=== PATIENT | female | born 1945 | race Caucasian/White ===

== ENCOUNTER → 2017-12-09 11:49 | Outpatient (CLI) | payer MEDICARE, OTHER, SELFPAY ==
[2017-12-09 15:50] LABS: Absolute Lymphocyte Count 0.29 X10^3/ul (0.83-4.51); Basophil# 0.02 X10^3/uL; Basophil% 0.5 % (0-1); Eosinophil# 0.07 X10^3/uL; Eosinophils% 1.9 % (0-5); Hemoglobin 9.7 g/dl (12.0-15.0); Lymphocyte # 0.29 X10^3/ul (4.0); Lymphocyte % 7.9 % (19-41); Mean Corp Hgb Conc 32.3 g/gl (32-36); Mean Corpuscular Hgb 31.8 pg (27.0-32.0); Mean Corpuscular Volume 98.4 fL (81-99); Mean Platelet Vol. 10.2 fl (6.2-12.0); Monocyte# 0.29 X10^3/uL; Monocyte% 7.9 % (0-10); Neutrophil % 81.5 % (47-70); Platelet Count 166 K/mm3 (150-450); RBC Distribution Width CV 15.9 % (11.6-14.6); RBC Distribution Width SD 55.4 fl (35.1-43.9); Red Blood Count 3.05 M/mm3 (4.2-5.4); White Blood Count 3.7 K/mm3 (4.4-11.0)
[2017-12-09 15:54] LABS: ALB/GLOB Ratio 0.8 RATIO (0.9-2.4); AST(SGOT) 39 U/L (15-37); Alanine Aminotransfer ALT/SGPT 30 U/L (13-56); Albumin, Serum 2.5 g/dL (3.2-5.0); Alkaline Phosphatase 126 U/L (45-117); Anion Gap 10 (5-15); BUN 29 mg/dL (7-18); BUN/Creat Ratio 33.8 RATIO (10-20); Calcium,Total 8.2 mg/dL (8.5-10.1); Chloride 103 mmol/L (98-107); Creatinine, Serum 0.86 mg/dL (0.55-1.02); EST Glomerular Filtration Rate 69 mL/min (>60); Est Glom Filt Rate - Afr Amer 84 mL/min (>60); Glucose 74 mg/dL (74-106); Lipase 408 U/L (73-393); Potassium 4.2 mmol/L (3.5-5.1); Protein, Total 5.5 g/dL (6.4-8.2); Sodium Level 137 mmol/L (136-145)
[2017-12-09 16:36] LABS: Differential Indicated SCAN CRITERIA MET; POSITIVE COUNT NO; POSITIVE DIFFERENTIAL YES; POSITIVE MORPHOLOGY NO
[2017-12-09 17:35] LABS: Platelet Estimate ADEQUATE (ADEQ)
[2017-12-09 17:36] LABS: Acanthocytes RARE; Anisocytosis RARE; Macrocytosis RARE
[2017-12-09 17:38] LABS: Erythrocyte Sedimentation Rate 7 mm/hr (0-30)
== END ==
PROVIDERS: Family Provider Family Medicine; PCP Family Medicine; Visit Provider Family Medicine
DX: K85.90 Acute pancreatitis without necrosis or infection, unspecified (principal)
CPT/HCPCS: 36415; 80053; 83690; 85025; 85652

== ENCOUNTER → 2018-01-09 11:49 | Outpatient (CLI) | payer MEDICARE, OTHER, SELFPAY ==
[2018-01-09 16:13] LABS: ALB/GLOB Ratio 0.7 RATIO (0.9-2.4); AST(SGOT) 35 U/L (15-37); Alanine Aminotransfer ALT/SGPT 32 U/L (13-56); Albumin, Serum 2.4 g/dL (3.2-5.0); Alkaline Phosphatase 125 U/L (45-117); Anion Gap 10 (5-15); BUN 26 mg/dL (7-18); BUN/Creat Ratio 27.4 RATIO (10-20); Calcium,Total 8.3 mg/dL (8.5-10.1); Chloride 102 mmol/L (98-107); Creatinine, Serum 0.95 mg/dL (0.55-1.02); EST Glomerular Filtration Rate 62 mL/min (>60); Est Glom Filt Rate - Afr Amer 75 mL/min (>60); Globulin 3.3 g/dL (2.2-4.2); Glucose 101 mg/dL (74-106); Potassium 3.7 mmol/L (3.5-5.1); Protein, Total 5.7 g/dL (6.4-8.2); Sodium Level 135 mmol/L (136-145)
== END ==
PROVIDERS: Family Provider Family Medicine; PCP Family Medicine; Visit Provider Family Medicine
DX: E03.9 Hypothyroidism, unspecified (principal); M79.89 Other specified soft tissue disorders
CPT/HCPCS: 36415; 80053; 84443

== ENCOUNTER → 2018-04-16 12:22 | Outpatient (CLI) | payer MEDICARE, OTHER, SELFPAY ==
[2018-04-16 14:41] LABS: Absolute Lymphocyte Count 0.33 X10^3/ul (0.83-4.51); Absolute Neutrophil Count 3.6 X10^3/uL (2.0-7.7); Basophil# 0.01 X10^3/uL; Basophil% 0.2 % (0-1); Eosinophil# 0.06 X10^3/uL; Eosinophils% 1.4 % (0-5); Hemoglobin 9.9 g/dl (12.0-15.0); Lymphocyte # 0.33 X10^3/ul (4.0); Lymphocyte % 7.7 % (19-41); Mean Corpuscular Hgb 31.5 pg (27.0-32.0); Mean Corpuscular Volume 95.5 fL (81-99); Mean Platelet Vol. 8.9 fl (6.2-12.0); Monocyte# 0.28 X10^3/uL; Monocyte% 6.6 % (0-10); Neutrophil # 3.59 X10^3/uL (2.7-7.7); Neutrophil % 84.1 % (47-70); Platelet Count 221 K/mm3 (150-450); RBC Distribution Width CV 13.1 % (11.6-14.6); RBC Distribution Width SD 43.9 fl (35.1-43.9); Red Blood Count 3.14 M/mm3 (4.2-5.4); White Blood Count 4.3 K/mm3 (4.4-11.0)
[2018-04-16 14:42] LABS: Differential Indicated SCAN CRITERIA MET; POSITIVE COUNT NO; POSITIVE DIFFERENTIAL YES; POSITIVE MORPHOLOGY NO
[2018-04-16 14:59] LABS: ALB/GLOB Ratio 0.8 RATIO (0.9-2.4); AST(SGOT) 36 U/L (15-37); Alanine Aminotransfer ALT/SGPT 26 U/L (13-56); Albumin, Serum 2.3 g/dL (3.2-5.0); Alkaline Phosphatase 84 U/L (45-117); Anion Gap 11 (5-15); BUN 40 mg/dL (7-18); BUN/Creat Ratio 46.4 RATIO (10-20); Chloride 100 mmol/L (98-107); Creatinine, Serum 0.86 mg/dL (0.55-1.02); EST Glomerular Filtration Rate 69 mL/min (>60); Est Glom Filt Rate - Afr Amer 83 mL/min (>60); Globulin 2.9 g/dL (2.2-4.2); Glucose 93 mg/dL (74-106); Lipase 411 U/L (73-393); Potassium 4.5 mmol/L (3.5-5.1); Protein, Total 5.2 g/dL (6.4-8.2); Sodium Level 135 mmol/L (136-145); Thyroid Stim Hormone (TSH) 4.43 uIU/mL (0.358-3.74)
== END ==
PROVIDERS: Family Provider Family Medicine; PCP Family Medicine; Visit Provider Family Medicine
DX: M79.89 Other specified soft tissue disorders (principal); K85.90 Acute pancreatitis without necrosis or infection, unspecified
CPT/HCPCS: 36415; 80053; 83690; 84443; 85025

== ENCOUNTER → 2018-04-24 12:21 | Outpatient (CLI) | payer MEDICARE, OTHER, SELFPAY ==
[2018-04-24 14:19] LABS: Albumin, Serum 2.2 g/dL (3.2-5.0); BUN 41 mg/dL (7-18); BUN/Creat Ratio 50.5 RATIO (10-20); Calcium,Total 8.1 mg/dL (8.5-10.1); Chloride 103 mmol/L (98-107); Creatinine, Serum 0.81 mg/dL (0.55-1.02); EST Glomerular Filtration Rate 74 mL/min (>60); Est Glom Filt Rate - Afr Amer 89 mL/min (>60); Ferritin 910 ng/mL (8-252); Glucose 100 mg/dL (74-106); Iron 42 ug/dL (50-170); Phosphorus 3.5 mg/dL (2.5-4.9); Potassium 4.6 mmol/L (3.5-5.1); Sodium Level 135 mmol/L (136-145)
== END ==
PROVIDERS: Family Provider Family Medicine; PCP Family Medicine; Visit Provider Family Medicine
DX: D64.9 Anemia, unspecified (principal); M79.89 Other specified soft tissue disorders
CPT/HCPCS: 36415; 80069; 82728; 83540

== ENCOUNTER → 2018-05-04 13:37 | Outpatient (CLI) | payer MEDICARE, OTHER, SELFPAY ==
--- NOTE | 2018-05-04 13:38 | ECHOD_ITS ---
Reason For Study: CHF Procedure This was a 2D Doppler, Color Flow transthoracic echocardiogram. The exam was of adequate technical quality. Exam performed in department. Left Ventricle Normal LV size. Segmental dysfunction with preserved ejection fraction (see wall motion). The estimated ejection fraction is 55 %. Normal diastology for age. Infero-Basal: Hypokinetic. Mid- Posterior: Hypokinetic. Mid-Inferior: Hypokinetic. Mid-inferoseptal : Hypokinetic. Right Ventricle Normal RV size. Normal systolic function. Atria Normal left atrium. Normal right atrium. No doppler evidence for ASD. Mitral Valve There is no mitral annular calcification. Normal mitral valve. Mild (1+) mitral valve insufficiency. Tricuspid Valve Normal tricuspid valve. Mild (1+) eccentric tricuspid valve insufficiency. Right ventricular systolic pressure estimated to be 32 mmHg. Aortic Valve Trisinus/trileaflet aortic valve. Normal aortic valve. Trivial aortic valve insufficiency. Pulmonic Valve The pulmonic valve is not well visualized. Trivial pulmonic valve insufficiency. Great Vessels Normal sized aortic root. Pericardium/Pleural Trivial pericardial effusion. There are no echocardiographic indications of cardiac tamponade. MMode/2D Measurements & Calculations LVIDd: 4.3 cm IVSd: 0.97 cm Ao root diam: 3.5 cm LVIDs: 3.2 cm LVPWd: 1.0 cm LA dimension: 3.5 cm RVDd: 2.7 cm FS: 25.6 % LAV(MOD-bp): 33.6 ml LA A4 area: 11.6 cm2 RA A4 area: 11.1 cm2 LAV(MOD-bp) Indexed: 20.8 ml/m2 LAV(MOD-sp2): 41.9 ml LAV(MOD-sp4): 25.6 ml Doppler Measurements & Calculations MV E max luis: 46.2 cm/sec Lat Peak E' Luis: 3.6 cm/sec Med Peak E' Luis: 4.3 cm/sec MV A max luis: 85.1 cm/sec E/E' lat: 12.8 E/E' med: 10.9 MV E/A: 0.54 Ao V2 max: 119.6 cm/sec LV V1 max: 71.8 cm/sec PA V2 max: 83.7 cm/sec Ao max P.7 mmHg LV V1 max P.1 mmHg TR max luis: 267.5 cm/sec TR max P.9 mmHg Interpretation Summary Segmental dysfunction with preserved ejection fraction (see wall motion). The estimated ejection fraction is 55 %. Mild (1+) mitral valve insufficiency. Mild (1+) eccentric tricuspid valve insufficiency. Trivial aortic valve insufficiency. Trivial pulmonic valve insufficiency. Trivial pericardial effusion. There are no echocardiographic indications of cardiac tamponade. Right ventricular systolic pressure estimated to be 32 mmHg. Normal diastology for age. Ordering Physician: Suhas Ferrell Referring Physician: Leighton Sun Performed By: Jaja Rendon, ALYSSA, RVT
== END ==
PROVIDERS: Family Provider Family Medicine; PCP Family Medicine; Visit Provider Internal Medicine Cardiovascular Disease
DX: I25.5 Ischemic cardiomyopathy (principal); I50.9 Heart failure, unspecified; D64.9 Anemia, unspecified
CPT/HCPCS: 36415; 80053; 82728; 83540; 83550; 85025; 93306

== ENCOUNTER → 2018-05-18 12:05 | Outpatient (CLI) | payer MEDICARE, OTHER, SELFPAY ==
[2018-05-18 12:53] LABS: Absolute Lymphocyte Count 0.56 X10^3/ul (0.83-4.51); Absolute Neutrophil Count 4.8 X10^3/uL (2.0-7.7); Basophil# 0.03 X10^3/uL; Basophil% 0.5 % (0-1); Eosinophil# 0.29 X10^3/uL; Eosinophils% 4.6 % (0-5); Hematocrit 32.3 % (37-47); Hemoglobin 10.5 g/dl (12.0-15.0); Lymphocyte # 0.56 X10^3/ul (4.0); Lymphocyte % 8.9 % (19-41); Mean Corp Hgb Conc 32.5 g/gl (32-36); Mean Corpuscular Hgb 31.7 pg (27.0-32.0); Mean Corpuscular Volume 97.6 fL (81-99); Mean Platelet Vol. 9.2 fl (6.2-12.0); Monocyte# 0.66 X10^3/uL; Monocyte% 10.4 % (0-10); Neutrophil # 4.76 X10^3/uL (2.7-7.7); Neutrophil % 75.3 % (47-70); Platelet Count 247 K/mm3 (150-450); RBC Distribution Width CV 13.5 % (11.6-14.6); RBC Distribution Width SD 45.9 fl (35.1-43.9); Red Blood Count 3.31 M/mm3 (4.2-5.4); White Blood Count 6.3 K/mm3 (4.4-11.0)
[2018-05-18 12:54] LABS: Differential Indicated SCAN CRITERIA MET; POSITIVE COUNT NO; POSITIVE DIFFERENTIAL YES; POSITIVE MORPHOLOGY NO
[2018-05-18 13:13] LABS: Differential Comment SCANNED
[2018-05-18 13:27] LABS: ALB/GLOB Ratio 0.7 RATIO (0.9-2.4); AST(SGOT) 28 U/L (15-37); Alanine Aminotransfer ALT/SGPT 30 U/L (13-56); Albumin, Serum 2.9 g/dL (3.2-5.0); Alkaline Phosphatase 96 U/L (45-117); Anion Gap 14 (5-15); BUN 35 mg/dL (7-18); BUN/Creat Ratio 39.5 RATIO (10-20); Calcium,Total 8.9 mg/dL (8.5-10.1); Chloride 99 mmol/L (98-107); Creatinine, Serum 0.89 mg/dL (0.55-1.02); EST Glomerular Filtration Rate 67 mL/min (>60); Est Glom Filt Rate - Afr Amer 81 mL/min (>60); Globulin 3.9 g/dL (2.2-4.2); Glucose 83 mg/dL (74-106); Lipase 687 U/L (73-393); Magnesium 2.2 mg/dL (1.6-2.6); Potassium 4.3 mmol/L (3.5-5.1); Protein, Total 6.8 g/dL (6.4-8.2); Sodium Level 136 mmol/L (136-145); Thyroid Stim Hormone (TSH) 3.65 uIU/mL (0.358-3.74)
[2018-05-18 13:56] LABS: Creatinine, Urine (random) < 13.00 mg/dL (NO RANGE EST.)
== END ==
PROVIDERS: Family Provider Family Medicine; PCP Family Medicine; Visit Provider Family Medicine
DX: K85.90 Acute pancreatitis without necrosis or infection, unspecified (principal); M79.89 Other specified soft tissue disorders
CPT/HCPCS: 36415; 80053; 82043; 82570; 83690; 83735; 84443; 85025

== ENCOUNTER → 2018-07-24 11:27 | Outpatient (CLI) | payer MEDICARE, OTHER, SELFPAY ==
[2018-07-24 18:11] LABS: Absolute Lymphocyte Count 0.51 X10^3/ul (0.83-4.51); Absolute Neutrophil Count 4.2 X10^3/uL (2.0-7.7); Basophil# 0.02 X10^3/uL; Basophil% 0.4 % (0-1); Eosinophil# 0.11 X10^3/uL; Hematocrit 39.3 % (37-47); Hemoglobin 12.7 g/dl (12.0-15.0); Lymphocyte # 0.51 X10^3/ul (4.0); Lymphocyte % 9.4 % (19-41); Mean Corp Hgb Conc 32.3 g/gl (32-36); Mean Corpuscular Hgb 31.7 pg (27.0-32.0); Mean Platelet Vol. 9.5 fl (6.2-12.0); Monocyte# 0.58 X10^3/uL; Monocyte% 10.7 % (0-10); Neutrophil % 77.3 % (47-70); Platelet Count 186 K/mm3 (150-450); RBC Distribution Width CV 13.4 % (11.6-14.6); RBC Distribution Width SD 48.2 fl (35.1-43.9); Red Blood Count 4.01 M/mm3 (4.2-5.4); White Blood Count 5.4 K/mm3 (4.4-11.0)
[2018-07-24 18:53] LABS: Differential Indicated SCAN CRITERIA MET; POSITIVE COUNT NO; POSITIVE DIFFERENTIAL YES; POSITIVE MORPHOLOGY NO
[2018-07-24 18:55] LABS: Anisocytosis RARE; Macrocytosis RARE; Platelet Estimate ADEQUATE (ADEQ)
[2018-07-24 19:05] LABS: ALB/GLOB Ratio 0.9 RATIO (0.9-2.4); AST(SGOT) 43 U/L (15-37); Alanine Aminotransfer ALT/SGPT 44 U/L (13-56); Albumin, Serum 3.5 g/dL (3.2-5.0); Alkaline Phosphatase 90 U/L (45-117); Anion Gap 8 (5-15); BUN 42 mg/dL (7-18); BUN/Creat Ratio 28.4 RATIO (10-20); Calcium,Total 9.3 mg/dL (8.5-10.1); Chloride 96 mmol/L (98-107); Cholesterol 130 mg/dL (200); Creatinine, Serum 1.48 mg/dL (0.55-1.02); EST Glomerular Filtration Rate 37 mL/min (>60); Est Glom Filt Rate - Afr Amer 45 mL/min (>60); Globulin 3.7 g/dL (2.2-4.2); Glucose 83 mg/dL (74-106); High Density Lipoprotein 43 mg/dL; Lipase 552 U/L (73-393); Potassium 4.4 mmol/L (3.5-5.1); Protein, Total 7.2 g/dL (6.4-8.2); Sodium Level 135 mmol/L (136-145); Thyroid Stim Hormone (TSH) 3.32 uIU/mL (0.358-3.74)
== END ==
PROVIDERS: Family Provider Family Medicine; PCP Family Medicine; Visit Provider Family Medicine
DX: K85.90 Acute pancreatitis without necrosis or infection, unspecified (principal); E03.9 Hypothyroidism, unspecified; I25.10 Atherosclerotic heart disease of native coronary artery without angina pectoris
CPT/HCPCS: 36415; 80053; 82465; 83690; 83718; 84443; 85025

== ENCOUNTER → 2018-10-21 15:42 | Outpatient (CLI) | payer MEDICARE, OTHER, SELFPAY ==
[2018-10-21 17:50] LABS: Absolute Lymphocyte Count 0.34 X10^3/ul (0.83-4.51); Absolute Neutrophil Count 3.4 X10^3/uL (2.0-7.7); Basophil# 0.02 X10^3/uL; Basophil% 0.4 % (0-1); Eosinophil# 0.06 X10^3/uL; Eosinophils% 1.3 % (0-5); Hematocrit 37.8 % (37-47); Hemoglobin 12.2 g/dl (12.0-15.0); Lymphocyte # 0.34 X10^3/ul (4.0); Lymphocyte % 7.6 % (19-41); Mean Corp Hgb Conc 32.3 g/gl (32-36); Mean Corpuscular Hgb 30.7 pg (27.0-32.0); Mean Corpuscular Volume 95.2 fL (81-99); Mean Platelet Vol. 9.7 fl (6.2-12.0); Monocyte# 0.62 X10^3/uL; Monocyte% 13.9 % (0-10); Neutrophil % 76.6 % (47-70); Platelet Count 180 K/mm3 (150-450); RBC Distribution Width CV 13.3 % (11.6-14.6); RBC Distribution Width SD 44.6 fl (35.1-43.9); Red Blood Count 3.97 M/mm3 (4.2-5.4); White Blood Count 4.5 K/mm3 (4.4-11.0)
[2018-10-21 17:51] LABS: Differential Indicated SCAN CRITERIA MET; POSITIVE COUNT NO; POSITIVE DIFFERENTIAL YES; POSITIVE MORPHOLOGY NO
[2018-10-21 17:52] LABS: ALB/GLOB Ratio 1.1 RATIO (0.9-2.4); AST(SGOT) 30 U/L (15-37); Alanine Aminotransfer ALT/SGPT 26 U/L (13-56); Albumin, Serum 3.2 g/dL (3.2-5.0); Alkaline Phosphatase 94 U/L (45-117); Anion Gap 5 (5-15); BUN 19 mg/dL (7-18); BUN/Creat Ratio 19.6 RATIO (10-20); Chloride 102 mmol/L (98-107); Creatinine, Serum 0.97 mg/dL (0.55-1.02); EST Glomerular Filtration Rate 60 mL/min (>60); Est Glom Filt Rate - Afr Amer 73 mL/min (>60); Globulin 2.9 g/dL (2.2-4.2); Glucose 110 mg/dL (74-106); Lipase 324 U/L (73-393); Potassium 4.4 mmol/L (3.5-5.1); Protein, Total 6.1 g/dL (6.4-8.2); Sodium Level 136 mmol/L (136-145)
[2018-10-21 18:05] LABS: Differential Comment SCANNED
[2018-10-21 19:09] LABS: Microalbumin:Creatinine Ratio 226.8 mg/g CRE (<30 mg/g CRE)
--- OUTSIDE RECORDS SUMMARY | 2018-12-26 15:17 | XMS RPT_ITS ---
:1945 Author Organization OHIP Support Name Relationship Address Phone R Unavailable Unavailable Unavailable SCHNIPKE, PIERRE Unavailable [address] + [place] [address] R Unavailable Unavailable Unavailable SCHNIPKE, PIERRE [facility] [address] + [place] [address] R Unavailable Unavailable Unavailable SCHNIPKE, PIERRE [facility] [address] + [place] [address] R Unavailable Unavailable Unavailable SCHNIPKE, PIERRE [facility] [address] + [place] [address] R Unavailable Unavailable Unavailable SCHNIPKE, PIERRE [facility] [address] + [place] [address] R Unavailable Unavailable Unavailable SCHNIPKE, PIERRE [facility] + [place] [address] R Unavailable Unavailable Unavailable SCHNIPKE, PIERRE [facility] [address] + [place] [address] R Unavailable Unavailable Unavailable SCHNIPKE, PIERRE [facility] + [place] [address] R Unavailable Unavailable Unavailable SCHNIPKE, PIERRE [facility] + [place] [address] R Unavailable Unavailable Unavailable SCHNIPKE, PIERRE [facility] + [place] [address] R Unavailable Unavailable Unavailable SCHNIPKE, PIERRE [facility] [address] + [place] [address] R Unavailable Unavailable Unavailable SCHNIPKE, PIERRE [facility] [address] + [place] [address] R Unavailable Unavailable Unavailable SCHNIPKE, PIERRE [facility] [address] + [place] [address] R Unavailable Unavailable Unavailable SCHNIPKE, PIERRE Unavailable [address] + [place] [address] R Unavailable Unavailable Unavailable SCHNIPKE, PIERRE Unavailable [address] + [place] [address] R Unavailable Unavailable Unavailable SCHNIPKE, PIERRE Unavailable [address] + [place] [address] R Unavailable Unavailable Unavailable SCHNIPKE, PIERRE Unavailable [address] + [place] [address] R Unavailable Unavailable Unavailable SCHNIPKE, PIERRE Unavailable [address] + [place] [address] R Unavailable Unavailable Unavailable SCHNIPKE, PIERRE Unavailable [address] + [place] [address] Care Team Providers Name Role Phone Allen Grigsby D.O. Attending Unavailable Sun, Leighton Referring Unavailable Sun, Leighton Attending Unavailable Sun, Leighton Primary Care Unavailable Suhas Ferrell Attending Unavailable Suhas Ferrell Referring Unavailable Sun, Leighton Primary Care Unavailable Sun, Leighton Attending Unavailable Sun, Leighton Primary Care Unavailable Jabour, Vincent Consulting Unavailable Sebastián Suh Attending Unavailable Jabour, Vincent Referring Unavailable Sun, Leighton Primary Care Unavailable Sebastián Suh Attending Unavailable Jabour, Vincent Referring Unavailable Sun, Leighton Primary Care Unavailable Sebastián Suh Consulting Unavailable Sun, Leighton Attending Unavailable Sun, Leighton Primary Care Unavailable Sebastián Suh Attending Unavailable Jabour, Vincent Referring Unavailable Sun, Leighton Primary Care Unavailable Sebastián Suh Consulting Unavailable Sebastián Suh Attending Unavailable Jabour, Vincent Referring Unavailable Sun, Leighton Primary Care Unavailable PraSebastián wong Consulting Unavailable Sun, Leighton Attending Unavailable Sun, Leighton Referring Unavailable Sun, Leighton Primary Care Unavailable Sun, Leighton Attending Unavailable Sun, Leighton Primary Care Unavailable Suhas Ferrell Attending Unavailable Sun, Leighton Referring Unavailable Sun, Leighton Primary Care Unavailable Suhas Ferrell Attending Unavailable Mariaelena Suhas Referring Unavailable Sun, Leighton Primary Care Unavailable Sebastián Suh Attending Unavailable Jabour, Vincent Referring Unavailable Sun, Leighton Primary Care Unavailable Sebastián Suh Consulting Unavailable Sun, Leighton Attending Unavailable Sun, Leighton Primary Care Unavailable Suhas Ferrell Attending Unavailable Yessirojelio, Suhas Referring Unavailable Moodispakendra, Suhas Attending Unavailable Sun, Leighton Referring Unavailable Sun, Leighton Attending Unavailable Sun, Leighton Primary Care Unavailable RachelHarish Attending Unavailable Sun, Leighton Referring Unavailable Sun, Leighton Primary Care Unavailable PROBLEMS PROBLEMS DATE TYPE CONDITION / CODE ATTENDING STATUS SOURCE 10/21/2018 Unknown R59.0 - Localized Leighton Sun [facility] enlarged lymph nodes Community / R59.0(ICD-10) Hospital Repository 10/21/2018 Unknown R62.7 - Adult failure Leighton Sun Active [facility] to thrive / Community R62.7(ICD-10) Hospital Repository 10/21/2018 Unknown K85.90 - Acute Leighton Sun [facility] pancreatitis without Community necrosis or Hospital infection, Repository unspecified / K85.90(ICD-10) 07/15/2018 Unknown I25.5 - Ischemic MoodisSuhas moser Active [facility] cardiomyopathy / Community I25.5(ICD-10) Hospital Repository 07/15/2018 Unknown I25.10 - MoodispaSuhas gardner Active [place] Atherosclerotic heart Community disease of [facility] coronary artery Repository without angina pectoris / I25.10(ICD-10) 07/15/2018 Unknown Z98.61 - Coronary MoodispaSuhas gardner Active [facility] angioplasty status / Community Z98.61(ICD-10) Hospital Repository 07/15/2018 Unknown I34.0 - Nonrheumatic MoodisSuhas moser Active [place] mitral (valve) Community insufficiency / Hospital I34.0(ICD-10) Repository 07/15/2018 Unknown R00.1 - Bradycardia, YessiisSuhas moser Active [facility] unspecified / Community R00.1(ICD-10) Hospital Repository 07/15/2018 Unknown R55 - Syncope and Yessiisehsan, Suhas Active [facility] collapse / Community R55(ICD-10) Hospital Repository 05/11/2018 Unknown D64.9 - Anemia, PrajudithSebastián Active [facility] unspecified / Community D64.9(ICD-10) Hospital Repository 04/16/2018 Unknown M79.89 - Other Leighton Sun Active [place] specified soft tissue Community disorders / Hospital M79.89(ICD-10) Repository 01/09/2018 Unknown E03.9 - Leighton Sun Active [facility] Hypothyroidism, Community unspecified / Hospital E03.9(ICD-10) Repository 12/22/2017 Unknown D50.9 - Iron PrahSebastián Active [facility] deficiency anemia, Community unspecified / Hospital D50.9(ICD-10) Repository 12/01/2017 Unknown Z95.5 - Presence of Suhas Ferrell Active [facility] coronary angioplasty Community implant and graft / Hospital Z95.5(ICD-10) Repository PROCEDURES PROCEDURES No Procedure Records FoundRESULTS RESULTS CBC W/DIFF, AUTOMATED Collected: 10/21/2018 Status: F Source: [place] [facility] TYPE CODE TESTS RESULT OUT OF RANGE REFERENCE UNITS LAB L100.1000 4.4-11.0 K/mm3 Normal WBC 4.5 LAB L100.1200 4.2-5.4 M/mm3 Low RBC 3.97 LAB L100.1300 12.0-15.0 g/dl Normal HGB 12.2 LAB L100.1400 37-47 % Normal HCT 37.8 LAB L100.1500 81-99 fL Normal MCV 95.2 LAB L100.1600 27.0-32.0 pg Normal MCH 30.7 LAB L100.1700 32-36 g/gl Normal MCHC 32.3 LAB L100.1810 11.6-14.6 % Normal RDW CV 13.3 LAB L100.1820 35.1-43.9 fl High RDW SD 44.6 LAB L100.1900 150-450 K/mm3 Normal PLT 180 LAB L100.2000 6.2-12.0 fl Normal MPV 9.7 LAB L100.2100 47-70 % High NEUT% 76.6 LAB L100.2200 19-41 % Low LY% 7.6 LAB L100.2300 0-10 % High MONO% 13.9 LAB L100.2400 0-5 % Normal EO% 1.3 LAB L100.2500 0-1 % Normal BASO% 0.4 LAB L100.2550 0.0-0.9 % Normal IM GRAN % 0.200 Result Comment: IG% - Immature Granulocytes (promyelocytes, myelocytes and metamyelocytes) > 1% indicates that a LEFT SHIFT is Present. LAB L100.2620 2.0-7.7 X10 3/uL Normal Absolute Neut 3.4 LAB L100.2720 0.83-4.51 X10 3/ul Low Absolute Lymph 0.34 LAB L100.4500 Normal SMEAR COMMENT SCANNED Result Comment: LYMPHOPENIA NOTED Performed By: #### L100.0100 #### [facility] [address] [place], [address] COMPREHENSIVE METABOLIC Collected: 10/21/2018 Status: F Source: [place] 3:44 PM [facility] TYPE CODE TESTS RESULT OUT OF RANGE REFERENCE UNITS LAB L501.0100 74-106 mg/dL High GLU 110 Result Comment: Fasting Glucose result from 100 to 125 mg/dL suggests IMPAIRED HOMEOSTASIS per A.D.A. criteria. Please note revised GLUCOSE reference range effective 2017. LAB L501.1000 7-18 mg/dL High BUN 19 LAB L501.1100 0.55-1.02 mg/dL Normal CREAT,SERUM 0.97 Result Comment: The validity of the calculated GFR AND GFRAA in patients over 70 years has not been determined. Clinical correlation is essential. LAB L501.1110 >60 mL/min Normal EST GFR 60 Result Comment: Non- GFR Calc LAB L501.1115 >60 mL/min Normal EST GFR - AA 73 Result Comment: GFR Calc LAB L501.1300 10-20 RATIO Normal BUN/CRE 19.6 LAB L501.1500 6.4-8.2 g/dL Low T PROT 6.1 LAB L501.1800 3.2-5.0 g/dL Normal ALB 3.2 LAB L501.1950 2.2-4.2 g/dL Normal GLOB 2.9 LAB L501.2000 0.9-2.4 RATIO Normal A/G 1.1 LAB L501.2200 8.5-10.1 mg/dL CA Normal 9.0 LAB L501.4100 15-37 U/L Normal AST 30 LAB L501.4305 45-117 U/L Normal ALK P 94 LAB L501.4405 13-56 U/L Normal ALT 26 LAB L501.4600 0.20-1.00 mg/dL T Normal BILI 0.80 LAB L501.5300 136-145 mmol/L NA Normal 136 LAB L501.5600 3.5-5.1 mmol/L K Normal 4.4 LAB L501.5900 98-107 mmol/L CL Normal 102 LAB L501.6100 21.0-32.0 mmol/L Normal CO2 29.0 LAB L501.6200 5-15 Normal GAP 5 Performed By: #### L500.4050, L501.2450 #### [facility] [address] [place], [address] LIPASE Collected: 10/21/2018 Status: F Source: [place] 3:44 PM [facility] TYPE CODE TESTS RESULT OUT OF RANGE REFERENCE UNITS LAB L501.2450 73-393 U/L Normal LIPASE 324 Performed By: #### L500.4050, L501.2450 #### [facility] [address] [place], [address] MICROALB:CREAT Collected: 10/21/2018 Status: F Source: [place] RATIO,RANDOM UR 3:44 PM [facility] TYPE CODE TESTS RESULT OUT OF RANGE REFERENCE UNITS LAB L501.1200 NO RANGE EST. mg/dL Normal UR CREAT 82.90 LAB L502.0500 NO RANGE EST. mg/L Normal 188.0 MICROALBUMIN ,UR LAB L502.0600 <30 mg/g CRE mg/g CRE High 226.8 MALB:CREAT Performed By: #### L502.0250 #### [facility] [address] [facility] [address] [place], [address] PULMONARY VISIT REPORT Observed: 09/17/2018 Status: F Source: [place] 9:55 AM [facility] of [address] [place] [address] OFFICE VISIT Date of Service: 09/17/18 MR#: [id number] Acct: [id number] Name: SANANEELIMAABEL TINEO Marcio Rep #: [id number] : 1945 Provider: Allen Grigsby D.O. Age/Sex: 72/F Location[place] [facility] [place] Status: Signed Assessment AND Plan 1. Sjogren's syndrome, with unspecified organ involvement M35.00 Plan The patient has Sjogren's syndromes without known lung involvement. She was previously referred for evaluation of recurrent pleural effusions, which were transudative in nature and related to her underlying cardiomyopathy. Given that the patient is without any respiratory limitations or complaints, she has been advised that she can follow-up on an as-needed basis at this time. 2. Dysphagia, unspecified type R13.10 Plan The patient has known dysphasia due to her underlying Sjogren's syndrome and does have a PEG tube in place. Despite recommendations to the contrary, the patient does take in all of her nutrition by mouth. She is at high risk for potential aspiration event in the future. 3. CAD (coronary artery disease) I25.10 Plan Continue current medical management and follow-up with cardiology as scheduled. Plan Detail Follow Up PRN HPI HPI Comments Details: The patient is a 72-year-old female who presents to the clinic today for a routine scheduled follow-up office visit. Her is present at today's office visit as well. If you recall, the patient was initially referred to me in May 2017 for evaluation of recurrent pleural effusions. The patient does have a history of Sjogren's syndrome, coronary artery disease heart failure. The patient underwent cardiac catheterization in March 2017 which revealed normal LVEDP and right heart pressures. There was evidence of segmental LV dysfunction with an ejection fraction of 20% along with stebbins multivessel coronary artery disease for which medical therapy and staged percutaneous intervention was undertaken. The patient's pleural effusions were always transudative in nature and felt to be the consequence of her heart failure. She is now on a stable cardiac medication regimen including diuretics. With the patient's history of Sjogren's syndrome, she had a PEG tube placed previously. However, she continues to take in nutrition by mouth and does report recurrent dysphagia symptoms. At the current time, she reports she takes and medications via her PEG tube takes in all of her nutrition by mouth. She denies the presence of shortness of breath, chest tightness or wheezing. Her weight has remained stable. She continues to routinely follow-up with cardiology. She denies fevers, chills or night sweats. She has not experienced any overt aspiration events recently. 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 Accompanied by: Is patient in pain?: No Allergies povidone-iodine [From Betadine] Adverse Reaction (Mild, Verified 09/17/18 09:11) Rash soap [From Betadine] Adverse Reaction (Mild, Verified 09/17/18 09:11) Rash Medications Atorvastatin Calcium 80 mg GT QHS 06/26/17 [History Confirmed 09/17/18] Carvedilol [Coreg] 3.125 mg GT BID 06/26/17 [History Confirmed 09/17/18] Levothyroxine [Synthroid] 12.5 mcg GT DAILY 06/26/17 [History Confirmed 09/17/18] ferrous sulfate 220 mg (44 mg iron)/5 mL oral elixir See Rx Instructions PO BID ml 10/22/17 [History Confirmed 09/17/18] Omeprazole [Prilosec] 40 mg GT BID #120 cap 10/23/17 [Rx Confirmed 09/17/18] torsemide 20 mg tablet 20 mg PO QDAY #30 tab 04/29/18 [Rx Confirmed 09/17/18] spironolactone 50 mg tablet 25 mg PO QDAY tab 07/15/18 [History Confirmed 09/17/18] [facility] Medical History Anemia (Chronic) 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) Body mass index (BMI) of 23.0-23.9 in adult (Chronic) Cardiomyopathy (Chronic) Chronic pancreatitis (Chronic) Chronic systolic congestive heart failure (Chronic) Difficulty swallowing (Chronic) Mitral regurgitation and mitral stenosis (Chronic) Primary Sjogren's syndrome (Chronic) Pulmonary hypertension (Chronic) Acute ddc-FF-jlxmojmjn myocardial infarction (Resolved) History of hysterectomy (Resolved) Pleural effusion (Resolved) Right upper quadrant pain (Resolved) Thrush (Resolved) Surgical History H/O heart artery stent (Chronic) History of left heart catheterization (LHC) (Chronic) H/O bilateral breast reduction surgery (Resolved) H/O bladder repair surgery (Resolved) History of tonsillectomy (Resolved) S/P percutaneous endoscopic gastrostomy (PEG) tube placement (Resolved) S/P rotator cuff repair (Resolved) S/P thoracentesis (Resolved) Family History Mother Cancer Lung cancer Father Heart disease Cancer of kidney Brother Cancer Esophageal Cancer Social History Smoking Status: Never smoker second hand exposure: No alcohol intake: never caffeine: No what type of physical activity do you participate in: other details: Therapy frequency: 3-4 times per week duration: 15-30 minutes/day seatbelt use: always do you feel safe at home: Yes Review of Systems Const CONSTITUTIONAL: Positive fatigue; negative anorexia, body ache, chills, daytime sleepiness, fever(s), night sweats, oral thrush, stops breathing during sleep, weight loss, sleeping in chair, weight loss, weight gain, frequent colds, seasonal allergies, other, headache(s) or orthopnea EETM Ear Nose Throat Mouth: Positive hearing normal and hoarseness; negative hard of hearing, dry mouth in morning, change in vision, itchy eyes, eye pain, swallowing Difficulty, ear pain, nose bleed, headache(s), mouth pain, nasal congestion, nasal discharge, post nasal drip, sinus pain, sinus pressure, sore throat or other Cardio Cardiovascular: Negative chest pain, chest pain at rest, chest pain with activity, irregular heart rhythm, edema, shortness of breath when lying down, palpitations, murmur or other Resp Respiratory: Positive as per HPI and cough cough: Positive non-productive; negative shortness of breath, pain with cough, wheezing, chest congestion, chest tightness, pain on inspiration, inhalers, increase use of rescue inhalers, snoring, apnea or other Gastro Gastrointestional: Negative bloody stools, change in appetite, difficulty swallowing, reflux, hematemesis, melena stool, loose stool, constipation or other Genitourinary: Negative blood in urine, nocturia, pain with urination or other Musc Musculoskeletal: Negative body pain, back pain, neck pain or other Skin/Breast Skin/Breast: Negative dry skin, itching, rash, unusual bruising, breast lump or other Neuro Neurological: Positive weakness; negative restless legs, confusion or other Psych Psychocological: Negative abnormal sleep pattern, anxiety, thoughts of hurting self/others, hopelessness or other Lymph Lymphatic: Negative easy bleeding, easy bruising, swollen lymph nodes or other Exam Const Constitutional: Positive conversant, cooperative, in no acute respiratory distress, well developed, well nourished, good hygiene and thin Head Head: Positive normocephalic and atraumatic; negative cyanosis of lips/distal nose Parotid gland enlargement bilaterally. Eyes Eye: Positive clear conjunctiva; negative nystagmus or scleral abnormality Ears Ear: Positive hearing normal and external ears normal; negative hard of hearing Nose Nose: Positive external nose normal; negative epistaxis Mouth Mouth: Positive oral mucosae normal and posterior oropharynx is adequate; negative no lesions or post nasal drip Mallampati Score: II: Mallampati Score Neck Neck: Positive normal visual inspection and trachea midline; negative lymphadenopathy Chest Wall Chest: Positive symmetric chest movement Normal AP diameter. Resp lung sounds: Positive clear to auscultation and good air exchange; negative wheezes, rhonchi or rales Cardio Cardiac: Positive regular rate, regular rhythm, S1 normal and S2 normal; negative rub, gallop or murmur GI GI: Positive normal bowel sounds Soft without distention. PEG tube remains in place. Genitourinary: Positive deferred Musc Musculoskeletal: Positive steady gait Skin Pulmonary Skin Exam: Positive intact; negative lesion, ulcers, dermal atrophy or rash Pulses Pulse: Yes Pedal pulses present: Extremities Extremities: No clubbing, No cyanosis, No edema Neuro Neurologic: Yes conversant, Yes no focal neuro deficits, Yes cooperative Lymph Lymphatic: No lymphadenopathy Psych Appearance: Positive grossly normal Mental Status: Positive mental status grossly normal Mood: Positive congruent mood Affect: Positive normal affect Coding Level of Care Code Off vis,est,level 3 Diagnoses Sjogren's syndrome, with unspecified organ involvement M35.00 Sjogren's organ involvement: unspecified organ involvement Dysphagia, unspecified type R13.10 CAD (coronary artery disease) I25.10 09/17/18 0955 <Electronically signed by Allen Grigsby DO> Date Allen Grigsby DO Cosigner Signature: Date (if applicable) CC: Leighton Sun MD CBC W/DIFF, AUTOMATED Collected: 07/24/2018 Status: F Source: [place] 11:28 AM [facility] TYPE CODE TESTS RESULT OUT OF RANGE REFERENCE UNITS LAB L100.1000 4.4-11.0 K/mm3 Normal WBC 5.4 LAB L100.1200 4.2-5.4 M/mm3 Low RBC 4.01 LAB L100.1300 12.0-15.0 g/dl Normal HGB 12.7 LAB L100.1400 37-47 % Normal HCT 39.3 LAB L100.1500 81-99 fL Normal MCV 98.0 LAB L100.1600 27.0-32.0 pg Normal MCH 31.7 LAB L100.1700 32-36 g/gl Normal MCHC 32.3 LAB L100.1810 11.6-14.6 % Normal RDW CV 13.4 LAB L100.1820 35.1-43.9 fl High RDW SD 48.2 LAB L100.1900 150-450 K/mm3 Normal PLT 186 LAB L100.2000 6.2-12.0 fl Normal MPV 9.5 LAB L100.2100 47-70 % High NEUT% 77.3 LAB L100.2200 19-41 % Low LY% 9.4 LAB L100.2300 0-10 % High MONO% 10.7 LAB L100.2400 0-5 % Normal EO% 2.0 LAB L100.2500 0-1 % Normal BASO% 0.4 LAB L100.2550 0.0-0.9 % Normal IM GRAN % 0.200 Result Comment: IG% - Immature Granulocytes (promyelocytes, myelocytes and metamyelocytes) > 1% indicates that a LEFT SHIFT is Present. LAB L100.2620 2.0-7.7 X10 3/uL Normal Absolute Neut 4.2 LAB L100.2720 0.83-4.51 X10 3/ul Low Absolute Lymph 0.51 LAB L100.4500 Normal SMEAR COMMENT SEE COMMENT Result Comment: LYMPHOPENIA NOTED LAB L100.5500 ADEQ PLT EST Normal ADEQUATE LAB L100.7300 ANISO RARE Normal LAB L100.7800 RARE Normal MACROCYTE Performed By: #### L100.0100 #### [place] [address] [place], [address] COMPREHENSIVE METABOLIC Collected: 07/24/2018 Status: F Source: [place] 11:28 AM [facility] TYPE CODE TESTS RESULT OUT OF RANGE REFERENCE UNITS LAB L501.0100 74-106 mg/dL Normal GLU 83 Result Comment: Please note revised GLUCOSE reference range effective 2017. LAB L501.1000 7-18 mg/dL High BUN 42 LAB L501.1100 0.55-1.02 mg/dL High CREAT,SERUM 1.48 Result Comment: The validity of the calculated GFR AND GFRAA in patients over 70 years has not been determined. Clinical correlation is essential. LAB L501.1110 >60 mL/min Low EST GFR 37 Result Comment: Non- GFR Calc LAB L501.1115 >60 mL/min Low EST GFR - AA 45 Result Comment: GFR Calc LAB L501.1300 10-20 RATIO High BUN/CRE 28.4 LAB L501.1500 6.4-8.2 g/dL T Normal PROT 7.2 LAB L501.1800 3.2-5.0 g/dL Normal ALB 3.5 LAB L501.1950 2.2-4.2 g/dL Normal GLOB 3.7 LAB L501.2000 0.9-2.4 RATIO Normal A/G 0.9 LAB L501.2200 8.5-10.1 mg/dL CA Normal 9.3 LAB L501.4100 15-37 U/L High AST 43 LAB L501.4305 45-117 U/L Normal ALK P 90 LAB L501.4405 13-56 U/L Normal ALT 44 LAB L501.4600 0.20-1.00 mg/dL T Normal BILI 0.70 LAB L501.5300 136-145 mmol/L Low NA 135 LAB L501.5600 3.5-5.1 mmol/L K Normal 4.4 LAB L501.5900 98-107 mmol/L Low CL 96 LAB L501.6100 21.0-32.0 mmol/L Normal CO2 31.0 LAB L501.6200 5-15 Normal GAP 8 Performed By: #### L500.4050, L501.2450, L501.4900, L501.6400, L501.9520 #### [facility] [address] [place], [address] LIPASE Collected: 07/24/2018 Status: F Source: [place] 11:28 AM [facility] TYPE CODE TESTS RESULT OUT OF REFERENCE UNITS RANGE LAB L501.2450 73-393 U/L High LIPASE 552 Performed By: #### L500.4050, L501.2450, L501.4900, L501.6400, L501.9520 #### [facility] [address] [place], [address] CHOLESTEROL Collected: 07/24/2018 Status: F Source: [place] 11:28 AM [facility] TYPE CODE TESTS RESULT OUT OF RANGE REFERENCE UNITS LAB L501.4900 200 mg/dL Normal CHOL 130 Result Comment: <200 mg/dL Desirable 200-240 mg/dL Borderline >240 mg/dL High Risk Performed By: #### L500.4050, L501.2450, L501.4900, L501.6400, L501.9520 #### [facility] [address] [place], [address] HIGH DENSITY Collected: 07/24/2018 Status: F Source: [place] LIPOPROTEIN 11:28 AM [facility] TYPE CODE TESTS RESULT OUT OF RANGE REFERENCE UNITS LAB L501.6400 mg/dL Normal HDL 43 Result Comment: The drugs N-Acetylcysteine and Metamizole may falsely depress this assay. Reference Range HDL <40 mg/dL Low HDL Cholesterol HDL >or= 60 mg/dL High HDL Cholesterol Performed By: #### L500.4050, L501.2450, L501.4900, L501.6400, L501.9520 #### [facility] [address] [place], [address] THYROID STIM HORMONE Collected: 07/24/2018 Status: F Source: [place] (TSH) 11:28 AM [facility] TYPE CODE TESTS RESULT OUT OF RANGE REFERENCE UNITS LAB L501.9520 0.358-3.74 uIU/mL Normal TSH 3.32 Performed By: #### L500.4050, L501.2450, L501.4900, L501.6400, L501.9520 #### [facility] [address] [place], [address] CARDIOLOGY VISIT Observed: 07/15/2018 Status: F Source: [facility] REPORT 12:16 PM [facility] [address] [place] [address] OFFICE VISIT Date of Service: 07/15/18 MR#: [id number] Acct: [id number] Name: ABEL NICHOLE Rep #: [id number] : 1945 Provider: Suhas Ferrell MD Age/Sex: 72/F Location: [facility] [place] Status: Signed HPI HPI Chief Complaint: Follow up for management of anemia. Details: ABEL NICHOLE, is a 72 F who presents to the office today for outpatient cardiovascular follow-up. Overall from a cardiac standpoint she appears to be doing well. She states that after adjustment of her diuretics she did lose several pounds of fluid weight. She has felt better. She has not noted any obvious ongoing episodes of overt orthopnea or PND or recurrent peripheral pitting edema. There has been no concerning chest discomfort, palpitations, near-syncope or syncope. She is wearing support stockings. Intake Vital Signs07/15/18 Height 5 ft 4 in 07/15/18 Weight: 111 lb 07/15/18 Body Mass Index (BMI) 19.0 07/15/18 Blood Pressure 98/62 Intake Visit Reasons: 3 m fu Allergies povidone-iodine [From Betadine] Adverse Reaction (Mild, Verified 04/29/18 11:45) Rash soap [From Betadine] Adverse Reaction (Mild, Verified 04/29/18 11:45) Rash Medications Atorvastatin Calcium 80 mg GT QHS 06/26/17 [History Confirmed 07/15/18] Carvedilol [Coreg] 3.125 mg GT BID 06/26/17 [History Confirmed 07/15/18] Levothyroxine [Synthroid] 12.5 mcg GT DAILY 06/26/17 [History Confirmed 07/15/18] Acetaminophen [Pain Relief] 500 mg GT Q6H PRN PRN 07/16/17 [History Confirmed 07/15/18] Cholecalciferol (VIT D3) 5,000 iu PO DAILY 10/20/17 [History Confirmed 07/15/18] ferrous sulfate 220 mg (44 mg iron)/5 mL oral elixir See Rx Instructions PO BID ml 10/22/17 [History Confirmed 07/15/18] Omeprazole [Prilosec] 40 mg GT BID #120 cap 10/23/17 [Rx Confirmed 07/15/18] torsemide 20 mg tablet 20 mg PO QDAY #30 tab 04/29/18 [Rx Confirmed 07/15/18] spironolactone 50 mg tablet 25 mg PO QDAY tab 07/15/18 [History Confirmed 07/15/18] PFSH Medical History Anemia (Chronic) 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) Body mass index (BMI) of 23.0-23.9 in adult (Chronic) Cardiomyopathy (Chronic) Chronic pancreatitis (Chronic) Chronic systolic congestive heart failure (Chronic) Difficulty swallowing (Chronic) Mitral regurgitation and mitral stenosis (Chronic) Primary Sjogren's syndrome (Chronic) Pulmonary hypertension (Chronic) Acute kro-IU-uxkizurxi myocardial infarction (Resolved) History of hysterectomy (Resolved) Pleural effusion (Resolved) Right upper quadrant pain (Resolved) Thrush (Resolved) Surgical History H/O heart artery stent (Chronic) History of left heart catheterization (LHC) (Chronic) H/O bilateral breast reduction surgery (Resolved) H/O bladder repair surgery (Resolved) History of tonsillectomy (Resolved) S/P percutaneous endoscopic gastrostomy (PEG) tube placement (Resolved) S/P rotator cuff repair (Resolved) S/P thoracentesis (Resolved) Family History Mother Cancer Lung cancer Father Heart disease Cancer of kidney Brother Cancer Esophageal Cancer Social History Smoking Status: Never smoker second hand exposure: No alcohol intake: never caffeine: No what type of physical activity do you participate in: other details: Therapy frequency: 3-4 times per week duration: 15-30 minutes/day seatbelt use: always do you feel safe at home: Yes ROS Const Const: Negative for fatigue, weakness, weight gain, weight loss, frequent falls or excessive sweating Eyes Eyes: Negative for change in vision, blurry vision or transient loss of vision ENT ENT: Positive for balance problems (ambulates with a wheeled walker); negative for dizziness Cardio Chest Pain: No Palpitations: No Edema: None Muscle aches with walking: None Resp Respiratory: Positive for Cough (occasional productive cough); negative for SOB with activity or SOB at rest GI GI: Negative vomiting or vomiting blood/hematemesis : Negative for hematuria Musc Musc: Positive for balance problems (ambulates with a wheeled walker); negative for muscle aches/ myalgia, muscle weakness or joint pain Skin Skin: Negative non-healing lesions or rash Neuro Neuro: Negative for weakness, blurry vision, dizziness, lightheadedness, frequent falls or orthostatic symptoms Maxi Hematologic/Lymphatic: Negative for easy bleeding Endo Endo: Negative for fatigue or excessive sweating Psych Psych: Negative for anxiety or depression Allergy Allergy/Immunology: Negative for hives, Negative for rash Cardiology Exam Const Appearance: cooperative, comfortable, no acute distress, well developed and well groomed Nutritional Appearance: thin Orientation: alert, awake and oriented x3 Head Head: normal to inspection, normocephalic and atraumatic Ears: hearing grossly normal bilaterally Nose: external nose normal Face and Sinus: face symmetric Mouth: oral mucosae normal Teeth and gingiva: fair dentition Eyes Eyelids: eyelids normal Conjunctivae: conjunctivae normal Pupils: PERRL EOM: EOM intact bilaterally Neck Neck: normal visual inspection and full ROM Carotids: normal carotid upstroke Chest Chest inspection: normal inspection of the chest and symmetric chest movement Auscultation: Bilateral: Clear to Auscultation Cardio Palpation: normal PMI Rate: regular rate Rhythm: regular rhythm Heart sounds: S1 normal and S2 normal GI GI: normal to inspection, bowel sounds present and soft Neuro General: alert, awake, oriented x3 and moves all extremities Skin Skin: no rashes or lesions noted Extremities Pulses: Normal: Right Radial Pulse, Left Radial Pulse Lower Extremity Edema: None: Bilateral (wearing support stockings) Psych Psychological: normal affect Supplemental Info Echocardiogram: 05/04/2018 Interpretation Summary Segmental dysfunction with preserved ejection fraction (see wall motion). The estimated ejection fraction is 55 %. Mild (1+) mitral valve insufficiency. Mild (1+) eccentric tricuspid valve insufficiency. Trivial aortic valve insufficiency. Trivial pulmonic valve insufficiency. Trivial pericardial effusion. There are no echocardiographic indications of cardiac tamponade. Right ventricular systolic pressure estimated to be 32 mmHg. Normal diastology for age. Stress test: 07/24/2017 Procedure: The patient underwent pharmacologic (Regadenoson) evaluation with a peak heart rate of 92 bpm (61% predicted maximal heart rate) with a peak blood pressure 132/80 mmHg. The baseline ECG demonstrated normal sinus rhythm. The peak pharmacologic ECG demonstrated no obvious ECG changes. There were no cardiac dysrhythmias pretest, during pharmacologic infusion, or recovery. There was no report of chest discomfort during pharmacologic infusion or recovery. The examination was discontinued secondary to completion of protocol. Impression: 1. Pharmacologic (Regadenoson) UA son 2. Peak pharmacologic ECG with no obvious ECG changes 3. Nuclear images pending Myocardial perfusion imaging study: Technique: The patient was injected with 11.5 mCi of technetium 90 9M Cardiolite and subsequently rest SPECT Cardiolite nuclear imaging was obtained in the horizontal long, vertical long, and short axis views. The patient underwent pharmacologic (Regadenoson) evaluation with a peak heart rate of 92 bpm (61% predicted maximal heart rate) with a peak blood pressure 132/80 mmHg and the patient was injected with 32.6 mCi of technetium 99m Cardiolite and subsequently stress SPECT Cardiolite nuclear imaging was obtained in the horizontal long, vertical long, and short axis views. A gated Cardiolite study at peak stress was obtained. Interpretation: Rest and stress SPECT Cardiolite nuclear imaging status post realignment, normalization, and attenuation correction demonstrates the appearance of a small area of subtle diminished tracer uptake near the apical segments without significant change between rest and stress. There is end systolic thickening and brightening. The gated Cardiolite study demonstrates myocardial thickening and inward wall motion. The reported LVEF is 62%. Impression: 1. Rest and stress SPECT Cardiolite nuclear imaging demonstrate myocardial perfusion changes appearing compatible with physiologic apical thinning with no myocardial perfusion changes consider diagnostic for associated stress-induced myocardial ischemia or previous myocardial injury/infarction. 2. The gated Cardiolite study reports an LVEF of 62%. Cardiac cath: 04/01/2017 DOMINANCE: Right Dominant LEFT HEART ASSESSMENT Left Ventricular Ejection Fraction: by LV Gram 20 % Anterior Hypokinesis. Apical Hypokinesis. Inferior Basal Akinesis. Inferior Mid Akinesis Depressed Left Ventricular systolic function Normal Left Ventricular End Diastolic Pressure LVEDP: 5 mmHg RIGHT HEART ASSESSMENT Thermal CC: 3.19 Thermal Cl: 1.99 Yuki CO: 5.1 Yuki Cl: 3.19 PW: 5/3 1 PA: 30/14 20 RV: 22/-4 1 RA: 1/0 0 PVR: 476 Aortic Valve Mean Gradient: 0 Mitral Valve Area: 2.30 Mitral Valve index: 1.44 Mitral Valve Mean Gradient: 11.6 Right Heart pressures - normal (pre angiographic dye load) Intracardiac shunting: None LEFT MAIN: Mild luminal irregularities LEFT ANTERIOR DESCENDING ARTERY: PROX LAD: Diffuse: Eccentric: 25-50 % Stenosis MID LAD: S/P: Eccentric: 25 % Stenosis CIRCUMFLEX ARTERY: PROX CIRC: Mild luminal irregularities MID CIRC: Diffuse: Eccentric: 25 % Stenosis OM 1: Ostial - 85 % Stenosis OM 2: Proximal - 95-99 % Stenosis RIGHT CORONARY ARTERY: Mild luminal irregularities MID RCA: Diffuse: Eccentric: 25 % Stenosis, Eccentric: 50 % Stenosis VALVE FINDINGS: Normal Aortic Valve function Mitral Melissa Insufficiency - Grade 1 AORTIC ROOT: Angiographically normal Cardiac PCI: 07/17/2017 Successful PTCA/SILVIA of the proximal left posterolateral branch of LOX, utilizing a 2.25 x 12 Promus Synergy; 85%-->.0%, no dissection. Successful PTCA/SILVIA of the of the ostial OM#1 with primary stenting utilizing a 3.5 x 8 Promus Synergy, post dilated with a 4.0 x 8 NC Balloon; 75%-->0%, no dissection or encroachment on main AV LOX with passage of deflated balloon across ostium of OM#1. Successful PTCA/SILVIA of the proximal LAD after FFR<0.80, utilizing primary stenting with a 3.0 x 24 Promus Synergy at 14 elaine; 75%-->0%, no dissection. Assessment AND Plan 1. Atherosclerosis of stebbins coronary artery of stebbins heart without angina pectoris I25.10 PTCA/SILVIA to LCx, OM #1, and LAD in July 2017; Plan At the present time she appears to be doing well with no obvious ongoing symptoms or adverse events. She was asked to continue risk factor modification medical management as best as tolerated. With respect to her history of CAD and PCI she is now, within 2 days, approaching her anniversary of event of her PCI. She would like to discontinue her antiplatelet therapy with respect to her clopidogrel/Plavix. Her states she has enough supply until approximately September 09 of this year. Status post review of her case she was told that, as she will be greater than 1 year from her PCI, without other obvious concerns, she can discontinue her antiplatelet therapy once she has completed her current supply. She will need to monitor for any concerns. Orders Orders: 2. S/P PTCA (percutaneous transluminal coronary angioplasty) Z98.61 Plan Again she will soon be 1 year from her PCI. She will proceed with medication adjustment as noted above. Orders Orders: 3. Ischemic cardiomyopathy I25.5 Plan She does not appear to have any symptoms of acute CHF or pulmonary edema at this time. She appears to be improved with adjustment of her diuretics. There is concern as to avoid over diuresis and potentially dehydration. At the moment she will continue diuretics. She will be asked to decrease her Spironolactone/Aldactone to 25 mg a day. She will have a follow-up BMP to monitor her potassium function and her renal function. She will also follow for any obvious reaccumulation of fluid. Orders Orders: 4. Nonrheumatic mitral valve insufficiency I34.0 Plan She does have a history of MR. She appears without significant change based on history and examination. She will continue to be followed. Orders Orders: 5. Bradycardia R00.1 Plan Her heart rate appears stable today. She appears to be in a regular rhythm. She will continue her medical management and follow-up. Orders Orders: 6. Syncope and collapse R55 Plan She has had no obvious evidence of near syncope or syncope. Thus she will continue her medication with adjustment as described above. She will monitor for any concerns. Orders Orders: Plan Detail Other Medications Changed: Discontinued: clopidogrel VIA GT Discontinued Reason: O75 mg PO DAILY 90 tabs 3RF blood thinner rder Changed Additional Comments She will be scheduled for future outpatient cardiovascular follow-up. She will notify the office of any concerns in the interim. Thank you for allowing me to participate in the care of your patient. Please don't hesitate to call if any issues arise. This note was generated using a voice recognition system and there may be incorrect words, spelling or punctuation that were not noted when reviewing the office note prior to saving. Follow Up 6 Months (PFM) Coding Level of Care Code Off vis,est,level 4 Diagnoses Atherosclerosis of stebbins coronary artery of stebbins heart without angina pectoris I25.10 S/P PTCA (percutaneous transluminal coronary angioplasty) Z98.61 Ischemic cardiomyopathy I25.5 Cardiomyopathy type: ischemic Nonrheumatic mitral valve insufficiency I34.0 Bradycardia R00.1 Syncope and collapse R55 Coding Level of Care Code Off vis,est,level 4 Diagnoses Atherosclerosis of stebbins coronary artery of stebbins heart without angina pectoris I25.10 S/P PTCA (percutaneous transluminal coronary angioplasty) Z98.61 Ischemic cardiomyopathy I25.5 Cardiomyopathy type: ischemic Nonrheumatic mitral valve insufficiency I34.0 Bradycardia R00.1 Syncope and collapse R55 07/15/18 1216 <Electronically signed by Suhas Ferrell MD> Date Suhas Ferrell MD Cosigner Signature: Date (if applicable) CC: Leighton Sun MD CBC W/DIFF, AUTOMATED Collected: 05/18/2018 Status: F Source: [facility] 12:07 PM [facility] Order Comment: Order Date: 05/18/18 Order Info: 0184-1 - CBCD TYPE CODE TESTS RESULT OUT OF RANGE REFERENCE UNITS LAB L100.1000 4.4-11.0 K/mm3 Normal WBC 6.3 LAB L100.1200 4.2-5.4 M/mm3 Low RBC 3.31 LAB L100.1300 12.0-15.0 g/dl Low HGB 10.5 LAB L100.1400 37-47 % Low HCT 32.3 LAB L100.1500 81-99 fL Normal MCV 97.6 LAB L100.1600 27.0-32.0 pg Normal MCH 31.7 LAB L100.1700 32-36 g/gl Normal MCHC 32.5 LAB L100.1810 11.6-14.6 % Normal RDW CV 13.5 LAB L100.1820 35.1-43.9 fl High RDW SD 45.9 LAB L100.1900 150-450 K/mm3 Normal PLT 247 LAB L100.2000 6.2-12.0 fl Normal MPV 9.2 LAB L100.2100 47-70 % High NEUT% 75.3 LAB L100.2200 19-41 % Low LY% 8.9 LAB L100.2300 0-10 % High MONO% 10.4 LAB L100.2400 0-5 % Normal EO% 4.6 LAB L100.2500 0-1 % Normal BASO% 0.5 LAB L100.2550 0.0-0.9 % Normal IM GRAN % 0.300 Result Comment: IG% - Immature Granulocytes (promyelocytes, myelocytes and metamyelocytes) > 1% indicates that a LEFT SHIFT is Present. LAB L100.2620 2.0-7.7 X10 3/uL Normal Absolute Neut 4.8 LAB L100.2720 0.83-4.51 X10 3/ul Low Absolute Lymph 0.56 LAB L100.4500 Normal SMEAR COMMENT SCANNED Result Comment: RARE BANDS SEEN Performed By: #### L100.0100, L500.4050, L501.2450, L501.9520, L502.0250 #### [facility] [address] [place], [address] COMPREHENSIVE METABOLIC Collected: 05/18/2018 Status: F Source: [facility] 12:07 PM [facility] Order Comment: Order Date: 05/18/18 Order Info: 0786-1 - CMP Order Info: 3040-3 - LIPASE Order Info: [id number] - MG Order Info: 3016-3 - TSH TYPE CODE TESTS RESULT OUT OF RANGE REFERENCE UNITS LAB L501.0100 74-106 mg/dL Normal GLU 83 Result Comment: Please note revised GLUCOSE reference range effective 2017. LAB L501.1000 7-18 mg/dL High BUN 35 LAB L501.1100 0.55-1.02 mg/dL Normal CREAT,SERUM 0.89 Result Comment: The validity of the calculated GFR AND GFRAA in patients over 70 years has not been determined. Clinical correlation is essential. LAB L501.1110 >60 mL/min Normal EST GFR 67 Result Comment: Non- GFR Calc LAB L501.1115 >60 mL/min Normal EST GFR - AA 81 Result Comment: GFR Calc LAB L501.1300 10-20 RATIO High BUN/CRE 39.5 LAB L501.1500 6.4-8.2 g/dL T Normal PROT 6.8 LAB L501.1800 3.2-5.0 g/dL Low ALB 2.9 LAB L501.1950 2.2-4.2 g/dL Normal GLOB 3.9 LAB L501.2000 0.9-2.4 RATIO Low A/G 0.7 LAB L501.2200 8.5-10.1 mg/dL CA Normal 8.9 LAB L501.4100 15-37 U/L Normal AST 28 LAB L501.4305 45-117 U/L Normal ALK P 96 LAB L501.4405 13-56 U/L Normal ALT 30 LAB L501.4600 0.20-1.00 mg/dL T Normal BILI 0.50 LAB L501.5300 136-145 mmol/L NA Normal 136 LAB L501.5600 3.5-5.1 mmol/L K Normal 4.3 LAB L501.5900 98-107 mmol/L CL Normal 99 LAB L501.6100 21.0-32.0 mmol/L Normal CO2 23.0 LAB L501.6200 5-15 Normal GAP 14 Performed By: #### L100.0100, L500.4050, L501.2450, L501.9520, L502.0250 #### [facility] [address] [place], [address] LIPASE Collected: 05/18/2018 Status: F Source: [place] 12:07 PM [facility] Order Comment: Order Date: 05/18/18 Order Info: 0786-1 - CMP Order Info: 3040-3 - LIPASE Order Info: [id number] - MG Order Info: 3016-3 - TSH TYPE CODE TESTS RESULT OUT OF REFERENCE UNITS RANGE LAB L501.2450 73-393 U/L High LIPASE 687 Performed By: #### L100.0100, L500.4050, L501.2450, L501.9520, L502.0250 #### [facility] [address] [place], [address] THYROID STIM HORMONE Collected: 05/18/2018 Status: F Source: [place] (TSH) 12:07 PM [facility] Order Comment: Order Date: 05/18/18 Order Info: 0786-1 - CMP Order Info: 3040-3 - LIPASE Order Info: [id number] - MG Order Info: 3016-3 - TSH TYPE CODE TESTS RESULT OUT OF RANGE REFERENCE UNITS LAB L501.9520 0.358-3.74 uIU/mL Normal TSH 3.65 Performed By: #### L100.0100, L500.4050, L501.2450, L501.9520, L502.0250 #### [facility] [address] [place], [address] MICROALB:CREAT Collected: 05/18/2018 Status: F Source: [place] RATIO,RANDOM UR 12:07 [facility] Order Comment: Order Date: 05/18/18 Order Info: 0779-1 - MIACRE TYPE CODE TESTS RESULT OUT OF RANGE REFERENCE UNITS LAB L501.1200 NO RANGE EST. mg/dL < Normal UR 13.00 CREAT LAB L502.0500 NO RANGE EST. mg/L 412.0 Normal MICROALBUMI N,UR LAB L502.0600 <30 mg/g CRE mg/g CRE Test Normal not performed MALB:CREAT Performed By: #### L100.0100, L500.4050, L501.2450, L501.9520, L502.0250 #### [facility] [address] [place], [place], [address] MAGNESIUM Collected: 05/18/2018 Status: F Source: [place] 12:07 PM [facility] Order Comment: Order Date: 05/18/18 Order Info: 0786-1 - CMP Order Info: 3040-3 - LIPASE Order Info: [id number] - MG Order Info: 3016-3 - TSH TYPE CODE TESTS RESULT OUT OF RANGE REFERENCE UNITS LAB L501.5200 1.6-2.6 mg/dL Normal MG 2.2 Performed By: #### L501.5200 #### [facility] [address] [place], [address] ONCOLOGY VISIT REPORT Observed: 05/11/2018 Status: F Source: [place] 5:35 PM [facility] [address] [place] [address] OFFICE VISIT Date of Service: 05/11/18 1729 MR#: [id number] Acct: [id number] Name: ABEL NICHOLE Rep #: [id number] : 1945 From: Sebastián Suh MD Age/Sex: 72/F Location: OMD Status: Signed Subjective - Date of Service Date of Service:: 05/11/18 - Chief Complaint Follow up for management of anemia. - History of Present Illness 72y.o.woman which Sjogren's disease, dysphagia status post PEG placement presented with peptic ulcer disease in October 2017 with bleeding. She received blood transfusions and placed on iron via PEG. She was seen in follow-up by Dr. Villarreal and still found to be anemic, HGB was 9.7 on 12/09/2017 so she was referred for iron replacement, received Venofer IV x 5, anemia improved. Comes in for follow up. She uses PEG tube on and off, tries to eat by mouth but most of her food don't go down well. She feels weak in the legs, using a walker to ambulate. - Past Medical/Social History Past Medical History Past Medical History: Anemia Social History Smoking Status Never smoker Review of Systems Constitutional:: Reports: Fatigue. Denies: Fever, Sweats Cardiovascular:: Denies: Chest pain, Palpitations, Dyspnea on exertion, Orthopnea, PND, Shortness of breath Respiratory: Denies: Cough, Hemoptysis, Shortness of Breath, Wheezing Gastrointestinal:: Reports: Dysphagia Genitourinary: Denies: Dysuria, Hematuria, 15, Flank pain Skin: Denies: Rash, Skin Changes, Wounds Neurological:: Denies: Headache, Dizziness, Visual changes, Tinnitus, Hearing loss Vital Signs Height 5 ft 4 in Weight: 52.163 kg Weight in Pounds 115.0 lbs Pulse Ox 98 - Physical Exam General: Alert, Oriented x3, No apparent distress Laboratory Data: Laboratory Tests WBC 5.6 RBC 3.33 L Hgb 10.4 L Hct 31.3 L Plt Count 251 Iron 93 TIBC 215 L Iron Saturation 43.3 Ferritin 1078 H Assessment and Plan Anemia-stable. Iron level is normal, and HGB has increased to 10. Malnutrition-Protein. Sjogren's syndrome with dysphagia and PEG tube. Plan is to continue Iron supplements via PEG with orange juice. Increase protein intake by using protein supplements. RTC 6 months with CBC/CMP/IRON PROFILE. Primary Care Provider: Leighton Sun Referring Provider: Redd Villarreal - Problem List (1) Protein malnutrition Status: Chronic (2) Anemia Status: Chronic Qualifiers: Anemia type: unspecified type Qualified Code(s): D64.9 - Anemia, unspecified (3) Dysphagia Status: Chronic Qualifiers: Code Visit Office Visits / Consults: [id number] OV L3 Est 05/11/18 0215 <Electronically signed by Sebastián Suh MD> Date Sebastián Suh MD Cosigner Signature: Date (if applicable) CC: ECHOCARDIOGRAM COMPLETE Observed: 05/04/2018 Status: F Source: [place] 5:34 PM [facility] [address] [place] [address] Echo Complete 05/04/18 1340 MR#: [id number] Acct: [id number] Name: ABEL NICHOLE Rep #: [id number] : 1945 72 From: Suhas Ferrell MD Attending Dr: Suhas Ferrell MD Status: REG CLI Ordering Dr: Suhas Ferrell MD Date: 05/04/18 Location: [facility] Sex: F C Admitted: Reason For Study: CHF Procedure This was a 2D Doppler, Color Flow transthoracic echocardiogram. The exam was of adequate technical quality. Exam performed in department. Left Ventricle Normal LV size. Segmental dysfunction with preserved ejection fraction (see wall motion). The estimated ejection fraction is 55 %. Normal diastology for age. Infero-Basal: Hypokinetic. Mid- Posterior: Hypokinetic. Mid-Inferior: Hypokinetic. Mid-inferoseptal : Hypokinetic. Right Ventricle Normal RV size. Normal systolic function. Atria Normal left atrium. Normal right atrium. No doppler evidence for ASD. Mitral Valve There is no mitral annular calcification. Normal mitral valve. Mild (1+) mitral valve insufficiency. Tricuspid Valve Normal tricuspid valve. Mild (1+) eccentric tricuspid valve insufficiency. Right ventricular systolic pressure estimated to be 32 mmHg. Aortic Valve Trisinus/trileaflet aortic valve. Normal aortic valve. Trivial aortic valve insufficiency. Pulmonic Valve The pulmonic valve is not well visualized. Trivial pulmonic valve insufficiency. Great Vessels Normal sized aortic root. Pericardium/Pleural Trivial pericardial effusion. There are no echocardiographic indications of cardiac tamponade. MMode/2D Measurements AND Calculations LVIDd: 4.3 cm IVSd: 0.97 cm Ao root diam: 3.5 cm LVIDs: 3.2 cm LVPWd: 1.0 cm LA dimension: 3.5 cm RVDd: 2.7 cm FS: 25.6 % LAV(MOD-bp): 33.6 ml LA A4 area: 11.6 cm2 RA A4 area: 11.1 cm2 LAV(MOD-bp) Indexed: 20.8 ml/m2 LAV(MOD-sp2): 41.9 ml LAV(MOD-sp4): 25.6 ml Doppler Measurements AND Calculations MV E max luis: 46.2 cm/sec Lat Peak E' Ulis: 3.6 cm/sec Med Peak E' Luis: 4.3 cm/sec MV A max luis: 85.1 cm/sec E/E' lat: 12.8 E/E' med: 10.9 MV E/A: 0.54 Ao V2 max: 119.6 cm/sec LV V1 max: 71.8 cm/sec PA V2 max: 83.7 cm/sec Ao max P.7 mmHg LV V1 max P.1 mmHg TR max luis: 267.5 cm/sec TR max P.9 mmHg Interpretation Summary Segmental dysfunction with preserved ejection fraction (see wall motion). The estimated ejection fraction is 55 %. Mild (1+) mitral valve insufficiency. Mild (1+) eccentric tricuspid valve insufficiency. Trivial aortic valve insufficiency. Trivial pulmonic valve insufficiency. Trivial pericardial effusion. There are no echocardiographic indications of cardiac tamponade. Right ventricular systolic pressure estimated to be 32 mmHg. Normal diastology for age. Ordering Physician: Suhas Ferrell Referring Physician: Leighton Sun Performed By: Jaja Rendon RDCS, RVT 05/04/18 1734 Date Suhas Ferrell MD CC: Leighton Sun MD; Suhas Ferrell MD Date Dictated: 05/04/18 1340 Date Transcribed: 05/04/18 1734 Dietary Services Director: Signed CBC W/DIFF, AUTOMATED Collected: 05/04/2018 Status: F Source: [place] 2:51 PM [facility] TYPE CODE TESTS RESULT OUT OF RANGE REFERENCE UNITS LAB L100.1000 4.4-11.0 K/mm3 Normal WBC 5.6 LAB L100.1200 4.2-5.4 M/mm3 Low RBC 3.33 LAB L100.1300 12.0-15.0 g/dl Low HGB 10.4 LAB L100.1400 37-47 % Low HCT 31.3 LAB L100.1500 81-99 fL Normal MCV 94.0 LAB L100.1600 27.0-32.0 pg Normal MCH 31.2 LAB L100.1700 32-36 g/gl Normal MCHC 33.2 LAB L100.1810 11.6-14.6 % Normal RDW CV 13.5 LAB L100.1820 35.1-43.9 fl High RDW SD 46.1 LAB L100.1900 150-450 K/mm3 Normal PLT 251 LAB L100.2000 6.2-12.0 fl Normal MPV 8.6 LAB L100.2100 47-70 % High NEUT% 81.3 LAB L100.2200 19-41 % Low LY% 9.4 LAB L100.2300 0-10 % Normal MONO% 6.9 LAB L100.2400 0-5 % Normal EO% 2.0 LAB L100.2500 0-1 % Normal BASO% 0.2 LAB L100.2550 0.0-0.9 % Normal IM GRAN % 0.200 Result Comment: IG% - Immature Granulocytes (promyelocytes, myelocytes and metamyelocytes) > 1% indicates that a LEFT SHIFT is Present. LAB L100.2620 2.0-7.7 X10 3/uL Absolute Normal Neut 4.6 LAB L100.2720 0.83-4.51 X10 3/ul Low Absolute Lymph 0.53 LAB L100.5500 ADEQ PLT EST Normal ADEQUATE LAB L100.8400 Normal SCHISTOCYTES RARE Performed By: #### L100.0100 #### [facility] [address] [place], [place], [address] COMPREHENSIVE METABOLIC Collected: 05/04/2018 Status: F Source: [place] 2:50 PM [facility] Order Comment: Reason for Laboratory Test . TYPE CODE TESTS RESULT OUT OF RANGE REFERENCE UNITS LAB L501.0100 74-106 mg/dL Normal GLU 93 Result Comment: Please note revised GLUCOSE reference range effective 2017. LAB L501.1000 7-18 mg/dL High BUN 33 LAB L501.1100 0.55-1.02 mg/dL Normal CREAT,SERUM 0.92 Result Comment: The validity of the calculated GFR AND GFRAA in patients over 70 years has not been determined. Clinical correlation is essential. LAB L501.1110 >60 mL/min Normal EST GFR 64 Result Comment: Non- GFR Calc LAB L501.1115 >60 mL/min Normal EST GFR - AA 77 Result Comment: GFR Calc LAB L501.1255 ml/min Normal Estimated CRCL 48.43 LAB L501.1300 10-20 RATIO High BUN/CRE 35.8 LAB L501.1500 6.4-8. g/dL Low 2 T PROT 5.7 LAB L501.1800 3.2-5. g/dL Low 0 ALB 2.6 LAB L501.1950 2.2-4. g/dL Normal 2 GLOB 3.1 LAB L501.2000 0.9-2. RATIO Low 4 A/G 0.8 LAB L501.2200 8.5-10 mg/dL Low .1 CA 8.4 LAB L501.4100 15-37 U/L Normal AST 32 LAB L501.4305 45-117 U/L Normal ALK P 117 LAB L501.4405 13-56 U/L Normal ALT 32 LAB L501.4600 0.20-1 mg/dL Normal .00 T BILI 0.40 LAB L501.5300 136-14 mmol/L Normal 5 NA 139 LAB L501.5600 3.5-5. mmol/L Normal 1 K 4.0 LAB L501.5900 98-107 mmol/L Normal CL 103 LAB L501.6100 21.0-3 mmol/L Normal 2.0 CO2 27.0 LAB L501.6200 5-15 Normal GAP 9 Performed By: #### L500.4050, L503.6030, L503.6550 #### [facility] [address] [place], [address] IRON+IRON BINDING Collected: 05/04/2018 Status: F Source: [place] CAPACITY 2:50 PM [facility] Order Comment: Reason for Laboratory Test . TYPE CODE TESTS RESULT OUT OF RANGE REFERENCE UNITS LAB L503.6075 250-450 ug/dL Low TIBC 215 LAB L503.6150 50-170 ug/dL IRON Normal 93 LAB L503.6250 15.0-55.0 % IRON Normal SATURATION 43.3 Performed By: #### L500.4050, L503.6030, L503.6550 #### [facility] [address] [place], [address] FERRITIN Collected: 05/04/2018 Status: F Source: [place] 2:50 PM [facility] Order Comment: Reason for Laboratory Test . TYPE CODE TESTS RESULT OUT OF REFERENCE UNITS RANGE LAB L503.6550 8-252 ng/mL High FERRITIN 1078 Performed By: #### L500.4050, L503.6030, L503.6550 #### [facility] [address] [place], [address] CARDIOLOGY VISIT Observed: 04/29/2018 Status: F Source: [place] REPORT 2:52 PM [facility] [address] [place] [address] OFFICE VISIT Date of Service: 04/29/18 MR#: [id number] Acct: [id number] Name: ABEL NICHOLE Rep #: [id number] : 1945 Provider: Suhas Ferrell MD Age/Sex: 72/F Location: [facility] [place] Status: Signed HPI HPI Details: ABEL NICHOLE, is a 72 F who presents to the office today for outpatient follow up of her complex cardiovascular disease process. Her main concern is progressive lower extremity edema. This is despite recent adjustment by her PCP with respect to diuretic therapy. She denies chest discomfort or progressive shortness of breath. She denies orthopnea or PND. There has been no near syncope / syncope. 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 Is patient in pain?: No Allergies povidone-iodine [From Betadine] Adverse Reaction (Mild, Verified 04/29/18 11:45) Rash soap [From Betadine] Adverse Reaction (Mild, Verified 04/29/18 11:45) Rash Medications Atorvastatin Calcium 80 mg GT QHS 06/26/17 [History Confirmed 04/29/18] Carvedilol [Coreg] 3.125 mg GT BID 06/26/17 [History Confirmed 04/29/18] Levothyroxine [Synthroid] 12.5 mcg GT DAILY 06/26/17 [History Confirmed 04/29/18] Acetaminophen [Pain Relief] 500 mg GT Q6H PRN PRN 07/16/17 [History Confirmed 04/29/18] Clopidogrel Bisulfate [Plavix] 75 mg GT DAILY 07/16/17 [History Confirmed 04/29/18] Cholecalciferol (VIT D3) 5,000 iu PO DAILY 10/20/17 [History Confirmed 04/29/18] ferrous sulfate 220 mg (44 mg iron)/5 mL oral elixir See Label Instructions PO BID ml 10/22/17 [History Confirmed 04/29/18] Omeprazole [Prilosec] 40 mg GT BID #120 cap 10/23/17 [Rx Confirmed 04/29/18] spironolactone 50 mg tablet 50 mg PO QDAY 04/29/18 [History Confirmed 04/29/18] torsemide 20 mg tablet 20 mg PO QDAY #30 tab 04/29/18 [Rx Confirmed 04/29/18] Ejection fraction %: 60 to 64 PFSH Medical History Anemia (Chronic) 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) Body mass index (BMI) of 23.0-23.9 in adult (Chronic) Cardiomyopathy (Chronic) Chronic pancreatitis (Chronic) Chronic systolic congestive heart failure (Chronic) Difficulty swallowing (Chronic) Mitral regurgitation and mitral stenosis (Chronic) Primary Sjogren's syndrome (Chronic) Pulmonary hypertension (Chronic) Acute dao-OX-vckbxxccn myocardial infarction (Resolved) Pleural effusion (Resolved) Right upper quadrant pain (Resolved) Thrush (Resolved) Surgical History H/O heart artery stent (Chronic) History of left heart catheterization (LHC) (Chronic) H/O bilateral breast reduction surgery (Resolved) H/O bladder repair surgery (Resolved) History of hysterectomy (Resolved) History of tonsillectomy (Resolved) S/P percutaneous endoscopic gastrostomy (PEG) tube placement (Resolved) S/P rotator cuff repair (Resolved) S/P thoracentesis (Resolved) Family History Mother Cancer Lung cancer Father Heart disease Cancer of kidney Brother Cancer Esophageal Cancer Social History Smoking Status: Never smoker second hand exposure: No alcohol intake: never caffeine: No what type of physical activity do you participate in: other details: Therapy frequency: 3-4 times per week duration: 15-30 minutes/day seatbelt use: always do you feel safe at home: Yes ROS Const Const: Positive for weakness; negative for fatigue, night sweats, excessive sweating, frequent falls, headache(s) or daytime sleepiness Eyes Eyes: Negative for loss of peripheral vision, transient loss of vision, blind spots, double vision or blurry vision ENT ENT: Positive for balance problems (uses a walker); negative for headache(s), dizziness, Nosebleed/epistaxis, tongue swelling or lip swelling Cardio Chest Pain: No Palpitations: No Edema: Bilateral Muscle aches with walking: None Resp Respiratory: Positive for SOB with activity; negative for SOB at rest, SOB orthopnea\SOB lying down, Cough or paroxysmal nocturnal dyspnea GI GI: Negative nausea, vomiting, heartburn, black,tarry stools or bright, red blood in stools : Negative for hematuria Musc Musc: Positive for balance problems (uses a walker); negative for muscle aches/ myalgia, muscle weakness or joint pain Skin Skin: Negative non-healing lesions, unusual bruising or rash Neuro Neuro: Positive for weakness; negative for frequent falls, headache(s), double vision, dizziness, lightheadedness, orthostatic symptoms, blurry vision or lack of coordination Maxi Hematologic/Lymphatic: Negative for easy bruising or easy bleeding Endo Endo: Negative for fatigue, excessive sweating, cold intolerance, heat intolerance, increased thirst/drinking or hair loss Psych Psych: Negative for anxiety or depression Allergy Allergy/Immunology: Negative for throat swelling, Negative for tongue swelling, Negative for hives, Negative for rash, Negative for lip swelling Cardiology Exam Const Appearance: cooperative, comfortable, no acute distress, well developed and well groomed Nutritional Appearance: average body habitus Orientation: alert, awake and oriented x3 Head Head: normal to inspection, normocephalic and atraumatic Ears: hearing grossly normal bilaterally Nose: external nose normal Face and Sinus: face symmetric Mouth: oral mucosae normal Teeth and gingiva: fair dentition Eyes Eyelids: eyelids normal Conjunctivae: conjunctivae normal Pupils: PERRL EOM: EOM intact bilaterally Neck Neck: normal visual inspection and full ROM Carotids: normal carotid upstroke Chest Chest inspection: normal inspection of the chest and symmetric chest movement Auscultation: Bilateral: Clear to Auscultation Cardio Palpation: normal PMI Rate: regular rate Rhythm: regular rhythm Heart sounds: S1 normal and S2 normal GI GI: normal to inspection, bowel sounds present and soft Neuro General: alert, awake, oriented x3 and moves all extremities Skin Skin: no rashes or lesions noted Extremities Pulses: Normal: Right Radial Pulse, Left Radial Pulse Lower Extremity Edema: +2: Bilateral Psych Psychological: normal affect Assessment AND Plan 1. Atherosclerosis of stebbins coronary artery of stebbins heart without angina pectoris I25.10 PTCA/SILVIA to LCx, OM #1, and LAD in July 2017; Plan She has no new acute complaints with respect to her CAD history. She will need to continue risk factor evaluation / care. 2. S/P PTCA (percutaneous transluminal coronary angioplasty) Z98.61 Plan She has a history of PCI. Again, she has no new acute complaints with respect to her CAD process. She will continue medical therapy and follow up. 3. Ischemic cardiomyopathy I25.5 Plan She has a history of an underlying cardiomyopathy which appeared to improve s/p PCI. At the present time there is concern that, based upon her progressive lower extremity edema, her LV systolic function may have changed - decreased. Thus, her LV systolic function will be reassessed with an echo/doppler study. In ther interim, she will continue medical therapy with adjustment as needed. Orders Orders: 4. CHF (congestive heart failure) I50.9 Plan At the present time she will undergo evaluation as noted above. Her medications will be altered. She will place her furosemide on HOLD. She will start torsemide therapy at 20 mg / day. Hopefully this will be better absorbed and she will have an increase in her diuresis and a decrease in her edema. 5. Pulmonary HTN I27.20 Plan She does have a history of elevated right sided pressures. This will be reevaluated with the echo/doppler study. This may assist with diagnosis and therapy. 6. Edema, unspecified type R60.9 Plan Again, she has progressive lower extremity edema. She will will proceed with evaluation and medical management as noted above. Plan Detail Other Medications New: Discontinued: Additional Comments Thank you for allowing me to participate in the care of your patient. Please don't hesitate to call if any issues arise. This note was generated using a voice recognition system and there may be incorrect words, spelling or punctuation that were not noted when reviewing the office note prior to saving. Follow Up 3 Months (PFM) Coding Level of Care Code Off vis,est,level 4 Diagnoses Atherosclerosis of stebbins coronary artery of stebbins heart without angina pectoris I25.10 S/P PTCA (percutaneous transluminal coronary angioplasty) Z98.61 Ischemic cardiomyopathy I25.5 Cardiomyopathy type: ischemic CHF (congestive heart failure) I50.9 Pulmonary HTN I27.20 Edema, unspecified type R60.9 Edema type: unspecified Coding Level of Care Code Off vis,est,level 4 Diagnoses Atherosclerosis of stebbins coronary artery of stebbins heart without angina pectoris I25.10 S/P PTCA (percutaneous transluminal coronary angioplasty) Z98.61 Ischemic cardiomyopathy I25.5 Cardiomyopathy type: ischemic CHF (congestive heart failure) I50.9 Pulmonary HTN I27.20 Edema, unspecified type R60.9 Edema type: unspecified 04/29/18 1452 <Electronically signed by Suhas Ferrell MD> Date Suhas Ferrell MD Cosigner Signature: Date (if applicable) CC: Leighton Sun MD RENAL PROFILE Collected: 04/24/2018 Status: F Source: [place] 12:22 PM [facility] [place] TYPE CODE TESTS RESULT OUT OF RANGE REFERENCE UNITS LAB L501.0100 74-106 mg/dL Normal GLU 100 Result Comment: Fasting Glucose result from 100 to 125 mg/dL suggests IMPAIRED HOMEOSTASIS per A.D.A. criteria. Please note revised GLUCOSE reference range effective 2017. LAB L501.1000 7-18 mg/dL High BUN 41 LAB L501.1100 0.55-1.02 mg/dL Normal CREAT,SERUM 0.81 Result Comment: The validity of the calculated GFR AND GFRAA in patients over 70 years has not been determined. Clinical correlation is essential. LAB L501.1110 >60 mL/min Normal EST GFR 74 Result Comment: Non- GFR Calc LAB L501.1115 >60 mL/min Normal EST GFR - AA 89 Result Comment: GFR Calc LAB L501.1300 10-20 RATIO High BUN/CRE 50.5 LAB L501.1800 3.2-5.0 g/dL Low ALB 2.2 LAB L501.2200 8.5-10.1 mg/dL Low CA 8.1 LAB L501.2300 2.5-4.9 mg/dL Normal PHOS 3.5 LAB L501.5300 136-145 mmol/L Low NA 135 LAB L501.5600 3.5-5.1 mmol/L K Normal 4.6 LAB L501.5900 98-107 mmol/L CL Normal 103 LAB L501.6100 21.0-32.0 mmol/L Normal CO2 23.0 Performed By: #### L500.3600, L503.6150, L503.6550 #### [facility] [address] [place], [address] IRON Collected: 04/24/2018 Status: F Source: [place] 12:22 PM [facility] TYPE CODE TESTS RESULT OUT OF RANGE REFERENCE UNITS LAB L503.6150 50-170 ug/dL Low IRON 42 Performed By: #### L500.3600, L503.6150, L503.6550 #### [facility] [address] [place], [address] FERRITIN Collected: 04/24/2018 Status: F Source: [place] 12:22 PM [facility] TYPE CODE TESTS RESULT OUT OF REFERENCE UNITS RANGE LAB L503.6550 8-252 ng/mL High FERRITIN 910 Performed By: #### L500.3600, L503.6150, L503.6550 #### [facility] [address] [place], [address] CBC W/DIFF, AUTOMATED Collected: 04/16/2018 Status: F Source: [place] 12:41 PM [facility] Order Comment: Order Date: 04/16/18 Order Info: 0184-1 - CBCD TYPE CODE TESTS RESULT OUT OF RANGE REFERENCE UNITS LAB L100.1000 4.4-11.0 K/mm3 Low WBC 4.3 LAB L100.1200 4.2-5.4 M/mm3 Low RBC 3.14 LAB L100.1300 12.0-15.0 g/dl Low HGB 9.9 LAB L100.1400 37-47 % Low HCT 30.0 LAB L100.1500 81-99 fL Normal MCV 95.5 LAB L100.1600 27.0-32.0 pg Normal MCH 31.5 LAB L100.1700 32-36 g/gl Normal MCHC 33.0 LAB L100.1810 11.6-14.6 % Normal RDW CV 13.1 LAB L100.1820 35.1-43.9 fl Normal RDW SD 43.9 LAB L100.1900 150-450 K/mm3 Normal PLT 221 LAB L100.2000 6.2-12.0 fl Normal MPV 8.9 LAB L100.2100 47-70 % High NEUT% 84.1 LAB L100.2200 19-41 % Low LY% 7.7 LAB L100.2300 0-10 % Normal MONO% 6.6 LAB L100.2400 0-5 % Normal EO% 1.4 LAB L100.2500 0-1 % Normal BASO% 0.2 LAB L100.2550 0.0-0.9 % Normal IM GRAN % 0.000 Result Comment: IG% - Immature Granulocytes (promyelocytes, myelocytes and metamyelocytes) > 1% indicates that a LEFT SHIFT is Present. LAB L100.2620 2.0-7.7 X10 3/uL Normal Absolute Neut 3.6 LAB L100.2720 0.83-4.51 X10 3/ul Low Absolute Lymph 0.33 Performed By: #### L100.0100, L500.4050, L501.2450, L501.9520 #### [facility] [address] [place], [address] COMPREHENSIVE METABOLIC Collected: 04/16/2018 Status: F [facility] Order Comment: Order Date: 04/16/18 Order Info: [id number] - CMP Order Info: 3040-3 - LIPASE Order Info: 3016-3 - TSH TYPE CODE TESTS RESULT OUT OF RANGE REFERENCE UNITS LAB L501.0100 74-106 mg/dL Normal GLU 93 Result Comment: Please note revised GLUCOSE reference range effective 2017. LAB L501.1000 7-18 mg/dL High BUN 40 LAB L501.1100 0.55-1.02 mg/dL Normal CREAT,SERUM 0.86 Result Comment: The validity of the calculated GFR AND GFRAA in patients over 70 years has not been determined. Clinical correlation is essential. LAB L501.1110 >60 mL/min Normal EST GFR 69 Result Comment: Non- GFR Calc LAB L501.1115 >60 mL/min Normal EST GFR - AA 83 Result Comment: GFR Calc LAB L501.1300 10-20 RATIO High BUN/CRE 46.4 LAB L501.1500 6.4-8.2 g/dL Low T PROT 5.2 LAB L501.1800 3.2-5.0 g/dL Low ALB 2.3 LAB L501.1950 2.2-4.2 g/dL Normal GLOB 2.9 LAB L501.2000 0.9-2.4 RATIO Low A/G 0.8 LAB L501.2200 8.5-10.1 mg/dL Low CA 8.0 LAB L501.4100 15-37 U/L Normal AST 36 LAB L501.4305 45-117 U/L Normal ALK P 84 LAB L501.4405 13-56 U/L Normal ALT 26 LAB L501.4600 0.20-1.00 mg/dL T Normal BILI 0.40 LAB L501.5300 136-145 mmol/L Low NA 135 LAB L501.5600 3.5-5.1 mmol/L K Normal 4.5 LAB L501.5900 98-107 mmol/L CL Normal 100 LAB L501.6100 21.0-32.0 mmol/L Normal CO2 24.0 LAB L501.6200 5-15 Normal GAP 11 Performed By: #### L100.0100, L500.4050, L501.2450, L501.9520 #### [facility] [address] [place], [place], [address] LIPASE Collected: 04/16/2018 Status: F Source: [place] 12:41 PM [facility] Order Comment: Order Date: 04/16/18 Order Info: 0786-1 - CMP Order Info: 3040-3 - LIPASE Order Info: 3016-3 - TSH TYPE CODE TESTS RESULT OUT OF REFERENCE UNITS RANGE LAB L501.2450 73-393 U/L High LIPASE 411 Performed By: #### L100.0100, L500.4050, L501.2450, L501.9520 #### [facility] [address] [place], [place], [address] THYROID STIM HORMONE Collected: 04/16/2018 Status: F Source: [place] ([facility]) 12:41 PM [facility] Order Comment: Order Date: 04/16/18 Order Info: [id number] - CMP Order Info: 3040-3 - LIPASE Order Info: 3016-3 - TSH TYPE CODE TESTS RESULT OUT OF RANGE REFERENCE UNITS LAB L501.9520 0.358-3.74 uIU/mL High TSH 4.43 Performed By: #### L100.0100, L500.4050, L501.2450, L501.9520 #### [facility] [address] [place], [address] ONCOLOGY VISIT REPORT Observed: 02/10/2018 Status: F Source: [place] 3:32 PM [facility] [address] [place] [address] OFFICE VISIT Date of Service: 02/09/18 1205 MR#: [id number] Acct: [id number] Name: ABEL NICHOLE Rep #: [id number] : 1945 From: Sebastián Suh MD Age/Sex: 72/F Location: OMD Status: Signed Subjective - Date of Service Date of Service:: 02/09/18 - Chief Complaint Follow up for management of anemia. - History of Present Illness 72y.o.woman which Sjogren's disease, dysphagia status post PEG placement presented with peptic ulcer disease in October 2017 with bleeding. She received blood transfusions and placed on iron via PEG. She was seen in follow-up by Dr. Villarreal and still found to be anemic, HGB was 9.7 on 12/09/2017 so she was referred for iron replacement, received Venofer IV x 5 and comes for follow up. She uses PEG tube on and off, tries to eat by mouth but most of her food don't go down well. She feels weak in the legs, using a walker to ambulate. - Past Medical/Social History Past Medical History Past Medical History: Anemia Social History Smoking Status Never smoker Review of Systems Constitutional:: Reports: Fatigue - has improved.. Denies: Fever, Sweats Cardiovascular:: Denies: Chest pain, Palpitations, Dyspnea on exertion, Orthopnea, PND, Shortness of breath Respiratory: Denies: Cough, Hemoptysis, Shortness of Breath, Wheezing Gastrointestinal:: Reports: - - using PEG for feeding Genitourinary: Denies: Dysuria, Hematuria, 15, Flank pain Musculoskeletal:: Reports: - - Using walker to ambulate. Vital Signs Height 5 ft 4 in Weight: 56.155 kg Weight in Pounds 123.8 lbs Pulse Ox 98 - Physical Exam General: Alert, Oriented x3, No apparent distress, - - Using walker to ambulate. Laboratory Data: 02/02/2018 WBC is 3.7, hemoglobin 10.7, platelets 174. Iron is 59, TIBC 227, ferritin 1164. Assessment and Plan Anemia due to GI bleed-Peptic ulcer disease. S/P Iron infusion. Iron level is normal, and HGB has increased to 10.7. Malnutrition-Protein. Sjogren's syndrome with dysphagia and PEG tube. Plan is to continue Iron supplements via PEG with orange juice. Increase protein intake by using protein supplements. RTC 6 months with CBC/CMP/IRON PROFILE. Medications: Prescriptions This Visit Medication Instructions Recorded Chlorthalidone 12.5 mg PO UD PRN 12/22/17 Primary Care Provider: Leighton Sun Referring Provider: Redd Villarreal - Problem List (1) Protein malnutrition Status: Chronic (2) Anemia Status: Chronic Qualifiers: Anemia type: unspecified type Qualified Code(s): D64.9 - Anemia, unspecified (3) Dysphagia Status: Chronic Qualifiers: Code Visit Office Visits / Consults: [id number] OV L3 Est 02/10/18 1532 <Electronically signed by Sebastián Suh MD> Date Sebastián Suh MD Cosigner Signature: Date (if applicable) CC: ONCOLOGY VISIT REPORT Observed: 02/02/2018 Status: F Source: [place] 1:12 PM [facility] [address] [place] [address]. [place] [address] OFFICE VISIT Date of Service: 02/02/18 1206 MR#: [id number] Acct: [id number] Name: MORRISNOMANABEL Marcio Rep #: [id number] : 1945 From: Sebastián Suh MD Age/Sex: 72/F Location: ONC Status: Signed Subjective - Date of Service Date of Service:: 02/02/18 - Chief Complaint Follow up for management of anemia. - History of Present Illness 72y.o.woman which Sjogren's disease, dysphagia status post PEG placement presented with peptic ulcer disease in October 2017 with bleeding. She received blood transfusions and placed on iron via PEG. She was seen in follow-up by Dr. Villarreal and still found to be anemic, HGB was 9.7 on 12/09/2017 so she was referred for iron replacement, received Venofer IV x 5 and comes for follow up. She uses PEG tube on and off, tries to eat by mouth but most of her food don't go down well. She feels weak in the legs, using a walker to ambulate. - Past Medical/Social History Past Medical History Past Medical History: Anemia Social History Smoking Status Never smoker Review of Systems Constitutional:: Denies: Fever, Sweats, Weight loss, Appetite change, Chills Cardiovascular:: Denies: Chest pain, Palpitations, Dyspnea on exertion, Orthopnea, PND, Shortness of breath Respiratory: Denies: Cough, Hemoptysis, Shortness of Breath, Wheezing Gastrointestinal:: Denies: Abdominal pain, Nausea, Vomiting, Diarrhea, Constipation, Hematochezia Genitourinary: Denies: Dysuria, Hematuria, 15, Flank pain Musculoskeletal:: Denies: Back pain, Myalgia, Arthralgia Vital Signs Height 5 ft 4 in Weight: 53.932 kg Weight in Pounds 118.9 lbs Pulse Ox 17 - Physical Exam General: Alert, Oriented x3, No apparent distress, - - Using walker. Laboratory Data: Laboratory Tests WBC 3.4 L (4.4-11.0) K/mm3 RBC 3.44 L (4.2-5.4) M/mm3 Hgb 10.7 L (12.0-15.0) g/dl Assessment and Plan Anemia due to GI bleed-Peptic ulcer disease. S/P Iron infusion. Malnutrition-Protein. Sjogren's syndrome with dysphagia and PEG tube. Discussed management of acute blood loss, because of her Sjogren's disease cannot depend on Ferritin to determine iron reserves. Suggested Iron infusion to replenish iron stores because on her GI problems, Pt agreed. Plan is to check Iron profile. Increase protein intake by using protein supplements. RTC 1 week. Medications: Prescriptions This Visit Medication Instructions Recorded Chlorthalidone 12.5 mg PO UD PRN 12/22/17 Primary Care Provider: Leighton Sun Referring Provider: Redd Villarreal - Problem List (1) Protein malnutrition Status: Chronic (2) Anemia Status: Chronic Qualifiers: Anemia type: unspecified type Qualified Code(s): D64.9 - Anemia, unspecified (3) Dysphagia Status: Chronic Qualifiers: Code Visit Office Visits / Consults: 05702 OV L3 Est 02/02/18 1312 <Electronically signed by Sebastián Suh MD> Date Sebastián Suh MD Cosigner Signature: Date (if applicable) CC: IRON BINDING Collected: 02/02/2018 Status: F Source: [facility],[place] 10:57 AM [facility] Order Comment: Reason for Laboratory Test . TYPE CODE TESTS RESULT OUT OF RANGE REFERENCE UNITS LAB L503.6075 250-450 ug/dL Low TIBC 227 Performed By: #### L503.6075, L503.6150, L503.6550, L506.0250 #### [facility] [address] [place], [place], [address] IRON Collected: 02/02/2018 Status: F Source: [place] 10:57 AM [facility] Order Comment: Reason for Laboratory Test . TYPE CODE TESTS RESULT OUT OF RANGE REFERENCE UNITS LAB L503.6150 50-170 ug/dL Normal IRON 59 Performed By: #### L503.6075, L503.6150, L503.6550, L506.0250 #### [facility] [address] [place], [address] FERRITIN Collected: 02/02/2018 Status: F Source: [place] 10:57 AM [facility] Order Comment: Reason for Laboratory Test . TYPE CODE TESTS RESULT OUT OF REFERENCE UNITS RANGE LAB L503.6550 8-252 ng/mL High FERRITIN 1164 Performed By: #### L503.6075, L503.6150, L503.6550, L506.0250 #### [facility] [address] [place], [address] FOLATES, (FOLIC ACID) Collected: 02/02/2018 Status: F Source: [place] 10:57 AM [facility] Order Comment: Reason for Laboratory Test . Is Patient Taking Vitamins or Folic Acid Supplements? N TYPE CODE TESTS RESULT OUT OF RANGE REFERENCE UNITS LAB L506.0250 3.1-55.4 ng/mL Normal FOLATES 15.70 Result Comment: Slight Hemolysis, Result may be falsely increased. Performed By: #### L503.6075, L503.6150, L503.6550, L506.0250 #### [facility] [address] [place], [place], [address] VITAMIN B12 Collected: 02/02/2018 Status: F Source: [place] 10:57 AM [facility] Order Comment: Reason for Laboratory Test . TYPE CODE TESTS RESULT OUT OF REFERENCE UNITS RANGE LAB L503.0105 211-911 pg/mL High Vitamin B12 1466 Performed By: #### L503.0105 #### [facility] [address] [place], [address] CBC W/DIFF, AUTOMATED Collected: 02/02/2018 Status: F Source: [place] 10:45 AM [facility] Order Comment: Reason for Laboratory Test . TYPE CODE TESTS RESULT OUT OF RANGE REFERENCE UNITS LAB L100.1000 4.4-11.0 K/mm3 Low WBC 3.4 LAB L100.1200 4.2-5.4 M/mm3 Low RBC 3.44 LAB L100.1300 12.0-15.0 g/dl Low HGB 10.7 LAB L100.1400 37-47 % Low HCT 31.7 LAB L100.1500 81-99 fL Normal MCV 92.2 LAB L100.1600 27.0-32.0 pg Normal MCH 31.1 LAB L100.1700 32-36 g/gl Normal MCHC 33.8 LAB L100.1810 11.6-14.6 % Normal RDW CV 13.9 LAB L100.1820 35.1-43.9 fl High RDW SD 46.5 LAB L100.1900 150-450 K/mm3 Normal PLT 174 LAB L100.2000 6.2-12.0 fl Normal MPV 9.0 LAB L100.2100 47-70 % High NEUT% 86.1 LAB L100.2200 19-41 % Low LY% 6.2 LAB L100.2300 0-10 % Normal MONO% 5.9 LAB L100.2400 0-5 % Normal EO% 1.2 LAB L100.2500 0-1 % Normal BASO% 0.3 LAB L100.2550 0.0-0.9 % Normal IM GRAN % 0.300 Result Comment: IG% - Immature Granulocytes (promyelocytes, myelocytes and metamyelocytes) > 1% indicates that a LEFT SHIFT is Present. LAB L100.2620 2.0-7.7 X10 3/uL Normal Absolute Neut 2.9 LAB L100.2720 0.83-4.51 X10 3/ul Low Absolute Lymph 0.21 LAB L100.4500 Normal SMEAR COMMENT COMMENT Result Comment: SLIDE SCANNED - LYMPHOPENIA. Performed By: #### L100.0100 #### [facility] [address] [place], [address] COMPREHENSIVE METABOLIC Collected: 02/02/2018 Status: F Source: [facility] 10:45 AM [facility] Order Comment: Reason for Laboratory Test . TYPE CODE TESTS RESULT OUT OF RANGE REFERENCE UNITS LAB L501.0100 74-106 mg/dL Normal GLU 87 Result Comment: Please note revised GLUCOSE reference range effective 2017. LAB L501.1000 7-18 mg/dL High BUN 26 LAB L501.1100 0.55-1.02 mg/dL Normal CREAT,SERUM 0.90 Result Comment: The validity of the calculated GFR AND GFRAA in patients over 70 years has not been determined. Clinical correlation is essential. LAB L501.1110 >60 mL/min Normal EST GFR 65 Result Comment: Non- GFR Calc LAB L501.1115 >60 mL/min Normal EST GFR - AA 79 Result Comment: GFR Calc LAB L501.1255 ml/min Normal Estimated CRCL 48.81 LAB L501.1300 10-20 RATIO High BUN/CRE 28.8 LAB L501.1500 6.4-8. g/dL Low 2 T PROT 5.7 LAB L501.1800 3.2-5. g/dL Low 0 ALB 2.6 LAB L501.1950 2.2-4. g/dL Normal 2 GLOB 3.1 LAB L501.2000 0.9-2. RATIO Low 4 A/G 0.8 LAB L501.2200 8.5-10 mg/dL Normal .1 CA 8.7 LAB L501.4100 15-37 U/L High AST 40 Result Comment: Slight Hemolysis, Result may be falsely increased. LAB L501.4305 45-117 U/L Normal ALK P 117 LAB L501.4405 13-56 U/L Normal ALT 28 LAB L501.4600 0.20-1.00 mg/dL Normal T BILI 0.60 LAB L501.5300 136-145 mmol/L Low NA 135 LAB L501.5600 3.5-5.1 mmol/L Normal K 3.7 Result Comment: Slight Hemolysis, Result may be falsely increased. LAB L501.5900 98-107 mmol/L Normal CL 104 LAB L501.6100 21.0-32.0 mmol/L Normal CO2 25.0 LAB L501.6200 5-15 Normal 6 GAP Performed By: #### L500.4050 #### [facility] [address] [place], [address] COMPREHENSIVE METABOLIC Collected: 01/09/2018 Status: F Source: [facility] 11:51 AM [facility] TYPE CODE TESTS RESULT OUT OF RANGE REFERENCE UNITS LAB L501.0100 74-106 mg/dL Normal GLU 101 Result Comment: Fasting Glucose result from 100 to 125 mg/dL suggests IMPAIRED HOMEOSTASIS per A.D.A. criteria. Please note revised GLUCOSE reference range effective 2017. LAB L501.1000 7-18 mg/dL High BUN 26 LAB L501.1100 0.55-1.02 mg/dL Normal CREAT,SERUM 0.95 Result Comment: The validity of the calculated GFR AND GFRAA in patients over 70 years has not been determined. Clinical correlation is essential. LAB L501.1110 >60 mL/min Normal EST GFR 62 Result Comment: Non- GFR Calc LAB L501.1115 >60 mL/min Normal EST GFR - AA 75 Result Comment: GFR Calc LAB L501.1300 10-20 RATIO High BUN/CRE 27.4 LAB L501.1500 6.4-8.2 g/dL Low T PROT 5.7 LAB L501.1800 3.2-5.0 g/dL Low ALB 2.4 LAB L501.1950 2.2-4.2 g/dL Normal GLOB 3.3 LAB L501.2000 0.9-2.4 RATIO Low A/G 0.7 LAB L501.2200 8.5-10.1 mg/dL Low CA 8.3 LAB L501.4100 15-37 U/L Normal AST 35 LAB L501.4305 45-117 U/L High ALK P 125 LAB L501.4405 13-56 U/L Normal ALT 32 Result Comment: Please note revised ALT reference range effective 2017. LAB L501.4600 0.20-1.00 mg/dL Normal T BILI 0.50 LAB L501.5300 136-145 mmol/L Low NA 135 LAB L501.5600 3.5-5.1 mmol/L Normal K 3.7 LAB L501.5900 98-107 mmol/L Normal CL 102 LAB L501.6100 21.0-32.0 mmol/L Normal CO2 23.0 LAB L501.6200 5-15 Normal GAP 10 Performed By: #### L500.4050, L501.9520 #### [facility] [address] [place], [place], [address] THYROID STIM HORMONE Collected: 01/09/2018 Status: F Source: [facility] ([facility]) 11:51 AM [facility] TYPE CODE TESTS RESULT OUT OF RANGE REFERENCE UNITS LAB L501.9520 0.358-3.74 uIU/mL Normal TSH 2.40 Performed By: #### L500.4050, L501.9520 #### [facility] [address] [place], [address] ONCOLOGY CONSULTATION Observed: 12/22/2017 Status: F Source: [place] 3:36 PM [facility] [place] [address] Oncology Consultation Date of Service: 12/22/17 1036 MR#: [id number] Acct: [id number] Name: ABEL NICHOLE Rep #: [id number] : 1945 From: Sebastián Suh MD Age/Sex: 72/F Location: ONC Status: Signed Consult Referring Physician: Dr. Sesar Villarreal Consult Results: Anemia due to GI Bleed. Subjective Date of Service:: 12/22/17 Chief Complaint: Referred for management of anemia. History of Present Illness: 72y.o.woman which Sjogren's disease, dysphagia status post PEG placement presented with peptic ulcer disease in October 2017 with bleeding. She received blood transfusions and placed on iron via PEG. She was seen in follow-up by Dr. Villarreal and still found to be anemic, HGB was 9.7 on 12/09/2017 so she was referred for iron replacement. She uses PEG tube on and off, tries to eat by mouth but most of her food don't go down well. She feels weak in the legs, using a walker to ambulate. 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) Body mass index (BMI) of 23.0-23.9 in adult (Chronic) Cardiomyopathy (Chronic) Chronic pancreatitis (Chronic) Chronic systolic congestive heart failure (Chronic) Difficulty swallowing (Chronic) Mitral regurgitation and mitral stenosis (Chronic) Primary Sjogren's syndrome (Chronic) Pulmonary hypertension (Chronic) Acute yto-JK-fphawpquo myocardial infarction (Resolved) Pleural effusion (Resolved) Right upper quadrant pain (Resolved) Thrush (Resolved) Past Surgical History (Last Updated 10/30/17 @ 11:20 by Caro Zuleta) H/O heart artery stent (Chronic) History of left heart catheterization (LHC) (Chronic) H/O bilateral breast reduction surgery (Resolved) H/O bladder repair surgery (Resolved) History of hysterectomy (Resolved) History of tonsillectomy (Resolved) S/P percutaneous endoscopic gastrostomy (PEG) tube placement (Resolved) S/P rotator cuff repair (Resolved) S/P thoracentesis (Resolved) Family History (Last Reviewed 10/30/17 @ 11:17 by Caro Zuleta) Mother Cancer Father Heart disease Brother Cancer Allergies/Adverse Reactions: Allergy/AdvReac Type Severity Reaction Status Date / Time Home Medications Medication Instructions Recorded Atorvastatin Calcium 80 mg GT QHS 06/26/17 Carvedilol [Coreg] 3.125 mg GT BID 06/26/17 Levothyroxine [Synthroid] 12.5 mcg GT DAILY 06/26/17 Review of Systems Constitutional:: Reports: Weakness, Fatigue. Denies: Fever, Sweats Cardiovascular:: Denies: Chest pain, Palpitations, Dyspnea on exertion, Orthopnea, PND, Shortness of breath Respiratory: Denies: Cough, Hemoptysis, Shortness of Breath, Wheezing Gastrointestinal:: Reports: Dysphagia. Denies: Odynophagia Genitourinary: Denies: Dysuria, Hematuria, 15, Flank pain Musculoskeletal:: Denies: Back pain, Myalgia, Arthralgia Skin: Denies: Rash, Skin Changes, Wounds Neurological:: Denies: Headache, Dizziness, Visual changes, Tinnitus, Hearing loss Psychiatric: Denies: Anxiety, Depression, Homicidal Ideations, Suicidal Ideations Vital Signs Height 5 ft 4 in Weight: 55.792 kg Weight in Pounds 123.0 lbs - Physical Exam General: Alert, Oriented x3, No apparent distress, - - Looks pain HEENT: Atraumatic, PERRLA, EOMI, Normocephalic Oropharynx:: Dry mucosa Neck:: Supple, Trachea midline. Negative for: JVD, bilateral Cardiac:: Regular rate, Regular rhythm, Normal S1, Normal S2. Negative for: Murmur Lungs: Clear to auscultation, Excusion symmetrical. Negative for: Rhonchi, Wheezes Abdomen:: Bowel sounds x 4, Soft, Non-tender, Non-distended, - - + PEG Tube. Negative for: Hepatosplenomegaly Neurological: Neuro grossly intact, Unsteady Gait - walking with Walker Skin:: Negative for: Lesions, Rash, Petechiae, Ecchymosis Psychiatric:: Appropriate affect, Euthymic Lymphatics:: Negative for: Cervical lymphadenopathy, Supraclavicular lymphadenopathy, Axillary lymphadenopathy Assessment and Plan Anemia due to GI bleed-Peptic ulcer disease. Malnutrition-Protein. Sjogren's syndrome with dysphagia and PEG tube. Discussed management of acute blood loss, because of her Sjogren's disease cannot depend on Ferritin to determine iron reserves. Suggested Iron infusion to replenish iron stores because on her GI problems, Pt agreed. Plan is to do Venofer 200mg IV daily x 5. Increase protein intake by using protein supplements. RTC 6 weeks with cbc, cmp, iron studies. Medications: Prescriptions This Visit Medication Instructions Recorded Chlorthalidone 12.5 mg 12/22/17 Primary Care Provider: Leighton Sun Referring Provider: Redd Villarreal - Problem List (1) Protein malnutrition Status: Chronic (2) Anemia Status: Chronic Qualifiers: Anemia type: unspecified type Qualified Code(s): D64.9 - Anemia, unspecified (3) Dysphagia Status: Chronic Qualifiers: Code Visit Office Visits / Consults: 28102 OP Consult L3 12/22/17 2106 <Electronically signed by Sebastián Suh MD> Date Sebastián Suh MD Cosigner Signature: Date (if applicable) CC: Leighton Sun MD; Redd Villarreal CBC W/DIFF, AUTOMATED Collected: 12/22/2017 Status: F Source: [place] 2:11 PM [facility] Order Comment: Reason for Laboratory Test . TYPE CODE TESTS RESULT OUT OF RANGE REFERENCE UNITS LAB L100.1000 4.4-11.0 K/mm3 Normal WBC 5.7 LAB L100.1200 4.2-5.4 M/mm3 Low RBC 3.31 LAB L100.1300 12.0-15.0 g/dl Low HGB 10.4 LAB L100.1400 37-47 % Low HCT 31.2 LAB L100.1500 81-99 fL Normal MCV 94.3 LAB L100.1600 27.0-32.0 pg Normal MCH 31.4 LAB L100.1700 32-36 g/gl Normal MCHC 33.3 LAB L100.1810 11.6-14.6 % Normal RDW CV 14.3 LAB L100.1820 35.1-43.9 fl High RDW SD 47.6 LAB L100.1900 150-450 K/mm3 Normal PLT 187 LAB L100.2000 6.2-12.0 fl Normal MPV 9.2 LAB L100.2100 47-70 % High NEUT% 86.9 LAB L100.2200 19-41 % Low LY% 5.8 LAB L100.2300 0-10 % Normal MONO% 6.0 LAB L100.2400 0-5 % Normal EO% 0.9 LAB L100.2500 0-1 % Normal BASO% 0.2 LAB L100.2550 0.0-0.9 % Normal IM GRAN % 0.200 Result Comment: IG% - Immature Granulocytes (promyelocytes, myelocytes and metamyelocytes) > 1% indicates that a LEFT SHIFT is Present. LAB L100.2620 2.0-7.7 X10 3/uL Absolute Neut Normal 5.0 LAB L100.2720 0.83-4.51 X10 3/ul Low Absolute Lymph 0.33 LAB L100.7600 HYPOCHROMASIA Normal 1+ LAB L100.8000 ACANTHOCYTE Normal 1+ Performed By: #### L100.0100, L503.6550 #### [facility] [address] [place], [place], [id number] FERRITIN Collected: 12/22/2017 Status: F Source: [place] 2:11 PM [facility] Order Comment: Reason for Laboratory Test 0 TYPE CODE TESTS RESULT OUT OF REFERENCE UNITS RANGE LAB L503.6550 8-252 ng/mL High FERRITIN 675 Performed By: #### L100.0100, L503.6550 #### [facility] [address] [place], [place], [id number] IRON BINDING Collected: 12/22/2017 Status: F Source: [place] CAPACITY,TOTAL 2:11 PM [facility] Order Comment: Reason for Laboratory Test . TYPE CODE TESTS RESULT OUT OF RANGE REFERENCE UNITS LAB L503.6075 250-450 ug/dL Low TIBC 215 Performed By: #### L503.6075, L503.6150 #### [facility] [address] [place], [address] IRON Collected: 12/22/2017 Status: F Source: [place] 2:11 PM [facility] Order Comment: Reason for Laboratory Test . TYPE CODE TESTS RESULT OUT OF RANGE REFERENCE UNITS LAB L503.6150 50-170 ug/dL Low IRON 33 Performed By: #### L503.6075, L503.6150 #### [facility] [address] [place], [address] COMPREHENSIVE METABOLIC Collected: 12/09/2017 Status: F Source: [facility] PROFIL 11:52 AM [facility] TYPE CODE TESTS RESULT OUT OF RANGE REFERENCE UNITS LAB L501.0100 74-106 mg/dL Normal GLU 74 Result Comment: Please note revised GLUCOSE reference range effective 2017. LAB L501.1000 7-18 mg/dL High BUN 29 LAB L501.1100 0.55-1.02 mg/dL Normal CREAT,SERUM 0.86 Result Comment: The validity of the calculated GFR AND GFRAA in patients over 70 years has not been determined. Clinical correlation is essential. LAB L501.1110 >60 mL/min Normal EST GFR 69 Result Comment: Non- GFR Calc LAB L501.1115 >60 mL/min Normal EST GFR - AA 84 Result Comment: GFR Calc LAB L501.1300 10-20 RATIO High BUN/CRE 33.8 LAB L501.1500 6.4-8.2 g/dL Low T PROT 5.5 LAB L501.1800 3.2-5.0 g/dL Low ALB 2.5 LAB L501.1950 2.2-4.2 g/dL Normal GLOB 3.0 LAB L501.2000 0.9-2.4 RATIO Low A/G 0.8 LAB L501.2200 8.5-10.1 mg/dL Low CA 8.2 LAB L501.4100 15-37 U/L High AST 39 LAB L501.4305 45-117 U/L High ALK P 126 LAB L501.4405 13-56 U/L Normal ALT 30 Result Comment: Please note revised ALT reference range effective 2017. LAB L501.4600 0.20-1.00 mg/dL Normal T BILI 0.60 LAB L501.5300 136-145 mmol/L Normal NA 137 LAB L501.5600 3.5-5.1 mmol/L Normal K 4.2 LAB L501.5900 98-107 mmol/L Normal CL 103 LAB L501.6100 21.0-32.0 mmol/L Normal CO2 24.0 LAB L501.6200 5-15 Normal GAP 10 Performed By: #### L500.4050, L501.2450 #### [facility] [address] [place], [address] LIPASE Collected: 12/09/2017 Status: F Source: [place] 11:52 AM [facility] TYPE CODE TESTS RESULT OUT OF REFERENCE UNITS RANGE LAB L501.2450 73-393 U/L High LIPASE 408 Performed By: #### L500.4050, L501.2450 #### [facility] [address] [place], [address] CBC W/DIFF, AUTOMATED Collected: 12/09/2017 Status: F Source: [place] 11:52 [facility] REPOS[facility] TYPE CODE TESTS RESULT OUT OF RANGE REFERENCE UNITS LAB L100.1000 4.4-11.0 K/mm3 Low WBC 3.7 LAB L100.1200 4.2-5.4 M/mm3 Low RBC 3.05 LAB L100.1300 12.0-15.0 g/dl Low HGB 9.7 LAB L100.1400 37-47 % Low HCT 30.0 LAB L100.1500 81-99 fL Normal MCV 98.4 LAB L100.1600 27.0-32.0 pg Normal MCH 31.8 LAB L100.1700 32-36 g/gl Normal MCHC 32.3 LAB L100.1810 11.6-14.6 % High RDW CV 15.9 LAB L100.1820 35.1-43.9 fl High RDW SD 55.4 LAB L100.1900 150-450 K/mm3 Normal PLT 166 LAB L100.2000 6.2-12.0 fl Normal MPV 10.2 LAB L100.2100 47-70 % High NEUT% 81.5 LAB L100.2200 19-41 % Low LY% 7.9 LAB L100.2300 0-10 % Normal MONO% 7.9 LAB L100.2400 0-5 % Normal EO% 1.9 LAB L100.2500 0-1 % Normal BASO% 0.5 LAB L100.2550 0.0-0.9 % Normal IM GRAN % 0.300 Result Comment: IG% - Immature Granulocytes (promyelocytes, myelocytes and metamyelocytes) > 1% indicates that a LEFT SHIFT is Present. LAB L100.2620 2.0-7.7 X10 3/uL Normal Absolute Neut 3.0 LAB L100.2720 0.83-4.51 X10 3/ul Low Absolute Lymph 0.29 LAB L100.4500 Normal SMEAR COMMENT SEE COMMENT Result Comment: LYMPHOPENIA NOTED LAB L100.5500 ADEQ PLT EST Normal ADEQUATE LAB L100.7300 ANISO Normal RARE LAB L100.7800 MACROCYTE Normal RARE LAB L100.8000 ACANTHOCYTE Normal RARE Performed By: #### L100.0100, L101.9900 #### [facility] [address] [place], [address] ERYTHROCYTE SED RATE Collected: 12/09/2017 Status: F Source: [place] 11:52 AM [facility] TYPE CODE TESTS RESULT OUT OF RANGE REFERENCE UNITS LAB L102.0000 0-30 mm/hr Normal SED RATE 7 Performed By: #### L100.0100, L101.9900 #### [facility] [address] [place], [address] CARDIOLOGY VISIT Observed: 11/20/2017 Status: F Source: [place] REPORT 10:59 AM [facility] 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 Accompanied by: Is patient in pain?: No Allergies povidone-iodine [From Betadine] Allergy (Verified 10/30/17 11:16) Unknown soap [From Betadine] Allergy (Verified 10/30/17 11:16) Unknown Medications Atorvastatin Calcium 80 mg GT QHS 06/26/17 [History Confirmed 10/22/17] Carvedilol [Coreg] 3.125 mg GT BID 06/26/17 [History Confirmed 10/22/17] Levothyroxine [Synthroid] 12.5 mcg GT DAILY 06/26/17 [History Confirmed 10/22/17] Acetaminophen [Pain Relief] 500 mg GT Q6H PRN PRN 07/16/17 [History Confirmed 10/22/17] Clopidogrel Bisulfate [Plavix] 75 mg GT DAILY 07/16/17 [History Confirmed 10/22/17] Lactose-Reduced Food/Fiber [Jevity 1.5 Nirmal Liquid] 15 ml GT UD 07/16/17 [History Confirmed 10/20/17] Cholecalciferol (VIT D3) 5,000 iu PO DAILY 10/20/17 [History Confirmed 10/20/17] ferrous sulfate 220 mg (44 mg iron)/5 mL oral elixir See Label Instructions PO BID ml 10/22/17 [History Confirmed 10/22/17] furosemide 40 mg tablet 40 mg PO .COMPLEX 10/22/17 [History Confirmed 10/22/17] lactose-reduced food with fiber 0.06 gram-1.5 kcal/mL oral liquid 1.5 ea PO DIRECTED PRN ml 10/22/17 [History Confirmed 10/22/17] lisinopril 2.5 mg tablet 2.5 mg PO QDAY 10/22/17 [History Confirmed 10/22/17] Omeprazole [Prilosec] 40 mg GT BID #120 cap 10/23/17 [Rx] Ejection fraction %: 20 to 24 PFSH Medical History Anemia (Chronic) 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) Body mass index (BMI) of 23.0-23.9 in adult (Chronic) Cardiomyopathy (Chronic) Chronic pancreatitis (Chronic) Chronic systolic congestive heart failure (Chronic) Difficulty swallowing (Chronic) Mitral regurgitation and mitral stenosis (Chronic) Primary Sjogren's syndrome (Chronic) Pulmonary hypertension (Chronic) Acute ggx-NT-xjyvsxwtt myocardial infarction (Resolved) Pleural effusion (Resolved) Right upper quadrant pain (Resolved) Thrush (Resolved) Surgical History H/O heart artery stent (Chronic) History of left heart catheterization (LHC) (Chronic) H/O bilateral breast reduction surgery (Resolved) H/O bladder repair surgery (Resolved) History of hysterectomy (Resolved) History of tonsillectomy (Resolved) S/P percutaneous endoscopic gastrostomy (PEG) tube placement (Resolved) S/P rotator cuff repair (Resolved) S/P thoracentesis (Resolved) Family History Mother Cancer Lung cancer Father Heart disease Brother Cancer Esophageal Cancer Social History Smoking Status: Never smoker second hand exposure: No alcohol intake: never caffeine: No what type of physical activity do you participate in: other details: Therapy frequency: 3-4 times per week duration: 15-30 minutes/day seatbelt use: always do you feel safe at home: Yes 11/20/17 1059 <Electronically signed by Harish RODRIGUEZ> Date Harish RODRIGUEZ Cosigner Signature: Date (if applicable) CC: ALLERGIES ALLERGIES DATE TYPE / CODE NAME / CODE REACTION SEVERITY SOURCE 09/17/2018 Drug soap/[id number] Rash [facility] Allergy/4160 Formerly named [facility](RXNORM) [facility] [address]155(SNOMED Repository CT) 09/17/2018 Drug povidone-iod Rash [facility] Allergy/4160 ine/[id number] [facility] [address](SNOMED 53(RXNORM) Repository CT) ENCOUNTERS ENCOUNTERS ADMIT/DISCHARGE ACCOUNT ADMITTING ENCOUNTER LOCATION SOURCE NUMBER CLASS 10/21/2018 [id number] Ambulatory [place] 4 [facility] ing:MFPLAB Repository 09/17/2018/ [id number] Ambulatory BMSBuilding:B [place] 8 3 [place].[facility] Repository 07/24/2018 [id number] Ambulatory [place] 7 [facility] ing:MFPLAB Repository 07/15/2018/ [id number] Ambulatory BMSBuilding:B [place] 8 6 MS.[facility] Repository 05/18/2018 [id number] [place] ing:MFPLAB Repository 05/11/2018 [id number] Ambulatory [address] ing:OMD Repository 05/11/2018 [id number] Ambulatory BMSBuilding:B [place] 1 MS.CF.[facility] Repository 05/04/2018 [id number] Ambulatory [place] 7 [facility] ing:CVS Repository 05/04/2018 [id number] Ambulatory BMSBuilding:W [place] 2 [facility] Repository 04/29/2018/ [id number] Ambulatory BMSBuilding:B [place] 8 5 MS.[facility] Repository 04/24/2018 [id number] Ambulatory [place] 2 [facility] Hospital ing:MFPLAB Repository 04/16/2018 [id number] Ambulatory [place] 6 [facility] Hospital ing:MTLAB Repository 02/09/2018 [id number] Ambulatory BMSBuilding:B [place] 0 MS.CF.[facility] Repository 02/02/2018 [id number] Ambulatory BMSBuilding:B [place] 0 [place].CF.[facility] Repository 01/09/2018 [id number] Ambulatory [place] 9 [facility] ing:MFPLAB Repository 12/22/2017 [id number] Ambulatory BMSBuilding:B [place] 2 [facility] Repository 12/09/2017 [id number] [place] 8 [facility] ing:MFPLAB Repository 12/03/2017 [id number] Ambulatory [place] 9 [facility] ing:CR Repository 10/30/2017/ [id number] Ambulatory BMSBuilding:B [place] 8 [facility] PAYERS PAYERS ENCOUNTER GUARANTOR PAYER SUBSCRIBER SOURCE 10/21/2018 PIERRE Alvarenga Primary ABEL L [place] [id number] Insurance:MEDICARE SCHNIPKEDOB: [facility] [id number] Number[place] Repository 29454Zhk: 330 [id number] [phone] () Date:2018-10-21 10/21/2018 Secondary ABEL L [place] Insurance:GPM LIFE SCHNIPKEDOB: Community INSURANCE [id number] Hospital COMPANYPolicy Number: Repository [id number] Date:5047-28-12FB [address] [address]JS: 10/21/2018 Tertiary NOT GIVENUNK [place] Insurance:SELF PAY [facility] Number: Effective Repository Date:2018-10-21 09/17/2018 PIERRE Alvarenga Primary ABEL L [place] [id number] Insurance:MEDICARE SCHNIPKEDOB: [facility] [id number] Number: Repository [address]Oih: 330 [id number] [phone] () Date:2017-09-17 09/17/2018 Secondary ABEL L [place] Insurance:GPM LIFE SCHNIPKEDOB: Community INSURANCE [id number] Hospital COMPANYPolicy Number: Repository [id number] Date:5438-72-48IW [address] [address]VZ: 09/17/2018 Tertiary NOT GIVENUNK [place] Insurance:SELF PAY [facility] Number: Effective Repository Date:2018-09-09 07/24/2018 PIERRE Alvarenga Primary ABEL L [place] [id number] Insurance:MEDICARE SCHNIPKEDOB: Community [facility] [id number] Number: Repository [address]Agd: 330 [id number] [phone] () Date:2018-07-24 07/24/2018 Secondary ABEL L [place] Insurance:GPM LIFE SCHNIPKEDOB: Community INSURANCE [id number] Hospital COMPANYPolicy Number: Repository [id number] Date:7526-47-37LX [address] [place] [address] 91174OZ: 07/24/2018 Tertiary NOT GIVENUNK [place] Insurance:SELF PAY [facility] Effective Repository Date:2018-07-24 07/15/2018 PIERRE Alvarenga Primary ABEL L [place] [id number] Insurance:MEDICARE SCHNIPKEDOB: [facility] [id number] Number: Repository [address]Mwc: 330 [id number] [phone] () Date:2018-04-29 07/15/2018 Secondary ABEL L [place] Insurance:GPM LIFE SCHNIPKEDOB: Community INSURANCE [id number] Hospital COMPANYPolicy Number: Repository [id number] Date:3606-30-32QJ [address] [place] [address]UN: 07/15/2018 Tertiary NOT GIV[place]UNK [place] Insurance:SELF PAY [facility] Number: Effective Repository Date:2018-07-15 05/18/2018 PIERRE Alvarenga Primary ABEL L [place] [id number] Insurance:MEDICARE SCHNIPKEDOB: Community [facility] [id number] Number: Repository 625[address]Nqn: 330 [id number] [phone] () Date:2018-05-18 05/18/2018 Secondary ABEL L [place] Insurance:GPM LIFE SCHNIPKEDOB: Community INSURANCE [id number] Hospital COMPANYPolicy Number: Repository [id number] Date:5404-97-39PD [address], [place] [address]TK: 05/18/2018 Tertiary NOT GIVENUNK [place] Insurance:SELF PAY [facility] Number: Effective Repository Date:2018-05-18 05/11/2018 PIERRE Alvarenga Primary ABEL L [place] [id number] Insurance:MEDICARE SCHNIPKEDOB: Community [facility] [id number] [place] Number: Repository [address]Mbf: 330 [id number] [phone] () Date:2017-12-16 05/11/2018 Secondary ABEL L [place] Insurance:GPM LIFE SCHNIPKEDOB: Community INSURANCE [id number] [facility] HospitalPolicy Number: Repository [id number] Date:9027-38-79KP [address], [place] [address]KV: 05/11/2018 Tertiary NOT GIVENUNK [place] Insurance:SELF PAY [facility] Number: Effective Repository Date:2017-12-16 05/11/2018 PIERRE E Primary ABEL L [place] [id number] Insurance:MEDICARE SCHNIPKEDOB: Community [facility] [id number] Number: Repository [address]Arr: 330 [id number] [phone] () Date:2017-12-16 05/11/2018 Secondary ABEL L [place] Insurance:GPM LIFE SCHNIPKEDOB: Community INSURANCE [id number] Hospital COMPANYPolicy Number: Repository [id number] Date:5902-63-21FI [address], [place] [address]AX: 05/11/2018 Tertiary NOT GIVENUNK [place] Insurance:SELF PAY [facility] Number: Effective Repository Date:2018-05-11 05/04/2018 PIERRE Alvarenga Primary ABEL L [place] [id number] Insurance:MEDICARE SCHNIPKEDOB: Community [facility] [id number] Hospital[place] Number: Repository [address]Nxj: 330 [id number] [phone] () Date:2018-04-29 05/04/2018 Secondary ABEL L [place] Insurance:GPM LIFE SCHNIPKEDOB: Community INSURANCE [id number] Hospital COMPANYPolicy Number: Repository [id number] Date:4617-43-69YE [address] [place] [address]WC: 05/04/2018 Tertiary NOT GIVENUNK [place] Insurance:SELF PAY [facility] Number: Effective Repository Date:2018-04-29 05/04/2018 PIERRE E Primary ABEL [place] [id number] Insurance:MEDICARE SCHNIPKEDOB: Community [facility] [id number] Number: Repository [address]Vfb: 330 [id number] [phone] () Date:2018-04-29 05/04/2018 Secondary ABEL L [place] Insurance:GPM LIFE SCHNIPKEDOB: Community INSURANCE [id number] Hospital COMPANYPolicy Number: Repository [id number] Date:2051-02-68ZH [address] [place] [address] 139[address]KC: 05/04/2018 Tertiary NOT GIVENUNK [place] Insurance:SELF PAY [facility] Number: Effective Repository Date:2018-05-04 04/29/2018 PIERRE E Primary ABEL L [place] [id number] Insurance:MEDICARE SCHNIPKEDOB: [facility] [id number]. [facility] [place] Number: Repository [address]Lbt: 330 [id number] [phone] () Date:2017-09-24 04/29/2018 Secondary ABEL L [place] Insurance:GPM LIFE SCHNIPKEDOB: Community INSURANCE [id number] Hospital COMPANYPolicy Number: Repository [id number] Date:0934-00-82YY [address], [place] [address]BT: 04/29/2018 Tertiary NOT GIVENUNK [place] Insurance:SELF PAY [facility] Number: Effective Repository Date:2018-04-29 04/24/2018 PIERRE Alvarenga Primary ABEL L [place] [id number] Insurance:MEDICARE SCHNIPKEDOB: Community [facility] [place]lic [id number] Number: Repository [address]Bhm: 330 [id number] [phone] () Date:2018-04-24 04/24/2018 Secondary ABEL L [place] Insurance:GPM LIFE SCHNIPKEDOB: Community INSURANCE [id number] Hospital COMPANYPolicy Number: Repository [id number] Date:5180-81-82FT [address], [place] [address]MH: 04/24/2018 Tertiary NOT GIVENUNK [place] Insurance:SELF PAY [facility] Number: Effective Repository Date:2018-04-24 04/16/2018 PIERRE Alvarenga Primary ABEL L [place] [id number] Insurance:MEDICARE SCHNIPKEDOB: Community [facility] [id number]. Anthony [facility] Health [facility] [place] Number: Repository [address]Pkt: 330 [id number] [phone] () Date:2018-04-16 04/16/2018 Secondary ABEL L [place] Insurance:GPM LIFE SCHNIPKEDOB: Community INSURANCE [id number] Hospital COMPANYPolicy Number: Repository [id number] Date:4910-84-29GI [address], [place] [address]KG: 04/16/2018 Tertiary NOT GIVENUNK [place] Insurance:SELF PAY [facility] Number: Effective Repository Date:2018-04-16 02/09/2018 PIERRE Alvarenga Primary ABEL L [place] [id number] Insurance:MEDICARE SCHNIPKEDOB: Community [facility] [id number] [place] Number: Repository [address]Tdy: 330 [id number] [phone] () Date:2017-12-16 02/09/2018 Secondary ABEL L [place] Insurance:GPM LIFE SCHNIPKEDOB: Community INSURANCE [id number] Hospital COMPANYPolicy Number: Repository [id number] Date:2030-48-78IY [address], [place] [address]KK: 02/09/2018 Tertiary NOT GIVENUNK [place] Insurance:SELF PAY [facility] Number: Effective Repository Date:2018-02-09 02/02/2018 PIERRE E Primary ABEL L [place] [id number] Insurance:MEDICARE SCHNIPKEDOB: Community [facility] [id number] [place] Number: Repository [address]Wzu: 330 [id number] [phone] () Date:2017-12-16 02/02/2018 Secondary ABEL L [place] Insurance:GPM LIFE SCHNIPKEDOB: Community INSURANCE [id number] Hospital COMPANYPolicy Number: Repository [id number] Date:0953-44-82AE [address], [place] [address]ZS: 02/02/2018 Tertiary NOT GIVENUNK [place] Insurance:SELF PAY [facility] Number: Effective Repository Date:2018-02-02 01/09/2018 PIERRE E Primary ABEL L [place] [id number] Insurance:MEDICARE SCHNIPKEDOB: [facility] [id number] [place] Number: Repository [address]Agh: 330 [id number] [phone] () Date:2018-01-09 01/09/2018 Secondary ABEL L [place] Insurance:GPM LIFE SCHNIPKEDOB: Community INSURANCE [id number] Hospital COMPANYPolicy Number: Repository [id number] Date:2658-65-20DB [address], [place] [address]DQ: 01/09/2018 Tertiary NOT GIVENUNK [place] Insurance:SELF PAY [facility] Number: Effective Repository Date:2018-01-09 12/22/2017 PIERRE Alvarenga Primary ABEL L [place] [id number] Insurance:MEDICARE SCHNIPKEDOB: Community [facility] [id number] Number: Repository [address]Dvq: 330 [id number] [phone] () Date:2017-12-16 12/22/2017 Secondary ABEL L [place] Insurance:GPM LIFE SCHNIPKEDOB: Community INSURANCE [id number] Hospital COMPANYPolicy Number: Repository [id number] Date:7356-99-76NX [address], [place] [address]MC: 12/22/2017 Tertiary NOT GIVENUNK [place] Insurance:SELF PAY [facility] Number: Effective Repository Date:2017-12-22 12/09/2017 PIERRE Alvarenga Primary ABEL [place] [id number] Insurance:MEDICARE SCHNIPKEDOB: Community [facility] [id number] Number: Repository [address]Sub: 330 [id number] [phone] () Date:2017-12-09 12/09/2017 Secondary ABEL [place] Insurance:GPM LIFE SCHNIPKEDOB: Community INSURANCE [id number] Hospital COMPANYPolicy Number: Repository [id number] Date:0350-39-06PU [address], [place] [address]IU: 12/09/2017 Tertiary NOT GIVENUNK [place] Insurance:SELF PAY [facility] Number: Effective Repository Date:2017-12-09 12/03/2017 PIERRE Alvarenga Primary ABEL [place] [id number] Insurance:MEDICARE SCHNIPKEDOB: Community [facility] [id number] Number: Repository [address]Jpu: 330 [id number] [phone] () Date:2011-09-05 12/03/2017 Secondary ABEL [place] Insurance:GPM LIFE SCHNIPKEDOB: Community INSURANCE [id number] Hospital COMPANYPolicy Number: Repository [id number] Date:5964-28-29ZT [address] [address]RK: 12/03/2017 Tertiary NOT GIVENUNK [place] Insurance:SELF PAY [facility] Number: Effective Repository Date:2017-11-06 10/30/2017 PIERRE Alvarenga Primary ABEL [place] [id number] Insurance:MEDICARE [facility]: Community [facility] BPolicy [id number] City, [place] Number: Repository [address]Upa: [phone] [id number] [phone] () Date:2017-09-13 10/30/2017 Secondary ABEL [place] [facility]: Community INSURANCE [id number] Health System Galion HospitalPolicy Number: Repository [id number] Date:6834-38-67GA [address] [address]YN: 10/30/2017 Tertiary NOT GIVENUNK [place] Insurance:SELF PAY [facility] Number: Effective Repository Date:2017-09-13
== END ==
PROVIDERS: Family Provider Family Medicine; PCP Family Medicine; Visit Provider Family Medicine
DX: R59.0 Localized enlarged lymph nodes (principal); R62.7 Adult failure to thrive; K85.90 Acute pancreatitis without necrosis or infection, unspecified
CPT/HCPCS: 36415; 80053; 82043; 82570; 83690; 85025

== ENCOUNTER 2018-12-27 15:40 | Inpatient (IN) | payer MEDICARE, OTHER, SELFPAY ==
[2018-11-09 11:08] VITALS: BMI 20.2
--- NOTE | 2018-12-27 15:55 | NURSING ---
[facility] [place] [facility]
[2018-12-27 16:14] VITALS: BP 130/81; PULSE 65; RESP 16; TEMP 36.8; O2SAT 100
--- NOTE | 2018-12-27 16:50 | PCM.HP.STD ---
Problem List (1) Closed right hip fracture Status: Acute (2) GERD (gastroesophageal reflux disease) Status: Chronic (3) Tinea corporis Status: Chronic (4) Hypothyroidism Status: Chronic (5) Hyperlipidemia Status: Chronic (6) Iron deficiency anemia Status: Chronic (7) Chronic diastolic heart failure Status: Chronic (8) Hypertension Status: Chronic (9) Lung nodule Status: Chronic (10) Cervical lymphadenopathy Status: Acute (11) Hypercalcemia Status: Acute (12) Normal pressure hydrocephalus Status: Acute (13) Dysphagia Status: Chronic Qualifiers: (14) CAD (coronary artery disease) Status: Acute (15) Sjogrens syndrome Status: Chronic Qualifiers: Sjogren's organ involvement: unspecified organ involvement Qualified Code(s): M35.00 - Sicca syndrome, unspecified; M35.00 - Sicca syndrome, unspecified; M35.00 - Sicca syndrome, unspecified; M35.00 - Sicca syndrome, unspecified History of Present Illness Date of Admission: 12/27/18 Chief Complaint: Here for rehabilitation, strengthening, prior to discharge home. The patient is a 73 year old Female with below past medical history with following. 12/01/2018 Right hip pain, possible syncope. Suffered right hip fracture. Underwent right hip hemiarthroplasty at [facility] in [place], [place]. CT cervical spine showed cervical adenopathy concerning for lymphoma. CT head suspicious for normal pressure hydrocephalus. Hypercalcemia concerning for malignancy. Ceftriaxone IV for urinary tract infection. 12/27/2018 Flew home from [place] for admission to TCU with debility, here for rehabilitation, strengthening, prior to discharge home with spouse. Past Medical History Past Medical History (Chronic Problems): Chronic Problems (Last Reviewed 11/09/18 @ 11:08 by Shalini Villeda) GERD (gastroesophageal reflux disease) (Chronic) Tinea corporis (Chronic) Hypothyroidism (Chronic) Hyperlipidemia (Chronic) Iron deficiency anemia (Chronic) Chronic diastolic heart failure (Chronic) Hypertension (Chronic) Lung nodule (Chronic) Nonrheumatic mitral valve insufficiency (Chronic) Pulmonary hypertension (Chronic) Cardiomyopathy (Chronic) Atherosclerosis of kashia coronary artery of kashia heart without angina pectoris (Chronic) PTCA/SILVIA to LCx, OM #1, and LAD in July 2017; Syncope and collapse (Chronic) S/P PTCA (percutaneous transluminal coronary angioplasty) (Chronic) Percutaneous transluminal coronary angioplasty (PTCA) within last 14 to 24 months (Chronic) Dysphagia (Chronic) Sjogrens syndrome (Chronic) Raynaud disease (Chronic) Medical History: Medical History (Last Reviewed 11/09/18 @ 11:08 by Shalini Villeda) Anemia D64.9 Asteatosis cutis L85.3 Atherosclerotic heart disease of kashia coronary artery without angina pectoris I25.10 PTCA/SILVIA of the prox Lt posterolateral branch of LCX, PTCA/SILVIA of the ostial OM1, PTCA/SILVIA of the prox LAD 07/17/2017. LHC: 04/01/2017 Body mass index (BMI) of 23.0-23.9 in adult Z68.23 Cardiomyopathy I42.9 Chronic pancreatitis K86.1 Chronic systolic congestive heart failure I50.22 Difficulty swallowing R13.10 Mitral regurgitation and mitral stenosis I05.2 Primary Sjogren's syndrome M35.00 Pulmonary hypertension I27.20 Acute veq-VE-naqyewedx myocardial infarction I21.4 History of hysterectomy Z90.710 Pleural effusion J90 Right upper quadrant pain R10.11 Thrush B37.0 Allergies povidone-iodine [From Betadine] Adverse Reaction (Mild, Verified 11/09/18 11:08) Rash soap [From Betadine] Adverse Reaction (Mild, Verified 11/09/18 11:08) Rash Home Medications: Ambulatory Orders Medication Instructions Recorded Atorvastatin Calcium 80 mg GT QHS 06/26/17 Carvedilol [Coreg] 3.125 mg GT BID 06/26/17 Levothyroxine [Synthroid] 12.5 mcg GT DAILY 06/26/17 spironolactone 50 mg tablet 25 mg GT QDAY tab 07/15/18 Lansoprazole 30 mg GT DAILY 12/27/18 Torsemide 20 mg GT DAILY PRN 12/27/18 traMADol [Ultram (G)] 50 mg PO Q8H PRN PRN 12/27/18 Surgical History: Surgical History (Last Reviewed 11/09/18 @ 11:08 by Shalini Villeda) H/O heart artery stent Z95.5 PTCA/SILVIA of the prox Lt posterolateral branch of LCX, PTCA/SILVIA of the ostial OM1, PTCA/SILVIA of the prox LAD 07/17/2017. History of left heart catheterization (LHC) Z98.890 [facility]: 04/01/2017 H/O bilateral breast reduction surgery Z98.890 H/O bladder repair surgery Z98.890 History of tonsillectomy Z90.89 S/P percutaneous endoscopic gastrostomy (PEG) tube placement Z93.1 S/P rotator cuff repair Z98.890 S/P thoracentesis Z98.890 Surgical History: angioplasty - Stents x 3., rotator cuff repair, total hip arthroplasty - Right hemiarthroplasty., tonsillectomy, - - cataracts,hysterectomy, vein surgery on the back of her leg, breast reduction, Gastrostomy tube. 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 Lives: [facility] Smoking Status: Never smoker Tobacco Use: Non-smoker Alcohol: None Drugs: None - *Family History Maternal Family History: Family History (Last Reviewed 11/09/18 @ 11:08 by Shalini Villeda) Mother Cancer Father Heart disease Cancer of kidney Brother Cancer History Items: Cancer Paternal Family History: Family History (Last Reviewed 11/09/18 @ 11:08 by Shalini Villeda) Mother Cancer Father Heart disease Cancer of kidney Brother Cancer History Items: Heart Disease Review of Systems Constitutional: Denies: Chills, Fever, Weight Change HEENT: Denies: Head Aches, Sinus Congestion, Sinus Drainage Cardiovascular: Denies: Chest Pain, Palpitations Respiratory: Denies: Cough, Shortness of breath at rest, Sputum production Gastrointestinal: Denies: Abdominal Pain, Nausea, Vomiting Genitourinary: Denies: Dysuria Musculoskeletal: Denies: Joint Pain, Joint Tenderness Skin: Denies: Rash, Wounds Neurological: Denies: Numbness, Tingling, Focal weakness Psychiatric: Denies: Anxiety, Depression, Homicidal Ideations, Suicidal Ideations Hematologic/ Lymphatic: Denies: Easy Bruising, Easy Bleeding VTE Information - Inpt Only VTE Present on Admission: No VTE Mechan Device Prophylaxis: Knee High ZHOU Hose VTE Pharm Prophylaxis ordered?: No Patient Problems: Active and Suspected Problems (Last Reviewed 11/09/18 @ 11:08 by Shalini Villeda) Closed right hip fracture (Acute) Cervical lymphadenopathy (Acute) Hypercalcemia (Acute) Normal pressure hydrocephalus (Acute) - Physical Exam General: Alert, Oriented x3, Cooperative HEENT: Atraumatic, PERRLA, EOMI, Normocephalic Neck: Supple, No JVD, Negative Carotid Bruits Lungs: Clear to auscultation, Normal air movement Cardiovascular: Regular rate, No murmurs Abdomen: Bowel Sounds Present, Soft, Non Tender, - - PEG tube. Extremities: No edema, Capillary Refill Less than 3 Seconds Skin: No rashes, No breakdown Musculoskeletal: No Tenderness to Palpation of Joints or Extremities Neurological: Cranial nerves II-XII grossly intact Psych/Mental Status: Normal Affect, Appropriate Vital Signs Temp Pulse Resp BP Pulse Ox 98.2 F 65 16 130/81 H 100 12/27/18 16:14 12/27/18 16:14 12/27/18 16:14 12/27/18 16:14 12/27/18 16:14 Oxygen Delivery Method Nasal Cannula Weight: 51.256 kg Body Mass Index (BMI) 20.2 Finger Stick Blood Glucose 154 Assessment/Plan All Active Problems (Last Reviewed 11/09/18 @ 11:08 by Shalini Villeda) Protein malnutrition (Resolved) Closed right hip fracture (Acute) Cervical lymphadenopathy (Acute) Hypercalcemia (Acute) Normal pressure hydrocephalus (Acute) Bradycardia (Acute) Anemia (Resolved) CAD (coronary artery disease) (Acute) Weakness (Acute) Poor fluid intake (Acute) Hypoxia (Acute) Flash pulmonary edema (Acute) Abnormal cardiac enzyme level (Acute) NSTEMI (non-ST elevated myocardial infarction) (Acute) 73 year old female with below past medical history hospitalized for right hip fracture, underwent right hip hemiarthroplasty, complicated by cervical adenopathy concerning for lymphoma, CT head concerning for normal pressure hydrocephalus, admitted to TCU with debility, here for rehabilitation, strengthening, prior to discharge home with spouse. Debility - PT/OT. Pain - Tylenol 1000MG Q6H PRN mild pain, Tramadol 50MG Q8H PRN moderate pain. Bowel - Miralax 17GM daily, Senna/colace 1 tablet BID, Dulcolax 10MG [place] daily PRN. Pneumonia vaccination - Administer Prevnar 13 and/or Pneumovax 23 as necessary. DVT prophylaxis - Hold due to recent GI bleed. Hyperlipidemia - Atorvastatin 80MG QHS. Chronic diastolic heart failure - Coreg 3.125MG BID, Aldactone 25MG daily, Torsemide 20MG daily PRN swelling. GERD - Lansoprazole 30MG daily. Hypothyroidism - Levothyroxine 12.5MG daily. Cervical lymphadenopathy - Will review records, resident already sees Dr. Suh for anemia, consider appointment with Dr. Suh to evaluate for lymphoma, PCP aware per resident, resident spouse. NPH? - Seen on CT head [facility] at [facility], and in [place], consider Neurosurgery referral, NPH may have contributed to her fall which caused right hip fracture, PCP aware per resident, resident spouse. Dysphagia secondary to Sjogren's Syndrome - resident at risk for aspiration, has G tube, but eats oral diet against medical recommendations.
--- NOTE | 2018-12-27 16:54 | HP.PCM_ITS ---
Problem List (1) Closed right hip fracture Status: Acute (2) GERD (gastroesophageal reflux disease) Status: Chronic (3) Tinea corporis Status: Chronic (4) Hypothyroidism Status: Chronic (5) Hyperlipidemia Status: Chronic (6) Iron deficiency anemia Status: Chronic (7) Chronic diastolic heart failure Status: Chronic (8) Hypertension Status: Chronic (9) Lung nodule Status: Chronic (10) Cervical lymphadenopathy Status: Acute (11) Hypercalcemia Status: Acute (12) Normal pressure hydrocephalus Status: Acute (13) Dysphagia Status: Chronic Qualifiers: (14) CAD (coronary artery disease) Status: Acute (15) Sjogrens syndrome Status: Chronic Qualifiers: Sjogren's organ involvement: unspecified organ involvement Qualified Code(s): M35.00 - Sicca syndrome, unspecified; M35.00 - Sicca syndrome, unspecified; M35.00 - Sicca syndrome, unspecified; M35.00 - Sicca syndrome, unsp ecified History of Present Illness Date of Admission: 12/27/18 Chief Complaint: Here for rehabilitation, strengthening, prior to discharge home. The patient is a 73 year old Female with below past medical history with following. 12/01/2018 Right hip pain, possible syncope. Suffered right hip fracture. Underwent right hip hemiarthroplasty at [facility] in [place], [place]. CT cervical spine showed cervical adenopathy concerning for lymphoma. CT head suspicious for normal pressure hydrocephalus. Hypercalcemia concerning for malignancy. Ceftriaxone IV for urinary tract infection. 12/27/2018 Flew home from [place] for admission to TCU with debility, here for rehabilitation, strengthening, prior to discharge home with spouse. Past Medical History Past Medical History (Chronic Problems): Chronic Problems (Last Reviewed 11/09/18 @ 11:08 by Shalini Villeda) GERD (gastroesophageal reflux disease) (Chronic) Tinea corporis (Chronic) Hypothyroidism (Chronic) Hyperlipidemia (Chronic) Iron deficiency anemia (Chronic) Chronic diastolic heart failure (Chronic) Hypertension (Chronic) Lung nodule (Chronic) Nonrheumatic mitral valve insufficiency (Chronic) Pulmonary hypertension (Chronic) Cardiomyopathy (Chronic) Atherosclerosis of [place] coronary artery of [place] heart without angina pectoris (Chronic) PTCA/SILVIA to LCx, OM #1, and LAD in July 2017; Syncope and collapse (Chronic) S/P PTCA (percutaneous transluminal coronary angioplasty) (Chronic) Percutaneous transluminal coronary angioplasty (PTCA) within last 14 to 24 months (Chronic) Dysphagia (Chronic) Sjogrens syndrome (Chronic) Raynaud disease (Chronic) Medical History: Medical History (Last Reviewed 11/09/18 @ 11:08 by Shalini Villeda) Anemia D64.9 Asteatosis cutis L85.3 Atherosclerotic heart disease of [place] coronary artery without angina pectoris I25.10 PTCA/SILVIA of the prox Lt posterolateral branch of LCX, PTCA/SILVIA of the ostial OM1, PTCA/SILVIA of the prox LAD 07/17/2017. LHC: 04/01/2017 Body mass index (BMI) of 23.0-23.9 in adult Z68.23 Cardiomyopathy I42.9 Chronic pancreatitis K86.1 Chronic systolic congestive heart failure I50.22 Difficulty swallowing R13.10 Mitral regurgitation and mitral stenosis I05.2 Primary Sjogren's syndrome M35.00 Pulmonary hypertension I27.20 Acute [id number] myocardial infarction I21.4 History of hysterectomy Z90.710 Pleural effusion J90 Right upper quadrant pain R10.11 Thrush B37.0 Allergies povidone-iodine [From Betadine] Adverse Reaction (Mild, Verified 11/09/18 11:08) Rash soap [From Betadine] Adverse Reaction (Mild, Verified 11/09/18 11:08) Rash Home Medications: Ambulatory Orders Medication Instructions Recorded Atorvastatin Calcium 80 mg GT QHS 06/26/17 Carvedilol [Coreg] 3.125 mg GT BID 06/26/17 Levothyroxine [Synthroid] 12.5 mcg GT DAILY 06/26/17 spironolactone 50 mg tablet 25 mg GT QDAY tab 07/15/18 Lansoprazole 30 mg GT DAILY 12/27/18 Torsemide 20 mg GT DAILY PRN 12/27/18 traMADol [Ultram (G)] 50 mg PO Q8H PRN PRN 12/27/18 Surgical History: Surgical History (Last Reviewed 11/09/18 @ 11:08 by Shalini Villeda) H/O heart artery stent Z95.5 PTCA/SILVIA of the prox Lt posterolateral branch of LCX, PTCA/SILVIA of the ostial OM1, PTCA/SILVIA of the prox LAD 07/17/2017. History of left heart catheterization (LHC) Z98.890 [facility]: 04/01/2017 H/O bilateral breast reduction surgery Z98.890 H/O bladder repair surgery Z98.890 History of tonsillectomy Z90.89 S/P percutaneous endoscopic gastrostomy (PEG) tube placement Z93.1 S/P rotator cuff repair Z98.890 S/P thoracentesis Z98.890 Surgical History: angioplasty - Stents x 3., rotator cuff repair, total hip arthroplasty - Right hemiarthroplasty., tonsillectomy, - - catarac ts,hysterectomy, vein surgery on the back of her leg, breast reduction, Gastrostomy tube. 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 Lives: [facility] Smoking Status: Never smoker Tobacco Use: Non-smoker Alcohol: None Drugs: None - *Family History Maternal Family History: Family History (Last Reviewed 11/09/18 @ 11:08 by Shalini Villeda) Mother Cancer Father Heart disease Cancer of kidney Brother Cancer History Items: Cancer Paternal Family History: Family History (Last Reviewed 11/09/18 @ 11:08 by Shalini Villeda) Mother Cancer Father Heart disease Cancer of kidney Brother Cancer History Items: Heart Disease Review of Systems Constitutional: Denies: Chills, Fever, Weight Change HEENT: Denies: Head Aches, Sinus Congestion, Sinus Drainage Cardiovascular: Denies: Chest Pain, Palpitations Respiratory: Denies: Cough, Shortness of breath at rest, Sputum production Gastrointestinal: Denies: Abdominal Pain, Nausea, Vomiting Genitourinary: Denies: Dysuria Musculoskeletal: Denies: Joint Pain, Joint Tenderness Skin: Denies: Rash, Wounds Neurological: Denies: Numbness, Tingling, Focal weakness Psychiatric: Denies: Anxiety, Depression, Homicidal Ideations, Suicidal Ideations Hematologic/ Lymphatic: Denies: Easy Bruising, Easy Bleeding VTE Information - Inpt Only VTE Present on Admission: No VTE Mechan Device Prophylaxis: Knee High ZHOU Hose VTE Pharm Prophylaxis ordered?: No Patient Problems: Active and Suspected Problems (Last Reviewed 11/09/18 @ 11:08 by Shalini Villeda) Closed right hip fracture (Acute) Cervical lymphadenopathy (Acute) Hypercalcemia (Acute) Normal pressure hydrocephalus (Acute) - Physical Exam General: Alert, Oriented x3, Cooperative HEENT: Atraumatic, PERRLA, EOMI, Normocephalic Neck: Supple, No JVD, Negative Carotid Bruits Lungs: Clear to auscultation, Normal air movement Cardiovascular: Regular rate, No murmurs Abdomen: Bowel Sounds Present, Soft, Non Tender, - - PEG tube. Extremities: No edema, Capillary Refill Less than 3 Seconds Skin: No rashes, No breakdown Musculoskeletal: No Tenderness to Palpation of Joints or Extremities Neurological: Cranial nerves II-XII grossly intact Psych/Mental Status: Normal Affect, Appropriate Vital Signs Temp Pulse Resp BP Pulse Ox 98.2 F 65 16 130/81 H 100 12/27/18 16:14 12/27/18 16:14 12/27/18 16:14 12/27/18 16:14 12/27/18 16:14 Oxygen Delivery Method Nasal Cannula Weight: 51.256 kg Body Mass Index (BMI) 20.2 Finger Stick Blood Glucose 154 Assessment/Plan All Active Problems (Last Reviewed 11/09/18 @ 11:08 by Shalini Villeda) Protein malnutrition (Resolved) Closed right hip fracture (Acute) Cervical lymphadenopathy (Acute) Hypercalcemia (Acute) Normal pressure hydrocephalus (Acute) Bradycardia (Acute) Anemia (Resolved) CAD (coronary artery disease) (Acute) Weakness (Acute) Poor fluid intake (Acute) Hypoxia (Acute) Flash pulmonary edema (Acute) Abnormal cardiac enzyme level (Acute) NSTEMI (non-ST elevated myocardial infarction) (Acute) 73 year old female with below past medical history hospitalized for right hip fracture, underwent right hip hemiarthroplasty, complicated by cervical adenopathy concerning for lymphoma, CT head concerning for normal pressure hydrocephalus, admitted to TCU with debility, here for rehabilitation, strengthening, prior to discharge home with spouse. * Debility - PT/OT. * Pain - Tylenol 1000MG Q6H PRN mild pain, Tramadol 50MG Q8H PRN moderate pain. * Bowel - Miralax 17GM daily, Senna/colace 1 tablet BID, Dulcolax 10MG [place] daily PRN. * Pneumonia vaccination - Administer Prevnar 13 and/or Pneumovax 23 as necessary. * DVT prophylaxis - Hold due to recent GI bleed. * Hyperlipidemia - Atorvastatin 80MG QHS. * Chronic diastolic heart failure - Coreg 3.125MG BID, Aldactone 25MG daily, Torsemide 20MG daily PRN swelling. * GERD - Lansoprazole 30MG daily. * Hypothyroidism - Levothyroxine 12.5MG daily. * Cervical lymphadenopathy - Will review records, resident already sees Dr. Suh for anemia, consider appointment with Dr. Suh to evaluate for lymphoma, PCP aware per resident, resident spouse. * NPH? - Seen on CT head both at [facility], and in [place], consider Neurosurgery referral, NPH may have contributed to her fall which caused right hip fracture, PCP aware per resident, resident spouse. * Dysphagia secondary to Sjogren's Syndrome - resident at risk for aspiration, has G tube, but eats oral diet against medical recommendations.
[2018-12-27 17:00] VITALS: BMI 20.6
[2018-12-27 17:03] VITALS: BMI 20.7
--- NOTE | 2018-12-27 18:53 | NURSING ---
This nurse made aware PT has some redness to PEG site. Pt came from an outside facility today and her peg dressing wasn't changed for days prior to her arrival here. Peg site is very red and sore. Site cleaned and a new dry dresssing applied. Cecy GOOD aware
[2018-12-27] MEDS: Carvedilol 3.125 MG TABLET GT (19:48)
[2018-12-27] MEDS: Atorvastatin Calcium 80 MG Tablet GT (19:49)
[2018-12-27] MEDS: Senna/Docusate Sodium 1 Tablet GT (19:49)
[2018-12-27 19:54] VITALS: PULSE 71; O2SAT 95
[2018-12-27] MEDS: Acetaminophen 650 MG/20 ML UDC GT (21:36)
--- NOTE | 2018-12-27 23:38 | NURSING ---
During assessment pt's peg tube noted to be black in discoloration near insertion site extending outward. Scattered material noted to be in lining of tubing throughout. Per spouse, tube place was March [address] [place] [address] Ledezma. Pt's spouse informed this nurse he noticed a discoloration approx 4-[address] Gr aware. N.O. consult General surg tonight. Dr Roldan notified N.O. to obtain a liquid culture from peg tube. Will continue to monitor and asses.
[2018-12-28 06:01] LABS: Absolute Lymphocyte Count 0.81 X10^3/ul (0.83-4.51); Absolute Neutrophil Count 3.7 X10^3/uL (2.0-7.7); Basophil# 0.03 X10^3/uL; Basophil% 0.5 % (0-1); Eosinophil# 0.25 X10^3/uL; Eosinophils% 4.6 % (0-5); Hematocrit 32.9 % (37-47); Lymphocyte # 0.81 X10^3/ul (4.0); Lymphocyte % 14.8 % (19-41); Mean Corp Hgb Conc 33.4 g/gl (32-36); Mean Corpuscular Hgb 30.6 pg (27.0-32.0); Mean Corpuscular Volume 91.4 fL (81-99); Mean Platelet Vol. 9.4 fl (6.2-12.0); Monocyte# 0.66 X10^3/uL; Monocyte% 12.1 % (0-10); Neutrophil # 3.71 X10^3/uL (2.7-7.7); Neutrophil % 67.8 % (47-70); Platelet Count 188 K/mm3 (150-450); RBC Distribution Width CV 16.3 % (11.6-14.6); RBC Distribution Width SD 53.1 fl (35.1-43.9); White Blood Count 5.5 K/mm3 (4.4-11.0)
[2018-12-28 06:20] LABS: POSITIVE COUNT NO; POSITIVE DIFFERENTIAL NO; POSITIVE MORPHOLOGY NO
[2018-12-28 06:24] LABS: Anion Gap 7 (5-15); BUN 18 mg/dL (7-18); BUN/Creat Ratio 28.9 RATIO (10-20); Calcium,Total 8.3 mg/dL (8.5-10.1); Chloride 96 mmol/L (98-107); Creatinine, Serum 0.62 mg/dL (0.55-1.02); EST Glomerular Filtration Rate 100 mL/min (>60); Est Glom Filt Rate - Afr Amer 121 mL/min (>60); Estimated Creatinine Clearance 40.22 ml/min; Glucose 95 mg/dL (74-106); Potassium 2.8 mmol/L (3.5-5.1); Sodium Level 129 mmol/L (136-145)
[2018-12-28] MEDS: Levothyroxine 25 MCG TABLET 12.5 MCG GT (06:50)
[2018-12-28] MEDS: Nystatin Powder 15gm Bottle 1 APPLIC TOPICAL ×2 (06:50→21:12)
[2018-12-28] MEDS: Lansoprazole 15 MG Capsule.DR 30 MG GT (06:50)
[2018-12-28] MEDS: Menthol/Lanolin/Calamine/Znox 113 GM Tube 1 APPLIC TOPICAL ×2 (06:50→21:11)
[2018-12-28] MEDS: Carvedilol 3.125 MG TABLET GT ×2 (06:50→18:03)
[2018-12-28] MEDS: Polyethylene Glycol 3350 17 GM PACKET GT (06:50)
[2018-12-28] MEDS: Spironolactone 25 MG Tablet GT (06:50)
[2018-12-28] MEDS: Senna/Docusate Sodium 1 Tablet GT ×2 (06:50→18:03)
--- NOTE | 2018-12-28 07:45 | NURSING ---
Foul odor noted from peg site. Drsg removed, moderate amt of purulent drainage noted. Site italia. Site cleansed with NS DSD applied. Dayshift aware and request to update Dr Gr.
[2018-12-28] MEDS: Tuberculin,Purif.prot.deriv. 50 TU/ML Vial 5 ML ID (08:43)
--- NOTE | 2018-12-28 10:25 | PCM.PN.RX ---
<Rashard Villarreal D - Last Filed: 12/28/18 10:25> Progress Note - Pharmacy Subjective: TCU Admission Objective: Allergies povidone-iodine [From Betadine] Adverse Reaction (Mild, Verified 11/09/18 11:08) Rash soap [From Betadine] Adverse Reaction (Mild, Verified 11/09/18 11:08) Rash Current Medications Generic Name Dose Route Start Last Admin Trade Name Freq PRN Reason Stop Dose Admin Acetaminophen 650 mg 12/27/18 17:17 12/27/18 21:36 Tylenol Liquid GT 650 mg Q4H PRN PRN Administration MILD PAIN (-12/13) Atorvastatin Calcium 80 mg 12/27/18 22:00 12/27/18 19:49 Lipitor GT 80 mg QHS SANA Administration Bisacodyl 10 mg 12/27/18 17:17 Dulcolax RECTAL DAILY PRN Constipation Calamine/Phenol 1 applic 12/28/18 06:00 12/28/18 06:50 Calmoseptine Ointment TOPICAL 1 applicatio 599,2199 [facility] Administration Protocol Carvedilol 3.125 mg 12/27/18 18:00 12/28/18 06:50 Coreg GT 3.125 mg BID SANA Administration Furosemide 40 mg 12/28/18 06:00 Lasix GT DAILY PRN SWELLING Lansoprazole 30 mg 12/28/18 06:00 12/28/18 06:50 Lansoprazole GT 30 mg DAILY SANA Administration Levothyroxine Sodium 12.5 mcg 12/28/18 06:00 12/28/18 06:50 Synthroid GT 12.5 mcg DAILY SANA Administration Multi-Ingredient Cream 1 applic 12/28/18 22:00 Eucerin TOPICAL 2199 SANA Protocol Nystatin 1 applic 12/28/18 06:00 12/28/18 06:50 Mycostatin Powder TOPICAL 1 applicatio 599,2199 [facility] Administration Protocol Polyethylene Glycol 17 gm 12/28/18 06:00 12/28/18 06:50 Miralax GT 17 gm DAILY SANA Administration Potassium Bicarb/Potassium Chloride 25 meq 12/29/18 08:00 Potassium Chl 25 Meq Eff (For Liquid) GT DAILYCM SANA Senna/Docusate Sodium 1 tablet 12/27/18 18:00 12/28/18 06:50 Senokot-S, Jessica-Colace GT 1 tablet BID SANA Administration Spironolactone 25 mg 12/28/18 06:00 12/28/18 06:50 Aldactone GT 25 mg DAILY SANA Administration Tramadol HCl 50 mg 12/27/18 17:18 Ultram GT Q8H PRN PRN MODERATE PAIN (4-5/10) Tuberculin PPD 5 tu 01/04/19 10:00 Tubersol, Aplisol, Ppd ID 01/04/19 10:01 X1 ONE Problem List (Last Reviewed 11/09/18 @ 11:08 by Shalini Villeda) Closed right hip fracture (Acute) GERD (gastroesophageal reflux disease) (Chronic) Tinea corporis (Chronic) Hypothyroidism (Chronic) Hyperlipidemia (Chronic) Iron deficiency anemia (Chronic) Chronic diastolic heart failure (Chronic) Hypertension (Chronic) Lung nodule (Chronic) Cervical lymphadenopathy (Acute) Hypercalcemia (Acute) Normal pressure hydrocephalus (Acute) Vital Signs Temp Pulse Resp BP Pulse Ox 98.2 F 71 16 130/81 H 95 12/27/18 16:14 12/27/18 19:54 12/27/18 16:14 12/27/18 16:14 12/27/18 19:54 Oxygen Delivery Method Room Air Weight: 51.256 kg Body Mass Index (BMI) 20.6 Finger Stick Blood Glucose 154 Sodium 129 mmol/L (136-145) L 12/28/18 05:10 Potassium 2.8 mmol/L (3.5-5.1) L 12/28/18 05:10 Chloride 96 mmol/L (98-107) L 12/28/18 05:10 Carbon Dioxide 26.0 mmol/L (21.0-32.0) 12/28/18 05:10 Anion Gap 7 (5-15) 12/28/18 05:10 BUN 18 mg/dL (7-18) 12/28/18 05:10 Creatinine 0.62 mg/dL (0.55-1.02) 12/28/18 05:10 Est GFR (MDRD) Af Amer 121 mL/min (>60) 12/28/18 05:10 Est GFR (MDRD) Non-Af 100 mL/min (>60) 12/28/18 05:10 BUN/Creatinine Ratio 28.9 RATIO (10-20) H 12/28/18 05:10 Glucose 95 mg/dL (74-106) 12/28/18 05:10 Assessment/Plan: 1) Pain APAP for mild pain, tramadol for moderate pain. Continue to monitor prn medication use, daily pain scores. 2) Heart Failure/HLD Carvedilol, furosemide/KCL, atorvastatin, spironolactone. Continue to monitor BP/HR, renal function, electrolytes, lipids. 3) Hypothyroidism Levothyroxine daily. Continue to monitor for s/s hyper/hypothyroidism. 4) GI Lansoprazole daily. Continue to monitor s/s GI distress. Psychotropic Medications: None Unnecessary Medications: None Bowel Regimen: 5) Senna/s, PEG, prn bisacodyl. Continue to monitor prn medication use, for constipation/diarrhea. Date of Note:: 12/28/18 - Provider Comments Provider responsibility: Provider responsible to enter orders to implement recommendations <[place] Gr Chi - Last Filed: 12/28/18 12:55> Progress Note - Pharmacy Subjective: [] Objective: Allergies povidone-iodine [From Betadine] Adverse Reaction (Mild, Verified 11/09/18 11:08) Rash soap [From Betadine] Adverse Reaction (Mild, Verified 11/09/18 11:08) Rash Current Medications Generic Name Dose Route Start Last Admin Trade Name Freq PRN Reason Stop Dose Admin Acetaminophen 650 mg 12/27/18 17:17 12/27/18 21:36 Tylenol Liquid GT 650 mg Q4H PRN PRN Administration MILD PAIN (1-3/10) Atorvastatin Calcium 80 mg 12/27/18 22:00 12/27/18 19:49 Lipitor GT 80 mg QHS SANA Administration Bisacodyl 10 mg 12/27/18 17:17 Dulcolax RECTAL DAILY PRN Constipation Calamine/Phenol 1 applic 12/28/18 06:00 12/28/18 06:50 Calmoseptine Ointment TOPICAL 1 applicatio 0600,2200 SANA Administration Protocol Carvedilol 3.125 mg 12/27/18 18:00 12/28/18 06:50 Coreg GT 3.125 mg BID SANA Administration Furosemide 40 mg 12/28/18 06:00 Lasix GT DAILY PRN SWELLING Lansoprazole 30 mg 12/28/18 06:00 12/28/18 06:50 Lansoprazole GT 30 mg DAILY SANA Administration Levothyroxine Sodium 12.5 mcg 12/28/18 06:00 12/28/18 06:50 Synthroid GT 12.5 mcg DAILY SANA Administration Multi-Ingredient Cream 1 applic 12/28/18 22:00 Eucerin TOPICAL 2199 SANA Protocol Nystatin 1 applic 12/28/18 06:00 12/28/18 06:50 Mycostatin Powder TOPICAL 1 applicatio 0600,2200 SANA Administration Protocol Polyethylene Glycol 17 gm 12/28/18 06:00 12/28/18 06:50 Miralax GT 17 gm DAILY SANA Administration Potassium Bicarb/Potassium Chloride 25 meq 12/29/18 08:00 Potassium Chl 25 Meq Eff (For Liquid) GT DAILYCM SANA Senna/Docusate Sodium 1 tablet 12/27/18 18:00 12/28/18 06:50 Senokot-S, Jessica-Colace GT 1 tablet BID SANA Administration Spironolactone 25 mg 12/28/18 06:00 12/28/18 06:50 Aldactone GT 25 mg DAILY SANA Administration Tramadol HCl 50 mg 12/27/18 17:18 Ultram GT Q8H PRN PRN MODERATE PAIN (4-5/10) Tuberculin PPD 5 tu 01/04/19 10:00 Tubersol, Aplisol, Ppd ID 01/04/19 10:01 X1 ONE Problem List (Last Reviewed 11/09/18 @ 11:08 by Shalini Villeda) Closed right hip fracture (Acute) GERD (gastroesophageal reflux disease) (Chronic) Tinea corporis (Chronic) Hypothyroidism (Chronic) Hyperlipidemia (Chronic) Iron deficiency anemia (Chronic) Chronic diastolic heart failure (Chronic) Hypertension (Chronic) Lung nodule (Chronic) Cervical lymphadenopathy (Acute) Hypercalcemia (Acute) Normal pressure hydrocephalus (Acute) Vital Signs Temp Pulse Resp BP Pulse Ox 98.2 F 71 16 130/81 H 95 12/27/18 16:14 12/27/18 19:54 12/27/18 16:14 12/27/18 16:14 12/27/18 19:54 Oxygen Delivery Method Room Air Weight: 51.256 kg Body Mass Index (BMI) 20.6 Finger Stick Blood Glucose 154 Sodium 129 mmol/L (136-145) L 12/28/18 05:10 Potassium 2.8 mmol/L (3.5-5.1) L 12/28/18 05:10 Chloride 96 mmol/L (98-107) L 12/28/18 05:10 Carbon Dioxide 26.0 mmol/L (21.0-32.0) 12/28/18 05:10 Anion Gap 7 (5-15) 12/28/18 05:10 BUN 18 mg/dL (7-18) 12/28/18 05:10 Creatinine 0.62 mg/dL (0.55-1.02) 12/28/18 05:10 Est GFR (MDRD) Af Amer 121 mL/min (>60) 12/28/18 05:10 Est GFR (MDRD) Non-Af 100 mL/min (>60) 12/28/18 05:10 BUN/Creatinine Ratio 28.9 RATIO (10-20) H 12/28/18 05:10 Glucose 95 mg/dL (74-106) 12/28/18 05:10 Assessment/Plan: Psychotropic Medications: Unnecessary Medications: Bowel Regimen: - Provider Comments Provider responsibility: Provider responsible to enter orders to implement recommendations Provider Comments to Recommendations by Pharmacy: Agree
--- NOTE | 2018-12-28 14:57 | NURSING ---
Talked with Kyra from Dr. Roldan's office, okay to continue to use PEG as long as it is functioning proper. They will assess it and probably change it eventually this admission
--- NOTE | 2018-12-28 15:19 | CHAPLAIN ---
Type of Pastoral Visit _x__ Initial Visit ___ Follow-up Visit ___ On-call Visit ___ General Patient Visit ___ Spiritual Assessment ___ Family Conference ___ Bereavement ___ Rapid Response ___ Code Blue ___ Other (describe below) Pastoral Care Referral From _x__ Patient ___ Family ___ Nurse ___ Physician ___ Olive Grower ___ Rehabilitation Therapist ___ Other (describe below) Sacrament/Intervention _x__ Active listening ___ Anointing ___ Hoahaoism ___ Bereavement ___ Communion _x__ Vonnie exploration ___ ___ Life review _x__ Prayer ___ Reconciliation ___ Sacrament of Sick _x__ Supportive presence ___ Wedding ___ Other (describe below) Pastoral Comments patient and spouse are together in the room; recount of fall and the frustration of being away from home during hospital and NF stays; spouse speaks repeatedly of the financial costs; pt does have some family support and a good worship connection; pt welcomes prayer and future visits for spiritual care; pt goal is to get home soon
[2018-12-28 15:29] VITALS: BP 108/73; PULSE 68; RESP 18; TEMP 35.9; O2SAT 93
--- NOTE | 2018-12-28 17:03 | CASEMGMT ---
Social Work TCU Reviewed and approve [employer] student Marty Moreno documentation: TCU Social work admission assessment completed on 12.28.2018 at 1303. -CARMEL Blanchard, REPRODUCTIVE SURGEON
[2018-12-28] MEDS: Atorvastatin Calcium 80 MG Tablet GT (21:11)
[2018-12-28] MEDS: Acetaminophen 650 MG/20 ML UDC GT (21:13)
[2018-12-29] MEDS: Carvedilol 3.125 MG TABLET GT ×2 (05:04→17:21)
[2018-12-29] MEDS: Lansoprazole 15 MG Capsule.DR 30 MG GT (05:04)
[2018-12-29] MEDS: Levothyroxine 25 MCG TABLET 12.5 MCG GT (05:05)
[2018-12-29] MEDS: Senna/Docusate Sodium 1 Tablet GT ×2 (05:05→17:21)
[2018-12-29] MEDS: Spironolactone 25 MG Tablet GT (05:05)
[2018-12-29] MEDS: Polyethylene Glycol 3350 17 GM PACKET GT (05:05)
[2018-12-29] MEDS: Nystatin Powder 15gm Bottle 1 APPLIC TOPICAL ×2 (05:18→22:09)
[2018-12-29] MEDS: Menthol/Lanolin/Calamine/Znox 113 GM Tube 1 APPLIC TOPICAL ×2 (05:18→22:09)
[2018-12-29 06:09] LABS: Anion Gap 7 (5-15); BUN 16 mg/dL (7-18); Calcium,Total 8.4 mg/dL (8.5-10.1); Chloride 99 mmol/L (98-107); Creatinine, Serum 0.67 mg/dL (0.55-1.02); EST Glomerular Filtration Rate 92 mL/min (>60); Est Glom Filt Rate - Afr Amer 112 mL/min (>60); Estimated Creatinine Clearance 40.22 ml/min; Glucose 91 mg/dL (74-106); Potassium 3.2 mmol/L (3.5-5.1); Sodium Level 134 mmol/L (136-145)
--- NOTE | 2018-12-29 08:16 | NURSING ---
BOTTLING EQUIPMENT SALES REPRESENTATIVE IN TO SEE PT THIS MORNING. REPORTED TO LATISHA LEONARDO
--- NOTE | 2018-12-29 08:54 | NURSING ---
Dr. Gr reviewed labs, order to increase potassium to 25mEq BID.
--- NOTE | 2018-12-29 09:59 | PCM.PN.SRG ---
Patient Problems: Active and Suspected Problems (Last Reviewed 11/09/18 @ 11:08 by Shalini Villeda) Closed right hip fracture (Acute) Cervical lymphadenopathy (Acute) Hypercalcemia (Acute) Normal pressure hydrocephalus (Acute) Subjective: Patient was evaluated resting comfortably in bed. She denies pain. She notes the black pigment and odor has been there for approximately 5-6 months. She notes the PEG tube was placed in 2016. She notes the PEG tube was placed for nutrition purposes at that time. Patient notes she has kept the PEG tub e because she is unable to swallow pills. Patient denies tube feeds. She eats orally by mouth. Culture was obtained on 12/27 which is demonstrating C Albicans. - Physical Exam General: Alert, Oriented x3, Cooperative Abdomen: Bowel Sounds Present, - - PEG tube with minimal amount of irritation surrounding the PEG tube. There is black pigment consistent with moldy substance. There is a moldy odor. Vital Signs Temp Pulse Resp BP Pulse Ox 96.7 F L 68 18 108/73 93 12/28/18 15:29 12/28/18 15:29 12/28/18 15:29 12/28/18 15:29 12/28/18 15:29 Oxygen Delivery Method Room Air Weight: 113 lb Body Mass Index (BMI) 20.6 Finger Stick Blood Glucose 154 Intake and Output for Last 24 Hours 12/27/18 12/28/18 12/29/18 23:59 23:59 23:59 Intake Total 240 / 240 720 / 720 240 / 240 Balance 240 / 240 720 / 720 240 / 240 Microbiology Past 72 Hours 12/27/18 23:20 Miscellaneous Culture - Preliminary Other - Liquid Gram negative gladys Presumptive C albicans Gram Stain - Final Laboratory Tests Past 24 Hrs 12/29/18 05:10 Sodium 134 L Potassium 3.2 L Chloride 99 Carbon Dioxide 28.0 Anion Gap 7 BUN 16 Creatinine 0.67 Estim Creat Clear Calc 40.22 Est GFR (MDRD) Af Amer 112 Est GFR (MDRD) Non-Af 92 BUN/Creatinine Ratio 24.0 H Glucose 91 Calcium 8.4 L Medical Necessity - Tobacco Use Smoking Status: Never smoker Tobacco Use: Non-smoker Assessment/Plan All Active Problems (Last Reviewed 11/09/18 @ 11:08 by Shalini Villeda) Protein malnutrition (Resolved) Closed right hip fracture (Acute) Cervical lymphadenopathy (Acute) Hypercalcemia (Acute) Normal pressure hydrocephalus (Acute) Bradycardia (Acute) Anemia (Resolved) CAD (coronary artery disease) (Acute) Weakness (Acute) Poor fluid intake (Acute) Hypoxia (Acute) Flash pulmonary edema (Acute) Abnormal cardiac enzyme level (Acute) NSTEMI (non-ST elevated myocardial infarction) (Acute) I am following this patient with Dr. Roldan Await culture results Will plan to exchange the PEG tube tomorrow NPO 4 hours prior to PEG tube exchange Code Visit Inpatient E&M: 89244 Subs Hosp L1
--- NOTE | 2018-12-29 11:57 | NURSING ---
Dr. Roldan to come and change PEG tube tomorrow at 0930, patient to be NPO after 11pm tonight.
--- NOTE | 2018-12-29 14:33 | NURSING ---
wound photo: left buttock
--- NOTE | 2018-12-29 14:34 | NURSING ---
wound photo: left heel
--- NOTE | 2018-12-29 14:35 | NURSING ---
VIDARN/WOUND NURSE INTO SEE PT. SEE NEW ORDER FOR MEPILEX TO BOTTOM AND LEFT HEEL.
[2018-12-29 15:48] VITALS: BP 118/74; PULSE 60; RESP 18; TEMP 36.9; O2SAT 100
[2018-12-29] MEDS: Atorvastatin Calcium 80 MG Tablet GT (22:09)
[2018-12-29] MEDS: Acetaminophen 650 MG/20 ML UDC GT (22:11)
--- NOTE | 2018-12-30 08:00 | PN.SURG_ITS ---
Patient Problems: Active and Suspected Problems (Last Reviewed 11/09/18 @ 11:08 by Shalini Villeda) Closed right hip fracture (Acute) Cervical lymphadenopathy (Acute) Hypercalcemia (Acute) Normal pressure hydrocephalus (Acute) Subjective: Patient is evaluated resting comfortably in bed. Patient has been having no difficulties with her PEG tube. She has noted discoloration of the tubing for 5- 6 months. She denies pain at the PEG tube site. She only uses the PEG tube for medication. Procedure note Procedure: Removal of old PEG tube and replacement with new PEG tube Permit: Procedure, benefits, risks (include those of bleeding, infection, injury, anesthesia, and allergic reaction), and alternatives explained to the patient who voiced understanding of the information. Their questions were sought and answered. Patient agreed to proceed with the PEG tube exchange. Indication: Moldy PEG tube Physician: Kyra Timmons PA-C and Dr. Sadi Roldan Description: Patient has been NPO since midnight last night. Sterile gloves were used. Old PEG tube was removed with minimal amount of blood noted. New PEG tube was placed without any issues. Dressing was applied. The phalange was placed at 4 cm. Proud flesh was noted. No irritation or erythema was noted. Complications: None - Physical Exam General: Alert, Oriented x3, Cooperative Vital Signs Temp Pulse Resp BP Pulse Ox 98.5 F 60 18 118/74 100 12/29/18 15:48 12/29/18 15:48 12/29/18 15:48 12/29/18 15:48 12/29/18 15:48 Oxygen Delivery Method Room Air Weight: 112 lb 5 oz Body Mass Index (BMI) 20.6 Finger Stick Blood Glucose 154 Intake and Output for Last 24 Hours 12/28/18 12/29/18 12/30/18 23:59 23:59 23:59 Intake Total 720 / 720 690 / 690 Balance 720 / 720 690 / 690 Microbiology Past 72 Hours 12/27/18 23:20 Miscellaneous Culture - Final Other - Liquid Klebsiella pneumoniae sp pneum Presumptive C albicans Gram Stain - Final Medical Necessity - Tobacco Use Smoking Status: Never smoker Tobacco Use: Non-smoker Assessment/Plan All Active Problems (Last Reviewed 11/09/18 @ 11:08 by Shalini Villeda) Protein malnutrition (Resolved) Closed right hip fracture (Acute) Cervical lymphadenopathy (Acute) Hypercalcemia (Acute) Normal pressure hydrocephalus (Acute) Bradycardia (Acute) Anemia (Resolved) CAD (coronary artery disease) (Acute) Weakness (Acute) Poor fluid intake (Acute) Hypoxia (Acute) Flash pulmonary edema (Acute) Abnormal cardiac enzyme level (Acute) NSTEMI (non-ST elevated myocardial infarction) (Acute) I am seeing this patient in conjunction with Dr. Roldan. Microbiology has returned as C Albicans and Klebsiella pneumoniae Will place patient on Bactrim for 7 days PEG tube ready for use Patient to follow-up with our office 1 week after discharge from the TCU for treatment of proud flesh Code Visit Inpatient E&M: 92816 Subs Hosp L2 - PEG tube exchange
--- NOTE | 2018-12-30 10:00 | NURSING ---
Dr Roldan and KUN Rae here and inserted 20 FR replacement PEG tube. ok to use. ok to do therapy.
--- NOTE | 2018-12-30 11:05 | CASEMGMT ---
Social Work Plan of care meeting held with pt and in attendance. Pt is receiving PT/OT/ST and progressing. No d/c date set at this time. Pt is planning on returning home with her spouse at time of d/c. Pt spouse is attentive and able to provide support at time of d/c. Care plan to continue at this time. SW will continue to follow for support and d/c planning. PARIS Cooper
[2018-12-30] MEDS: Spironolactone 25 MG Tablet GT (12:19)
[2018-12-30] MEDS: Carvedilol 3.125 MG TABLET GT ×2 (12:19→18:18)
[2018-12-30] MEDS: Lansoprazole 15 MG Capsule.DR 30 MG GT (12:19)
[2018-12-30] MEDS: Levothyroxine 25 MCG TABLET 12.5 MCG GT (13:38)
--- NOTE | 2018-12-30 13:46 | NURSING ---
pt meds all caught up after having PEG tube replaced this AM. Drsg changed to site, scant amt of red drng. pt doing will. HOB elevated. call light in reach.
[2018-12-30 14:04] VITALS: PULSE 60; RESP 18; O2SAT 99
[2018-12-30 15:36] VITALS: BP 106/72; PULSE 69; RESP 18; TEMP 36; O2SAT 98
[2018-12-30] MEDS: SMZ/TPM Suspension 10 ML GT (18:17)
[2018-12-30] MEDS: Atorvastatin Calcium 80 MG Tablet GT (20:22)
[2018-12-30] MEDS: Acetaminophen 650 MG/20 ML UDC GT (20:22)
[2018-12-30] MEDS: Menthol/Lanolin/Calamine/Znox 113 GM Tube 1 APPLIC TOPICAL (20:23)
[2018-12-30] MEDS: Nystatin Powder 15gm Bottle 1 APPLIC TOPICAL (20:23)
--- NOTE | 2018-12-30 20:27 | NURSING ---
2004 STRUCTURAL LAYOUT WORKER reported pt's PEG tube falling out RN immediately into asses with additional RN. Pt in bathroom holding PEG tub in left hand. Pt reports peg tube just fell out. Pt assisted to bed, pervious insertion site visible. Site cleansed. Wetzel catheter 16 FR placed into abd. Balloon filled with 10cc NS. Placement assessed via aspiration and auscultation. Tube secured with stat lock. Dr Gr notified. N.O. notify Dr Roldan in AM. Will continue to monitor and asses.
[2018-12-31] MEDS: Carvedilol 3.125 MG TABLET GT ×2 (04:21→18:35)
[2018-12-31] MEDS: SMZ/TPM Suspension 10 ML GT ×2 (04:22→18:35)
[2018-12-31] MEDS: Spironolactone 25 MG Tablet GT (04:22)
[2018-12-31] MEDS: Lansoprazole 15 MG Capsule.DR 30 MG GT (04:22)
[2018-12-31] MEDS: Levothyroxine 25 MCG TABLET 12.5 MCG GT (04:22)
[2018-12-31] MEDS: Nystatin Powder 15gm Bottle 1 APPLIC TOPICAL ×2 (04:23→21:23)
[2018-12-31] MEDS: Menthol/Lanolin/Calamine/Znox 113 GM Tube 1 APPLIC TOPICAL ×2 (04:23→21:23)
[2018-12-31] MEDS: Senna/Docusate Sodium 1 Tablet GT (04:23)
[2018-12-31 06:30] LABS: Anion Gap 9 (5-15); BUN 12 mg/dL (7-18); BUN/Creat Ratio 15.4 RATIO (10-20); Calcium,Total 8.1 mg/dL (8.5-10.1); Chloride 102 mmol/L (98-107); Creatinine, Serum 0.78 mg/dL (0.55-1.02); EST Glomerular Filtration Rate 77 mL/min (>60); Est Glom Filt Rate - Afr Amer 94 mL/min (>60); Estimated Creatinine Clearance 40.22 ml/min; Glucose 134 mg/dL (74-106); Potassium 4.3 mmol/L (3.5-5.1); Sodium Level 132 mmol/L (136-145)
--- NOTE | 2018-12-31 07:40 | NURSING ---
KUN Deluna. notified her of pt PEG falling out last night. Holding pt brkfst this AM. Pt updated. Will be up to insert new one.
--- NOTE | 2018-12-31 08:40 | PCM.PN.SRG ---
Patient Problems: Active and Suspected Problems (Last Reviewed 11/09/18 @ 11:08 by Shalini Villeda) Closed right hip fracture (Acute) Cervical lymphadenopathy (Acute) Hypercalcemia (Acute) Normal pressure hydrocephalus (Acute) Subjective: Patient evaluated resting comfortably in bed. She noted yesterday she had some blood and pulled her shirt up and noted the PEG tube had fallen out. A richards was placed. We were contacted. Procedure note Procedure: Replacement PEG tube Permit: Procedure, benefits, risks (include those of bleeding, infection, injury, anesthesia, and allergic reaction), and alternatives explained to the patient who voiced understanding of the information. Their questions were sought and answered. Patient agreed to proceed with the PEG tube exchange. Indication: Moldy PEG tube Physician: Kyra Timmons PA-C Description: Patient has been NPO since midnight last night. Richards catheter balloon was deflated and removed without difficulty or bleeding. New PEG tube was placed without any issues. Balloon was inflated with 6 cc of tap water. Surrounding area was cleansed with saline. Dressing was applied. The phalange was placed at 4.5 cm. Proud flesh was noted. No irritation or erythema was noted. Complications: None - Physical Exam General: Alert, Oriented x3, Cooperative Vital Signs Temp Pulse Resp BP Pulse Ox 96.8 F L 69 18 106/72 98 12/30/18 15:36 12/30/18 15:36 12/30/18 15:36 12/30/18 15:36 12/30/18 15:36 Oxygen Delivery Method Room Air Weight: 112 lb 5 oz Body Mass Index (BMI) 20.6 Finger Stick Blood Glucose 154 Intake and Output for Last 24 Hours 12/29/18 12/30/18 12/31/18 23:59 23:59 23:59 Intake Total 690 / 690 420 / 420 Balance 690 / 690 420 / 420 Microbiology Past 72 Hours 12/27/18 23:20 Miscellaneous Culture - Final Other - Liquid Klebsiella pneumoniae sp pneum Presumptive C albicans Gram Stain - Final Laboratory Tests Past 24 Hrs 12/31/18 05:05 Sodium 132 L Potassium 4.3 Chloride 102 Carbon Dioxide 21.0 Anion Gap 9 BUN 12 Creatinine 0.78 Estim Creat Clear Calc 40.22 Est GFR (MDRD) Af Amer 94 Est GFR (MDRD) Non-Af 77 BUN/Creatinine Ratio 15.4 Glucose 134 H Calcium 8.1 L Medical Necessity - Tobacco Use Smoking Status: Never smoker Tobacco Use: Non-smoker Assessment/Plan All Active Problems (Last Reviewed 11/09/18 @ 11:08 by Shalini Villeda) Protein malnutrition (Resolved) Closed right hip fracture (Acute) Cervical lymphadenopathy (Acute) Hypercalcemia (Acute) Normal pressure hydrocephalus (Acute) Bradycardia (Acute) Anemia (Resolved) CAD (coronary artery disease) (Acute) Weakness (Acute) Poor fluid intake (Acute) Hypoxia (Acute) Flash pulmonary edema (Acute) Abnormal cardiac enzyme level (Acute) NSTEMI (non-ST elevated myocardial infarction) (Acute) I am seeing this patient in conjunction with Dr. Roldan. Microbiology has returned as C Albicans and Klebsiella pneumoniae Will place patient on Bactrim for 7 days PEG tube ready for use Patient to follow-up with our office 1 week after discharge from the TCU for treatment of proud flesh Code Visit Inpatient E&M: 16518 Subs Hosp L1
--- NOTE | 2018-12-31 10:31 | NURSING ---
Flushed new PEG tube that was inserted by KUN Rae and Dr Gale this AM. PEG site looks good, less reddened per pt. Pt sitting in recliner chair, denies needs. call light in reach.
[2018-12-31 15:42] VITALS: BP 101/57; PULSE 59; RESP 16; TEMP 36.6; O2SAT 100
[2018-12-31] MEDS: Atorvastatin Calcium 80 MG Tablet GT (21:23)
[2019-01-01] MEDS: Lansoprazole 15 MG Capsule.DR 30 MG GT (06:19)
[2019-01-01] MEDS: Menthol/Lanolin/Calamine/Znox 113 GM Tube 1 APPLIC TOPICAL ×2 (06:27→20:35)
[2019-01-01] MEDS: Nystatin Powder 15gm Bottle 1 APPLIC TOPICAL ×2 (06:28→20:36)
[2019-01-01] MEDS: Carvedilol 3.125 MG TABLET GT ×2 (06:34→18:45)
[2019-01-01] MEDS: Spironolactone 25 MG Tablet GT (06:34)
[2019-01-01] MEDS: SMZ/TPM Suspension 10 ML GT ×2 (06:34→18:45)
[2019-01-01] MEDS: Levothyroxine 25 MCG TABLET 12.5 MCG GT (06:34)
--- NOTE | 2019-01-01 13:32 | CASEMGMT ---
BIMS and PHQ9 interviews completed on this date for MDS assessment. PHQ9 score 01/30. BIMS score PARIS Cooper
--- NOTE | 2019-01-01 13:45 | MDS.RN ---
Pain interview for nicolasa 01/02/19 completed.
--- NOTE | 2019-01-01 14:01 | CASEMGMT ---
Addendum entered by Evelyne Modi 01/01/19 14:09: Referral made to Fatmata at [facility] for PT/OT/RN/MASTER BLACK BELT PARIS Cooper Original Note: Social Work Met with pt spouse who is reporting pt is requesting to return home tomorrow. Pt will be available to assist with personal care and transportation as needed. SW spoke with care team and they are agreeable to d/c and recommend home health PT/OT/SN/MASTER BLACK BELT. Pt and spouse agreeeable to this and would like to use [facility]. Pt has needed DME. Pt spouse will transport home. Plan: Home with spouse on 01/02/19. Home Health PT/OT/SN/MASTER BLACK BELT PARIS Cooper
--- NOTE | 2019-01-01 14:53 | DCINST_ITS ---
- Discharge Diagnoses Current Active Problems: Current Active and Chronic Problems (Last Reviewed 11/09/18 @ 11:08 by Shalini Villeda) Closed right hip fracture (Acute) GERD (gastroesophageal reflux disease) (Chronic) Tinea corporis (Chronic) Hypothyroidism (Chronic) Hyperlipidemia (Chronic) Iron deficiency anemia (Chronic) Chronic diastolic heart failure (Chronic) Hypertension (Chronic) Lung nodule (Chronic) Cervical lymphadenopathy (Acute) Hypercalcemia (Acute) Normal pressure hydrocephalus (Acute) You will use the following diet at home:: No restrictions, Regular Your food should be the consistency of: Regular Your liquids should be the consistency of: Regular/Thin Discharge Activity: Return to Normal Activity, May Shower, Use Walker Weight Bearing Status: Weight bearing as tolerated Call your doctor if you observe: Fever of 101 or Higher, Inability to urinate, Inability to have a bowel movement, Chest pain, Uncontrolled pain Allergies/Adverse Reactions: Allergies povidone-iodine [From Betadine] Adverse Reaction (Mild, Verified 11/09/18 11:08) Rash soap [From Betadine] Adverse Reaction (Mild, Verified 11/09/18 11:08) Rash Medications to take at Discharge Atorvastatin Calcium 80 mg GT QHS 06/26/17 Carvedilol [Coreg] 3.125 mg GT BID 06/26/17 Levothyroxine [Synthroid] 12.5 mcg GT DAILY 06/26/17 Acetaminophen Liquid [Tylenol Liquid] 650 mg GT Q4H PRN PRN #500 ml 01/01/19 Lansoprazole 30 mg GT DAILY #30 tab. 01/01/19 Menthol/Lanolin/Calamine/Znox [Calmoseptine Ointment] 1 applic TOPICAL 0600,2200 tube 01/01/19 Mineral Oil/Petrolatum,White [Eucerin] 1 applic TOPICAL 2200 jar 01/01/19 Nutritional Supplement [Robert - ORANGE FLAVOR] 1 packet GT BIDCM #60 packet 01/01/19 Nystatin Powder [Mycostatin Powder] 1 applic TOPICAL 0600,2200 bottle 01/01/19 Potassium Chloride [K-Dur] 20 meq PO BIDCM #60 tablet 01/01/19 Smz/Tpm Suspension [Bactrim Suspension] 10 ml GT BID #80 ml 01/01/19 Spironolactone [Aldactone] 25 mg GT QDAY #30 tab 01/01/19 Torsemide 20 mg GT DAILY PRN #30 tablet 01/01/19 traMADol [Ultram] 50 mg PO Q8H PRN PRN #30 tab 01/01/19 The following prescriptions were given: Acetaminophen Liquid [Tylenol Liquid] 650 mg GT Q4H PRN PRN #500 ml PRN Reason: Mild Pain (1-12/13) traMADol [Ultram] 50 mg PO Q8H PRN PRN #30 tab PRN Reason: Mod-Severe Pain (-07/15) Lansoprazole 30 mg GT DAILY #30 tab.rap Spironolactone [Aldactone] 25 mg GT QDAY #30 tab Torsemide 20 mg GT DAILY PRN #30 tablet PRN Reason: Swelling Nutritional Supplement [Robert - ORANGE FLAVOR] 1 packet GT BIDCM #60 packet Potassium Chloride [K-Dur] 20 meq PO BIDCM #60 tablet Smz/Tpm Suspension [Bactrim Suspension] 10 ml GT BID #80 ml Primary Care Physician: Leighton Sun MD [Primary Care Provider] - Please follow up with your Primary Care Physician in: 1 week. Test Results: Test results from this visit will be discussed in further detail at your follow- up appointment, if applicable. Please Follow Up With: Sadi Roldan MD When: 2 weeks. Proposed Discharge Date: 01/02/19
--- NOTE | 2019-01-01 14:53 | PCM.DC.SUM ---
Discharge Date and Diagnosis - Problem List Patient Problems: Active and Suspected Problems (Last Reviewed 11/09/18 @ 11:08 by Shalini Villeda) Closed right hip fracture (Acute) Cervical lymphadenopathy (Acute) Hypercalcemia (Acute) Normal pressure hydrocephalus (Acute) Date of Admission: 12/27/18 Date of Discharge: 01/02/19 - Primary Discharge Diagnosis Active and Suspected Problems (Last Reviewed 11/09/18 @ 11:08 by Shalini Villeda) Closed right hip fracture (Acute) Cervical lymphadenopathy (Acute) Hypercalcemia (Acute) Normal pressure hydrocephalus (Acute) - Secondary Discharge Diagnosis Chronic Problems (Last Reviewed 11/09/18 @ 11:08 by Shalini Villeda) GERD (gastroesophageal reflux disease) (Chronic) Tinea corporis (Chronic) Hypothyroidism (Chronic) Hyperlipidemia (Chronic) Iron deficiency anemia (Chronic) Chronic diastolic heart failure (Chronic) Hypertension (Chronic) Lung nodule (Chronic) Nonrheumatic mitral valve insufficiency (Chronic) Pulmonary hypertension (Chronic) Cardiomyopathy (Chronic) Atherosclerosis of [place] coronary artery of [place] heart without angina pectoris (Chronic) PTCA/SILVIA to LCx, OM #1, and LAD in July 2017; Syncope and collapse (Chronic) S/P PTCA (percutaneous transluminal coronary angioplasty) (Chronic) Percutaneous transluminal coronary angioplasty (PTCA) within last 14 to 24 months (Chronic) Dysphagia (Chronic) Sjogrens syndrome (Chronic) Raynaud disease (Chronic) Hospital Course and Treatment Imaging Results: 12/30/18 10:00 Diet: Regular Diet Is pt able to select menu?: Yes Labs (Last 48 Hours) 12/31/18 05:05 Sodium 132 L Potassium 4.3 Chloride 102 Carbon Dioxide 21.0 Anion Gap 9 BUN 12 Creatinine 0.78 Estim Creat Clear Calc 40.22 Est GFR (MDRD) Af Amer 94 Est GFR (MDRD) Non-Af 77 BUN/Creatinine Ratio 15.4 Glucose 134 H Calcium 8.1 L Consultations 12/27/18 21:59 Consult: Onc/Wound/switchboard inspector Routine Comment: Pressure injury left buttock Operations: None Procedures: None Summary of Care Provided: The patient is a 73 year old Female with below past medical history hospitalized for right hip fracture, underwent right hip hemiarthroplasty, complicated by cervical adenopathy concerning for lymphoma, CT head concerning for normal pressure hydrocephalus, admitted to TCU with debility, here for rehabilitation, strengthening, prior to discharge home with spouse. On TCU, PEG tube was replaced by Dr. Roldan. Consider further evaluation for normal pressure hydrocephalus, and cervical lymphadenopathy concerning for lymphoma. Discharge home with spouse, Home Health Services for PT/OT/SN/WASTE DISPOSAL LEAKAGE TESTER. Patient Problems: Active and Suspected Problems (Last Reviewed 11/09/18 @ 11:08 by Shalini Villeda) Closed right hip fracture (Acute) Cervical lymphadenopathy (Acute) Hypercalcemia (Acute) Normal pressure hydrocephalus (Acute) - Physical Exam Vital Signs Temp Pulse Resp BP Pulse Ox 97.8 F 59 L 16 101/57 L 100 12/31/18 15:42 12/31/18 15:42 12/31/18 15:42 12/31/18 15:42 12/31/18 15:42 Oxygen Delivery Method Room Air Weight: 50.944 kg Body Mass Index (BMI) 20.6 Finger Stick Blood Glucose 154 Intake and Output for Last 24 Hours 12/30/18 12/31/18 01/01/19 23:59 23:59 23:59 Intake Total 420 / 420 520 / 520 600 / 600 Balance 420 / 420 520 / 520 600 / 600 Microbiology Past 72 Hours 12/27/18 23:20 Miscellaneous Culture - Final Other - Liquid Klebsiella pneumoniae sp pneum Presumptive C albicans Gram Stain - Final Discharge Diet: No Restrictions Discharge Activity: Return to Normal Activity, May Shower, Use Walker Weight Bearing Status: Weight bearing as tolerated Call your doctor if you observe: Fever of 101 or Higher, Inability to urinate, Inability to have a bowel movement, Chest pain, Uncontrolled pain Home Medications: Medications to take at Discharge Atorvastatin Calcium 80 mg GT QHS 06/26/17 Carvedilol [Coreg] 3.125 mg GT BID 06/26/17 Levothyroxine [Synthroid] 12.5 mcg GT DAILY 06/26/17 Acetaminophen Liquid [Tylenol Liquid] 650 mg GT Q4H PRN PRN #500 ml 01/01/19 Lansoprazole 30 mg GT DAILY #30 tab.rap. 01/01/19 Menthol/Lanolin/Calamine/Znox [Calmoseptine Ointment] 1 applic TOPICAL 0600,2200 tube 01/01/19 Mineral Oil/Petrolatum,White [Eucerin] 1 applic TOPICAL 2200 jar 03/29/19 Nutritional Supplement [Robert - ORANGE FLAVOR] 1 packet GT BIDCM #60 packet 01/01/19 Nystatin Powder [Mycostatin Powder] 1 applic TOPICAL 0600,2200 bottle 01/01/19 Potassium Chloride [K-Dur] 20 meq PO BIDCM #60 tablet 01/01/19 Smz/Tpm Suspension [Bactrim Suspension] 10 ml GT BID #80 ml 01/01/19 Spironolactone [Aldactone] 25 mg GT QDAY #30 tab 01/01/19 Torsemide 20 mg GT DAILY PRN #30 tablet 01/01/19 traMADol [Ultram] 50 mg PO Q8H PRN PRN #30 tab 01/01/19 Following Prescrptions Were Given to Patient: Acetaminophen Liquid [Tylenol Liquid] 650 mg GT Q4H PRN PRN #500 ml PRN Reason: Mild Pain (1-12/13) traMADol [Ultram] 50 mg PO Q8H PRN PRN #30 tab PRN Reason: Mod-Severe Pain (-07/15) Lansoprazole 30 mg GT DAILY #30 tab.rap. Spironolactone [Aldactone] 25 mg GT QDAY #30 tab Torsemide 20 mg GT DAILY PRN #30 tablet PRN Reason: Swelling Nutritional Supplement [Robert - ORANGE FLAVOR] 1 packet GT BIDCM #60 packet Potassium Chloride [K-Dur] 20 meq PO BIDCM #60 tablet Smz/Tpm Suspension [Bactrim Suspension] 10 ml GT BID #80 ml Primary Care Physician: Leighton Sun MD [Primary Care Provider] - Please follow up with your Primary Care Physician in: 1 week. Please Follow Up With: Sadi Roldan MD When: 2 weeks. Disposition: Home with Home Health Minutes spent on discharge:: 35 Patient Condition:: Stable Medical Necessity - Tobacco Use Smoking Status: Never smoker Tobacco Use: Non-smoker Meaningful Use Info Meaningful Use Diagnoses (Choose all that apply): None applicable
--- NOTE | 2019-01-01 14:56 | DS.PCM_ITS ---
Discharge Date and Diagnosis - Problem List Patient Problems: Active and Suspected Problems (Last Reviewed 11/09/18 @ 11:08 by Shalini Villeda) Closed right hip fracture (Acute) Cervical lymphadenopathy (Acute) Hypercalcemia (Acute) Normal pressure hydrocephalus (Acute) Date of Admission: 12/27/18 Date of Discharge: 01/02/19 - Primary Discharge Diagnosis Active and Suspected Problems (Last Reviewed 11/09/18 @ 11:08 by Shalini Villeda) Closed right hip fracture (Acute) Cervical lymphadenopathy (Acute) Hypercalcemia (Acute) Normal pressure hydrocephalus (Acute) - Secondary Discharge Diagnosis Chronic Problems (Last Reviewed 11/09/18 @ 11:08 by Shalini Villeda) GERD (gastroesophageal reflux disease) (Chronic) Tinea corporis (Chronic) Hypothyroidism (Chronic) Hyperlipidemia (Chronic) Iron deficiency anemia (Chronic) Chronic diastolic heart failure (Chronic) Hypertension (Chronic) Lung nodule (Chronic) Nonrheumatic mitral valve insufficiency (Chronic) Pulmonary hypertension (Chronic) Cardiomyopathy (Chronic) Atherosclerosis of [place] coronary artery of [place] heart without angina pectoris (Chronic) PTCA/SILVIA to LCx, OM #1, and LAD in July 2017; Syncope and collapse (Chronic) S/P PTCA (percutaneous transluminal coronary angioplasty) (Chronic) Percutaneous transluminal coronary angioplasty (PTCA) within last 14 to 24 months (Chronic) Dysphagia (Chronic) Sjogrens syndrome (Chronic) Raynaud disease (Chronic) Hospital Course and Treatment Imaging Results: 12/30/18 10:00 Diet: Regular Diet Is pt able to select menu?: Yes Labs (Last 48 Hours) 12/31/18 05:05 Sodium 132 L Potassium 4.3 Chloride 102 Carbon Dioxide 21.0 Anion Gap 9 BUN 12 Creatinine 0.78 Estim Creat Clear Calc 40.22 Est GFR (MDRD) Af Amer 94 Est GFR (MDRD) Non-Af 77 BUN/Creatinine Ratio 15.4 Glucose 134 H Calcium 8.1 L Consultations 12/27/18 21:59 Consult: Onc/Wound/milled rice broker Routine Comment: Pressure injury left buttock Operations: None Procedures: None Summary of Care Provided: The patient is a 73 year old Female with below past medical history hospitalized for right hip fracture, underwent right hip hemiarthroplasty, complicated by cervical adenopathy concerning for lymphoma, CT head concerning for normal pressure hydrocephalus, admitted to TCU with debility, here for rehabilitation, strengthening, prior to discharge home with spouse. On TCU, PEG tube was replaced by Dr. Roldan. Consider further evaluation for normal pressure hydrocephalus, and cervical lymphadenopathy concerning for lymphoma. Discharge home with spouse, Home Health Services for PT/OT/SN/AUTO PARTS CLERK. Patient Problems: Active and Suspected Problems (Last Reviewed 11/09/18 @ 11:08 by Shalini Villeda) Closed right hip fracture (Acute) Cervical lymphadenopathy (Acute) Hypercalcemia (Acute) Normal pressure hydrocephalus (Acute) - Physical Exam Vital Signs Temp Pulse Resp BP Pulse Ox 97.8 F 59 L 16 101/57 L 100 12/31/18 15:42 12/31/18 15:42 12/31/18 15:42 12/31/18 15:42 12/31/18 15:42 Oxygen Delivery Method Room Air Weight: 50.944 kg Body Mass Index (BMI) 20.6 Finger Stick Blood Glucose 154 Intake and Output for Last 24 Hours 12/30/18 12/31/18 01/01/19 23:59 23:59 23:59 Intake Total 420 / 420 520 / 520 600 / 600 Balance 420 / 420 520 / 520 600 / 600 Microbiology Past 72 Hours 12/27/18 23:20 Miscellaneous Culture - Final Other - Liquid Klebsiella pneumoniae sp pneum Presumptive C albicans Gram Stain - Final Discharge Diet: No Restrictions Discharge Activity: Return to Normal Activity, May Shower, Use Walker Weight Bearing Status: Weight bearing as tolerated Call your doctor if you observe: Fever of 101 or Higher, Inability to urinate, Inability to have a bowel movement, Chest pain, Uncontrolled pain Home Medications: Medications to take at Discharge Atorvastatin Calcium 80 mg GT QHS 06/26/17 Carvedilol [Coreg] 3.125 mg GT BID 06/26/17 Levothyroxine [Synthroid] 12.5 mcg GT DAILY 06/26/17 Acetaminophen Liquid [Tylenol Liquid] 650 mg GT Q4H PRN PRN #500 ml 01/01/19 Lansoprazole 30 mg GT DAILY #30 tab.rap. 01/01/19 Menthol/Lanolin/Calamine/Znox [Calmoseptine Ointment] 1 applic TOPICAL 0600,2200 tube 01/01/19 Mineral Oil/Petrolatum,White [Eucerin] 1 applic TOPICAL 2200 jar 03/29/19 Nutritional Supplement [Robert - ORANGE FLAVOR] 1 packet GT BIDCM #60 packet 01/01/19 Nystatin Powder [Mycostatin Powder] 1 applic TOPICAL 0600,2200 bottle 01/01/19 Potassium Chloride [K-Dur] 20 meq PO BIDCM #60 tablet 01/01/19 Smz/Tpm Suspension [Bactrim Suspension] 10 ml GT BID #80 ml 01/01/19 Spironolactone [Aldactone] 25 mg GT QDAY #30 tab 01/01/19 Torsemide 20 mg GT DAILY PRN #30 tablet 01/01/19 traMADol [Ultram] 50 mg PO Q8H PRN PRN #30 tab 01/01/19 Following Prescrptions Were Given to Patient: Acetaminophen Liquid [Tylenol Liquid] 650 mg GT Q4H PRN PRN #500 ml PRN Reason: Mild Pain (1-12/13) traMADol [Ultram] 50 mg PO Q8H PRN PRN #30 tab PRN Reason: Mod-Severe Pain (-07/15) Lansoprazole 30 mg GT DAILY #30 tab.rap. Spironolactone [Aldactone] 25 mg GT QDAY #30 tab Torsemide 20 mg GT DAILY PRN #30 tablet PRN Reason: Swelling Nutritional Supplement [Robert - ORANGE FLAVOR] 1 packet GT BIDCM #60 packet Potassium Chloride [K-Dur] 20 meq PO BIDCM #60 tablet Smz/Tpm Suspension [Bactrim Suspension] 10 ml GT BID #80 ml Primary Care Physician: Leighton Sun MD [Primary Care Provider] - Please follow up with your Primary Care Physician in: 1 week. Please Follow Up With: Sadi Roldan MD When: 2 weeks. Disposition: Home with Home Health Minutes spent on discharge:: 35 Patient Condition:: Stable Medical Necessity - Tobacco Use Smoking Status: Never smoker Tobacco Use: Non-smoker Meaningful Use Info Meaningful Use Diagnoses (Choose all that apply): None applicable
--- NOTE | 2019-01-01 14:57 | HHNOTE_ITS ---
Home Health Note - Plan Overview of reason of hospitalization: The patient is a 73 year old Female with below past medical history hospitalized for right hip fracture, underwent right hip hemiarthroplasty, complicated by cervical adenopathy concerning for lymphoma, CT head concerning for normal pressure hydrocephalus, admitted to TCU with debility, here for rehabilitation, strengthening, prior to discharge home with spouse. On TCU, PEG tube was replaced by Dr. Roldan. Consider further evaluation for normal pressure hydrocephalus, and cervical lymphadenopathy concerning for lymphoma. Discharge home with spouse, Home Health Services for PT/OT/SN/[facility] [employer] [facility]. Problems: Patient was seen for (Last Reviewed 11/09/18 @ 11:08 by Shalini Villeda) Closed right hip fracture (Acute) GERD (gastroesophageal reflux disease) (Chronic) Tinea corporis (Chronic) Hypothyroidism (Chronic) Hyperlipidemia (Chronic) Iron deficiency anemia (Chronic) Chronic diastolic heart failure (Chronic) Hypertension (Chronic) Lung nodule (Chronic) Cervical lymphadenopathy (Acute) Hypercalcemia (Acute) Normal pressure hydrocephalus (Acute) Complete List of Medical Problems (Last Reviewed 11/09/18 @ 11:08 by Shalini Villeda) Closed right hip fracture (Acute) GERD (gastroesophageal reflux disease) (Chronic) Tinea corporis (Chronic) Hypothyroidism (Chronic) Hyperlipidemia (Chronic) Iron deficiency anemia (Chronic) Chronic diastolic heart failure (Chronic) Hypertension (Chronic) Lung nodule (Chronic) Cervical lymphadenopathy (Acute) Hypercalcemia (Acute) Normal pressure hydrocephalus (Acute) Nonrheumatic mitral valve insufficiency (Chronic) Pulmonary hypertension (Chronic) Cardiomyopathy (Chronic) Atherosclerosis of [place] coronary artery of [place] heart without angina pectoris (Chronic) Syncope and collapse (Chronic) Bradycardia (Acute) S/P PTCA (percutaneous transluminal coronary angioplasty) (Chronic) Percutaneous transluminal coronary angioplasty (PTCA) within last 14 to 24 months (Chronic) Dysphagia (Chronic) CAD (coronary artery disease) (Acute) Weakness (Acute) Poor fluid intake (Acute) Hypoxia (Acute) Sjogrens syndrome (Chronic) Raynaud disease (Chronic) Flash pulmonary edema (Acute) Abnormal cardiac enzyme level (Acute) NSTEMI (non-ST elevated myocardial infarction) (Acute) - Requirements and Reasons Disciplines Needed/Ordered: Intermediate, Physical Therapy Reason for Disciplines: Disease Specific Monitoring/education, Medication Management/Knowledge Deficit, Drainage Devices/Tube Care, Gait Training, Stair Training, Fall Prevention, Home Safety/Equipment Instruction, Balance and/or Posture Training, Transfer Training Related To: Change in Medical Treatment Plan, Limited/Poor Endurance, Physical Impairments, Unsteady Gait/Balance, Fall Risk Patient is unable to leave the home: Without Aid of Supportive Devices (crutches, cane, wheelchair, walker), Without the assistance of another person - Additional Disciplines Additional Disciplines Needed/Ordered: Occupational Therapy, Home Health Aide
[2019-01-01 15:51] VITALS: BP 92/50; PULSE 60; RESP 18; TEMP 36.6; O2SAT 99
[2019-01-01] MEDS: Atorvastatin Calcium 80 MG Tablet GT (20:36)
[2019-01-01 20:47] VITALS: PULSE 62; O2SAT 99
[2019-01-02] MEDS: Acetaminophen 650 MG/20 ML UDC GT (00:05)
[2019-01-02] MEDS: Menthol/Lanolin/Calamine/Znox 113 GM Tube 1 APPLIC TOPICAL (06:19)
[2019-01-02] MEDS: Carvedilol 3.125 MG TABLET GT (06:20)
[2019-01-02] MEDS: Lansoprazole 15 MG Capsule.DR 30 MG GT (06:20)
[2019-01-02] MEDS: Spironolactone 25 MG Tablet GT (06:20)
[2019-01-02] MEDS: Nystatin Powder 15gm Bottle 1 APPLIC TOPICAL (06:20)
[2019-01-02] MEDS: SMZ/TPM Suspension 10 ML GT (06:20)
[2019-01-02] MEDS: Levothyroxine 25 MCG TABLET 12.5 MCG GT (06:21)
[2019-01-02 10:19] VITALS: PULSE 61; RESP 18; O2SAT 100
[2019-01-02 11:11] VITALS: BP 99/59; PULSE 61; RESP 18; TEMP 36.7; O2SAT 100
--- NOTE | 2019-01-07 14:24 | MDS.RN ---
Information for the mds was obtained from review of the clinical record, interview of resident, staff ,and direct observation of resident's care.
== END 2019-01-02 10:10 | disposition home health service (06) | DRG 560 ==
PROVIDERS: Admitting Provider Family Medicine Geriatric Medicine; Family Provider Family Medicine; PCP Family Medicine; Referring Provider Family Medicine Geriatric Medicine; Visit Provider Family Medicine Geriatric Medicine
DX: S72.001D Fracture of unspecified part of neck of right femur, subsequent encounter for closed fracture with routine healing (principal); I50.32 Chronic diastolic (congestive) heart failure; G91.2 (Idiopathic) normal pressure hydrocephalus; Z43.1 Encounter for attention to gastrostomy; X58.XXXD Exposure to other specified factors, subsequent encounter; K21.9 Gastro-esophageal reflux disease without esophagitis; E03.9 Hypothyroidism, unspecified; E78.5 Hyperlipidemia, unspecified; D50.9 Iron deficiency anemia, unspecified; I11.0 Hypertensive heart disease with heart failure; R91.1 Solitary pulmonary nodule; I27.20 Pulmonary hypertension, unspecified; I73.00 Raynaud's syndrome without gangrene; I25.10 Atherosclerotic heart disease of native coronary artery without angina pectoris; M35.00 Sjogren syndrome, unspecified; I25.2 Old myocardial infarction; R59.1 Generalized enlarged lymph nodes; Z96.641 Presence of right artificial hip joint; Z95.5 Presence of coronary angioplasty implant and graft; E83.52 Hypercalcemia
CPT/HCPCS: 36415; 80048; 85025; 87070; 87077; 87186; 87205; 92526; 97110; 97116; 97162; 97166; 97530; 97535; 97802

== ENCOUNTER → 2019-01-06 15:45 | Outpatient (CLI) | payer MEDICARE, OTHER, SELFPAY ==
[2018-12-27 17:00] VITALS: BMI 20.6
[2019-01-06 17:44] LABS: Anion Gap 9 (5-15); BUN 19 mg/dL (7-18); BUN/Creat Ratio 19.7 RATIO (10-20); Calcium,Total 8.7 mg/dL (8.5-10.1); Chloride 103 mmol/L (98-107); Creatinine, Serum 0.96 mg/dL (0.55-1.02); EST Glomerular Filtration Rate 61 mL/min (>60); Est Glom Filt Rate - Afr Amer 73 mL/min (>60); Glucose 98 mg/dL (74-106); Magnesium 1.7 mg/dL (1.6-2.6); Potassium 4.5 mmol/L (3.5-5.1); Sodium Level 132 mmol/L (136-145)
== END ==
PROVIDERS: Family Provider Family Medicine; PCP Family Medicine; Referring Provider Family Medicine; Visit Provider Family Medicine
DX: E87.8 Other disorders of electrolyte and fluid balance, not elsewhere classified (principal)
CPT/HCPCS: 36415; 80048; 83735

== ENCOUNTER → 2019-07-09 11:24 | Outpatient (CLI) | payer MEDICARE, OTHER, SELFPAY ==
[2019-05-04 08:17] VITALS: BMI 19.3
[2019-07-09 12:43] LABS: Absolute Lymphocyte Count 0.35 X10^3/uL (0.83-4.51); Basophil# 0.04 X10^3/uL; Eosinophil# 0.21 X10^3/uL; Eosinophils% 5.3 % (0-5); Hematocrit 38.3 % (37-47); Hemoglobin 12.1 g/dL (12.0-15.0); Lymphocyte # 0.35 X10^3/ul (4.0); Lymphocyte % 8.8 % (19-41); Mean Corp Hgb Conc 31.6 g/dL (32-36); Mean Corpuscular Hgb 27.8 pg (27.0-32.0); Mean Platelet Vol. 9.2 fl (6.2-12.0); Monocyte# 0.35 X10^3/uL; Monocyte% 8.8 % (0-10); NRBC Flagged by Analyzer 0 % (0-5); Neutrophil # 3.03 X10^3/uL (2.7-7.7); Neutrophil % 75.8 % (47-70); POSITIVE DIFFERENTIAL YES; Platelet Count 167 K/mm3 (150-450); RBC Distribution Width CV 14.4 % (11.6-14.6); RBC Distribution Width SD 46.5 fl (35.1-43.9); Red Blood Count 4.35 M/mm3 (4.2-5.4)
[2019-07-09 12:54] LABS: Differential Indicated SCAN CRITERIA MET
[2019-07-09 13:11] LABS: Vitamin D,25 Hydroxy 36.3 ng/mL (29.95-100.01)
[2019-07-09 13:12] LABS: ALB/GLOB Ratio 1.2 RATIO (0.9-2.4); AST(SGOT) 35 U/L (15-37); Alanine Aminotransfer ALT/SGPT 24 U/L (13-56); Albumin, Serum 3.7 g/dL (3.2-5.0); Alkaline Phosphatase 87 U/L (45-117); Anion Gap 5 (5-15); BUN 20 mg/dL (7-18); BUN/Creat Ratio 15.5 RATIO (10-20); Calcium,Total 9.2 mg/dL (8.5-10.1); Chloride 104 mmol/L (98-107); Creatinine, Serum 1.29 mg/dL (0.55-1.02); EST Glomerular Filtration Rate 43 mL/min (>60); Est Glom Filt Rate - Afr Amer 52 mL/min (>60); Globulin 3.2 g/dL (2.2-4.2); Glucose 80 mg/dL (74-106); Lipase 384 U/L (73-393); Potassium 4.5 mmol/L (3.5-5.1); Protein, Total 6.9 g/dL (6.4-8.2); Sodium Level 136 mmol/L (136-145); Thyroid Stim Hormone (TSH) 3.11 uIU/mL (0.358-3.74)
[2019-07-12 12:07] LABS: Pathologist Review Reviewed
== END ==
PROVIDERS: Family Provider Family Medicine; PCP Family Medicine; Referring Provider Family Medicine; Visit Provider Family Medicine
DX: K85.90 Acute pancreatitis without necrosis or infection, unspecified (principal); K22.8 Other specified diseases of esophagus
CPT/HCPCS: 36415; 80053; 82306; 83690; 84443; 85025

== ENCOUNTER → 2019-07-15 07:13 | Outpatient (CLI) | payer MEDICARE, OTHER, SELFPAY ==
[2019-05-04 08:17] VITALS: BMI 19.3
--- NOTE | 2019-07-15 07:18 | CT_ITS ---
STUDY: CT BRAIN WITHOUT CONTRAST REASON FOR EXAM: Female, 73 years old. Dizziness with known normal pressure hydrocephalus. RADIATION DOSAGE (If Supplied By Facility): CTDIvol = ( 44.99 ) mGy, DLP = ( 779.24 ) mGycm TECHNIQUE: Transaxial CT imaging of the brain was performed without administration of intravenous contrast material. Multiplanar reformations are submitted for interpretation. Individualized dose optimization techniques were used for this CT. COMPARISON: CT of the head dated October 19, 2017. FINDINGS: Normal soft tissue structures. Normal calvarium. There is mild cerebral atrophy with widening of the extra-axial spaces and moderate ventricular dilatation. Normal white matter tracts of the cerebral hemispheres. Normal basal ganglia and thalami. Normal brainstem. Normal cerebellum. There is no intracranial hemorrhage. There is mild atherosclerotic calcification of the intracranial arteries. Normal visualized paranasal sinuses. CT/Brain/Head without Contrast IMPRESSION: 1. Unchanged appearance to moderate ventriculomegaly apparently related to known normal pressure hydrocephalus. 2. No CT evidence of acute intracranial hemorrhage. Electronically Signed: Jennifer Boykin MD at 11:16 EDT , Service support ,
== END ==
PROVIDERS: Family Provider Family Medicine; PCP Family Medicine; Referring Provider Family Medicine; Visit Provider Family Medicine
DX: G91.2 (Idiopathic) normal pressure hydrocephalus (principal)
CPT/HCPCS: 70450

== ENCOUNTER → 2019-09-27 13:17 | Outpatient (CLI) | payer MEDICARE, OTHER, SELFPAY ==
[2019-07-30 14:48] VITALS: BMI 21.2
[2019-09-20 16:01] LABS: BUN 18 mg/dL (7-18); Creatinine, Serum 1.15 mg/dL (0.55-1.02); EST Glomerular Filtration Rate 49 mL/min (>60); Est Glom Filt Rate - Afr Amer 60 mL/min (>60)
--- NOTE | 2019-09-27 13:23 | MRI_ITS ---
STUDY: MRI BRAIN WITH AND WITHOUT CONTRAST REASON FOR EXAM: Female, 74 years old. communicating hydrocephalus -- off balance, dizziness TECHNIQUE: Standardized multiplanar fat and water weighted pulse sequences were obtained. dotarem 10ml iv was administered for the contrast portion of the examination. COMPARISON: CT of the brain July 15, 2019 FINDINGS: Moderate atrophy and periventricular white matter ischemic changes without mass effect or restricted diffusion.. There is disproportionate dilatation of the ventricles with respect to cortical sulci and communicating hydrocephalus cannot be excluded. Normal bilateral basal ganglia. Normal thalami. There is no extra-axial fluid accumulation. Normal flow voids within the major intracranial circulation suggesting patency by spin echo criteria. Normal venous enhancement. There is no enhancing intra-axial or extra-axial abnormality. Normal sella turcica, pituitary gland, infundibular stalk, optic chiasm and hypothalamus. Normal tectal plate and pineal gland. Normal midbrain, dasha and medulla. Normal cerebellum. Normal basal cisterns. Normal bilateral temporal bones. Normal bilateral internal auditory canals. Postsurgical changes of the orbits.. Minor mucosal thickening of the right ethmoid air cells and left frontal sinus Normal calvarium and skull base. There is a small nodule in the left parotid gland possibly a cyst however dedicated CT of the neck with contrast would be helpful for further assessment. Normal visualized upper cervical spine. MRI/Brain W/WO Contrast IMPRESSION: Moderate atrophy and periventricular white matter ischemic changes. Findings which may be consistent with normal pressure hydrocephalus. No evidence for acute infarct. Incidental finding of left parotid nodule which may be further assessed with contrast-enhanced CT Electronically Signed: Roe Sy MD at 19:48 EST , Service support ,
== END ==
PROVIDERS: Family Provider Family Medicine; PCP Family Medicine; Referring Provider Psychiatry & Neurology Neurology; Visit Provider Psychiatry & Neurology Neurology
DX: G91.0 Communicating hydrocephalus (principal); M54.16 Radiculopathy, lumbar region; R53.1 Weakness
CPT/HCPCS: 36415; 70553; 82565; 84520; A9575

== ENCOUNTER → 2019-10-29 13:50 | Outpatient (CLI) | payer MEDICARE, OTHER, SELFPAY ==
[2019-07-30 14:48] VITALS: BMI 21.2
--- NOTE | 2019-10-29 13:55 | RAD_ITS ---
STUDY: X-RAY - LUMBOSACRAL SPINE REASON FOR EXAM: Female, 74 years old. RADICULOPATHY, WEAKNESS TECHNIQUE: 7 view(s) of the lumbosacral spine were obtained. COMPARISON: None FINDINGS: Normal lumbar lordosis. There is a levoscoliosis of the lumbar spine. There is normal alignment of the vertebrae. No subluxation on the flexion or extension views to suggest instability. Normal vertebral bodies and endplates. Focal disc space narrowing and osteophyte formation at L2/L3 consistent with degenerative disc disease. Normal bilateral sacral ala, sacroiliac joints, and visualized sacrum. Normal visualized soft tissue structures. RAD/L/S Spine Comp/w Bending Views IMPRESSION: Moderate levoscoliosis with focal degenerative disc disease at L2/L3. No instability. Electronically Signed: Kumar Ventura MD at 15:19 EST Tel , Service support ,
== END ==
PROVIDERS: PCP Family Medicine; Referring Provider Psychiatry & Neurology Neurology; Visit Provider Psychiatry & Neurology Neurology
DX: M54.16 Radiculopathy, lumbar region (principal)
CPT/HCPCS: 72114

== ENCOUNTER 2019-11-18 11:30 | Outpatient (RCR) | payer MEDICARE, OTHER, SELFPAY ==
[2019-07-30 14:48] VITALS: BMI 21.2
--- NOTE | 2019-10-11 17:45 | HP.PTEVAL_ITS ---
Patient's Visit Information ABEL NICHOLE is a 74 year old F referred to Physical Therapy by Cornelio Lynne MD with a diagnosis of Balance issue due to lumbar spine disease, possibly neuropathy. Date of Evaluation: 10/11/19 Physical Therapist: CORWIN Perez - Visit Plan Frequency: 2x /Week Duration: 2 Months Plan: 2X/ week for 8 weeks ( at the 4 week oren NeurCOM test), for LE strengthening, gait training, static and dynamic balance on and off compliant surfaces, functional activities with HEP - Subjective Findings: Pt went to a new Dr and he wants to figure out why she is so weak. Last year about this time she broke her R hip and did not get fully back and even before that she would lose her balance and some dizziness. 2 years ago she had a OR and that really wiped her out. They did an MRI of her head but have not heard her results and at then end of the month they are doing a bending x- ray cause they think it might be related to her spine. She reports that she is stronger at times and sometimes it feels like she is dragging her L leg. As the evening progresses she gets worse and always hold onto something SHe always uses the walker or a cane or her . She goes around the house without her walker. She has some numness in one spot on her R leg. She gets a little bit of pain at times on the R hip but nothing on the L. She has fallen and why she broke her R hip last year. She has not fallen since she broke her hip. She has been on the walker for 2 years and 3 stents in her heart. No stairs at home other than a couple steps into the house with 1 railing and goes up 2 feet to a stair. She can not get up out of a chair without using her arms. Pt wants to get to walking with a cane. Pt reports that she has water on the brain but has had that for 10 years. Nerve conduction test: had some bad spots on the R and ok on the L. She does a few chair exercises at home in the mornings. SHe is doing LAQ, HS curls with orange band, ball squeeze and orange hip abduction. Dizziness: if she is lying down and sit up she can get a whoosh feeling.... Sit to stand she felt more unsteadiness. No room spinning dizziness.... - Objective Gait: walks with toes in with a front wheeled walker with flexed trunk and good stride length with slower erica. LE MMT: B hip flex 3+/5, B knee flex 4/5, B knee ext 3+/5, R hip abd 3-/4 and L 3+/5, able to 3/4 normal ROM bridge. Tinetti: 14. Sit to stand: uses UE and does not weight shift FW. Pt struggles with rolling to side and supine to sit without grab bar. CATSIB 85/120 - Balance Scores CATSIB Score (Max score 120 seconds): 85 Tinetti Balance Score: 6 Tinetti Gait Score: 8 Tinetti Balance & Gait Score: 14 - Goals Goal 1:: SHort term goal: I HEP Goal Time Frame: 2-4 Weeks Goal 2:: Short term goal: Be able to stand unsupported on foam with head turns without LOB or reaching to hold onto an external support Goal Time Frame: 2-4 Weeks Goal 3:: skilled nursing goal: complete NeurCOM test Goal Time Frame: 4-6 Weeks Goal 4:: Long tern GOAl: Increase LE strength to be able to get out of a chair with 1 arm support and increase weight shift fw. Goal Time Frame: 6-8 Weeks Goal 5:: rat exterminator goal: increase Tinetti by 5 points to decrease fall risk ( score of 14 at time of eval). Goal Time Frame: 6-8 Weeks Goal 6:: Be able to walk with a straight cane with SBA 150 feet without veering Goal Time Frame: 6-8 Weeks - Rehabilitation Potential Rehabilitation Potential: Good - Anticipated Interventions Patient/Client Instruction: Educate patient on: Plan of Care For the Purpose of:: To improve muscle performance and motor function, To improve ability to perform ADL's, To increase tolerance to activity/condition/position, To improve performance and independence with ADL's, To decrease level of supervision to perform tasks, To improve ability of phys ical actions for home/community/work/leisure, To improve gait and locomotor functions, To improve balance, To improve safety with gait Therapeutic Exercise to Include: Strength training, Endurance training, Balance training, Body mechanics, Postural training, Gait and locomotor training, Active ROM For the Purpose of:: To improve muscle performance and motor function, To increase tolerance to activity/condition/position, To improve performance and independence with ADL's, To decrease level of supervision to perform tasks, To improve gait and locomotor functions, To improve balance, To improve safety with gait, To improve safety Functional Training to Include: Gait training For the Purpose of:: To improve gait and locomotor functions, To improve safety with gait Thank you for the opportunity to evaluate your patient. For Medicare and Medicare HMO plans, please review the plan of care and approve it. It will need to be FAXED BACK to us at [phone] for Medicare purposes. For Medicare only, by signing this I certify the plan of care. Please let me know if there are questions or concerns regarding this plan of care. Physician Signature: Date:
--- NOTE | 2019-11-10 12:55 | HP.PTCOM_ITS ---
PT Communication Note 11/10/[address] Cornelio Lynne MD , Thank you for the referral of Regina Epps to our clinic. She was tested on our NeuroCom System today and enclosed are the test results. On the Sensory Organization Test (SOT) her overall score was 35. Anything below a score of 38 we recommend the patient use an AD. She is still currently using her rolling walker. She had trouble with the use of her vestibular system to help her maintain her balance. Her strategy analysis is more ankle dominant which is higher level and her [place] alignment is within normal limits. On the Motor Control Test (MCT) the patients overall reaction time is with in normal limits. On the Limits of Stability Test (LOS) she has trouble with weight shifting in all planes (right, left, and forward/backward). At this point in time we will continue to see the patient for vestibular inputs, weight shifting, progressing of gait, strength, balance with HEP Sincerely, Emmie Douglass, [facility] Contact Information
--- NOTE | 2020-01-19 11:55 | HP.PT.NRP ---
ABEL NICHOLE was seen in my office for initial evaluation on 10/11/19. The following Plan of Care was established for this patient: Initial Frequency: 2x /Week Initial Duration: 2 Months Patient/Client Instruction: Educate patient on: Plan of Care For the Purpose of:: To improve muscle performance and motor function, To improve ability to perform ADL's, To increase tolerance to activity/condition/position, To improve performance and independence with ADL's, To decrease level of supervision to perform tasks, To improve ability of physical actions for home/community/work/leisure, To improve gait and locomotor functions, To improve balance, To improve safety with gait Therapeutic Exercise to Include: Strength training, Endurance training, Balance training, Body mechanics, Postural training, Gait and locomotor training, Active ROM For the Purpose of:: To improve muscle performance and motor function, To increase tolerance to activity/condition/position, To improve performance and independence with ADL's, To decrease level of supervision to perform tasks, To improve gait and locomotor functions, To improve balance, To improve safety with gait, To improve safety Functional Training to Include: Gait training For the Purpose of:: To improve gait and locomotor functions, To improve safety with gait This patient was last seen in our office 11/18/19. Pertinent comments regarding their Physical therapy will appear below: JAMARI PT At this point I will be discontinuing this patient from physical therapy. I would be happy to see this patient again in the future if found appropriate by the physician. Thank you! Emmie Douglass, MPT
== END 2019-11-18 19:00 | disposition home or self-care (01) ==
LOC: PT 11:30
PROVIDERS: Family Provider Family Medicine; PCP Family Medicine; Referring Provider Psychiatry & Neurology Neurology; Visit Provider Psychiatry & Neurology Neurology
DX: R26.89 Other abnormalities of gait and mobility (principal)
CPT/HCPCS: 97110; 97162; 97530; 97750

== ENCOUNTER 2019-11-21 22:55 | Emergency (ER) | payer MEDICARE, OTHER, SELFPAY ==
[2019-07-30 14:48] VITALS: BMI 21.2
[2019-11-21 22:55] VITALS: BP 124/92; PULSE 96; RESP 18; O2SAT 94
[2019-11-21 22:56] VITALS: BP 124/92; PULSE 96; RESP 16; TEMP 36.9; O2SAT 94; BMI 24.7
--- NOTE | 2019-11-21 23:23 | CT_ITS ---
HISTORY: DIZZINESS, FELL OFF COUCH TODAY, LEANING TOWARD THE LEFT NOW, HX IA, STENTS, HTN EXAMINATION: CT Head or Brain W/O Contrast Injection TECHNIQUE: Multiple axial images were obtained of the brain without intravenous contrast. A radiation dose optimization technique was used for this scan. IV Contrast dosage and agent: None. COMPARISON: MR brain 09/27/[address] brain 07/15/2019 FINDINGS: No significant change. Dilatation of the lateral and third ventricles which appears disproportionate to the degree of sulcal atrophy in keeping with NPH. The pattern appears stable. No intracranial mass, midline shift, or significant mass-effect. Posterior fossa structures are on remarkable. No suspicious extra-axial fluid collection. As visualized, mastoids are clear. The left mastoid air cells are better developed than the right. CT/Brain/Head without Contrast IMPRESSION: 1. Stable findings. No intracranial hemorrhage or acute intracranial disease identified. 2. Stable ventriculomegaly in keeping with NPH. Individualized dose optimization techniques were used for this CT. at 0051 Reported and signed by: Chris Caban MD Electronically Signed: Chris Caban, at 0:49 EST Tel , Service support ,
--- NOTE | 2019-11-21 23:24 | EKG12_ITS ---
Test Reason : BACK Blood Pressure : / mmHG Vent. Rate : 076 BPM Atrial Rate : 076 BPM P-R Int : 164 ms QRS Dur : 130 ms QT Int : 402 ms P-R-T Axes : 034 -72 062 degrees QTc Int : 452 ms Normal sinus rhythm Left axis deviation Non-specific intra-ventricular conduction block Cannot rule out Septal infarct , age undetermined Possible Lateral infarct , age undetermined Abnormal ECG Confirmed by XOCHITL SOMMER, REZA ([id number]), medical editor LEIGHA RODRIGUEZ ([id number]) on 11/24/2019 8:59:52 AM Referred By: VINICIO Confirmed By:REZA LEUNG MD
--- NOTE | 2019-11-21 23:26 | ED.DCSUM_ITS ---
- ER Visit Summary Date of Service: 11/21/19 Chief Complaint: Fall and back pain History of Present Illness: The patient is a 74 F who presents with back pain that began after a fall today. Patient states she fell trying to get up from the couch. Patient states she has a history of dizziness and is undergoing balance therapy for her dizziness. Patient states the pain was sharp. Patient states she took a Tylenol with codeine at home and her pain is now resolved. Patient states she did develop a rash after taking this. Patient states her pain feels worse with any movement and improves with rest. Patient denies any radiation of the pain. Patient denies any bowel or bladder changes. Patient denies any saddle anesthesia. Physical Examination: Vital signs are stable. Patient is afebrile. Patient is in no acute distress. Oral mucosa is pink and somewhat dry. Neck is supple. Trachea is midline. There is no JVD. Heart was regular rate and rhythm. Lungs are clear and equal bilaterally. Abdomen is soft. Bowel sounds are normal. There is no tenderness. Musculoskeletal exam reveals mild tenderness over the lumbar spine. There is no bony crepitance or step-off. There is no edema or ecchymosis. Range of motion was limited in all motions of the lumbar spine secondary to pain. Strength is 5/5 bilateral knee upper and lower extremities. There are no sensory deficits. Test Results: EKG shows a normal sinus rhythm with a rate of 76. There are no acute ST or T wave changes. There is a left anterior fascicular block. This was unchanged compared to previous EKG dated 10/19/2017. CBC showed a white blood cell count of 2.8 and a platelet count of 109. Comprehensive metabolic profile was essentially within normal limits. Urinalysis showed leukocyte esterase of 500 with positive nitrite. There are 25-50 white blood cells and 3+ bacteria. X-rays of the lumbar spine. There is a compression fracture of T12 and some degenerative changes at L2-L3. CT scan of the brain was obtained and does not show any acute intracranial abnormality. These were interpreted by the radiologist and myself. Emergency Department Course and Treatment: Patient was given a dose of morphine here. Patient was feeling better on reevaluation. Patient was given a dose of Bactrim here. Patient was given a prescription for Bactrim. Patient was able to ambulate here in the emergency department. Patient was instructed to follow- up with her primary care physician in 5 to 7 days. Patient and family understood and were agreeable with the plan. All questions were answered. Disposition: Discharge home Impression: 1. Urinary tract infection 2. Compression fracture T12 This note was generated with [employer]onge[employer] dictation software. It may contain incorrect words, spelling, and punctuation that were not noted in review of the chart prior to signing ED Disposition - Plan for ED Patient: Disposition: Home or Assisted Living Diagnosis: Urinary tract infection, Compression fracture of T12 vertebra Instructions: Bladder Infection, Female (Adult), Back Fracture (Compression Fracture) Prescriptions: Smz/Tmp Ds [Bactrim Ds] 1 tab PO BID #6 tab Prescription Printed Referrals: Leighton Sun MD [Primary Care Provider] - 3-5 Days
[2019-11-21] MEDS: DiphenhydrAMINE 50 MG/ML Syringe 25 MG IV (23:35)
[2019-11-21 23:42] LABS: Absolute Lymphocyte Count 0.21 X10^3/uL (0.83-4.51); Absolute Neutrophil Count 2.2 X10^3/uL (2.0-7.7); Basophil# 0.01 X10^3/uL; Basophil% 0.4 % (0-1); Eosinophil# 0.06 X10^3/uL; Eosinophils% 2.2 % (0-5); Hematocrit 39.6 % (37-47); Lymphocyte # 0.21 X10^3/ul (4.0); Lymphocyte % 7.6 % (19-41); Mean Corp Hgb Conc 32.8 g/dL (32-36); Mean Corpuscular Volume 82.2 fL (81-99); Mean Platelet Vol. 9.8 fl (6.2-12.0); Monocyte# 0.29 X10^3/uL; Monocyte% 10.5 % (0-10); NRBC Flagged by Analyzer 0 % (0-5); Neutrophil # 2.16 X10^3/uL (2.7-7.7); Neutrophil % 78.6 % (47-70); POSITIVE DIFFERENTIAL YES; POSITIVE MORPHOLOGY YES; Platelet Count 109 K/mm3 (150-450); RBC Distribution Width CV 14.4 % (11.6-14.6); RBC Distribution Width SD 42.8 fl (35.1-43.9); Red Blood Count 4.82 M/mm3 (4.2-5.4); White Blood Count 2.8 K/mm3 (4.4-11.0)
--- NOTE | 2019-11-21 23:50 | RAD_ITS ---
HISTORY: LOWER BACK PAIN STARTED 3 DAYS AGO, PAIN TRAVELS DOWN RT LEG EXAMINATION/TECHNIQUE: XR Spine Lumbar 3 Views: COMPARISON: 10/29/2019 FINDINGS: Mild compression fracture of the T12 superior endplate, new compared to previous. No bony retropulsion. Lumbar vertebra are normal in height. Mild lumbar levoscoliosis, unchanged. L2-3 disc space narrowing accompanied by anterolateral endplate spurring. L3-4 minor anterior endplate spurring. The posterior elements appear intact. No spondylolisthesis. SI joints are preserved. Atherosclerotic abdominal aorta. RAD/Lumbar Spine 2 or 3 Views IMPRESSION: 1. T12 superior endplate compression fracture, new compared to prior. No bony retropulsion. 2. Otherwise stable exam. 3. L2-3 degenerative disc disease and spondylosis. Mild scoliosis. at 0035 Reported and signed by: Chris Caban MD Electronically Signed: Chris Caban, at 0:34 EST Tel , Service support ,
[2019-11-21 23:57] LABS: AST(SGOT) 62 U/L (15-37); Alanine Aminotransfer ALT/SGPT 20 U/L (13-56); Albumin, Serum 3.3 g/dL (3.2-5.0); Alkaline Phosphatase 93 U/L (45-117); Anion Gap 8 (5-15); BUN 23 mg/dL (7-18); BUN/Creat Ratio 21.7 RATIO (10-20); Calcium,Total 9.8 mg/dL (8.5-10.1); Chloride 102 mmol/L (98-107); Creatinine, Serum 1.06 mg/dL (0.55-1.02); EST Glomerular Filtration Rate 54 mL/min (>60); Est Glom Filt Rate - Afr Amer 65 mL/min (>60); Globulin 3.4 g/dL (2.2-4.2); Glucose 122 mg/dL (74-106); Potassium 3.9 mmol/L (3.5-5.1); Protein, Total 6.7 g/dL (6.4-8.2); Sodium Level 133 mmol/L (136-145)
[2019-11-21 23:59] LABS: Differential Comment SCANNED; Differential Indicated SCAN CRITERIA MET
[2019-11-22 00:55] LABS: Mucous, Urine 0 SEEN /hpf (<or=2+); Red Blood Cells-Urine 0 SEEN /hpf (0-5); Squamous Epithelial Cells - UA 0 SEEN /hpf (5-10)
[2019-11-22 00:58] LABS: Color, Urine Yellow (Yellow); Glucose, Dipstick Normal (Normal); Ketone-Dipstick 5 mg/dl (Negative); Leukocyte Esterase-Dipstick 500 /ul (Negative); Nitrite-Dipstick Positive (Negative); Occult Blood-Urine 25 /ul (Negative); Protein-Dipstick 100 mg/dl (Negative); Urine Bilirubin Dipstick Negative (Negative); Urine Clarity Cloudy (Clear); Urine Urobilinogen Normal (Normal)
[2019-11-22 01:02] VITALS: BP 127/74; PULSE 70; RESP 26; O2SAT 95
[2019-11-22 01:06] LABS: Bacteria 3+ /hpf (None Seen); White Blood Cells 25-50 SEEN /hpf (0-5)
[2019-11-22] MEDS: Smz/Tmp Ds Tablet 1 TABLET PO (01:44)
[2019-11-22 02:14] VITALS: BP 134/78; PULSE 80; RESP 18; O2SAT 96
[2019-11-22 14:37] LABS: Pathologist Review Reviewed
== END 2019-11-22 02:33 | disposition home or self-care (01) ==
PROVIDERS: Emergency Provider Emergency Medicine; PCP Family Medicine
DX: S22.089A Unspecified fracture of T11-T12 vertebra, initial encounter for closed fracture (principal); W08.XXXA Fall from other furniture, initial encounter; Y93.9 Activity, unspecified; Y92.9 Unspecified place or not applicable; Y99.9 Unspecified external cause status; N39.0 Urinary tract infection, site not specified; R11.2 Nausea with vomiting, unspecified; I44.4 Left anterior fascicular block; I25.10 Atherosclerotic heart disease of native coronary artery without angina pectoris; E03.9 Hypothyroidism, unspecified; R21 Rash and other nonspecific skin eruption; K21.9 Gastro-esophageal reflux disease without esophagitis; Z79.899 Other long term (current) drug therapy; Z95.5 Presence of coronary angioplasty implant and graft
CPT/HCPCS: 70450; 72100; 80053; 81001; 84484; 85025; 93005; A4216

== ENCOUNTER 2019-11-22 12:37 | Inpatient (IN) | payer MEDICARE, OTHER, SELFPAY ==
[2019-11-21 22:56] VITALS: BMI 24.7
[2019-11-22] VITALS (11 sets, daily range): BP systolic 87–108; BP diastolic 47–76; PULSE 94–111; RESP 16–20; TEMP 36.4–37.8; O2SAT 93–99; BMI 24.5; BMI 24.0
--- NOTE | 2019-11-22 12:47 | EKG12_ITS ---
Test Reason : DYSRHYTHMIA Blood Pressure : / mmHG Vent. Rate : 105 BPM Atrial Rate : 105 BPM P-R Int : 176 ms QRS Dur : 124 ms QT Int : 368 ms P-R-T Axes : 045 -73 075 degrees QTc Int : 486 ms Sinus tachycardia with Premature atrial complexes Left anterior fascicular block Possible Anterior-Lateral infarct, age undetermined Abnormal ECG Confirmed by XOCHITL SOMMER, REZA ([id number]), associate editor LEIGHA RODRIGUEZ ([id number]) on 11/24/2019 9:04:18 AM Referred By: Confirmed By:REZA LEUNG MD
--- NOTE | 2019-11-22 13:03 | ED.VIS.GEN ---
History of Present Illness Chief Complaint: Weakness Detail of Chief Complaint: No improvement since last evening Informant: Patient Onset: Yesterday Context: Sudden Onset Timing: Continuous Quality: Weakness, malaise, fever, poor p.o. intake Location: Generalized Current Severity: Moderate Maximum Severity: Moderate Worsened by: Suspect urinary tract infection Relieved by: Nothing Associated Symptoms: Fever and weakness Narrative: Patient is an elderly woman who was seen yesterday for back pain. She was diagnosed urinary tract infection. Chart was reviewed. Patient was neutropenic. She does have evidence of urinary tract infection. She appears ill. She is pale. She is somnolent. She has difficulty speaking because her mouth is dry. She states she is not any better. She is aware that she was told she had a urinary tract infection. She still complains of low back pain. She denies headache, photophobia, neck pain or neck stiffness. She denies URI symptoms. She does report nausea. She denies diarrhea. He is limited because of patient's somnolence. Prior similar symptoms: Yes Recent Illness/Hospitalization: Yes - Past Medical History (1) Compression fracture of T12 vertebra Status: Acute (2) Hypercalcemia Status: Acute (3) NSTEMI (non-ST elevated myocardial infarction) Status: Acute (4) Normal pressure hydrocephalus Status: Acute (5) Urinary tract infection Status: Acute (6) Chronic diastolic heart failure Status: Chronic (7) Dysphagia Status: Chronic (8) Essential hypertension Status: Chronic (9) Hyperlipidemia Status: Chronic (10) Hypothyroidism Status: Chronic (11) Iron deficiency anemia Status: Chronic (12) Ischemic cardiomyopathy Status: Chronic (13) Lung nodule Status: Chronic (14) Presence of stent in coronary artery Status: Chronic Comment: PTCA/SILVIA of the prox posterolateral branch of LCX, PTCA/SILVIA of the ostial OM1, and PTCA/SILVIA of the prox LAD 07/17/17 (15) Pulmonary hypertension Status: Chronic (16) Raynaud disease Status: Chronic (17) Sjogrens syndrome Status: Chronic Past Medical History - Allergies and Home Meds Allergies/Adverse Reactions: Allergies codeine [From Tylenol-Codeine] Allergy (Verified 11/21/19 23:06) Rash povidone-iodine [From Betadine] Adverse Reaction (Mild, Verified 07/30/19 14:48) Rash soap [From Betadine] Adverse Reaction (Mild, Verified 07/30/19 14:48) Rash Primary Care Physician: Leighton Sun MD [Primary Care Provider] - Prior records reviewed: Yes Surgical History: angioplasty - Stents x 3., rotator cuff repair, total hip arthroplasty - Right hemiarthroplasty., tonsillectomy, - - cataracts,hysterectomy, vein surgery on the back of her leg, breast reduction, Gastrostomy tube. Lives: Alone Smoking Status: Never smoker Alcohol: None Drugs: None - Family History Maternal Family History: Family History (Last Reviewed 07/30/19 @ 15:12 by KUN Gallardo) Mother Cancer Father Heart disease Cancer of kidney Brother Cancer Family History: Reports: Cancer Paternal Family History: Family History (Last Reviewed 07/30/19 @ 15:12 by KUN Gallardo) Mother Cancer Father Heart disease Cancer of kidney Brother Cancer Family History: Reports: Heart Disease Review of Systems General: Reports: Chills, Fever, Malaise Eyes: Denies: Visual changes - bilaterally, Blurred Vision - bilaterally ENT: Reports: - - By mouth. Denies: Rhinorrhea, Sore throat Cardiovascular: Reports: Chest pain, Palpitations Respiratory: Reports: Dyspnea, Cough, Dyspnea on exertion Gastrointestinal: Reports: Nausea. Denies: Abdominal pain, Vomiting, Diarrhea Genitourinary: Denies: Dysuria, Hematuria, Frequency Musculoskeletal: Denies: Myalgias, Arthralgias, Neck pain, Back pain Skin: Denies: Rash Neurological: Reports: Weakness. Denies: Headache, Parasthesia Hematologic: Denies: Easy bruising, Easy bleeding Physical Exam Vital Signs/Narrative: Vital Signs Temp Pulse Resp BP Pulse Ox 11/22/19 12:57 99.6 F H 105 H 20 H 103/76 96 11/22/19 12:39 100.0 F H 111 H 18 103/70 93 Inital Vital Signs reviewed: Yes General: Well nourished, Well developed, Acute Distress Head: Normocephalic, Atraumatic Eyes: Perrl, EOMI. Negative for: Pale conjunctiva ENT: No rhinorrhea, TM's clear, Dry mucous membranes Neck: Supple, Nontender, No lymphadenopathy Cardiovascular: Regular rhythm, No murmurs, Normal S1, Normal S2, Tachycardia Respiratory: No distress, CTA bilaterally, Chest nontender Abdomen: Soft, Nontender, Nondistended, Normal bowel sounds Rectal: Deferred Back: Normal Inspection. Negative for: Nontender, CVA tenderness Extremities: Nontender Skin: No rash, No Trauma, Pallor. Negative for: Cyanosis, Diaphoresis, Jaundice Neurological: Cranial nerves II-XII grossly intact, Normal Strength, Normal Sensation. Negative for: Alert, Oriented x3 Psychological: Normal affect Diagnostic/Tx/Re-eval Laboratory Results 11/22/19 11/22/19 11/22/19 12:30 12:30 12:30 WBC 7.1 RBC 5.16 Hgb 14.0 Hct 42.3 MCV 82.0 MCH 27.1 MCHC 33.1 RDW Std Deviation 43.6 RDW Coeff of Mcaiel 14.6 Plt Count 115 L MPV 10.1 Immature Gran % (Auto) 1.000 H Neut % (Auto) 89.6 H Lymph % (Auto) 3.8 L [place] % (Auto) 4.5 Eos % (Auto) 0.8 Baso % (Auto) 0.3 Absolute Neuts (auto) 6.4 Absolute Lymphs (auto) 0.27 L Nucleated RBC % 0 Differential Comment SCANNED PT 16.1 H INR 1.3 APTT 33.7 Sodium 135 L Potassium 4.0 Chloride 103 Carbon Dioxide 18.0 L Anion Gap 14 BUN 36 H Creatinine 1.77 H Estim Creat Clear Calc 23.42 Est GFR (MDRD) Af Amer 36 L Est GFR (MDRD) Non-Af 30 L BUN/Creatinine Ratio 20.3 H Glucose 127 H Lactic Acid Calcium 10.4 H Total Bilirubin 1.10 H AST 74 H ALT 22 Alkaline Phosphatase 92 Total Protein 6.9 Albumin 3.5 Globulin 3.4 Albumin/Globulin Ratio 1.0 Urine Color Urine Clarity Urine pH Ur Specific [place] Urine Protein Urine Glucose (UA) Urine Ketones Urine Occult Blood Urine Nitrite Urine Bilirubin Urine Urobilinogen Ur Leukocyte Esterase Urine RBC Urine WBC Ur Squamous Epith Cells Urine Bacteria Urine Mucus 11/22/19 11/22/19 12:30 13:38 WBC RBC Hgb Hct MCV MCH MCHC RDW Std Deviation RDW Coeff of Maciel Plt Count MPV Immature Gran % (Auto) Neut % (Auto) Lymph % (Auto) [place] % (Auto) Eos % (Auto) Baso % (Auto) Absolute Neuts (auto) Absolute Lymphs (auto) Nucleated RBC % Differential Comment PT INR APTT Sodium Potassium Chloride Carbon Dioxide Anion Gap BUN Creatinine Estim Creat Clear Calc Est GFR (MDRD) Af Amer Est GFR (MDRD) Non-Af BUN/Creatinine Ratio Glucose Lactic Acid 2.4 H* Calcium Total Bilirubin AST ALT Alkaline Phosphatase Total Protein Albumin Globulin Albumin/Globulin Ratio Urine Color Yellow Urine Clarity Cloudy Urine pH 6.0 Ur Specific [place] 1.010 Urine Protein 100 H Urine Glucose (UA) Normal Urine Ketones 5 H Urine Occult Blood 50 H Urine Nitrite Negative Urine Bilirubin Negative Urine Urobilinogen Normal Ur Leukocyte Esterase 500 H Urine RBC 0 SEEN Urine WBC 50-100 SEEN Ur Squamous Epith Cells 0-5 SEEN Urine Bacteria 3+ Urine Mucus 0 SEEN Count is higher today. Urine is the source. Lactate is elevated 2.4. The hospitalist has been paged for admission for severe sepsis. Creatinine has increased from 1.06-1.77 in less than 12 hours. - EKG Initial EKG Interpretation: Sinus Tachycardia - Anus tachycardia with a ventricular rate of 105. There are premature atrial complexes noted. MN interval is 176 ms. QRS duration is prolonged at 124 ms. QT duration is 368 ms. There is evidence of a left anterior fascicular block. [place] to left. - Medical Decision Making Patient presents because of no improvement. Records from yesterday indicate patient has urinary tract infection. Since she is tachycardic, febrile and has source will treat for sepsis. She received a gram of Rocephin. Clinically she appears dehydrated and received a liter of normal saline. Since she is somnolent suspect she will require admission to the hospital. ED Disposition - Plan for ED Patient: Disposition: Home or Assisted Living Diagnosis: Severe sepsis, Lactic acidosis, Urinary tract infection, Acute renal insufficiency, Moderate dehydration, Infectious encephalopathy Referrals: Leighton Sun MD [Primary Care Provider] -
[2019-11-22 13:04] LABS: Absolute Lymphocyte Count 0.27 X10^3/uL (0.83-4.51); Absolute Neutrophil Count 6.4 X10^3/uL (2.0-7.7); Basophil# 0.02 X10^3/uL; Basophil% 0.3 % (0-1); Eosinophil# 0.06 X10^3/uL; Eosinophils% 0.8 % (0-5); Hematocrit 42.3 % (37-47); Lymphocyte # 0.27 X10^3/ul (4.0); Lymphocyte % 3.8 % (19-41); Mean Corp Hgb Conc 33.1 g/dL (32-36); Mean Corpuscular Hgb 27.1 pg (27.0-32.0); Mean Platelet Vol. 10.1 fl (6.2-12.0); Monocyte# 0.32 X10^3/uL; Monocyte% 4.5 % (0-10); NRBC Flagged by Analyzer 0 % (0-5); Neutrophil # 6.36 X10^3/uL (2.7-7.7); Neutrophil % 89.6 % (47-70); POSITIVE DIFFERENTIAL YES; Platelet Count 115 K/mm3 (150-450); RBC Distribution Width CV 14.6 % (11.6-14.6); RBC Distribution Width SD 43.6 fl (35.1-43.9); Red Blood Count 5.16 M/mm3 (4.2-5.4); White Blood Count 7.1 K/mm3 (4.4-11.0)
[2019-11-22] MEDS: 0.9% Normal Saline 1,000 ML 1000 ML IV ×2 (13:04→15:23)
[2019-11-22 13:15] LABS: International Normalized Ratio 1.3; Partial Thromboplast Time 33.7 Seconds (24.1-36.2); Prothrombin Time (Protime)PT. 16.1 SECONDS (11.7-14.9)
[2019-11-22 13:18] LABS: AST(SGOT) 74 U/L (15-37); Alanine Aminotransfer ALT/SGPT 22 U/L (13-56); Albumin, Serum 3.5 g/dL (3.2-5.0); Alkaline Phosphatase 92 U/L (45-117); Anion Gap 14 (5-15); BUN 36 mg/dL (7-18); BUN/Creat Ratio 20.3 RATIO (10-20); Calcium,Total 10.4 mg/dL (8.5-10.1); Chloride 103 mmol/L (98-107); Creatinine, Serum 1.77 mg/dL (0.55-1.02); EST Glomerular Filtration Rate 30 mL/min (>60); Est Glom Filt Rate - Afr Amer 36 mL/min (>60); Estimated Creatinine Clearance 23.42 ml/min; Globulin 3.4 g/dL (2.2-4.2); Glucose 127 mg/dL (74-106); Protein, Total 6.9 g/dL (6.4-8.2); Sodium Level 135 mmol/L (136-145)
[2019-11-22 13:29] LABS: Differential Indicated SCAN CRITERIA MET
[2019-11-22] MEDS: Ceftriaxone 1 GM/50 ML BAG IV (13:45)
[2019-11-22 13:57] LABS: Differential Comment SCANNED
[2019-11-22 14:01] LABS: Mucous, Urine 0 SEEN /hpf (<or=2+); Red Blood Cells-Urine 0 SEEN /hpf (0-5)
[2019-11-22 14:04] LABS: Color, Urine Yellow (Yellow); Glucose, Dipstick Normal (Normal); Ketone-Dipstick 5 mg/dl (Negative); Leukocyte Esterase-Dipstick 500 /ul (Negative); Nitrite-Dipstick Negative (Negative); Occult Blood-Urine 50 /ul (Negative); Protein-Dipstick 100 mg/dl (Negative); Urine Bilirubin Dipstick Negative (Negative); Urine Clarity Cloudy (Clear); Urine Urobilinogen Normal (Normal)
[2019-11-22 14:04] LABS: Lactic Acid 2.4 mmol/L (0.4-1.9)
[2019-11-22 14:15] LABS: White Blood Cells 50-100 SEEN /hpf (0-5)
[2019-11-22 14:16] LABS: Bacteria 3+ /hpf (None Seen); Squamous Epithelial Cells - UA 0-5 SEEN /hpf (5-10)
--- NOTE | 2019-11-22 14:49 | NURSING ---
PCU SEVERE SEPSIS, UTI, INFECTIOUS ENCEPHALOPATHY MARISSA
--- NOTE | 2019-11-22 14:53 | PCM.HP.STD ---
History of Present Illness Date of Admission: 11/22/19 Chief Complaint: UTI The patient is a 74 year old F with a PMH as below presented to the ER last night with back pain and was found to have a UTI. She was discharged on Bactrim and states that she took her medications as prescribed however presented back to the ER today because she was not feeling well and was unable to hold anything, food or liquids down. Initially her back pain started with a fall yesterday when she was trying to get up from the couch. Initially it was thought that her back pain was secondary just to the fall and was musculoskeletal, however there was a UTI present was started on antibiotics. Today on admission her white count is normal however initially she was tachycardic as well as tachypneic and given the source this qualifies as sepsis. She has a slight elevation in her lactic acid to 2.4. Past Medical History Past Medical History (Chronic Problems): Chronic Problems (Last Reviewed 07/30/19 @ 15:12 by KUN Gallardo) Presence of stent in coronary artery (Chronic ~07/17/17) PTCA/SILVIA of the prox posterolateral branch of LCX, PTCA/SILVIA of the ostial OM1, and PTCA/SILVIA of the prox LAD 07/17/17 Ischemic cardiomyopathy (Chronic) Essential hypertension (Chronic) GERD (gastroesophageal reflux disease) (Chronic) Tinea corporis (Chronic) Hypothyroidism (Chronic) Hyperlipidemia (Chronic) Iron deficiency anemia (Chronic) Chronic diastolic heart failure (Chronic) Lung nodule (Chronic) Nonrheumatic mitral valve insufficiency (Chronic) Pulmonary hypertension (Chronic) Atherosclerosis of [place] coronary artery of [place] heart without angina pectoris (Chronic) PTCA/SILVIA to LCx, OM #1, and LAD in July 2017; Syncope and collapse (Chronic) Dysphagia (Chronic) Sjogrens syndrome (Chronic) Raynaud disease (Chronic) Medical History: Medical History (Last Reviewed 07/30/19 @ 15:12 by KUN Gallardo) Presence of stent in coronary artery (Chronic) Onset Date: ~07/17/17 Z95.5 PTCA/SILVIA of the prox posterolateral branch of LCX, PTCA/SILVIA of the ostial OM1, and PTCA/SILVIA of the prox LAD 07/17/17 Ischemic cardiomyopathy (Chronic) I25.5 Essential hypertension (Chronic) I10 Protein malnutrition (Resolved) E46 Closed right hip fracture (Acute) S72.001A GERD (gastroesophageal reflux disease) (Chronic) K21.9 Tinea corporis (Chronic) B35.4 Hypothyroidism (Chronic) E03.9 Hyperlipidemia (Chronic) E78.5 Iron deficiency anemia (Chronic) D50.9 Chronic diastolic heart failure (Chronic) I50.32 Lung nodule (Chronic) R91.1 Cervical lymphadenopathy (Acute) R59.0 Hypercalcemia (Acute) E83.52 Normal pressure hydrocephalus (Acute) G91.2 Nonrheumatic mitral valve insufficiency (Chronic) I34.0 Pulmonary hypertension (Chronic) I27.20 Atherosclerosis of [place] coronary artery of [place] heart without angina pectoris (Chronic) I25.10 PTCA/SILVIA to LCx, OM #1, and LAD in July 2017; Syncope and collapse (Chronic) R55 Bradycardia (Acute) R00.1 Anemia (Resolved) D64.9 Dysphagia (Chronic) R13.10 Weakness (Acute) R53.1 Sjogrens syndrome (Chronic) M35.00 Raynaud disease (Chronic) I73.00 Abnormal cardiac enzyme level (Acute) R74.8 NSTEMI (non-ST elevated myocardial infarction) (Acute) I21.4 Anemia D64.9 Asteatosis cutis L85.3 Atherosclerotic heart disease of [place] coronary artery without angina pectoris I25.10 PTCA/SILVIA of the prox Lt posterolateral branch of LCX, PTCA/SILVIA of the ostial OM1, PTCA/SILVIA of the prox LAD 07/17/2017. [facility]: 04/01/2017 Body mass index (BMI) of 23.0-23.9 in adult Z68.23 Cardiomyopathy I42.9 Chronic pancreatitis K86.1 Chronic systolic congestive heart failure I50.22 Difficulty swallowing R13.10 Mitral regurgitation and mitral stenosis I05.2 Primary Sjogren's syndrome M35.00 Pulmonary hypertension I27.20 Acute dah-BM-anycexowo myocardial infarction I21.4 Flash pulmonary edema (Resolved) J81.0 Hypoxia (Resolved) R09.02 Pleural effusion J90 Poor fluid intake (Resolved) R63.8 Right upper quadrant pain R10.11 Thrush B37.0 CAD (coronary artery disease) (Inactive) I25.10 Cardiomyopathy (Inactive) I42.9 Hypertension (Inactive) I10 Percutaneous transluminal coronary angioplasty (PTCA) within last 14 to 24 months (Inactive) Z98.61 Allergies codeine [From Tylenol-Codeine] Allergy (Verified 11/21/19 23:06) Rash povidone-iodine [From Betadine] Adverse Reaction (Mild, Verified 07/30/19 14:48) Rash soap [From Betadine] Adverse Reaction (Mild, Verified 07/30/19 14:48) Rash Home Medications: Ambulatory Orders Medication Instructions Recorded Carvedilol [Coreg] 3.125 mg PO BID 06/26/17 Levothyroxine [Synthroid] 12.5 mcg PO DAILY 06/26/17 rosuvastatin 20 mg tablet 20 mg PO DAILY 07/30/19 spironolactone 25 mg tablet 12.5 mg PO DAILY tab 07/30/19 Lansoprazole 15 mg PO DAILY 11/22/19 Smz/Tmp Ds [Bactrim Ds] 1 tab PO BID #6 tab 11/22/19 Surgical History: Surgical History (Last Reviewed 07/30/19 @ 15:12 by KUN Gallardo) history of peg removal History of left heart catheterization (LHC) Z98.890 LHC: 04/01/2017 Presence of coronary angioplasty implant and graft Onset Date: ~07/17/17 Z95.5 PTCA/SILVIA of the prox posterolateral branch of LCX, PTCA/SILVIA of the ostial OM1, and PTCA/SILVIA of the prox LAD 07/17/17 H/O bilateral breast reduction surgery Z98.890 H/O bladder repair surgery Z98.890 History of hysterectomy Z90.710 History of tonsillectomy Z90.89 S/P percutaneous endoscopic gastrostomy (PEG) tube placement Z93.1 S/P rotator cuff repair Z98.890 S/P thoracentesis Z98.890 H/O heart artery stent Z95.5 PTCA/SILVIA of the prox Lt posterolateral branch of LCX, PTCA/SILVIA of the ostial OM1, PTCA/SILVIA of the prox LAD 07/17/2017. S/P PTCA (percutaneous transluminal coronary angioplasty) (Inactive) Z98.61 Surgical History: angioplasty - Stents x 3., rotator cuff repair, total hip arthroplasty - Right hemiarthroplasty., tonsillectomy, - - cataracts,hysterectomy, vein surgery on the back of her leg, breast reduction, Gastrostomy tube. Psychiatric History: No pertinent psych hx [employer] History: No pertinent [employer]OR history Lives: Alone Smoking Status: Never smoker Alcohol: None Drugs: None - *Family History Maternal Family History: Family History (Last Reviewed 07/30/19 @ 15:12 by KUN Gallardo) Mother Cancer Father Heart disease Cancer of kidney Brother Cancer History Items: Cancer Paternal Family History: Family History (Last Reviewed 07/30/19 @ 15:12 by KUN Gallardo) Mother Cancer Father Heart disease Cancer of kidney Brother Cancer History Items: Heart Disease Review of Systems Constitutional: Reports: Chills, Fever, Weakness, Fatigue HEENT: Denies: Head Aches, Sinus Congestion, Sinus Drainage Cardiovascular: Denies: Chest Pain, Palpitations Respiratory: Denies: Cough, Shortness of breath at rest, Sputum production Gastrointestinal: Denies: Abdominal Pain, Nausea, Vomiting Genitourinary: Denies: Dysuria Musculoskeletal: Denies: Back Pain, Joint Pain, Joint Tenderness Skin: Denies: Rash, Wounds Neurological: Denies: Numbness, Tingling, Focal weakness Psychiatric: Denies: Anxiety, Depression Hematologic/ Lymphatic: Denies: Easy Bruising, Easy Bleeding VTE Information - Inpt Only VTE Present on Admission: No Patient Problems: Active and Suspected Problems (Last Reviewed 07/30/19 @ 15:12 by KUN Gallardo) Urinary tract infection (Acute) Severe sepsis (Acute) Lactic acidosis (Acute) Acute renal insufficiency (Acute) Moderate dehydration (Acute) Infectious encephalopathy (Acute) - Physical Exam Vitals/I&O's: Vital Signs Temp Pulse Resp BP Pulse Ox 98.9 F 100 18 108/60 95 11/22/19 14:00 11/22/19 14:00 11/22/19 14:00 11/22/19 14:11/22/19 14:00 Oxygen Delivery Method Room Air Weight: 138 lb 10.732 oz Body Mass Index (BMI) 24.5 Finger Stick Blood Glucose 154 Intake and Output for Last 24 Hours 11/20/19 11/21/19 11/22/19 23:59 23:59 23:59 Intake Total 1050 / 1050 Balance 1050 / 1050 General: Alert, Oriented x3, Cooperative, No apparent distress, - - Mentation is slow HEENT: Atraumatic, PERRLA, EOMI, Normocephalic Oral: Dry Mucosa Neck: Supple, No JVD Lungs: Clear to auscultation, Normal air movement, No rhonchi, No wheeze, No rales Cardiovascular: Regular rate, Regular Rhythm, Normal S1, Normal S2, No murmurs Abdomen: Soft, Non Tender, Non-Distended, No Hepato-splenomegaly Extremities: No edema, Capillary Refill Less than 3 Seconds Skin: No rashes, No breakdown Neurological: Neuro grossly intact, Sensory exam intact to light touch and pain Psych/Mental Status: Normal Affect, Appropriate Laboratory Results 11/22/19 12:30: WBC 7.1, RBC 5.16, Hgb 14.0, Hct 42.3, MCV 82.0, MCH 27.1, MCHC 33.1, RDW Std Deviation 43.6, RDW Coeff of Maciel 14.6, Plt Count 115 L, MPV 10.1, Immature Gran % (Auto) 1.000 H, Neut % (Auto) 89.6 H, Lymph % (Auto) 3.8 L, [place] % (Auto) 4.5, Eos % (Auto) 0.8, Baso % (Auto) 0.3, Absolute Neuts (auto) 6.4, Absolute Lymphs (auto) 0.27 L, Nucleated RBC % 0, Differential Comment SCANNED 11/22/19 12:30: PT 16.1 H, INR 1.3, APTT 33.7 11/22/19 12:30: Sodium 135 L, Potassium 4.0, Chloride 103, Carbon Dioxide 18.0 L, Anion Gap 14, BUN 36 H, Creatinine 1.77 H, Estim Creat Clear Calc 23.42, Est GFR (MDRD) Af Amer 36 L, Est GFR (MDRD) Non-Af 30 L, BUN/Creatinine Ratio 20.3 H, Glucose 127 H, Calcium 10.4 H, Total Bilirubin 1.10 H, AST 74 H, ALT 22, Alkaline Phosphatase 92, Total Protein 6.9, Albumin 3.5, Globulin 3.4, Albumin/Globulin Ratio 1.0 11/22/19 12:30: Lactic Acid 2.4 H* 11/22/19 13:38: Urine Color Yellow, Urine Clarity Cloudy, Urine pH 6.0, Ur Specific [place] 1.010, Urine Protein 100 H, Urine Glucose (UA) Normal, Urine Ketones 5 H, Urine Occult Blood 50 H, Urine Nitrite Negative, Urine Bilirubin Negative, Urine Urobilinogen Normal, Ur Leukocyte Esterase 500 H, Urine RBC 0 SEEN, Urine WBC 50-100 SEEN, Ur Squamous Epith Cells 0-5 SEEN, Urine Bacteria 3+, Urine Mucus 0 SEEN Assessment/Plan All Active Problems (Last Reviewed 07/30/19 @ 15:12 by KUN Gallardo) Urinary tract infection (Acute) Compression fracture of T12 vertebra (Acute) Severe sepsis (Acute) Lactic acidosis (Acute) Acute renal insufficiency (Acute) Moderate dehydration (Acute) Infectious encephalopathy (Acute) Protein malnutrition (Resolved) Closed right hip fracture (Acute) Cervical lymphadenopathy (Acute) Hypercalcemia (Acute) Normal pressure hydrocephalus (Acute) Bradycardia (Acute) Anemia (Resolved) Weakness (Acute) Abnormal cardiac enzyme level (Acute) NSTEMI (non-ST elevated myocardial infarction) (Acute) Flash pulmonary edema (Resolved) Hypoxia (Resolved) Poor fluid intake (Resolved) 1. Sepsis secondary to UTI/SYLVAIN -We will start her on IV fluids as well as Ancef -We will adjust antibiotics pending culture results -Repeat lactate pending -Creatinine last night was around 1, this afternoon is 1.77, will continue to monitor 2. CAD status post stent/HTN/HLD -Given her sepsis, will hold her blood pressure medications for now -Continue with Crestor 3. Hypothyroidism -Stable -Continue with Synthroid 4. GERD -Stable -Continue with PPI DVT: Heparin Code Visit Inpatient E&M: 33804 Init Hosp L3
[2019-11-22] MEDS: 0.9% Normal Saline 1,000 ML 100 ML IV (16:35)
[2019-11-22 16:58] LABS: Reflex Lactate? Y
[2019-11-22 18:12] LABS: Lactic Acid 1.9 mmol/L (0.4-1.9)
[2019-11-22] MEDS: Cefazolin 1 GM/50 ML BAG IV (22:48)
[2019-11-22] MEDS: Heparin Injection (Vial) 5,000 UNIT/ML VIAL 5000 UNIT SC (22:51)
[2019-11-23 03:10] VITALS: BP 96/60; PULSE 97; RESP 18; TEMP 36.6; O2SAT 94
[2019-11-23] MEDS: 0.9% Normal Saline 1,000 ML 100 ML IV ×2 (03:10→13:43)
[2019-11-23] MEDS: Cefazolin 1 GM/50 ML BAG IV ×2 (05:03→13:46)
[2019-11-23 05:31] LABS: Absolute Lymphocyte Count 0.29 X10^3/uL (0.83-4.51); Absolute Neutrophil Count 4.6 X10^3/uL (2.0-7.7); Basophil# 0.01 X10^3/uL; Basophil% 0.2 % (0-1); Eosinophils% 3.7 % (0-5); Hematocrit 35.6 % (37-47); Hemoglobin 11.8 g/dL (12.0-15.0); Lymphocyte # 0.29 X10^3/ul (4.0); Lymphocyte % 5.4 % (19-41); Mean Corp Hgb Conc 33.1 g/dL (32-36); Mean Corpuscular Hgb 27.4 pg (27.0-32.0); Mean Corpuscular Volume 82.8 fL (81-99); Mean Platelet Vol. 10.3 fl (6.2-12.0); Monocyte% 3.7 % (0-10); NRBC Flagged by Analyzer 0 % (0-5); Neutrophil # 4.57 X10^3/uL (2.7-7.7); Neutrophil % 85.3 % (47-70); POSITIVE COUNT YES; POSITIVE DIFFERENTIAL YES; Platelet Count 71 K/mm3 (150-450); RBC Distribution Width CV 14.7 % (11.6-14.6); RBC Distribution Width SD 44.5 fl (35.1-43.9); White Blood Count 5.4 K/mm3 (4.4-11.0)
[2019-11-23 05:42] LABS: Differential Indicated SCAN CRITERIA MET
[2019-11-23 05:44] LABS: Anion Gap 12 (5-15); BUN 41 mg/dL (7-18); BUN/Creat Ratio 23.3 RATIO (10-20); Calcium,Total 8.6 mg/dL (8.5-10.1); Chloride 114 mmol/L (98-107); Creatinine, Serum 1.76 mg/dL (0.55-1.02); EST Glomerular Filtration Rate 30 mL/min (>60); Est Glom Filt Rate - Afr Amer 36 mL/min (>60); Estimated Creatinine Clearance 23.55 ml/min; Glucose 96 mg/dL (74-106); Potassium 3.8 mmol/L (3.5-5.1); Sodium Level 139 mmol/L (136-145)
[2019-11-23 06:17] LABS: Differential Comment SCANNED; Platelet Estimate SLT DEC (ADEQ)
[2019-11-23 09:10] VITALS: BP 107/64; PULSE 100; RESP 20; TEMP 37.7; O2SAT 98
[2019-11-23] MEDS: Pantoprazole Sodium 20 MG Tablet PO (11:47)
[2019-11-23] MEDS: Heparin Injection (Vial) 5,000 UNIT/ML VIAL 5000 UNIT SC ×2 (11:47→21:35)
--- NOTE | 2019-11-23 12:15 | PCM.PROGNOTE ---
<Belle Mccurdy - Last Filed: 11/23/19 12:26> Patient Problems: Active and Suspected Problems (Last Reviewed 07/30/19 @ 15:12 by KUN Gallardo) Urinary tract infection (Acute) Severe sepsis (Acute) Lactic acidosis (Acute) Acute renal insufficiency (Acute) Moderate dehydration (Acute) Infectious encephalopathy (Acute) Subjective: Patient seen and examined. Reports she continues to feel generally fatigued. Intermittent fever. Complains of stiff neck. - Physical Exam Vitals/I&O's: Vital Signs Temp Pulse Resp BP Pulse Ox 99.9 F H 100 20 H 107/64 98 11/23/19 09:10 11/23/19 09:10 11/23/19 09:10 11/23/19 09:10 11/23/19 09:10 Oxygen Delivery Method Room Air Weight: 135 lb 9.349 oz Body Mass Index (BMI) 24.0 Finger Stick Blood Glucose 154 Intake and Output for Last 24 Hours 11/21/19 11/22/19 11/23/19 23:59 23:59 23:59 Intake Total 2790.00 / 2790.00 548.33 / 548.33 Output Total 350 / 350 250 / 250 Balance 2440.00 / 2440.00 298.33 / 298.33 General: Alert, Oriented x3, Cooperative HEENT: Atraumatic, PERRLA, EOMI, Normocephalic Oral: Dry Mucosa Neck: Supple, No JVD, Negative Carotid Bruits Lungs: Clear to auscultation, Normal air movement Cardiovascular: Regular rate, Regular Rhythm, Normal S1, Normal S2, No murmurs Abdomen: Bowel Sounds Present, Soft, Non Tender, Non-Distended Extremities: No clubbing, No cyanosis, No edema, Capillary Refill Less than 3 Seconds Skin: No rashes, No breakdown Musculoskeletal: No Tenderness to Palpation of Joints or Extremities, - - Diffuse generalized weakness Neurological: Cranial nerves II-XII grossly intact Psych/Mental Status: Flat Affect Microbiology Past 72 Hours 11/22/19 13:38 Urine Catheter - Catheter Urine Culture - Preliminary Presumptive E. coli Laboratory Results 11/22/19 12:30: WBC 7.1, RBC 5.16, Hgb 14.0, Hct 42.3, MCV 82.0, MCH 27.1, MCHC 33.1, RDW Std Deviation 43.6, RDW Coeff of Maciel 14.6, Plt Count 115 L, MPV 10.1, Immature Gran % (Auto) 1.000 H, Neut % (Auto) 89.6 H, Lymph % (Auto) 3.[address] L, [place] % (Auto) 4.5, Eos % (Auto) 0.8, Baso % (Auto) 0.3, Absolute Neuts (auto) 6.4, Absolute Lymphs (auto) 0.27 L, Nucleated RBC % 0, Differential Comment SCANNED 11/22/19 12:30: PT 16.1 H, INR 1.3, APTT 33.7 11/22/19 12:30: Sodium 135 L, Potassium 4.0, Chloride 103, Carbon Dioxide 18.0 L, Anion Gap 14, BUN 36 H, Creatinine 1.77 H, Estim Creat Clear Calc 23.42, Est GFR (MDRD) Af Amer 36 L, Est GFR (MDRD) Non-Af 30 L, BUN/Creatinine Ratio 20.3 H, Glucose 127 H, Calcium 10.4 H, Total Bilirubin 1.10 H, AST 74 H, ALT 22, Alkaline Phosphatase 92, Total Protein 6.9, Albumin 3.5, Globulin 3.4, Albumin/Globulin Ratio 1.0 11/22/19 12:30: Lactic Acid 2.4 H* 11/22/19 13:38: Urine Color Yellow, Urine Clarity Cloudy, Urine pH 6.0, Ur Specific Grant 1.010, Urine Protein 100 H, Urine Glucose (UA) Normal, Urine Ketones 5 H, Urine Occult Blood 50 H, Urine Nitrite Negative, Urine Bilirubin Negative, Urine Urobilinogen Normal, Ur Leukocyte Esterase 500 H, Urine RBC 0 SEEN, Urine WBC 50-100 SEEN, Ur Squamous Epith Cells 0-5 SEEN, Urine Bacteria 3+, Urine Mucus 0 SEEN 11/22/19 17:34: Lactic Acid 1.9 11/23/19 05:15: WBC 5.4, RBC 4.30, Hgb 11.8 L, Hct 35.6 L, MCV 82.8, MCH 27.4, MCHC 33.1, RDW Std Deviation 44.5 H, RDW Coeff of Maciel 14.7 H, Plt Count 71 L, MPV 10.3, Immature Gran % (Auto) 1.700 H, Neut % (Auto) 85.3 H, Lymph % (Auto) 5.[address] L, [place] % (Auto) 3.7, Eos % (Auto) 3.7, Baso % (Auto) 0.2, Absolute Neuts (auto) 4.6, Absolute Lymphs (auto) 0.29 L, Nucleated RBC % 0, Differential Comment SCANNED, Platelet Estimate SLT 11/23/19 05:15: Sodium 139, Potassium 3.8, Chloride 114 H, Carbon Dioxide 13.0 L, Anion Gap 12, BUN 41 H, Creatinine 1.76 H, Estim Creat Clear Calc 23.55, Est GFR (MDRD) Af Amer 36 L, Est GFR (MDRD) Non-Af 30 L, BUN/Creatinine Ratio 23.3 H, Glucose 96, Calcium 8.6 Current Medications Acetaminophen (Tylenol) 650 mg PO Q6H PRN PRN PRN Reason: Pain Score 1-10/Temp > 100.7 F Atorvastatin Calcium (Lipitor) 40 mg PO QHS [facility] Last Admin: 11/22/19 22:35 Dose: Not Given Documented by: Heparin Sodium (Porcine) (Heparin Na) 5,000 unit SC Q12 [facility] Last Admin: 11/23/19 11:47 Dose: 5,000 unit Documented by: Sodium Chloride () 1,000 mls @ 100 mls/hr IV .Q10H [facility] Last Infusion: 11/23/19 05:33 Dose: 100 mls/hr Documented by: Cefazolin Sodium () 1 gm in 50 mls @ 100 mls/hr IV Q8 [facility] Last Infusion: 11/23/19 05:33 Dose: Infused Documented by: Levothyroxine Sodium (Synthroid) 12.5 mcg PO DAILY@0600 [facility] Last Admin: 11/23/19 05:04 Dose: Not Given Documented by: Melatonin (Melatonin) 3 mg PO QHS PRN PRN PRN Reason: INSOMNIA Ondansetron HCl (Zofran) 4 mg IV Q8H PRN PRN PRN Reason: NAUSEA/VOMITING Pantoprazole Sodium (Protonix) 20 mg PO DAILY [facility] Last Admin: 11/23/19 11:47 Dose: 20 mg Documented by: Sodium Chloride () 10 - 40 ml IV UD PRN PRN Reason: SALINE FLUSH Medical Necessity - Tobacco Use Smoking Status: Never smoker Tobacco Use: Non-smoker Assessment/Plan All Active Problems (Last Reviewed 07/30/19 @ 15:12 by KUN Gallardo) Urinary tract infection (Acute) Severe sepsis (Acute) Lactic acidosis (Acute) Acute renal insufficiency (Acute) Moderate dehydration (Acute) Infectious encephalopathy (Acute) Protein malnutrition (Resolved) Closed right hip fracture (Acute) Cervical lymphadenopathy (Acute) Hypercalcemia (Acute) Normal pressure hydrocephalus (Acute) Bradycardia (Acute) Anemia (Resolved) Weakness (Acute) Abnormal cardiac enzyme level (Acute) NSTEMI (non-ST elevated myocardial infarction) (Acute) Flash pulmonary edema (Resolved) Hypoxia (Resolved) Poor fluid intake (Resolved) 1. Sepsis secondary to acute E. coli UTI-urine culture pulmonary growing E. coli. Sensitivities pending. Continue IV cefazolin. Blood cultures pending. PT/OT. 2. Acute kidney injury-IV fluids, trend BMP. If no improvement following IV fluids, will obtain renal ultrasound/FENA. 3. NPH- patient following with Dr. Lynne, neurology. Recent MRI September 2019 completed due to loss of balance, dizziness. MRI demonstrated moderate atrophy and periventricular white matter ischemic changes, NPH, no acute infarct. Incidental left parotid nodule. Continue outpatient follow-up with neurology. 4. CAD with history of stents-on statin, beta-helen. 5. Hypertension-BP regimen on hold given hypotension. Resume when BP improves. 6. Hyperlipidemia-continue statin. 7. Hypothyroidism-continue Synthroid regimen. 8. History of upper GI bleed/GERD- continue PPI. DVT prophylaxis- heparin sc This patient was seen by MICHAEL Orellana under the supervision of Dr. Jefferson. <Leighton Jefferson - Last Filed: 11/23/19 14:22> Subjective: Complains of pain in the right portion of her neck. was concerned as of yesterday her head was slouched over and leaning towards the left. Patient generally feels weak but denies any focal weakness. - Physical Exam Vitals/I&O's: Vital Signs Temp Pulse Resp BP Pulse Ox 37.7 C H 100 20 H 107/64 98 11/23/19 09:10 11/23/19 09:10 11/23/19 09:10 11/23/19 09:10 11/23/19 09:10 Oxygen Delivery Method Room Air Weight: 61.5 kg Body Mass Index (BMI) 24.0 Finger Stick Blood Glucose 154 Intake and Output for Last 24 Hours 11/21/19 11/22/19 11/23/19 23:59 23:59 23:59 Intake Total 2790.00 / 2790.00 1480.00 / 1480.00 Output Total 350 / 350 500 / 500 Balance 2440.00 / 2440.00 980.00 / 980.00 General: Alert, Cooperative HEENT: Atraumatic, Normocephalic Oral: Dry Mucosa, - - no thrush Neck: No JVD, No Nodes Lungs: Clear to auscultation, Normal air movement, No rhonchi, No wheeze Cardiovascular: Regular rate, Regular Rhythm, Normal S1, Normal S2 Abdomen: Bowel Sounds Present, Soft, Non Tender, Non-Distended Extremities: No edema, No Calf Tenderness Skin: No rashes, No breakdown Musculoskeletal: No Tenderness to Palpation of Joints or Extremities, - - Tender palpation over the right trapezius muscle. Neurological: Cranial nerves II-XII grossly intact, Coordination normal, - - Muscle strength 5-5 in the upper extremities bilaterally and a 4-5 in the lower extremities bilaterally. Psych/Mental Status: Appropriate, Flat Affect Microbiology Past 72 Hours 11/22/19 13:38 Urine Catheter - Catheter Urine Culture - Preliminary Presumptive E. coli Laboratory Results 11/22/19 12:30: Lactic Acid 2.4 H* 11/22/19 13:38: Urine Color Yellow, Urine Clarity Cloudy, Urine pH 6.0, Ur Specific Grant 1.010, Urine Protein 100 H, Urine Glucose (UA) Normal, Urine Ketones 5 H, Urine Occult Blood 50 H, Urine Nitrite Negative, Urine Bilirubin Negative, Urine Urobilinogen Normal, Ur Leukocyte Esterase 500 H, Urine RBC 0 SEEN, Urine WBC 50-100 SEEN, Ur Squamous Epith Cells 0-5 SEEN, Urine Bacteria 3+, Urine Mucus 0 SEEN 11/22/19 17:34: Lactic Acid 1.9 11/23/19 05:15: WBC 5.4, RBC 4.30, Hgb 11.8 L, Hct 35.6 L, MCV 82.8, MCH 27.4, MCHC 33.1, RDW Std Deviation 44.5 H, RDW Coeff of Maciel 14.7 H, Plt Count 71 L, MPV 10.3, Immature Gran % (Auto) 1.700 H, Neut % (Auto) 85.3 H, Lymph % (Auto) 5.[address] L, [place] % (Auto) 3.7, Eos % (Auto) 3.7, Baso % (Auto) 0.2, Absolute Neuts (auto) 4.6, Absolute Lymphs (auto) 0.29 L, Nucleated RBC % 0, Differential Comment SCANNED, Platelet Estimate SLT 11/23/19 05:15: Sodium 139, Potassium 3.8, Chloride 114 H, Carbon Dioxide 13.0 L, Anion Gap 12, BUN 41 H, Creatinine 1.76 H, Estim Creat Clear Calc 23.55, Est GFR (MDRD) Af Amer 36 L, Est GFR (MDRD) Non-Af 30 L, BUN/Creatinine Ratio 23.3 H, Glucose 96, Calcium 8.6 Current Medications Acetaminophen (Tylenol) 650 mg PO Q6H PRN PRN PRN Reason: Pain Score 1-10/Temp > 100.7 F Atorvastatin Calcium (Lipitor) 40 mg PO QHS [facility] Last Admin: 11/22/19 22:35 Dose: Not Given Documented by: Heparin Sodium (Porcine) (Heparin Na) 5,000 unit SC Q12 [facility] Last Admin: 11/23/19 11:47 Dose: 5,000 unit Documented by: Sodium Chloride () 1,000 mls @ 100 mls/hr IV .Q10H [facility] Last Admin: 11/23/19 13:43 Dose: 100 mls/hr Documented by: Cefazolin Sodium () 1 gm in 50 mls @ 100 mls/hr IV Q8 [facility] Last Admin: 11/23/19 13:46 Dose: 100 mls/hr Documented by: Levothyroxine Sodium (Synthroid) 12.5 mcg PO DAILY@0600 [facility] Last Admin: 11/23/19 05:04 Dose: Not Given Documented by: Melatonin (Melatonin) 3 mg PO QHS PRN PRN PRN Reason: INSOMNIA Ondansetron HCl (Zofran) 4 mg IV Q8H PRN PRN PRN Reason: NAUSEA/VOMITING Pantoprazole Sodium (Protonix) 20 mg PO DAILY [facility] Last Admin: 11/23/19 11:47 Dose: 20 mg Documented by: Sodium Chloride () 10 - 40 ml IV UD PRN PRN Reason: SALINE FLUSH Assessment/Plan Patient seen and examined independently. Data reviewed. I agree with the above note by the nurse practitioner. 1. UTI on ctx follow up cultures per SIRS criteria, she only met 1/4 SIRS criteria, therefore, sepsis ruled out 2. SYLVAIN Cr went from 1.06 to 1.77 2/2 trimeth/sulfa? IVF check urine studies 3. Debility multifactorial: 2/2 UTI, SYLVAIN + underlying NPH anticipate SNF upon dc 4. dysphagia chronic modified diet. Code Visit Inpatient E&M: 21020 Subs Hosp L3
--- NOTE | 2019-11-23 12:36 | CASEMGMT ---
RN CM Assessment Introduced role of RN CM to patient and patient Arnold at bedside.? Patient is alert, oriented and able?to participate in RN CM Assessment. ?Care providers, pharmacy, and demographics verified. Presentation: To ER for back pain, Dx with UTI and DC'd on Bactrim. Return to ER for not feeling well and unable to keep food or liquids down. Admit Dx: UTI with Sepsis Re-Admit: No Barriers/Issues: None PCP: Leighton Sun Specialists: Cardio- Dr Ferrell, Neuro- Dr Lynne Preferred [facility]acy[facility] Insurance: [employer], Commercial Insur Rx Benefit:?Yes ?LNOK: Arnold Epps LW/HPOA: States has both completed. HPOA on file at [facility]- Arnold Epps Living Arrangements:?Lives with her in a H, 4 steps to enter- flat landing in between. ADL?s: Ambulates with 2ww currently, Independent with ADLs Transportation: , denies any transportation issues DME: 2ww, 4ww-does not like, 3ww, WC, Shower chair-does not use, 3 point cane HHC: None SNF: [facility]CU, [facility] Goal: Home and states that she is currently with [facility] for balance-referred by Dr Lynne, has a few more sessions left. Aware CM remains available for any emerging needs. DC PLAN: Home with resumption of Outpatient PT with [facility]. Sindi Sneed RNCM
[2019-11-23 15:10] VITALS: BP 107/63; PULSE 102; RESP 18; TEMP 37.6; O2SAT 95
[2019-11-23 16:47] LABS: Urea Nitrogen, Urine 831 mg/dL (NO RANGE EST.)
[2019-11-23 21:10] VITALS: BP 116/75; PULSE 92; RESP 18; TEMP 36.8; O2SAT 94
[2019-11-23] MEDS: Atorvastatin Calcium 40 MG Tablet PO (21:35)
[2019-11-24] MEDS: 0.9% Normal Saline 1,000 ML 100 ML IV (00:04)
[2019-11-24 03:15] VITALS: BP 108/62; PULSE 83; RESP 18; TEMP 36.4; O2SAT 94
[2019-11-24 06:21] LABS: Anion Gap 7 (5-15); BUN 41 mg/dL (7-18); BUN/Creat Ratio 29.5 RATIO (10-20); Calcium,Total 8.8 mg/dL (8.5-10.1); Chloride 118 mmol/L (98-107); Creatinine, Serum 1.39 mg/dL (0.55-1.02); EST Glomerular Filtration Rate 40 mL/min (>60); Est Glom Filt Rate - Afr Amer 48 mL/min (>60); Estimated Creatinine Clearance 29.82 ml/min; Glucose 108 mg/dL (74-106); Potassium 3.7 mmol/L (3.5-5.1); Sodium Level 143 mmol/L (136-145)
--- NOTE | 2019-11-24 06:38 | CT_ITS ---
HISTORY: FACIAL DROOP EXAMINATION: CT Head or Brain WO/W Contrast Injection TECHNIQUE: Multiple axial images were obtained of the brain with and without IV contrast. A radiation dose optimization technique was used for this scan. IV Contrast dosage and agent: 50mL [id number]-370 IV COMPARISON: MR brain 09/27/[address] brain 11/21/2019 FINDINGS: No significant change. Dilatation of the lateral ventricles and third ventricle which appears disproportionate to the degree of sulcal atrophy in keeping with NPH. No intracranial mass, hemorrhage, or acute parenchymal abnormality is identified. Vertebrobasilar atherosclerotic calcifications and otherwise negative posterior fossa. Bilateral carotid calcifications, as well. No suspicious extra-axial fluid collection. The mastoids appear stable. No acute disease identified. CT/Brain/Head W/WO Contrast IMPRESSION: 1. Stable findings. No intracranial hemorrhage or acute intracranial disease identified. 2. Stable ventriculomegaly in keeping with NPH. Individualized dose optimization techniques were used for this CT. at 0737 Reported and signed by: Chris Caban MD Electronically Signed: Chris Caban, at 7:36 EST Tel , Service support ,
[2019-11-24 06:54] LABS: Hematocrit 31.2 % (37-47); Hemoglobin 10.3 g/dL (12.0-15.0); Mean Corpuscular Hgb 26.8 pg (27.0-32.0); Mean Corpuscular Volume 81.3 fL (81-99); Mean Platelet Vol. 9.8 fl (6.2-12.0); POSITIVE COUNT YES; Platelet Count 70 K/mm3 (150-450); RBC Distribution Width CV 15.1 % (11.6-14.6); Red Blood Count 3.84 M/mm3 (4.2-5.4)
[2019-11-24 08:11] VITALS: BP 116/68; PULSE 80; RESP 20; TEMP 37.3; O2SAT 97
[2019-11-24] MEDS: 0.9% Saline Lock 10 ML Syringe IV ×2 (08:24→22:55)
--- NOTE | 2019-11-24 08:30 | NURSING ---
Belle Mccurdy aware that pt tongue is sore and slight red and rash to brooks thighs. There was no rash seen on patients abd or BUE. This nurse and Belle MENDOZA talked and we think tongue swelling is not angioedema, pt has thrush.
--- NOTE | 2019-11-24 09:23 | PCM.PROGNOTE ---
<Belle Mccurdy - Last Filed: 11/24/19 09:36> Patient Problems: Active and Suspected Problems (Last Reviewed 07/30/19 @ 15:12 by KUN Gallardo) Urinary tract infection (Acute) Severe sepsis (Acute) Lactic acidosis (Acute) Acute renal insufficiency (Acute) Moderate dehydration (Acute) Infectious encephalopathy (Acute) Subjective: Patient seen and examined. Complains of dry mouth and sore areas in mouth. Denies other complaints. Continues to have generalized weakness. - Physical Exam Vitals/I&O's: Vital Signs Temp Pulse Resp BP Pulse Ox 99.1 F 80 20 H 116/68 97 11/24/19 08:11 11/24/19 08:11 11/24/19 08:11 11/24/19 08:11 11/24/19 08:11 Oxygen Delivery Method Room Air Weight: 135 lb 9.349 oz Body Mass Index (BMI) 24.0 Finger Stick Blood Glucose 154 Intake and Output for Last 24 Hours 11/22/19 11/23/19 11/24/19 23:59 23:59 23:59 Intake Total 2790.00 / 2790.00 2770.00 / 3070.00 300 / 300 Output Total 350 / 350 900 / 1150 550 / 550 Balance 2440.00 / 2440.00 1870.00 / 1920.00 -250 / -250 General: Alert, Oriented x3, Cooperative HEENT: Atraumatic, PERRLA, EOMI, Normocephalic Oral: Dry Mucosa, - - Thrush present Neck: Supple, No JVD, Negative Carotid Bruits Lungs: Clear to auscultation, Normal air movement Cardiovascular: Regular rate, Regular Rhythm, Normal S1, Normal S2, No murmurs Abdomen: Bowel Sounds Present, Soft, Non Tender, Non-Distended Extremities: No clubbing, No cyanosis, No edema, Capillary Refill Less than 3 Seconds Skin: No rashes, No breakdown Musculoskeletal: No Tenderness to Palpation of Joints or Extremities, Cachexia, Muscle Wasting, - - Diffuse generalized weakness Neurological: Cranial nerves II-XII grossly intact, Neuro grossly intact Psych/Mental Status: Flat Affect Microbiology Past 72 Hours 11/22/19 13:38 Urine Catheter - Catheter Urine Culture - Preliminary Presumptive E. coli Laboratory Results 11/23/19 16:25: Eos Smear Total Cells Pending 11/23/19 16:25: Urine Urea Nitrogen 831 11/23/19 16:25: Urine Creatinine 83.30 11/24/19 05:35: WBC 4.0 L, RBC 3.84 L, Hgb 10.3 L, Hct 31.2 L, MCV 81.3, MCH 26.8 L, MCHC 33.0, RDW Std Deviation 45.0 H, RDW Coeff of Maciel 15.1 H, Plt Count 70 L, MPV 9.8 11/24/19 05:35: Sodium 143, Potassium 3.7, Chloride 118 H, Carbon Dioxide 18.0 L, Anion Gap 7, BUN 41 H, Creatinine 1.39 H, Estim Creat Clear Calc 29.82, Est GFR (MDRD) Af Amer 48 L, Est GFR (MDRD) Non-Af 40 L, BUN/Creatinine Ratio 29.5 H, Glucose 108 H, Calcium 8.8 Current Medications Acetaminophen (Tylenol) 650 mg PO Q6H PRN PRN PRN Reason: Pain Score 1-10/Temp > 100.7 F Atorvastatin Calcium (Lipitor) 40 mg PO QHS [facility] Last Admin: 11/23/19 21:35 Dose: 40 mg Documented by: Heparin Sodium (Porcine) (Heparin Na) 5,000 unit SC Q12 [facility] Last Admin: 11/23/19 21:35 Dose: 5,000 unit Documented by: Sodium Chloride () 1,000 mls @ 100 mls/hr IV .Q10H [facility] Last Admin: 11/24/19 00:04 Dose: 100 mls/hr Documented by: Ceftriaxone Sodium (Rocephin) 1 gm in 50 mls @ 100 mls/hr IV Q24 [facility] Levothyroxine Sodium (Synthroid) 12.5 mcg PO DAILY@0600 [facility] Last Admin: 11/24/19 09:11 Dose: Not Given Documented by: Melatonin (Melatonin) 3 mg PO QHS PRN PRN PRN Reason: INSOMNIA Nutritional Formula (Lactose Free) (Ensure Enlive) 120 ml PO 4X/DAY ON [facility] OF [facility] Nystatin (Nystatin) 500,000 unit PO 4X/DAY [facility] OF [facility] Ondansetron HCl (Zofran) 4 mg IV Q8H PRN PRN PRN Reason: NAUSEA/VOMITING Pantoprazole Sodium (Protonix) 20 mg PO DAILY [facility] Last Admin: 11/23/19 11:47 Dose: 20 mg Documented by: Sodium Chloride () 10 - 40 ml IV UD PRN PRN Reason: SALINE FLUSH Last Admin: 11/24/19 08:24 Dose: 10 ml Documented by: Medical Necessity - Tobacco Use Smoking Status: Never smoker Tobacco Use: Non-smoker Assessment/Plan All Active Problems (Last Reviewed 07/30/19 @ 15:12 by KUN Gallardo) Urinary tract infection (Acute) Severe sepsis (Acute) Lactic acidosis (Acute) Acute renal insufficiency (Acute) Moderate dehydration (Acute) Infectious encephalopathy (Acute) Protein malnutrition (Resolved) Closed right hip fracture (Acute) Cervical lymphadenopathy (Acute) Hypercalcemia (Acute) Normal pressure hydrocephalus (Acute) Bradycardia (Acute) Anemia (Resolved) Weakness (Acute) Abnormal cardiac enzyme level (Acute) NSTEMI (non-ST elevated myocardial infarction) (Acute) Flash pulmonary edema (Resolved) Hypoxia (Resolved) Poor fluid intake (Resolved) 1. Acute E. coli UTI-urine culture growing E. coli. Sensitivities pending. Continue IV Rocephin. Blood cultures pending. PT/OT. Sepsis ruled out. 2. Acute kidney injury-improving with IV fluids, trend BMP. 3. NPH- patient following with Dr. Lynne, neurology. Recent MRI September 2019 completed due to loss of balance, dizziness. MRI demonstrated moderate atrophy and periventricular white matter ischemic changes, NPH, no acute infarct. Incidental left parotid nodule. Continue outpatient follow-up with neurology. 4. CAD with history of stents-on statin, beta-helen. 5. Hypertension-BP regimen on hold given hypotension. Resume when BP improves. 6. Hyperlipidemia-continue statin. 7. Hypothyroidism-continue Synthroid regimen. 8. History of upper GI bleed/GERD- continue PPI. 9. Chronic dysphagia-continue speech therapy evaluation and dietary modifications per speech therapy recommendation. 10. Oral candidiasis-nystatin swish and swallow 4 times daily. DVT prophylaxis- heparin sc Discharge planning: Anticipate SNF/rehab per PT recommendations. This patient was seen by Belle Mccurdy NP-Pavel under the supervision of Dr. Jefferson. <Leighton Jefferson - Last Filed: 11/24/19 13:12> - Physical Exam Vitals/I&O's: Vital Signs Temp Pulse Resp BP Pulse Ox 37.3 C 80 20 H 116/68 97 11/24/19 08:11 11/24/19 08:11 11/24/19 08:11 11/24/19 08:11 11/24/19 08:11 Oxygen Delivery Method Room Air Weight: 61.5 kg Body Mass Index (BMI) 24.0 Finger Stick Blood Glucose 154 Intake and Output for Last 24 Hours 11/22/19 11/23/19 11/24/19 23:59 23:59 23:59 Intake Total 2790.00 / 2790.00 2770.00 / 3070.00 1351.67 / 1351.67 Output Total 350 / 350 900 / 1150 550 / 550 Balance 2440.00 / 2440.00 1870.00 / 1920.00 801.67 / 801.67 General: Alert, Cooperative HEENT: Atraumatic, Normocephalic Oral: Dry Mucosa, - Lungs: Clear to auscultation, Normal air movement, No rhonchi, No wheeze Cardiovascular: Regular rate, Regular Rhythm, Normal S1, Normal S2, No murmurs Abdomen: Bowel Sounds Present, Soft, Non Tender, Non-Distended Extremities: No edema, No Calf Tenderness Musculoskeletal: - Microbiology Past 72 Hours 11/22/19 13:38 Urine Catheter - Catheter Urine Culture - Final Presumptive E. coli Laboratory Results 11/23/19 16:25: Eos Smear Total Cells Pending 11/23/19 16:25: Urine Urea Nitrogen 831 11/23/19 16:25: Urine Creatinine 83.30 11/24/19 05:35: WBC 4.0 L, RBC 3.84 L, Hgb 10.3 L, Hct 31.2 L, MCV 81.3, MCH 26.8 L, MCHC 33.0, RDW Std Deviation 45.0 H, RDW Coeff of Maciel 15.1 H, Plt Count 70 L, MPV 9.8 11/24/19 05:35: Sodium 143, Potassium 3.7, Chloride 118 H, Carbon Dioxide 18.0 L, Anion Gap 7, BUN 41 H, Creatinine 1.39 H, Estim Creat Clear Calc 29.82, Est GFR (MDRD) Af Amer 48 L, Est GFR (MDRD) Non-Af 40 L, BUN/Creatinine Ratio 29.5 H, Glucose 108 H, Calcium 8.8 Current Medications Acetaminophen (Tylenol) 650 mg PO Q6H PRN PRN PRN Reason: Pain Score 1-10/Temp > 100.7 F Atorvastatin Calcium (Lipitor) 40 mg PO QHS ON [facility] Last Admin: 11/23/19 21:35 Dose: 40 mg Documented by: Heparin Sodium (Porcine) (Heparin Na) 5,000 unit SC Q12 [facility] Last Admin: 11/24/19 10:21 Dose: 5,000 unit Documented by: Ceftriaxone Sodium (Rocephin) 1 gm in 50 mls @ 100 mls/hr IV Q24 ON [facility] Last Infusion: 11/24/19 10:44 Dose: Infused Documented by: Dextrose/Sodium Chloride (Dextrose 5%/0.9% Nacl) 1,000 mls @ 100 mls/hr IV .Q10H ON [facility] Last Infusion: 11/24/19 10:26 Dose: 0 mls/hr Documented by: Levothyroxine Sodium (Synthroid) 12.5 mcg PO DAILY@0600 [facility] Last Admin: 11/24/19 09:11 Dose: Not Given Documented by: Melatonin (Melatonin) 3 mg PO QHS PRN PRN PRN Reason: INSOMNIA Nutritional Formula (Lactose Free) (Ensure Enlive) 120 ml PO 4X/DAY ON [facility] Last Admin: 11/24/19 10:25 Dose: Not Given Documented by: Nystatin (Nystatin) 500,000 unit PO 4X/DAY [facility] Last Admin: 11/24/19 10:25 Dose: 500,000 unit Documented by: Ondansetron HCl (Zofran) 4 mg IV Q8H PRN PRN PRN Reason: NAUSEA/VOMITING Pantoprazole Sodium (Protonix) 20 mg PO DAILY ON [facility] Last Admin: 11/24/19 10:21 Dose: 20 mg Documented by: Sodium Chloride () 10 - 40 ml IV UD PRN PRN Reason: SALINE FLUSH Last Admin: 11/24/19 08:24 Dose: 10 ml Documented by: Assessment/Plan Patient seen and examined independently. Data reviewed. I agree with the above note by the nurse practitioner. 1. UTI E. coli, [place] sensitive per SIRS criteria, she only met 1/4 SIRS criteria, therefore, sepsis ruled out change to nitrofurantoin. 2. SYLVAIN Cr went from 1.06 to 1.77 improving 2/2 trimeth/sulfa? [id number] 3. Debility multifactorial: 2/2 UTI, SYLVAIN + underlying NPH anticipate SNF upon dc Patient does not wish to go but reviewed the physical therapy notes the patient was a max assist with transfer. Told patient that we would certainly support her in her decision but we have to be very forthright in regards to our concerns and we feel that being at home would not be an appropriate course of action as is just her at home and they do not have the means to higher aids. I advised her to further discuss with her and let us know when she makes a final decision. 4. dysphagia chronic modified diet. Code Visit Inpatient E&M: 34081 Subs Hosp L2
[2019-11-24] MEDS: Ceftriaxone 1 GM/50 ML BAG IV (10:14)
[2019-11-24] MEDS: Pantoprazole Sodium 20 MG Tablet PO (10:21)
[2019-11-24] MEDS: Heparin Injection (Vial) 5,000 UNIT/ML VIAL 5000 UNIT SC ×2 (10:21→22:36)
[2019-11-24] MEDS: Dextrose 5%/0.9% NaCl 1,000 ML 100 ML IV ×2 (10:25→22:54)
[2019-11-24] MEDS: NYSTATIN 500,000 UNIT/5 ML UDC 500000 UNIT PO ×4 (10:25→22:37)
--- NOTE | 2019-11-24 11:34 | CASEMGMT ---
SW spoke with patient and her regarding intermediate facility at discharge. SW gave them a list and asked that they let SW know which facilities they are interested in and SW will check with facility. Patient's asked what happens if a referral is made to a halfway and then they decide to go home. SW told them they can change their mind. SW explained it is better to have things in place and not need it than the other way around. They thanked JAYJAY for the assistance. Ev CLEMENTS MSW
[2019-11-24 14:00] VITALS: BP 124/79; PULSE 90; RESP 16; TEMP 37.2; O2SAT 93
--- NOTE | 2019-11-24 14:48 | CASEMGMT ---
Patient's indicated patient would prefer to go home, but if she has to go somewhere she will go to TCU. SW checked with [facility] and TCU would have a bed for patient. JAYJAY notified patient's as patient was sleeping. Plan: [facility] TCU Ev CLEMENTS MSW
--- NOTE | 2019-11-24 15:55 | NURSING ---
This RN taking over care at this time
[2019-11-24] MEDS: Cephalexin 250 MG Capsule PO ×2 (16:06→22:36)
[2019-11-24 17:30] VITALS: BP 112/68; PULSE 70; RESP 16; TEMP 36.7; O2SAT 93
[2019-11-24] MEDS: Atorvastatin Calcium 40 MG Tablet PO (22:37)
[2019-11-24 23:21] VITALS: BP 123/73; PULSE 82; RESP 18; TEMP 36.9; O2SAT 96
[2019-11-25 05:20] VITALS: BP 128/84; PULSE 78; RESP 18; TEMP 36.8; O2SAT 98
[2019-11-25 05:42] LABS: Hematocrit 33.4 % (37-47); Hemoglobin 10.9 g/dL (12.0-15.0); Mean Corp Hgb Conc 32.6 g/dL (32-36); Mean Corpuscular Volume 82.7 fL (81-99); Mean Platelet Vol. 10.5 fl (6.2-12.0); POSITIVE COUNT YES; Platelet Count 52 K/mm3 (150-450); RBC Distribution Width CV 15.3 % (11.6-14.6); RBC Distribution Width SD 46.6 fl (35.1-43.9); Red Blood Count 4.04 M/mm3 (4.2-5.4); White Blood Count 3.2 K/mm3 (4.4-11.0)
[2019-11-25 05:47] LABS: Scan Indicated on CBC? Y/N YES- FLAGS NOTED
[2019-11-25 05:53] LABS: Anion Gap 7 (5-15); BUN 37 mg/dL (7-18); BUN/Creat Ratio 31.1 RATIO (10-20); Calcium,Total 9.6 mg/dL (8.5-10.1); Chloride 120 mmol/L (98-107); Creatinine, Serum 1.19 mg/dL (0.55-1.02); EST Glomerular Filtration Rate 47 mL/min (>60); Est Glom Filt Rate - Afr Amer 57 mL/min (>60); Estimated Creatinine Clearance 34.83 ml/min; Glucose 163 mg/dL (74-106); Potassium 3.5 mmol/L (3.5-5.1); Sodium Level 142 mmol/L (136-145)
[2019-11-25 06:35] LABS: Differential Comment SCANNED
[2019-11-25] MEDS: Dextrose 5%/0.9% NaCl 1,000 ML 100 ML IV (08:55)
--- NOTE | 2019-11-25 09:35 | PCM.TXEXTCAR ---
- Diet 11/23/19 12:43 Diet: Cardiac/Low Cholesterol Food consistency:: Mechanical Soft/Ground Liquid Consistency:: [place] Thick Diet Comments: HOB 90 for & 30-60 min after intake, sm bite/sip, straws OK & family supv - Routine Orders/Code Status Routine Lab Work: CBC - every Friday, BMP - every Friday - Therapies Weight Bearing: Full weight bearing Physical Therapy: Eval and Treat Occupational Therapy: Eval and Treat Speech Therapy: Eval and Treat - Allergies/Procedures Done in Hospital Allergies/Adverse Reactions: Allergies povidone-iodine [From Betadine] Allergy (Mild, Verified 11/22/19 16:10) Rash soap [From Betadine] Allergy (Mild, Verified 11/22/19 16:10) Rash cat dander Allergy (Verified 11/22/19 16:10) sneezing, runny nose codeine [From Tylenol-Codeine] Allergy (Verified 11/21/19 23:06) Rash dog dander Allergy (Verified 11/22/19 16:10) sneezing, runny nose Procedures: None - Type of Care/Length of Stay Estimated LOS: Convalescent Care Less Than 30 days Type of Care Needed: Skilled Rehab Potential: Fair Prognosis: Good - Additional Orders/Day of Discharge Day of Discharge: 11/25/19 - Dietary and Speech Recommendations Dietitian Recommendations/Changes: Continue Cardiac diet consistency/texture as per MONITORING COORDINATOR. Will continue ONS Ensure Enlive 120 ml 4x/day at [facility] and Ensure pudding BID w/ L&D. - Follow Up Care Primary Care Physician: Leighton Sun MD [Primary Care Provider] - Within 2 Weeks Please Follow Up With: Cornelio Lynne MD When: 6-8 weeks
--- NOTE | 2019-11-25 09:38 | DS.PCM_ITS ---
Discharge Date and Diagnosis - Problem List Patient Problems: Active and Suspected Problems (Last Reviewed 07/30/19 @ 15:12 by KUN Gallardo) Urinary tract infection (Acute) Lactic acidosis (Acute) Acute renal insufficiency (Acute) Date of Admission: 11/22/19 Date of Discharge: 11/25/19 - Primary Discharge Diagnosis Active and Suspected Problems (Last Reviewed 07/30/19 @ 15:12 by KUN Gallardo) 1. UTI * E. coli, [place] sensitive * per SIRS criteria, she only met 1/4 SIRS criteria, therefore, sepsis ruled out * change to nitrofurantoin. 2. SYLVAIN * Cr went from 1.06 to 1.77 * improving * 2/2 trimeth/sulfa? * [id number]% 3. Debility * multifactorial: 2/2 UTI, SYLVAIN + underlying NPH * anticipate SNF upon dc * Patient does not wish to go but reviewed the physical therapy notes the patient was a max assist with transfer. Told patient that we would certainly support her in her decision but we have to be very forthright in regards to our concerns and we feel that being at home would not be an appropriate course of action as is just her at home and they do not have the means to higher aids. I advised her to further discuss with her and let us know when she makes a final decision. - Secondary Discharge Diagnosis Chronic Problems (Last Reviewed 07/30/19 @ 15:12 by KUN Gallardo) Presence of stent in coronary artery (Chronic ~07/17/17) PTCA/SILVIA of the prox posterolateral branch of LCX, PTCA/SILVIA of the ostial OM1, and PTCA/SILVIA of the prox LAD 07/17/17 Ischemic cardiomyopathy (Chronic) Essential hypertension (Chronic) GERD (gastroesophageal reflux disease) (Chronic) Tinea corporis (Chronic) Hypothyroidism (Chronic) Hyperlipidemia (Chronic) Iron deficiency anemia (Chronic) Chronic diastolic heart failure (Chronic) Lung nodule (Chronic) Nonrheumatic mitral valve insufficiency (Chronic) Pulmonary hypertension (Chronic) Atherosclerosis of [place] coronary artery of [place] heart without angina pectoris (Chronic) PTCA/SILVIA to LCx, OM #1, and LAD in July 2017; Syncope and collapse (Chronic) Dysphagia (Chronic) Sjogrens syndrome (Chronic) Raynaud disease (Chronic) Hospital Course and Treatment Imaging Results: Clinical Impression(s) from Imaging Studies Brain CT 11/24/19 06:38 IMPRESSION: 1. Stable findings. No intracranial hemorrhage or acute intracranial disease identified. 2. Stable ventriculomegaly in keeping with NPH. Individualized dose optimization techniques were used for this CT. at 0737 Reported and signed by: Chris Caban MD Electronically Signed: Chris Caban, at 7:36 EST Tel , Service support , Operations: None Procedures: None Summary of Care Provided: The patient is a 74 year old F presents with back pain. Previously, patient had been treated for a UTI with trimethoprim/sulfamethoxazole. Patient was unable to eat and was vomiting. Presented to to the emergency room as she was just progressively getting weaker and the was unable to care for her. Patient was started on ceftriaxone for urinary tract infection. Patient had a lactic acid of 2.4 and had acute kidney injury, with a creatinine of 1.77. Previously, the patient's creatinine was 1.06 on the 16th the day before her admission. Patient was started on IV fluids and ceftriaxone for the urinary tract infection. Overall the patient did improve but was still very weak and required quite a bit of assistance just with transfers. Patient is culture came back with E. coli and patient was changed over to cephalexin. Patient was very weak and insisted on going home. Patient and are encouraged to discuss further. Eventually patient did agree to going to a senior living facility. Patient to go to transitional care unit today in stable condition. Patient has a diagnosis of normal pressure hydrocephalus which she sees Dr. Edwards, of neurology for. Recommend patient follow-up with him as outpatient. May also consider evaluation movement disorder specialist if there is concern for another possibility such as Parkinson's type illnesses. What overt neurologic process is going on it takes her a while to overall recover from her setbacks and has noted just a progressive decline in her strength.[] Patient Problems: Active and Suspected Problems (Last Reviewed 07/30/19 @ 15:12 by KUN Gallardo) Urinary tract infection (Acute) Lactic acidosis (Acute) Acute renal insufficiency (Acute) - Physical Exam Vitals/I&O's: Vital Signs Temp Pulse Resp BP Pulse Ox 36.8 C 78 18 128/84 H 98 11/25/19 05:20 11/25/19 05:20 11/25/19 05:20 11/25/19 05:20 11/25/19 05:20 Oxygen Delivery Method Room Air Weight: 61.5 kg Body Mass Index (BMI) 24.0 Finger Stick Blood Glucose 154 Intake and Output for Last 24 Hours 11/23/19 11/24/19 11/25/19 23:59 23:59 23:59 Intake Total 2770.00 / 3070.00 2518.33 / 2518.33 Output Total 900 / 1150 1200 / 1200 275 / 275 Balance 1870.00 / 1920.00 1318.33 / 1318.33 -275 / -275 General: Alert, No apparent distress HEENT: Atraumatic, Normocephalic, - - Impaired vertical saccades Oral: Moist Mucosa, No Gingival or Mucosal Lesions/ Ulcerations Neck: No Nodes, Trachea Midline Psych/Mental Status: Normal Affect, Appropriate Microbiology Past 72 Hours 11/22/19 13:05 Blood Culture (Wb) - Right Hand Blood Culture - Preliminary No growth in 48 hours. 11/22/19 12:30 Blood Culture (Wb) - Left Hand Blood Culture - Preliminary No growth in 48 hours. 11/22/19 13:38 Urine Catheter - Catheter Urine Culture - Final Presumptive E. coli Laboratory Results 11/25/19 04:58: WBC 3.2 L, RBC 4.04 L, Hgb 10.9 L, Hct 33.4 L, MCV 82.7, MCH 27.0, MCHC 32.6, RDW Std Deviation 46.6 H, RDW Coeff of Maciel 15.3 H, Plt Count 52 L, MPV 10.5, Differential Comment SCANNED 11/25/19 04:58: Sodium 142, Potassium 3.5, Chloride 120 H, Carbon Dioxide 15.0 L , Anion Gap 7, BUN 37 H, Creatinine 1.19 H, Estim Creat Clear Calc 34.83, Est GFR (MDRD) Af Amer 57 L, Est GFR (MDRD) Non-Af 47 L, BUN/Creatinine Ratio 31.1 H , Glucose 163 H, Calcium 9.6 Current Medications Acetaminophen (Tylenol) 650 mg PO Q6H PRN PRN PRN Reason: Pain Score 1-10/Temp > 100.7 F Atorvastatin Calcium (Lipitor) 40 mg PO QHS [facility] Last Admin: 11/24/19 22:37 Dose: 40 mg Documented by: Cephalexin (Keflex) 250 mg PO Q8 [facility] Last Admin: 11/25/19 06:25 Dose: Not Given Documented by: Heparin Sodium (Porcine) (Heparin Na) 5,000 unit SC Q12 [facility] Last Admin: 11/24/19 22:36 Dose: 5,000 unit Documented by: Dextrose/Sodium Chloride (Dextrose 5%/0.9% Nacl) 1,000 mls @ 100 mls/hr IV .Q10H [facility] Last Infusion: 11/24/19 23:59 Dose: 100 mls/hr Documented by: Levothyroxine Sodium (Synthroid) 12.5 mcg PO DAILY@0600 [facility] Last Admin: 11/25/19 06:25 Dose: Not Given Documented by: Melatonin (Melatonin) 3 mg PO QHS PRN PRN PRN Reason: INSOMNIA Nutritional Formula (Lactose Free) (Ensure Enlive) 120 ml PO 4X/DAY [facility] Last Admin: 11/24/19 22:35 Dose: Not Given Documented by: Nystatin (Nystatin) 500,000 unit PO 4X/DAY [facility] Last Admin: 11/24/19 22:37 Dose: 500,000 unit Documented by: Ondansetron HCl (Zofran) 4 mg IV Q8H PRN PRN PRN Reason: NAUSEA/VOMITING Pantoprazole Sodium (Protonix) 20 mg PO DAILY [facility] Last Admin: 11/24/19 10:21 Dose: 20 mg Documented by: Sodium Chloride () 10 - 40 ml IV UD PRN PRN Reason: SALINE FLUSH Last Admin: 11/24/19 22:55 Dose: 10 ml Documented by: Discharge Diet: No Restrictions Home Medications: Medications to take at Discharge Carvedilol [Coreg] 3.125 mg PO BID 06/26/17 Levothyroxine [Synthroid] 12.5 mcg PO DAILY 06/26/17 rosuvastatin 20 mg tablet 20 mg PO DAILY 07/30/19 Lansoprazole 15 mg PO DAILY 11/22/19 Acetaminophen [Tylenol Tablet] 650 mg PO Q6H PRN PRN tablet 11/25/19 Cephalexin [Keflex] 250 mg PO Q8 capsule 11/25/19 Ensure Enlive 120 ml PO 4X/DAY liquid 11/25/19 Nystatin 500,000 unit PO 4X/DAY [facility] 11/25/19 Primary Care Physician: Leighton Sun MD [Primary Care Provider] - Within 2 Weeks Please Follow Up With: Cornelio Lynne MD When: 6-8 weeks Disposition: [facility] facility Minutes spent on discharge:: 32 Patient Condition:: Fair Medical Necessity - Tobacco Use Smoking Status: Never smoker Tobacco Use: Non-smoker Meaningful Use Info Meaningful Use Diagnoses (Choose all that apply): None applicable Code Visit Inpatient E&M: 82572 Disch Hosp
--- NOTE | 2019-11-25 09:58 | CASEMGMT ---
JAYJAY spoke with patient's this am. He was asking about Medicare coverage for TCU and SW explained. He was asking about what happens if she does not improve or of she gets worse. JAYJAY explained that they have meetings with patient's and family's in TCU. They will discuss what they feel the next appropriate step will be whether it is Hospice or [facility]cc care at SNF or home health etc. He thanked JAYJAY for the help. JAYJAY did pass this message along to JAYJAY Mcguire. Plan: [facility] TCU under skilled level of care. Ev CLEMENTS [employer]ICAL PLANT MANAGER
--- NOTE | 2019-11-25 10:47 | PHA.DC.MR ---
Pharmacy Service has performed discharge medication reconciliation for this patient upon transfer to [facility]. The patient's discharge medication list was reviewed for discrepancies and discrepancies were resolved. Home Medications Carvedilol [Coreg] 3.125 mg PO BID 06/26/17 Levothyroxine [Synthroid] 12.5 mcg PO DAILY 06/26/17 rosuvastatin 20 mg tablet 20 mg PO DAILY 07/30/19 Lansoprazole 15 mg PO DAILY 11/22/19 Acetaminophen [Tylenol Tablet] 650 mg PO Q6H PRN PRN tab 11/25/19 Cephalexin [Keflex] 250 mg PO Q8 cap 11/25/19 Ensure Enlive 120 ml PO 4X/DAY liquid 11/25/19 Nystatin 500,000 unit PO 4X/DAY udc 11/25/19
[2019-11-25] MEDS: Heparin Injection (Vial) 5,000 UNIT/ML VIAL 5000 UNIT SC (11:10)
[2019-11-25] MEDS: NYSTATIN 500,000 UNIT/5 ML UDC 500000 UNIT PO (11:10)
[2019-11-25 11:20] VITALS: BP 118/78; PULSE 88; RESP 18; TEMP 36.6; O2SAT 98
[2019-11-26 12:02] LABS: Eosinophil Ct. Urine 5 % (.)
== END 2019-11-25 13:17 | disposition skilled nursing facility (03) | DRG 690 ==
LOC: ED 14:48 → PCU 15:01
PROVIDERS: Nurse Practitioner Family; Admitting Provider Family Medicine; Emergency Provider Emergency Medicine; PCP Family Medicine
DX: N39.0 Urinary tract infection, site not specified (principal); S22.089A Unspecified fracture of T11-T12 vertebra, initial encounter for closed fracture; N17.9 Acute kidney failure, unspecified; G91.2 (Idiopathic) normal pressure hydrocephalus; B37.0 Candidal stomatitis; I50.32 Chronic diastolic (congestive) heart failure; G93.49 Other encephalopathy; E03.9 Hypothyroidism, unspecified; I25.10 Atherosclerotic heart disease of native coronary artery without angina pectoris; Z95.5 Presence of coronary angioplasty implant and graft; E78.5 Hyperlipidemia, unspecified; B96.20 Unspecified Escherichia coli [E. coli] as the cause of diseases classified elsewhere; R13.10 Dysphagia, unspecified; R53.81 Other malaise; I11.0 Hypertensive heart disease with heart failure; I25.5 Ischemic cardiomyopathy; K21.9 Gastro-esophageal reflux disease without esophagitis; I34.0 Nonrheumatic mitral (valve) insufficiency; I27.20 Pulmonary hypertension, unspecified; W08.XXXA Fall from other furniture, initial encounter; Y93.9 Activity, unspecified; Y92.9 Unspecified place or not applicable; Y99.9 Unspecified external cause status
CPT/HCPCS: 36415; 51702; 70450; 70470; 72100; 80048; 80053; 81001; 82570; 83605; 84484; 84540; 85025; 85027; 85610; 85730; 87040; 87086; 87088; 87186; 87205; 92526; 92610; 93005; 96374; 97110; 97163; 97167; 97530; 97802; 99285; J7030; J7050; Q9967; A4216

== ENCOUNTER 2019-11-25 13:20 | Inpatient (IN) | payer MEDICARE, OTHER, SELFPAY ==
[2019-11-22 16:02] VITALS: BMI 24.0
[2019-11-25 13:44] VITALS: BP 120/74; PULSE 88; RESP 16; TEMP 36.6; O2SAT 95
[2019-11-25 14:51] VITALS: BMI 25.2
[2019-11-25 14:58] VITALS: BMI 25.2
--- NOTE | 2019-11-25 17:30 | NURSING ---
Pt refused to take medications that were crushed and in a small amount of applesauce, refused Nystatin mouth solution. Pt told her that was in the room that he would need to bring in better applesauce for her to take her medication. states that it is the same applesauce that she is used to.
--- NOTE | 2019-11-25 20:18 | HP.PCM_ITS ---
Problem List (1) Debility Status: Acute (2) Acute kidney injury Status: Acute (3) Dehydration Status: Acute (4) Toxic encephalopathy Status: Acute (5) Hypotension Status: Acute (6) Thrush Status: Acute (7) T12 compression fracture Status: Acute (8) NSTEMI (non-ST elevated myocardial infarction) Status: Chronic (9) Hypertension Status: Chronic (10) Urinary tract infection Status: Acute (11) Severe sepsis Status: Acute (12) GERD (gastroesophageal reflux disease) Status: Chronic (13) Hypothyroidism Status: Chronic (14) Hyperlipidemia Status: Chronic (15) Iron deficiency anemia Status: Chronic (16) Chronic diastolic heart failure Status: Chronic (17) Hypercalcemia Status: Chronic (18) Normal pressure hydrocephalus Status: Chronic (19) Pulmonary hypertension Status: Chronic (20) Dysphagia Status: Chronic Qualifiers: (21) Sjogrens syndrome Status: Chronic Qualifiers: (22) Raynaud disease Status: Chronic History of Present Illness Date of Admission: 11/25/19 Chief Complaint: Here for rehabilitation, strengthening, prior to discharge home with . The patient is a 74 year old Female with below past medical history presented to [facility] Emergency Department 11/22/2019 with weakness. 11/21/2019 X-ray LS spine showed new T12 compression fracture, L2-3 degenerative disc disease, spondylosis. 11/22/2019 EKG sinus tachycardia with premature atrial contractions, left anterior fascicular block, possible anterior-lateral infarct, age undetermined. Weakness x 1.5 days, malaise, fever, decreased oral intake. Known urinary tract infection on Bactrim, mouth dry 2/2 Sjogren syndrome. Rocephin 1GM IV given, Normal Saline 1 Liter IV given, still hypotensive, Normal Saline 1 Liter IV bolus repeated. 11/22/2019 Admit to Hospital. IV Fluids, IV Ancef for sepsis, urinary tract infection. Hold blood pressure medications for hypotension. 11/23/2019 Urine culture growing E. Coli, sensitivities pending. IV Cefazolin for urinary tract infection. Blood cultures pending. PT/OT. Acute kidney injury treated with IV Fluids. Normal Pressure Hydrocephalus followed by Dr. Cornelio Lynne. 11/24/2019 CT brain stable, normal pressure hydrocephalus. 11/24/2019 E. Coli urinary tract infection with IV Rocephin. Blood cultures pending. Sepsis ruled out. Dysphagia treated with Speech Therapy, modified diet. Thrush treated with Nystatin swish and swallow. Pansensitive E. Coli urinary tract infection treated with Nitrofurantoin. Acute kidney Injury improving with IV fluids. 11/25/2019 Admit to TCU with debility, here for rehabilitation, strengthening, prior to discharge home with . Past Medical History Past Medical History (Chronic Problems): Chronic Problems (Last Reviewed 07/30/19 @ 15:12 by KUN Gallardo) NSTEMI (non-ST elevated myocardial infarction) (Chronic) Hypertension (Chronic) Presence of stent in coronary artery (Chronic ~07/17/17) PTCA/SILVIA of the prox posterolateral branch of LCX, PTCA/SILVIA of the ostial OM1, and PTCA/SILVIA of the prox LAD 07/17/17 Ischemic cardiomyopathy (Chronic) Essential hypertension (Chronic) GERD (gastroesophageal reflux disease) (Chronic) Tinea corporis (Chronic) Hypothyroidism (Chronic) Hyperlipidemia (Chronic) Iron deficiency anemia (Chronic) Chronic diastolic heart failure (Chronic) Lung nodule (Chronic) Hypercalcemia (Chronic) Normal pressure hydrocephalus (Chronic) Nonrheumatic mitral valve insufficiency (Chronic) Pulmonary hypertension (Chronic) Atherosclerosis of knik coronary artery of knik heart without angina pectoris (Chronic) PTCA/SILVIA to LCx, OM #1, and LAD in July 2017; Syncope and collapse (Chronic) Dysphagia (Chronic) Sjogrens syndrome (Chronic) Raynaud disease (Chronic) Medical History: Medical History (Last Reviewed 07/30/19 @ 15:12 by KUN Gallardo) Presence of stent in coronary artery (Chronic) Onset Date: ~07/17/17 Z95.5 PTCA/SILVIA of the prox posterolateral branch of LCX, PTCA/SILVIA of the ostial OM1, and PTCA/SILVIA of the prox LAD 07/17/17 Ischemic cardiomyopathy (Chronic) I25.5 Essential hypertension (Chronic) I10 Protein malnutrition (Resolved) E46 Closed right hip fracture (Acute) S72.001A GERD (gastroesophageal reflux disease) (Chronic) K21.9 Tinea corporis (Chronic) B35.4 Hypothyroidism (Chronic) E03.9 Hyperlipidemia (Chronic) E78.5 Iron deficiency anemia (Chronic) D50.9 Chronic diastolic heart failure (Chronic) I50.32 Lung nodule (Chronic) R91.1 Cervical lymphadenopathy (Acute) R59.0 Hypercalcemia (Chronic) E83.52 Normal pressure hydrocephalus (Chronic) G91.2 Nonrheumatic mitral valve insufficiency (Chronic) I34.0 Pulmonary hypertension (Chronic) I27.20 Atherosclerosis of knik coronary artery of knik heart without angina pectoris (Chronic) I25.10 PTCA/SILVIA to LCx, OM #1, and LAD in July 2017; Syncope and collapse (Chronic) R55 Bradycardia (Acute) R00.1 Anemia (Resolved) D64.9 Dysphagia (Chronic) R13.10 Weakness (Acute) R53.1 Sjogrens syndrome (Chronic) M35.00 Raynaud disease (Chronic) I73.00 Abnormal cardiac enzyme level (Acute) R74.8 NSTEMI (non-ST elevated myocardial infarction) (Acute) I21.4 Anemia D64.9 Asteatosis cutis L85.3 Atherosclerotic heart disease of knik coronary artery without angina pectoris I25.10 PTCA/SILVIA of the prox Lt posterolateral branch of LCX, PTCA/SILVIA of the ostial OM1, PTCA/SILVIA of the prox LAD 07/17/2017. [facility]: 04/01/2017 Body mass index (BMI) of 23.0-23.9 in adult Z68.23 Cardiomyopathy I42.9 Chronic pancreatitis K86.1 Chronic systolic congestive heart failure I50.22 Difficulty swallowing R13.10 Mitral regurgitation and mitral stenosis I05.2 Primary Sjogren's syndrome M35.00 Pulmonary hypertension I27.20 Acute [id number] myocardial infarction I21.4 Flash pulmonary edema (Resolved) J81.0 Hypoxia (Resolved) R09.02 Pleural effusion J90 Poor fluid intake (Resolved) R63.8 Right upper quadrant pain R10.11 Thrush B37.0 CAD (coronary artery disease) (Inactive) I25.10 Cardiomyopathy (Inactive) I42.9 Hypertension (Inactive) I10 Percutaneous transluminal coronary angioplasty (PTCA) within last 14 to 24 months (Inactive) Z98.61 Allergies povidone-iodine [From Betadine] Allergy (Mild, Verified 11/22/19 16:10) Rash soap [From Betadine] Allergy (Mild, Verified 11/22/19 16:10) Rash cat dander Allergy (Verified 11/22/19 16:10) sneezing, runny nose codeine [From Tylenol-Codeine] Allergy (Verified 11/21/19 23:06) Rash dog dander Allergy (Verified 11/22/19 16:10) sneezing, runny nose Home Medications: Ambulatory Orders Medication Instructions Recorded Carvedilol [Coreg] 3.125 mg PO BID 06/26/17 Levothyroxine [Synthroid] 12.5 mcg PO DAILY 06/26/17 rosuvastatin 20 mg tablet 20 mg PO DAILY 07/30/19 Lansoprazole 15 mg PO DAILY 11/22/19 Acetaminophen [Tylenol Tablet] 650 mg PO Q6H PRN PRN tab 11/25/19 Cephalexin [Keflex] 250 mg PO Q8 11/25/19 Ensure Enlive 120 ml PO 4X/DAY 11/25/19 Nystatin 500,000 unit PO 4X/DAY 11/25/19 Surgical History: Surgical History (Last Reviewed 07/30/19 @ 15:12 by KUN Gallardo) history of peg removal History of left heart catheterization (LHC) Z98.890 C: 04/01/2017 Presence of coronary angioplasty implant and graft Onset Date: ~07/17/17 Z95.5 PTCA/SILVIA of the prox posterolateral branch of LCX, PTCA/SILVIA of the ostial OM1, and PTCA/SILIVA of the prox LAD 07/17/17 H/O bilateral breast reduction surgery Z98.890 H/O bladder repair surgery Z98.890 History of hysterectomy Z90.710 History of tonsillectomy Z90.89 S/P percutaneous endoscopic gastrostomy (PEG) tube placement Z93.1 S/P rotator cuff repair Z98.890 S/P thoracentesis Z98.890 H/O heart artery stent Z95.5 PTCA/SILVIA of the prox Lt posterolateral branch of LCX, PTCA/SILVIA of the ostial OM1, PTCA/SILVIA of the prox LAD 07/17/2017. S/P PTCA (percutaneous transluminal coronary angioplasty) (Inactive) Z98.61 Surgical History: angioplasty - Stents x 3., cataract, hysterectomy, rotator cuff repair, total hip arthroplasty - Right hemiarthroplasty., tonsillectomy, - - vein surgery on the back of her leg, breast reduction, Gastrostomy tube. Psychiatric History: No pertinent psych hx [employer] INTERFERENCE EXPERT History: No pertinent RADIO INTERFERENCE EXPERT history Lives: Spouse/ Significant Other Smoking Status: Never smoker Tobacco Use: Non-smoker Alcohol: None Drugs: None - *Family History Maternal Family History: Family History (Last Reviewed 07/30/19 @ 15:12 by KUN Gallardo) Mother Cancer Father Heart disease Cancer of kidney Brother Cancer History Items: Cancer Paternal Family History: Family History (Last Reviewed 07/30/19 @ 15:12 by KUN Gallardo) Mother Cancer Father Heart disease Cancer of kidney Brother Cancer History Items: Heart Disease Review of Systems Constitutional: Reports: Weakness. Denies: Chills, Fever, Weight Change HEENT: Denies: Head Aches, Sinus Congestion, Sinus Drainage Cardiovascular: Denies: Chest Pain, Palpitations Respiratory: Denies: Cough, Shortness of breath at rest, Sputum production Gastrointestinal: Denies: Abdominal Pain, Nausea, Vomiting Genitourinary: Denies: Dysuria Musculoskeletal: Denies: Joint Pain, Joint Tenderness Skin: Denies: Rash, Wounds Neurological: Denies: Numbness, Tingling, Focal weakness Psychiatric: Denies: Anxiety, Depression, Homicidal Ideations, Suicidal Ideations Hematologic/ Lymphatic: Denies: Easy Bruising, Easy Bleeding VTE Information - Inpt Only VTE Present on Admission: No VTE Mechan Device Prophylaxis: Knee High ZHOU Hose VTE Pharm Prophylaxis ordered?: Yes Patient Problems: Active and Suspected Problems (Last Reviewed 07/30/19 @ 15:12 by KUN Gallardo) Debility (Acute) Acute kidney injury (Acute) Dehydration (Acute) Toxic encephalopathy (Acute) Hypotension (Acute) Thrush (Acute) T12 compression fracture (Acute) - Physical Exam Vitals/I&O's: Vital Signs Temp Pulse Resp BP Pulse Ox 97.9 F 88 16 120/74 95 11/25/19 13:44 11/25/19 13:44 11/25/19 13:44 11/25/19 13:44 11/25/19 13:44 Oxygen Delivery Method Room Air Weight: 64.455 kg Body Mass Index (BMI) 25.2 Finger Stick Blood Glucose 154 General: Alert, Oriented x3, Cooperative HEENT: Atraumatic, PERRLA, EOMI, Normocephalic Neck: Supple, No JVD, Negative Carotid Bruits Lungs: Clear to auscultation, Normal air movement Cardiovascular: Regular rate, No murmurs Abdomen: Bowel Sounds Present, Soft, Non Tender Extremities: No edema, Capillary Refill Less than 3 Seconds Skin: No rashes, No breakdown Musculoskeletal: No Tenderness to Palpation of Joints or Extremities Neurological: Cranial nerves II-XII grossly intact Psych/Mental Status: Normal Affect, Appropriate Current Medications Acetaminophen (Tylenol) 650 mg PO Q6H PRN PRN PRN Reason: Pain Score 1-10/Temp > 100.7 F Atorvastatin Calcium (Lipitor) 40 mg PO QHS [facility] Calamine/Phenol (Calmoseptine Ointment) 1 applic TOPICAL TID [facility]; Protocol Carvedilol (Coreg) 3.125 mg PO BID [facility] Last Admin: 11/25/19 17:01 Dose: Not Given Documented by: Cephalexin (Keflex) 250 mg PO Q8 [facility] Stop: 11/29/19 22:31 Levothyroxine Sodium (Synthroid) 12.5 mcg PO DAILY [facility] Nutritional Formula (Lactose Free) (Ensure Enlive) 120 ml PO 4X/DAY [facility] Last Admin: 11/25/19 17:11 Dose: Not Given Documented by: Nystatin (Nystatin) 500,000 unit PO 4X/DAY [facility] Last Admin: 11/25/19 17:01 Dose: Not Given Documented by: Nystatin (Mycostatin Powder) 1 applic TOPICAL BID [facility]; Protocol Pantoprazole Sodium (Protonix) 20 mg PO DAILY [facility] Sodium Chloride () 10 - 40 ml IV UD PRN PRN Reason: SALINE FLUSH Tuberculin PPD (Tubersol, Aplisol, Ppd) 5 tu ID X1 ONE Stop: 11/26/19 10:01 Tuberculin PPD (Tubersol, Aplisol, Ppd) 5 tu ID X1 ONE Stop: 12/03/19 10:01 Assessment/Plan All Active Problems (Last Reviewed 07/30/19 @ 15:12 by KUN Gallardo) Debility (Acute) Acute kidney injury (Acute) Dehydration (Acute) Toxic encephalopathy (Acute) Hypotension (Acute) Thrush (Acute) T12 compression fracture (Acute) Urinary tract infection (Acute) Severe sepsis (Acute) Lactic acidosis (Acute) Acute renal insufficiency (Acute) Protein malnutrition (Resolved) Closed right hip fracture (Acute) Cervical lymphadenopathy (Acute) Bradycardia (Acute) Anemia (Resolved) Weakness (Acute) Abnormal cardiac enzyme level (Acute) NSTEMI (non-ST elevated myocardial infarction) (Acute) Flash pulmonary edema (Resolved) Hypoxia (Resolved) Poor fluid intake (Resolved) 74 year old female with below past medical history hospitalized for encephalopathy secondary to E. Coli urinary tract infection, complicated by normal pressure hydrocephalus, dysphagia, thrush, admitted to TCU with debility, here for rehabilitation, strengthening, prior to discharge home with . * Debility - PT/OT. * Dysphagia - ST. * Pain - Tylenol 1000MG Q6H PRN pain (1-10) * Bowel - Miralax 17GM daily, Senna/colace 1 tablet BID, Dulcolax 10MG daily PRN, Soap suds enema for clean out. * Adult Immunization - Administer Prevnar 13, Pneumovax 23, Fluzone as appropriate. * DVT prophylaxis - Lovenox 40MG SC daily. * Hyperlipidemia - Atorvastatin 40MG QHS. * Coronary Artery Disease - Coreg 3.125MG twice daily. * E. Coli UTI - Keflex 250MG Q8H thru 11/29/2019. * Nutrition - Ensure Enlive 120ML 4x/day. * Hypothyroidism - Levothyroxine 12.5MCG daily. * Skin irritation - Calmoseptine TID. * Thrush - Nystatin 500,000 4x/day thru 12/01/2019. * Tinea Corporis - Nystatin powder twice daily. * GERD - Pantoprazole 20MG daily. * NPH - Consider referral for SALES PLANNING ANALYST shunt as soon as resident stronger. * Acute kidney injury/dehydration - She still appears dry, run NS 75cc/hour, labs in AM.
[2019-11-25] MEDS: Cephalexin 250 MG Capsule PO (20:42)
[2019-11-25] MEDS: Menthol/Lanolin/Calamine/Znox 113 GM Tube 1 APPLIC TOPICAL (20:42)
[2019-11-25] MEDS: Atorvastatin Calcium 40 MG Tablet PO (20:43)
[2019-11-25] MEDS: Nystatin Powder 15gm Bottle 1 APPLIC TOPICAL (20:59)
[2019-11-25] MEDS: 0.9% Normal Saline 1,000 ML 75 ML IV (21:28)
[2019-11-26] MEDS: Nystatin Powder 15gm Bottle 1 APPLIC TOPICAL ×2 (04:52→14:01)
[2019-11-26] MEDS: Menthol/Lanolin/Calamine/Znox 113 GM Tube 1 APPLIC TOPICAL ×3 (04:53→23:00)
[2019-11-26] MEDS: Enoxaparin 40 MG/0.4 ML Syringe SC (04:56)
[2019-11-26 06:02] LABS: Absolute Lymphocyte Count 0.29 X10^3/uL (0.83-4.51); Basophil# 0.02 X10^3/uL; Basophil% 0.7 % (0-1); Eosinophil# 0.15 X10^3/uL; Eosinophils% 5.4 % (0-5); Hematocrit 35.6 % (37-47); Hemoglobin 11.5 g/dL (12.0-15.0); Lymphocyte # 0.29 X10^3/ul (4.0); Lymphocyte % 10.5 % (19-41); Mean Corp Hgb Conc 32.3 g/dL (32-36); Mean Corpuscular Hgb 26.3 pg (27.0-32.0); Mean Corpuscular Volume 81.5 fL (81-99); Mean Platelet Vol. 10.5 fl (6.2-12.0); Monocyte# 0.23 X10^3/uL; Monocyte% 8.3 % (0-10); NRBC Flagged by Analyzer 0 % (0-5); Neutrophil # 2.03 X10^3/uL (2.7-7.7); Neutrophil % 73.3 % (47-70); POSITIVE COUNT YES; POSITIVE DIFFERENTIAL YES; RBC Distribution Width CV 15.5 % (11.6-14.6); RBC Distribution Width SD 46.1 fl (35.1-43.9); Red Blood Count 4.37 M/mm3 (4.2-5.4); White Blood Count 2.8 K/mm3 (4.4-11.0)
[2019-11-26 06:09] LABS: Differential Indicated SCAN CRITERIA MET
[2019-11-26 06:10] LABS: Platelet Count 49 K/mm3 (150-450)
--- NOTE | 2019-11-26 06:20 | NURSING ---
Addendum entered by Deidre Peterson 11/26/19 06:33: Patient has been drowsy. Patient has refused to take all medications this shift as well as previous shift. Dr. Gr made aware of this. Original Note: Pt refused to take medications that were crushed and in a small amount of applesauce, refused nystatin swish and swallow. Pt asked for some water given nectar thicken water pt only took a sip of the water. Pt has normal saline running at 75 ml/hr.
[2019-11-26 06:30] LABS: Anion Gap 7 (5-15); BUN 41 mg/dL (7-18); Calcium,Total 11.4 mg/dL (8.5-10.1); Chloride 126 mmol/L (98-107); Creatinine, Serum 1.08 mg/dL (0.55-1.02); EST Glomerular Filtration Rate 53 mL/min (>60); Est Glom Filt Rate - Afr Amer 64 mL/min (>60); Estimated Creatinine Clearance 38.38 ml/min; Glucose 118 mg/dL (74-106); Potassium 3.6 mmol/L (3.5-5.1); Sodium Level 150 mmol/L (136-145)
[2019-11-26 06:50] LABS: Differential Comment SCANNED
[2019-11-26 06:52] LABS: Platelet Estimate MKD DEC (ADEQ)
--- NOTE | 2019-11-26 11:12 | PCM.PN.RX ---
<Izzy Bautista M - Last Filed: 11/26/19 11:12> Progress Note - Pharmacy Subjective: TCU ADMISSION Objective: Allergies povidone-iodine [From Betadine] Allergy (Mild, Verified 11/22/19 16:10) Rash soap [From Betadine] Allergy (Mild, Verified 11/22/19 16:10) Rash cat dander Allergy (Verified 11/22/19 16:10) sneezing, runny nose codeine [From Tylenol-Codeine] Allergy (Verified 11/21/19 23:06) Rash dog dander Allergy (Verified 11/22/19 16:10) sneezing, runny nose Current Medications Generic Name Dose Route Start Last Admin Trade Name Freq PRN Reason Stop Dose Admin Acetaminophen 1,000 mg 11/25/19 20:51 Tylenol PO Q6H PRN PRN Pain Score 1-10/10 Atorvastatin Calcium 40 mg 11/25/19 22:00 11/25/19 20:43 Lipitor PO 40 mg QHS SANA Administration Bisacodyl 10 mg 11/25/19 20:41 Dulcolax PO DAILY PRN Constipation Calamine/Phenol 1 applic 11/25/19 22:00 11/26/19 04:53 Calmoseptine Ointment TOPICAL 1 applicatio TID SANA Administration Protocol Carvedilol 3.125 mg 11/25/19 18:00 11/26/19 05:00 Coreg PO Not Given BID SANA Cephalexin 250 mg 11/25/19 22:00 11/26/19 04:56 Keflex PO 11/29/19 22:31 Not Given Q8 [facility] Sodium Chloride 1,000 mls @ 75 mls/hr 11/25/19 20:45 11/25/19 21:28 IV 75 mls/hr .[id number] SANA Administration Levothyroxine Sodium 12.5 mcg 11/26/19 06:00 11/26/19 04:57 Synthroid PO Not Given DAILY [facility] Nutritional Formula (Lactose Free) 120 ml 11/25/19 17:00 11/26/19 04:56 Ensure Enlive PO Not Given 4X/DAY [facility] Nystatin 500,000 unit 11/25/19 17:00 11/26/19 04:56 Nystatin PO 12/04/19 23:59 Not Given 4X/DAY SANA Nystatin 1 applic 11/25/19 22:00 11/26/19 04:52 Mycostatin Powder TOPICAL 1 applicatio BID [facility] Administration Protocol Pantoprazole Sodium 20 mg 11/26/19 06:00 11/26/19 04:57 Protonix PO Not Given DAILY [facility] Polyethylene Glycol 17 gm 11/26/19 06:00 11/26/19 04:56 Miralax PO Not Given DAILY SANA Senna/Docusate Sodium 1 tablet 11/26/19 06:00 11/26/19 04:57 Senokot-S, Jessica-Colace PO Not Given BID [facility] Sodium Chloride 10 - 40 ml 11/25/19 14:45 IV UD PRN SALINE FLUSH Tuberculin PPD 5 tu 12/03/19 10:00 Tubersol, Aplisol, Ppd ID 12/03/19 10:01 X1 ONE Problem List (Last Reviewed 07/30/19 @ 15:12 by KUN Gallardo) Debility (Acute) Acute kidney injury (Acute) Dehydration (Acute) Toxic encephalopathy (Acute) Hypotension (Acute) Thrush (Acute) T12 compression fracture (Acute) NSTEMI (non-ST elevated myocardial infarction) (Chronic) Hypertension (Chronic) Vital Signs Temp Pulse Resp BP Pulse Ox 97.9 F 88 16 120/74 95 11/25/19 13:44 11/25/19 13:44 11/25/19 13:44 11/25/19 13:44 11/25/19 13:44 Oxygen Delivery Method Room Air Weight: 64.455 kg Body Mass Index (BMI) 25.2 Finger Stick Blood Glucose 154 Sodium 150 mmol/L (136-145) H 11/26/19 05:33 Potassium 3.6 mmol/L (3.5-5.1) 11/26/19 05:33 Chloride 126 mmol/L (98-107) H 11/26/19 05:33 Carbon Dioxide 17.0 mmol/L (21.0-32.0) L 11/26/19 05:33 Anion Gap 7 (5-15) 11/26/19 05:33 BUN 41 mg/dL (7-18) H 11/26/19 05:33 Creatinine 1.08 mg/dL (0.55-1.02) H 11/26/19 05:33 Est GFR (MDRD) Af Amer 64 mL/min (>60) 11/26/19 05:33 Est GFR (MDRD) Non-Af 53 mL/min (>60) L 11/26/19 05:33 BUN/Creatinine Ratio 38.0 RATIO (10-20) H 11/26/19 05:33 Glucose 118 mg/dL (74-106) H 11/26/19 05:33 Assessment/Plan: 1. Pain: Tylenol 1,000mg PO Q6h PRN Pain 1-07/15. Please continue to monitor for increased/decreased pain symptoms. 2. UTI: Keflex 250mg PO Q8h thru 11/29/2019. Please continue to monitor for resolution of UTI symptoms. 3. Coronary Artery Disease: Coreg 3.125mg PO BID, Lipitor 40mg PO QHS. Please continue to monitor pulse, BP, and lipid panel at least annually or sooner if clinically indicated. 4. Thrush: Nystatin 500,000 unit PO 4x/day thru 12/04/2019. Please continue to monitor for resolution of symptoms, recurrence. 5. Hypothyroid: Synthroid 12.5mcg PO Daily. Please continue to monitor for S/S hyper/hypothyroid, check TSH panel annually or sooner if clinically indicated. 6. GERD: Protonix 20mg PO Daily. Please continue to monitor for resolution of GERD symptoms. Psychotropic Medications: None Unnecessary Medications: None *Bowel Regimen: Miralax 17g PO Daily, Senna/Docusate 1 tab PO BID, Bisacodyl 10mg PO daily PRN. Please continue to monitor for increased/decreased bowel movements/diarrhea. Also please continue to monitor schuled doses- the patient has refused a dose (the first dose). Should the patient continue to refuse, please consider changing to PRN status. Date of Note:: 11/26/19 - Provider Comments Provider responsibility: Provider responsible to enter orders to implement recommendations <[place] Gr Chi - Last Filed: 11/26/19 14:02> Progress Note - Pharmacy Subjective: [] Objective: Allergies povidone-iodine [From Betadine] Allergy (Mild, Verified 11/22/19 16:10) Rash soap [From Betadine] Allergy (Mild, Verified 11/22/19 16:10) Rash cat dander Allergy (Verified 11/22/19 16:10) sneezing, runny nose codeine [From Tylenol-Codeine] Allergy (Verified 11/21/19 23:06) Rash dog dander Allergy (Verified 11/22/19 16:10) sneezing, runny nose Current Medications Generic Name Dose Route Start Last Admin Trade Name Freq PRN Reason Stop Dose Admin Acetaminophen 1,000 mg 11/25/19 20:51 Tylenol PO Q6H PRN PRN Pain Score 1-10/10 Atorvastatin Calcium 40 mg 11/25/19 22:00 11/25/19 20:43 Lipitor PO 40 mg QHS SANA Administration Bisacodyl 10 mg 11/25/19 20:41 Dulcolax PO DAILY PRN Constipation Calamine/Phenol 1 applic 11/25/19 22:00 11/26/19 04:53 Calmoseptine Ointment TOPICAL 1 applicatio TID [facility] Administration Protocol Carvedilol 3.125 mg 11/25/19 18:00 11/26/19 05:00 Coreg PO Not Given BID [facility] Cephalexin 250 mg 11/25/19 22:00 11/26/19 04:56 Keflex PO 11/29/19 22:31 Not Given Q8 [facility] Sodium Chloride 1,000 mls @ 75 mls/hr 11/25/19 20:45 11/26/19 12:12 IV 75 mls/hr .[id number] SANA Administration Levothyroxine Sodium 12.5 mcg 11/26/19 06:00 11/26/19 04:57 Synthroid PO Not Given DAILY [facility] Nystatin 500,000 unit 11/25/19 17:00 11/26/19 04:56 Nystatin PO 12/04/19 23:59 Not Given 4X/DAY [facility] Nystatin 1 applic 11/25/19 22:00 11/26/19 04:52 Mycostatin Powder TOPICAL 1 applicatio BID [facility] Administration Protocol Pantoprazole Sodium 20 mg 11/26/19 06:00 11/26/19 04:57 Protonix PO Not Given DAILY [facility] Polyethylene Glycol 17 gm 11/26/19 06:00 11/26/19 04:56 Miralax PO Not Given DAILY [facility] Senna/Docusate Sodium 1 tablet 11/26/19 06:00 11/26/19 04:57 Senokot-S, Jessica-Colace PO Not Given BID [facility] Sodium Chloride 10 - 40 ml 11/25/19 14:45 IV UD PRN SALINE FLUSH Tuberculin PPD 5 tu 12/03/19 10:00 Tubersol, Aplisol, Ppd ID 12/03/19 10:01 X1 ONE Problem List (Last Reviewed 07/30/19 @ 15:12 by KUN Gallardo) Debility (Acute) Acute kidney injury (Acute) Dehydration (Acute) Toxic encephalopathy (Acute) Hypotension (Acute) Thrush (Acute) T12 compression fracture (Acute) NSTEMI (non-ST elevated myocardial infarction) (Chronic) Hypertension (Chronic) Vital Signs Temp Pulse Resp BP Pulse Ox 97.9 F 88 16 120/74 95 11/25/19 13:44 11/25/19 13:44 11/25/19 13:44 11/25/19 13:44 11/25/19 13:44 Oxygen Delivery Method Room Air Weight: 64.455 kg Body Mass Index (BMI) 25.2 Finger Stick Blood Glucose 154 Sodium 150 mmol/L (136-145) H 11/26/19 05:33 Potassium 3.6 mmol/L (3.5-5.1) 11/26/19 05:33 Chloride 126 mmol/L (98-107) H 11/26/19 05:33 Carbon Dioxide 17.0 mmol/L (21.0-32.0) L 11/26/19 05:33 Anion Gap 7 (5-15) 11/26/19 05:33 BUN 41 mg/dL (7-18) H 11/26/19 05:33 Creatinine 1.08 mg/dL (0.55-1.02) H 11/26/19 05:33 Est GFR (MDRD) Af Amer 64 mL/min (>60) 11/26/19 05:33 Est GFR (MDRD) Non-Af 53 mL/min (>60) L 11/26/19 05:33 BUN/Creatinine Ratio 38.0 RATIO (10-20) H 11/26/19 05:33 Glucose 118 mg/dL (74-106) H 11/26/19 05:33 Assessment/Plan: Psychotropic Medications: Unnecessary Medications: Bowel Regimen: - Provider Comments Provider responsibility: Provider responsible to enter orders to implement recommendations Provider Comments to Recommendations by Pharmacy: Agree
[2019-11-26] MEDS: 0.9% Normal Saline 1,000 ML 75 ML IV (12:12)
[2019-11-26] MEDS: Cephalexin 250 MG Capsule PO (14:01)
[2019-11-26] MEDS: Carvedilol 3.125 MG TABLET PO (14:04)
[2019-11-26] MEDS: Senna/Docusate Sodium 1 Tablet PO (14:04)
[2019-11-26 14:56] LABS: Pathologist Review Reviewed
[2019-11-26 16:00] VITALS: BP 94/58; PULSE 78; RESP 20; TEMP 36.9; O2SAT 97
[2019-11-26] MEDS: Tuberculin,Purif.prot.deriv. 50 TU/ML Vial 5 ML ID (17:41)
[2019-11-26 23:00] VITALS: PULSE 96; RESP 16; O2SAT 94
--- NOTE | 2019-11-26 23:05 | NURSING ---
Pt refusing to take hs medication educated on the medication she would be taking. Continue to refuse them. Rn made aware. Due to pt having a diagnose called Sjognen's syndrome pt mouth is always dry. Encourage fluids and mouth care but pt refusing this at this time also. Pt able to voice name and date of but voice is very muffled with she speaks.
[2019-11-27] MEDS: 0.9% Normal Saline 1,000 ML 75 ML IV (02:12)
[2019-11-27] MEDS: Menthol/Lanolin/Calamine/Znox 113 GM Tube 1 APPLIC TOPICAL ×3 (07:36→20:15)
[2019-11-27] MEDS: Nystatin Powder 15gm Bottle 1 APPLIC TOPICAL ×2 (07:36→18:25)
[2019-11-27 07:53] LABS: Anion Gap 7 (5-15); BUN 49 mg/dL (7-18); BUN/Creat Ratio 44.1 RATIO (10-20); Calcium,Total 11.7 mg/dL (8.5-10.1); Chloride 133 mmol/L (98-107); Creatinine, Serum 1.11 mg/dL (0.55-1.02); EST Glomerular Filtration Rate 51 mL/min (>60); Est Glom Filt Rate - Afr Amer 62 mL/min (>60); Estimated Creatinine Clearance 37.34 ml/min; Glucose 105 mg/dL (74-106); Potassium 3.9 mmol/L (3.5-5.1); Sodium Level 154 mmol/L (136-145)
[2019-11-27 10:00] VITALS: PULSE 86; RESP 16; O2SAT 96
--- NOTE | 2019-11-27 13:50 | NURSING ---
really concerned that pt not getting her meds, especially for UTI. Dr Gr updated, new order to check UA C&S.
[2019-11-27 13:53] LABS: Anion Gap 7 (5-15); BUN 47 mg/dL (7-18); BUN/Creat Ratio 39.5 RATIO (10-20); Calcium,Total 11.5 mg/dL (8.5-10.1); Chloride 127 mmol/L (98-107); Creatinine, Serum 1.19 mg/dL (0.55-1.02); EST Glomerular Filtration Rate 47 mL/min (>60); Est Glom Filt Rate - Afr Amer 57 mL/min (>60); Estimated Creatinine Clearance 34.83 ml/min; Glucose 187 mg/dL (74-106); Potassium 3.2 mmol/L (3.5-5.1); Sodium Level 149 mmol/L (136-145)
[2019-11-27 14:36] VITALS: BP 107/72; PULSE 85; RESP 20; TEMP 36.3; O2SAT 98
--- NOTE | 2019-11-27 15:29 | NURSING ---
pt refusing to take meds by mouth, dr Gr updated, new order to dc po potassium and have pharmacy add 40 meq potassium x1 to d5w bag, administer after 2nd d5w bolus is infused.
[2019-11-27 16:13] LABS: Bacteria 0 SEEN /hpf (None Seen); Mucous, Urine 0 SEEN /hpf (<or=2+); Squamous Epithelial Cells - UA 0 SEEN /hpf (5-10)
[2019-11-27 16:14] LABS: Color, Urine Yellow (Yellow); Glucose, Dipstick Normal (Normal); Ketone-Dipstick Negative (Negative); Leukocyte Esterase-Dipstick Negative /ul (Negative); Nitrite-Dipstick Negative (Negative); Occult Blood-Urine 150 /ul (Negative); Protein-Dipstick 100 mg/dl (Negative); Urine Bilirubin Dipstick Negative (Negative); Urine Clarity Clear (Clear); Urine Urobilinogen Normal (Normal)
[2019-11-27 16:35] LABS: Red Blood Cells-Urine 0-5 SEEN /hpf (0-5); White Blood Cells 0-5 SEEN /hpf (0-5)
[2019-11-27 16:37] LABS: Hyaline Cast 5-10 SEEN /lpf (0-5); Transitional Epithelial - Ur 0-5 SEEN /hpf (0-5)
[2019-11-27 16:40] LABS: Fine Granular Cast- Urine 0-5 SEEN /lpf (0-5)
[2019-11-27 17:50] LABS: Anion Gap 6 (5-15); BUN 44 mg/dL (7-18); BUN/Creat Ratio 34.6 RATIO (10-20); Calcium,Total 11.3 mg/dL (8.5-10.1); Chloride 124 mmol/L (98-107); Creatinine, Serum 1.27 mg/dL (0.55-1.02); EST Glomerular Filtration Rate 44 mL/min (>60); Est Glom Filt Rate - Afr Amer 53 mL/min (>60); Estimated Creatinine Clearance 32.64 ml/min; Glucose 226 mg/dL (74-106); Potassium 3.2 mmol/L (3.5-5.1); Sodium Level 147 mmol/L (136-145)
[2019-11-27 18:29] VITALS: BP 113/77; PULSE 87; O2SAT 94
[2019-11-27 20:13] VITALS: BP 112/77; PULSE 86; RESP 20; O2SAT 98
[2019-11-28] MEDS: Nystatin Powder 15gm Bottle 1 APPLIC TOPICAL (04:57)
[2019-11-28] MEDS: Menthol/Lanolin/Calamine/Znox 113 GM Tube 1 APPLIC TOPICAL (04:57)
[2019-11-28 06:35] LABS: Anion Gap 7 (5-15); BUN 36 mg/dL (7-18); BUN/Creat Ratio 36.8 RATIO (10-20); Calcium,Total 10.8 mg/dL (8.5-10.1); Chloride 121 mmol/L (98-107); Creatinine, Serum 0.98 mg/dL (0.55-1.02); EST Glomerular Filtration Rate 59 mL/min (>60); Est Glom Filt Rate - Afr Amer 72 mL/min (>60); Estimated Creatinine Clearance 42.29 ml/min; Glucose 135 mg/dL (74-106); Potassium 3.5 mmol/L (3.5-5.1); Sodium Level 143 mmol/L (136-145)
--- NOTE | 2019-11-28 06:57 | PCA ---
Oral care was done with a toothette on front of mouth for patient, patient was pushing hand away from mouth while staff was performing oral care
--- NOTE | 2019-11-28 07:11 | NURSING ---
Dr. Gr updated on +2 pitting edema to bilateral lower. Pt refusing to drink or have mouth swabbed. Pt vitals stable. Updated on lab results. New order to D/C fluids and send to the ER.
--- NOTE | 2019-11-28 07:25 | NURSING ---
pt remains lethargic, continues to refused meds/meals. shift superintendent noted pitting edema legs, dr rodriguez updated, new order to send pt to ER and stop IVF. notified.
[2019-11-28 07:27] VITALS: BP 121/84; PULSE 86; RESP 22; TEMP 36.4; O2SAT 96
[2019-11-28 08:16] LABS: Bedside Glucose 102 mg/dL (70-110)
--- NOTE | 2019-11-28 13:14 | DCINST_ITS ---
You will use the following diet at home:: No restrictions, Regular Your food should be the consistency of: Regular Your liquids should be the consistency of: Regular/Thin Discharge Activity: Return to Normal Activity, May Shower, Use Walker Weight Bearing Status: Weight bearing as tolerated Call your doctor if you observe: Fever of 101 or Higher, Inability to urinate, Inability to have a bowel movement, Shortness of breath, Chest pain, Uncontrolled pain Allergies/Adverse Reactions: Allergies povidone-iodine [From Betadine] Allergy (Mild, Verified 11/28/19 07:39) Rash soap [From Betadine] Allergy (Mild, Verified 11/28/19 07:39) Rash cat dander Allergy (Verified 11/28/19 07:39) sneezing, runny nose codeine [From Tylenol-Codeine] Allergy (Verified 11/28/19 07:39) Rash dog dander Allergy (Verified 11/28/19 07:39) sneezing, runny nose Medications to take at Discharge Carvedilol [Coreg] 3.125 mg PO BID 06/26/17 Levothyroxine [Synthroid] 12.5 mcg PO DAILY 06/26/17 Acetaminophen [Tylenol Tablet] 650 mg PO Q6H PRN PRN tab 11/25/19 Cephalexin [Keflex] 250 mg PO Q8 11/25/19 Nystatin 500,000 unit PO 4X/DAY 11/25/19 Atorvastatin Calcium 40 mg PO QHS 11/28/19 Bisacodyl [Dulcolax] 5 mg PO X1 PRN 11/28/19 Menthol/Lanolin/Calamine/Znox [Calmoseptine Ointment] 1 applic TOPICAL TID 11/28/19 Nystatin 1 ea MC BID 11/28/19 Pantoprazole Sodium [Protonix] 20 mg PO DAILY 11/28/19 Polyethylene Glycol 3350 [Miralax] 17 gm PO DAILY 11/28/19 Sennosides/Docusate Sodium [Senna-Docusate Sodium Tablet] 1 ea PO BID 11/28/19 Primary Care Physician: Leighton Sun MD [Primary Care Provider] - Please follow up with your Primary Care Physician in: 1 week. Test Results: Test results from this visit will be discussed in further detail at your follow- up appointment, if applicable. Proposed Discharge Date: 11/28/19
--- NOTE | 2019-11-28 13:15 | PCM.DC.SUM ---
Discharge Date and Diagnosis Date of Admission: 11/25/19 Date of Discharge: 11/28/19 - Secondary Discharge Diagnosis Chronic Problems (Last Reviewed 07/30/19 @ 15:12 by KUN Gallardo) NSTEMI (non-ST elevated myocardial infarction) (Chronic) Hypertension (Chronic) Presence of stent in coronary artery (Chronic ~07/17/17) PTCA/SILVIA of the prox posterolateral branch of LCX, PTCA/SILVIA of the ostial OM1, and PTCA/SILVIA of the prox LAD 07/17/17 Ischemic cardiomyopathy (Chronic) Essential hypertension (Chronic) GERD (gastroesophageal reflux disease) (Chronic) Tinea corporis (Chronic) Hypothyroidism (Chronic) Hyperlipidemia (Chronic) Iron deficiency anemia (Chronic) Chronic diastolic heart failure (Chronic) Lung nodule (Chronic) Hypercalcemia (Chronic) Normal pressure hydrocephalus (Chronic) Nonrheumatic mitral valve insufficiency (Chronic) Pulmonary hypertension (Chronic) Atherosclerosis of [place] coronary artery of [place] heart without angina pectoris (Chronic) PTCA/SILVIA to LCx, OM #1, and LAD in July 2017; Syncope and collapse (Chronic) Dysphagia (Chronic) Sjogrens syndrome (Chronic) Raynaud disease (Chronic) Hospital Course and Treatment Operations: None Procedures: None Summary of Care Provided: The patient is a 74 year old Female with below past medical history hospitalized for encephalopathy secondary to E. Coli urinary tract infection, complicated by normal pressure hydrocephalus, dysphagia, thrush, admitted to TCU with debility, here for rehabilitation, strengthening, prior to discharge home with . 11/26/2019 Resident stopped eating, refused medications. 11/27/2019 Labs showed dehydration, she was given 2 Liters D5W, then D5W at 125cc/hour. 11/28/2019 Labs improved, but resident continues to refuse food, medications, appeared lethargic, listless. Of note, unknown if her decade long history of normal pressure hydrocephalus is starting to show clinical effects. She refused [employer] DEVELOPMENT PROFESSION[employer] shunt in the past, but when I asked her, she was agreeable to [employer]ELOPMENT PROFESSION[employer] shunt. Discharge to [facility] Emergency Department for evaluation, admission to hospital. - Physical Exam Vitals/I&O's: Vital Signs Temp Pulse Resp BP Pulse Ox 97.6 F L 86 22 H 121/84 H 96 11/28/19 07:27 11/28/19 07:27 11/28/19 07:27 11/28/19 07:27 11/28/19 07:27 Oxygen Delivery Method Room Air Weight: 64.455 kg Body Mass Index (BMI) 25.2 Finger Stick Blood Glucose 154 Intake and Output for Last 24 Hours 11/26/19 11/27/19 11/28/19 23:59 23:59 23:59 Intake Total 1210 / 1210 3577.5 / 3577.5 1020 / 1020 Balance 1210 / 1210 3577.5 / 3577.5 1020 / 1020 Laboratory Results 11/27/19 13:15: Sodium 149 H, Potassium 3.2 L, Chloride 127 H*, Carbon Dioxide 15.0 L, Anion Gap 7, BUN 47 H, Creatinine 1.19 H, Estim Creat Clear Calc 34.83, Est GFR (MDRD) Af Amer 57 L, Est GFR (MDRD) Non-Af 47 L, BUN/Creatinine Ratio 39.5 H, Glucose 187 H, Calcium 11.5 H 11/27/19 14:00: Urine Color Yellow, Urine Clarity Clear, Urine pH 6.0, Ur Specific [place] 1.020, Urine Protein 100 H, Urine Glucose (UA) Normal, Urine Ketones Negative, Urine Occult Blood 150 H, Urine Nitrite Negative, Urine Bilirubin Negative, Urine Urobilinogen Normal, Ur Leukocyte Esterase Negative, Urine RBC 0-5 SEEN, Urine WBC 0-5 SEEN, Ur Squamous Epith Cells 0 SEEN, Ur Transition Epith Cell 0-5 SEEN, Urine Bacteria 0 SEEN, Hyaline Casts 5-10 SEEN, Fine Granular Casts 0-5 SEEN, Urine Mucus 0 SEEN 11/27/19 17:23: Sodium 147 H, Potassium 3.2 L, Chloride 124 H, Carbon Dioxide 17.0 L, Anion Gap 6, BUN 44 H, Creatinine 1.27 H, Estim Creat Clear Calc 32.64, Est GFR (MDRD) Af Amer 53 L, Est GFR (MDRD) Non-Af 44 L, BUN/Creatinine Ratio 34.6 H, Glucose 226 H, Calcium 11.3 H 11/28/19 05:08: Sodium 143, Potassium 3.5, Chloride 121 H, Carbon Dioxide 15.0 L, Anion Gap 7, BUN 36 H, Creatinine 0.98, Estim Creat Clear Calc 42.29, Est GFR (MDRD) Af Amer 72, Est GFR (MDRD) Non-Af 59 L, BUN/Creatinine Ratio 36.8 H, Glucose 135 H, Calcium 10.8 H 11/28/19 08:08: POC Glucose 102 Discharge Diet: No Restrictions Discharge Activity: Return to Normal Activity, May Shower, Use Walker Weight Bearing Status: Weight bearing as tolerated Call your doctor if you observe: Fever of 101 or Higher, Inability to urinate, Inability to have a bowel movement, Shortness of breath, Chest pain, Uncontrolled pain Home Medications: Medications to take at Discharge Carvedilol [Coreg] 3.125 mg PO BID 06/26/17 Levothyroxine [Synthroid] 12.5 mcg PO DAILY 06/26/17 Acetaminophen [Tylenol Tablet] 650 mg PO Q6H PRN PRN tab 11/25/19 Cephalexin [Keflex] 250 mg PO Q8 11/25/19 Nystatin 500,000 unit PO 4X/DAY 11/25/19 Atorvastatin Calcium 40 mg PO QHS 11/28/19 Bisacodyl [Dulcolax] 5 mg PO X1 PRN 11/28/19 Menthol/Lanolin/Calamine/Znox [Calmoseptine Ointment] 1 applic TOPICAL TID 11/28/19 Nystatin 1 ea MC BID 11/28/19 Pantoprazole Sodium [Protonix] 20 mg PO DAILY 11/28/19 Polyethylene Glycol 3350 [Miralax] 17 gm PO DAILY 11/28/19 Sennosides/Docusate Sodium [Senna-Docusate Sodium Tablet] 1 ea PO BID 11/28/19 Primary Care Physician: Leighton Sun MD [Primary Care Provider] - Please follow up with your Primary Care Physician in: 1 week. Disposition: Acute care Hospital Minutes spent on discharge:: 30 Patient Condition:: Guarded Medical Necessity - Tobacco Use Smoking Status: Unknown if ever smoked Tobacco Use: Non-smoker Meaningful Use Info Meaningful Use Diagnoses (Choose all that apply): None applicable
--- NOTE | 2019-11-29 15:54 | CASEMGMT ---
Social Work Reviewed and agreed with social work product management intern documentation on this date. Shayla Fairbanks, ACCOUNTING ASSISTANT OPHTHALMIC TECHNICIAN
--- NOTE | 2019-12-02 09:11 | MDS.RN ---
Information for the mds was obtained from review of the clinical record, interview of resident, staff, and direct observation of resident's care.
== END 2019-11-28 08:00 | disposition short-term general hospital (02) | DRG 690 ==
PROVIDERS: Admitting Provider Family Medicine Geriatric Medicine; PCP Family Medicine; Referring Provider Family Medicine Geriatric Medicine; Visit Provider Family Medicine Geriatric Medicine
DX: N39.0 Urinary tract infection, site not specified (principal); G91.2 (Idiopathic) normal pressure hydrocephalus; I50.42 Chronic combined systolic (congestive) and diastolic (congestive) heart failure; B96.20 Unspecified Escherichia coli [E. coli] as the cause of diseases classified elsewhere; E78.5 Hyperlipidemia, unspecified; I25.10 Atherosclerotic heart disease of native coronary artery without angina pectoris; K21.9 Gastro-esophageal reflux disease without esophagitis; B35.4 Tinea corporis; E03.9 Hypothyroidism, unspecified; I25.2 Old myocardial infarction; I11.0 Hypertensive heart disease with heart failure; M35.00 Sjogren syndrome, unspecified; I73.00 Raynaud's syndrome without gangrene; I27.20 Pulmonary hypertension, unspecified
CPT/HCPCS: 36415; 80048; 81001; 82962; 85025; 87086; 92526; 92610; 97110; 97162; 97166; 97530; 97535; 97802; J7030

== ENCOUNTER 2019-11-28 07:37 | Inpatient (IN) | payer MEDICARE, OTHER, SELFPAY ==
[2019-11-28] VITALS (19 sets, daily range): BP systolic 100–127; BP diastolic 62–96; PULSE 82–108; RESP 16–26; TEMP 36.3–37.5; O2SAT 95–99; BMI 27.5; BMI 25.3
--- NOTE | 2019-11-28 08:00 | RAD_ITS ---
STUDY: X-RAY CHEST REASON FOR EXAM: Female, 74 years old. CHEST PAIN, ELEVATED CHLORIDE AND DECREASED PO INTAKE. TECHNIQUE: Single AP portable view of the chest. COMPARISON: 10/19/2017 FINDINGS: Poor inspiration with some bibasilar atelectasis. Small bilateral pleural effusions cannot be excluded. Normal size heart. Normal mediastinum and chiquis. Normal visualized pulmonary arteries. Normal visualized aortic arch and descending thoracic aorta. Normal visualized thoracic spine. Normal visualized ribs, clavicles, and shoulders. There is no demonstrated abnormality of the visualized soft tissue structures of the upper abdomen. RAD/Chest 1 View (Portable) IMPRESSION: Poor inspiration with some bibasilar atelectasis. Electronically Signed: Kumar Ventura MD at 8:35 EST Tel , Service support ,
--- NOTE | 2019-11-28 08:00 | EKG12_ITS ---
Test Reason : GENERAL ILLNESS Blood Pressure : / mmHG Vent. Rate : 088 BPM Atrial Rate : 088 BPM P-R Int : 174 ms QRS Dur : 130 ms QT Int : 346 ms P-R-T Axes : 027 -68 132 degrees QTc Int : 418 ms Normal sinus rhythm Left axis deviation Non-specific intra-ventricular conduction block Inferior infarct , age undetermined Possible Anterolateral infarct , age undetermined Abnormal ECG Confirmed by XOCHITL SOMMER, REZA ([id number]), metallurgical tester LEIGHA RODRIGUEZ ([id number]) on 12/01/2019 1:55:23 PM Referred By: Leighton Jefferson Confirmed By:REZA LEUNG MD
--- NOTE | 2019-11-28 08:03 | ED.VISSUMM ---
- ER Visit Summary Date of Service: 11/28/19 Chief Complaint: Patient sent from the transitional care unit for evaluation for dehydration and decreased mental status. History of Present Illness: The patient is a 74 F who is unable to give any history. Her showed up shortly after her arrival. Tells me she has history of CAD with cardiac stent. Hypertension high cholesterol. She was on blood thinners been a GI bleed so this had to be stopped. He states she was recently functional at home may help care for but she was hospitalized for a urinary tract infection and one from the PCU and then now has been in the TCU. She normally is awake and alert. He denies any recent falls or head injury. Physical Examination: Alert female with eyes closed. She will open her eyes with sternal rub. She is unable to give any history. She does not really follow commands. Vital signs are stable and afebrile. Pulse ox is 96% on room air. H EENT exam with her eyes open pupils round reactive light. She is dry mucous membranes in her mouth. There is no signs of trauma to her face or scalp. Neck nontender. Lungs clear to auscultation. Heart regular rhythm rate about 105 no murmur. Chest were nontender. Abdomen soft nontender. Normal bowel sounds no peritoneal signs. Extremities are nontender. No edema. Neurologically her eyes are closed. She is decreased mental status. She does open her eyes from time to time. She will is not following commands or speaking. Test Results: X-ray shows what looks like bilateral pleural effusions. Versus atelectasis. Read both by myself and the radiologist portable 1 view. EKG sinus rhythm rate 88 no acute abnormality. CBC shows a white count of 3. Hemoglobin of 12. 69 segmental neutrophils 6% bands. Chemistries chloride 121. Normal sodium and potassium. Gap of 7. BUN of 37 creatinine 1 insistent with dehydration. Her INR is 2.1. UA negative except for blood troponin slightly elevated 0.275 but she has been higher than that in the past. Lactic acid is 2.3. Her ABG showed a pH of 7.36 PCO2 22 PO2 of 94 and a bicarb of 12. Urine and blood cultures are pending. She is receiving IV fluids in the emergency department Emergency Department Course and Treatment: Patient was likely dehydrated. She may have an infection. Versus a multitude of other etiologies. She will need to be readmitted. She will be treated with IV fluids. Undergo a septic work-up. She is a full go at this time. If she gets worse she may need intubation but not at this time. Treatment Plan: Repeat exam really no significant change. Patient's eyes are open. Clinically does not look well. I discussed all test results with the family. She will be admitted to the hospitalist. I am going to cover the patient with Zosyn. Disposition: Admission to the ICU and I have already spoken to the hospitalist Dr. Leighton Jefferson Impression: Acute decreased mental status Severe sepsis Acute dehydration Bilateral pleural effusions. Electrolyte abnormalities Elevated lactic acid. This note was generated with [employer] dictation software. It may contain incorrect words, spelling, and punctuation that were not noted in review of the chart prior to signing ED Disposition - Plan for ED Patient: Referrals: Cuba Gr Chi, MD [Primary Care Provider] -
[2019-11-28] MEDS: 0.9% Normal Saline 1,000 ML 1000 ML IV (08:16)
[2019-11-28 08:26] LABS: Anion Gap 7 (5-15); BUN 37 mg/dL (7-18); BUN/Creat Ratio 35.6 RATIO (10-20); Calcium,Total 11.6 mg/dL (8.5-10.1); Chloride 121 mmol/L (98-107); Creatinine, Serum 1.04 mg/dL (0.55-1.02); EST Glomerular Filtration Rate 55 mL/min (>60); Est Glom Filt Rate - Afr Amer 67 mL/min (>60); Estimated Creatinine Clearance 43.35 ml/min; Glucose 118 mg/dL (74-106); Potassium 3.8 mmol/L (3.5-5.1); Sodium Level 144 mmol/L (136-145)
[2019-11-28 08:31] LABS: Allen Test POS; Base Excess -13 mmol/L (-2 to +2); Bicarbonate 12.7 mmol/L (22-26); Blood Gas Specimen Type ART; O2 Delivery Device Nasal Can; PO2 94 mmHG (75-100); SITE L Radial; SO2 97 % (95-99); Time Given 822; Total Carbon Dioxide 13 mmol/L; pCO2 22.3 mmHg (35-45); pH 7.37 (7.35-7.45)
[2019-11-28 08:33] LABS: White Blood Count 3.2 K/mm3 (4.4-11.0)
[2019-11-28 08:34] LABS: Differential Indicated MANUAL DIFF; Hematocrit 35.8 % (37-47); International Normalized Ratio 2.1; Mean Corp Hgb Conc 33.5 g/dL (32-36); Mean Corpuscular Volume 80.4 fL (81-99); POSITIVE COUNT YES; POSITIVE DIFFERENTIAL YES; POSITIVE MORPHOLOGY YES; Platelet Count 57 K/mm3 (150-450); Prothrombin Time (Protime)PT. 23.5 SECONDS (11.7-14.9); RBC Distribution Width CV 16.1 % (11.6-14.6); RBC Distribution Width SD 46.4 fl (35.1-43.9); Red Blood Count 4.45 M/mm3 (4.2-5.4)
[2019-11-28 08:36] LABS: Lactic Acid 2.3 mmol/L (0.4-1.9)
[2019-11-28 08:39] LABS: NRBC Flagged by Analyzer 0 % (0-5)
[2019-11-28 08:41] LABS: Bacteria 0 SEEN /hpf (None Seen); Mucous, Urine 0 SEEN /hpf (<or=2+)
[2019-11-28 08:44] LABS: Color, Urine Yellow (Yellow); Glucose, Dipstick Normal (Normal); Ketone-Dipstick Negative (Negative); Leukocyte Esterase-Dipstick Negative /ul (Negative); Nitrite-Dipstick Negative (Negative); Occult Blood-Urine 150 /ul (Negative); Protein-Dipstick 100 mg/dl (Negative); Urine Bilirubin Dipstick Negative (Negative); Urine Clarity Clear (Clear); Urine Urobilinogen Normal (Normal)
[2019-11-28 08:53] LABS: Neutrophil-Band 6 % (0-5); Neutrophil-Segmented 69 % (47-70); Total Cells Counted 100 (MANUAL DIFF)
[2019-11-28 08:54] LABS: Eosinophil 3 % (0-5); Lymphocyte 10 % (19-41); Metamyelocyte 1 % (0-1); Monocyte 7 % (0-10); Myelocyte 4 (0-0)
[2019-11-28 08:56] LABS: Absolute Lymphocyte Count 0.32 X10^3/uL (0.83-4.51); Absolute Neutrophil Count 2.4 X10^3/uL (2.0-7.7)
[2019-11-28 09:00] LABS: Red Cell Morphology NORM C+C NORMAL (NORM C&C)
[2019-11-28 09:01] LABS: Platelet Estimate MOD DEC (ADEQ)
[2019-11-28 09:06] LABS: Amorphous Sediment 1+; Red Blood Cells-Urine 5-10 SEEN /hpf (0-5); Squamous Epithelial Cells - UA 0-5 SEEN /hpf (5-10); White Blood Cells 0-5 SEEN /hpf (0-5)
--- NOTE | 2019-11-28 10:35 | NURSING ---
ICU ALEJANDRA SEVERE SEPSIS, MENTAL STATUS CHANGE, ELECTROLYTE ABNORMALITIES
--- NOTE | 2019-11-28 10:42 | NURSING ---
[facility] 203
[2019-11-28 12:06] LABS: Reflex Lactate? Y
[2019-11-28] MEDS: 0.9% Normal Saline 1,000 ML 150 ML IV (13:03)
--- NOTE | 2019-11-28 13:19 | PCM.HP.STD ---
Problem List (1) Severe sepsis Status: Acute History of Present Illness Date of Admission: 11/28/19 Chief Complaint: lethargy The patient is a 74 year old F presents with decreased mental status from the transitional care unit. Patient was just discharged from the hospital with an E. coli UTI, acute kidney injury and debility. Patient was transferred to the transitional care unit where patient had some loose a day on Friday per but then just became more withdrawn, lethargic and decreased oral intake. Sent to the emergency room and was diagnosed with severe sepsis questionable right lower lobe infiltrate. Patient was started on Pipracil and/tazobactam. Patient is a poor historian and unable to provide any history so history obtained through emergency room physician as well as the patient's at bedside. pulled me aside and was inquiring about CODE STATUS. He want the patient DNR comfort care. He did not want the patient to receive medications and to be comfortable. [] Past Medical History Past Medical History (Chronic Problems): Chronic Problems (Last Reviewed 07/30/19 @ 15:12 by KUN Gallardo) NSTEMI (non-ST elevated myocardial infarction) (Chronic) Hypertension (Chronic) Presence of stent in coronary artery (Chronic ~07/17/17) PTCA/SILVIA of the prox posterolateral branch of LCX, PTCA/SILVIA of the ostial OM1, and PTCA/SILVIA of the prox LAD 07/17/17 Ischemic cardiomyopathy (Chronic) Essential hypertension (Chronic) GERD (gastroesophageal reflux disease) (Chronic) Tinea corporis (Chronic) Hypothyroidism (Chronic) Hyperlipidemia (Chronic) Iron deficiency anemia (Chronic) Chronic diastolic heart failure (Chronic) Lung nodule (Chronic) Hypercalcemia (Chronic) Normal pressure hydrocephalus (Chronic) Nonrheumatic mitral valve insufficiency (Chronic) Pulmonary hypertension (Chronic) Atherosclerosis of [place] coronary artery of [place] heart without angina pectoris (Chronic) PTCA/SILVIA to LCx, OM #1, and LAD in July 2017; Syncope and collapse (Chronic) Dysphagia (Chronic) Sjogrens syndrome (Chronic) Raynaud disease (Chronic) Medical History: Medical History (Last Reviewed 11/28/19 @ 13:[address] Leighton Jefferson, DO) Presence of stent in coronary artery (Chronic) Onset Date: ~07/17/17 Z95.5 PTCA/SILVIA of the prox posterolateral branch of LCX, PTCA/SILVIA of the ostial OM1, and PTCA/SILVIA of the prox LAD 07/17/17 Ischemic cardiomyopathy (Chronic) I25.5 Essential hypertension (Chronic) I10 Protein malnutrition (Resolved) E46 Closed right hip fracture (Acute) S72.001A GERD (gastroesophageal reflux disease) (Chronic) K21.9 Tinea corporis (Chronic) B35.4 Hypothyroidism (Chronic) E03.9 Hyperlipidemia (Chronic) E78.5 Iron deficiency anemia (Chronic) D50.9 Chronic diastolic heart failure (Chronic) I50.32 Lung nodule (Chronic) R91.1 Cervical lymphadenopathy (Acute) R59.0 Hypercalcemia (Chronic) E83.52 Normal pressure hydrocephalus (Chronic) G91.2 Nonrheumatic mitral valve insufficiency (Chronic) I34.0 Pulmonary hypertension (Chronic) I27.20 Atherosclerosis of [place] coronary artery of [place] heart without angina pectoris (Chronic) I25.10 PTCA/SILVIA to LCx, OM #1, and LAD in July 2017; Syncope and collapse (Chronic) R55 Bradycardia (Acute) R00.1 Anemia (Resolved) D64.9 Dysphagia (Chronic) R13.10 Weakness (Acute) R53.1 Sjogrens syndrome (Chronic) M35.00 Raynaud disease (Chronic) I73.00 Abnormal cardiac enzyme level (Acute) R74.8 NSTEMI (non-ST elevated myocardial infarction) (Acute) I21.4 Anemia D64.9 Asteatosis cutis L85.3 Atherosclerotic heart disease of [place] coronary artery without angina pectoris I25.10 PTCA/SILVIA of the prox Lt posterolateral branch of LCX, PTCA/SILVIA of the ostial OM1, PTCA/SILVIA of the prox LAD 07/17/2017. [facility]: 04/01/2017 Body mass index (BMI) of 23.0-23.9 in adult Z68.23 Cardiomyopathy I42.9 Chronic pancreatitis K86.1 Chronic systolic congestive heart failure I50.22 Difficulty swallowing R13.10 Mitral regurgitation and mitral stenosis I05.2 Primary Sjogren's syndrome M35.00 Pulmonary hypertension I27.20 Acute awr-TV-grcnhgpmt myocardial infarction I21.4 Flash pulmonary edema (Resolved) J81.0 Hypoxia (Resolved) R09.02 Pleural effusion J90 Poor fluid intake (Resolved) R63.8 Right upper quadrant pain R10.11 Thrush B37.0 CAD (coronary artery disease) (Inactive) I25.10 Cardiomyopathy (Inactive) I42.9 Hypertension (Inactive) I10 Percutaneous transluminal coronary angioplasty (PTCA) within last 14 to 24 months (Inactive) Z98.61 Allergies povidone-iodine [From Betadine] Allergy (Mild, Verified 11/28/19 07:39) Rash soap [From Betadine] Allergy (Mild, Verified 11/28/19 07:39) Rash cat dander Allergy (Verified 11/28/19 07:39) sneezing, runny nose codeine [From Tylenol-Codeine] Allergy (Verified 11/28/19 07:39) Rash dog dander Allergy (Verified 11/28/19 07:39) sneezing, runny nose Home Medications: Ambulatory Orders Medication Instructions Recorded Carvedilol [Coreg] 3.125 mg PO BID 06/26/17 Levothyroxine [Synthroid] 12.5 mcg PO DAILY 06/26/17 Acetaminophen [Tylenol Tablet] 650 mg PO Q6H PRN PRN tab 11/25/19 Cephalexin [Keflex] 250 mg PO Q8 11/25/19 Nystatin 500,000 unit PO 4X/DAY 11/25/19 Atorvastatin Calcium 40 mg PO QHS 11/28/19 Bisacodyl [Dulcolax] 5 mg PO X1 PRN 11/28/19 Menthol/Lanolin/Calamine/Znox 1 applic TOPICAL TID 11/28/19 [Calmoseptine Ointment] Nystatin 1 ea MC BID 11/28/19 Pantoprazole Sodium [Protonix] 20 mg PO DAILY 11/28/19 Polyethylene Glycol 3350 [Miralax] 17 gm PO DAILY 11/28/19 Sennosides/Docusate Sodium 1 ea PO BID 11/28/19 [Senna-Docusate Sodium Tablet] Surgical History: Surgical History (Last Reviewed 11/28/19 @ 13:[address] Leighton Jefferson, DO) history of peg removal History of left heart catheterization (LHC) Z98.890 LHC: 04/01/2017 Presence of coronary angioplasty implant and graft Onset Date: ~07/17/17 Z95.5 PTCA/SILVIA of the prox posterolateral branch of LCX, PTCA/SILVIA of the ostial OM1, and PTCA/SILVIA of the prox LAD 07/17/17 H/O bilateral breast reduction surgery Z98.890 H/O bladder repair surgery Z98.890 History of hysterectomy Z90.710 History of tonsillectomy Z90.89 S/P percutaneous endoscopic gastrostomy (PEG) tube placement Z93.1 S/P rotator cuff repair Z98.890 S/P thoracentesis Z98.890 H/O heart artery stent Z95.5 PTCA/SILVIA of the prox Lt posterolateral branch of LCX, PTCA/SILVIA of the ostial OM1, PTCA/SILVIA of the prox LAD 07/17/2017. S/P PTCA (percutaneous transluminal coronary angioplasty) (Inactive) Z98.61 Surgical History: angioplasty - Stents x 3., cataract, hysterectomy, rotator cuff repair, total hip arthroplasty - Right hemiarthroplasty., tonsillectomy, - - vein surgery on the back of her leg, breast reduction, Gastrostomy tube. Psychiatric History: No pertinent psych hx RESIDENT MEDICAL OFFICER History: No pertinent RESIDENT MEDICAL OFFICER history Smoking Status: Unknown if ever smoked - *Family History Maternal Family History: Family History (Last Reviewed 07/30/19 @ 15:12 by KUN Gallardo) Mother Cancer Father Heart disease Cancer of kidney Brother Cancer History Items: Cancer Paternal Family History: Family History (Last Reviewed 07/30/19 @ 15:12 by KUN Gallardo) Mother Cancer Father Heart disease Cancer of kidney Brother Cancer History Items: Heart Disease Review of Systems Comment: Review of systems is unable to be adequately obtained as the patient is very lethargic. Please refer to the HPI for further details. VTE Information - Inpt Only VTE Present on Admission: No VTE Mechan Device Prophylaxis: None VTE Pharm Prophylaxis ordered?: No Reason prophylaxis not ordered:: Hospice Care Patient Problems: Active and Suspected Problems (Last Reviewed 07/30/19 @ 15:12 by KUN Gallardo) Severe sepsis (Acute) - Physical Exam Vitals/I&O's: Vital Signs Temp Pulse Resp BP Pulse Ox 36.7 C 86 24 H 106/88 H 99 11/28/19 11:28 11/28/19 10:38 11/28/19 10:38 11/28/19 10:38 11/28/19 10:38 Oxygen Flow Rate (L/min) 2 Oxygen Delivery Method Nasal Cannula Weight: 69 kg Body Mass Index (BMI) 25.3 Finger Stick Blood Glucose 102 Intake and Output for Last 24 Hours 11/26/19 11/27/19 11/28/19 23:59 23:59 23:59 Intake Total 1100 / 1100 Balance 1100 / 1100 General: - - Lying in bed. Coarse audible respirations. HEENT: Atraumatic, Normocephalic Oral: Moist Mucosa, No Gingival or Mucosal Lesions/ Ulcerations Neck: No Nodes, Trachea Midline Lungs: Normal air movement, - - Coarse breath sounds bilaterally Cardiovascular: Regular rate, Regular Rhythm, Normal S1, Normal S2, No murmurs Abdomen: Bowel Sounds Present, Soft, Non Tender, Non-Distended, No Hepato-splenomegaly Extremities: No edema, No Calf Tenderness Musculoskeletal: No Tenderness to Palpation of Joints or Extremities, No Muscle Wasting Neurological: Deep Tendon Reflexes 2+/4 and Symmetrical, - - No clonus Psych/Mental Status: Flat Affect Laboratory Results 11/28/19 07:55: WBC Cancelled, Corrected WBC Cancelled, RBC Cancelled, Hgb Cancelled, Hct Cancelled, MCV Cancelled, MCH Cancelled, MCHC Cancelled, RDW Std Deviation Cancelled, RDW Coeff of Maciel Cancelled, Plt Count Cancelled, MPV Cancelled, Immature Gran % (Auto) Cancelled, Neut % (Auto) Cancelled, Lymph % (Auto) Cancelled, [place] % (Auto) Cancelled, Eos % (Auto) Cancelled, Baso % (Auto) Cancelled, Absolute Neuts (auto) Cancelled, Absolute Lymphs (auto) Cancelled, Total Counted Cancelled, Neutrophils % (Manual) Cancelled, Band Neutrophils % Cancelled, Lymphocytes % (Manual) Cancelled, Monocytes % (Manual) Cancelled, Eosinophils % (Manual) Cancelled, Basophils % (Manual) Cancelled, Metamyelocytes % Cancelled, Myelocytes % Cancelled, Promyelocytes % Cancelled, Blast Cells % Cancelled, Plasma Cell % (Manual) Cancelled, Other Cells % Cancelled, Nucleated RBC % Cancelled, Nucleated RBCs/100 WBC Cancelled, Differential Comment Cancelled, Diff Path Review Cancelled, Hypersegmented Neuts Cancelled, Atypical Lymphocytes Cancelled, Reactive Lymphocytes Cancelled, Smudge Cells Cancelled, Toxic Granulation Cancelled, Toxic Vacuolation Cancelled, Dohle Bodies Cancelled, Purnima Rods Cancelled, Platelet Estimate Cancelled, Plt Morphology Comment Cancelled, RBC Morphology Cancelled, Polychromasia Cancelled, Hypochromasia Cancelled, Poikilocytosis Cancelled, Basophilic Stippling Cancelled, Anisocytosis Cancelled, Microcytosis Cancelled, Macrocytosis Cancelled, Spherocytes Cancelled, Sickle Cells Cancelled, Target Cells Cancelled, Tear Drop Cells Cancelled, Ovalocytes Cancelled, Stomatocytes Cancelled, [place] Bodies Cancelled, [place] Cells Cancelled, Bite Cells Cancelled, Crenated Cell Cancelled, Acanthocytes (Spur) Cancelled, Rouleaux Cancelled, Schistocytes Cancelled 11/28/19 07:55: PT 23.5 H, INR 2.1 11/28/19 07:55: Sodium 144, Potassium 3.8, Chloride 121 H, Carbon Dioxide 16.0 L, Anion Gap 7, BUN 37 H, Creatinine 1.04 H, Estim Creat Clear Calc 43.35, Est GFR (MDRD) Af Amer 67, Est GFR (MDRD) Non-Af 55 L, BUN/Creatinine Ratio 35.6 H, Glucose 118 H, Calcium 11.6 H, Troponin I 0.275 H 11/28/19 07:55: Lactic Acid 2.3 H* 11/28/19 07:55: WBC 3.2 L, RBC 4.45, Hgb 12.0, Hct 35.8 L, MCV 80.4 L, MCH 27.0, MCHC 33.5, RDW Std Deviation 46.4 H, RDW Coeff of Maciel 16.1 H, Plt Count 57 L, Neut % (Auto) Not Reportable, Absolute Neuts (auto) 2.4, Absolute Lymphs (auto) 0.32 L, Total Counted 100, Neutrophils % (Manual) 69, Band Neutrophils % 6 H, Lymphocytes % (Manual) 10 L, Monocytes % (Manual) 7, Eosinophils % (Manual) 3, Metamyelocytes % 1, Myelocytes % 4 H, Nucleated RBC % 0, Diff Path Review May foll, Platelet Estimate MOD DEC, RBC Morphology NORM C+C 11/28/19 08:26: Specimen Type ART, Sample Site L Radial, pH 7.37, Bicarbonate Actual 12.7 L, POC Total CO2 13, Base Excess -13 L, O2 Saturation 97, ABG pCO2 22.3 L, ABG pO2 94, Syed Test POS, O2 Delivery Device Nasal Can, Liter Flow 2.0, Blood Gas Notified Whom ED , Blood Gas Notified Time 822 11/28/19 08:30: Urine Color Yellow, Urine Clarity Clear, Urine pH 6.0, Ur Specific [place] 1.020, Urine Protein 100 H, Urine Glucose (UA) Normal, Urine Ketones Negative, Urine Occult Blood 150 H, Urine Nitrite Negative, Urine Bilirubin Negative, Urine Urobilinogen Normal, Ur Leukocyte Esterase Negative, Urine RBC 5-10 SEEN, Urine WBC 0-5 SEEN, Ur Squamous Epith Cells 0-5 SEEN, Amorphous Sediment 1+, Urine Bacteria 0 SEEN, Urine Mucus 0 SEEN Chest x-ray personally reviewed and showed linear right lower lobe infiltrate versus atelectasis Current Medications Acetaminophen (Tylenol) 650 mg PO Q6H PRN PRN PRN Reason: Pain Score 1-10/Temp > 100.7 F Albuterol Sulfate (Ventolin Aerosols) 2.5 mg INHALATION Q2H PRN PRN PRN Reason: SOB/Wheezing Albuterol/Ipratropium (Duoneb) 3 ml INHALATION Q4H.RT SANA Atorvastatin Calcium (Lipitor) 40 mg PO QHS SANA Carvedilol (Coreg) 3.125 mg PO BID [facility] Dextrose (D50w Syringe) 0 gm IV X1 PRN; Protocol PRN Reason: Hypoglycemia Glucagon () 1 mg IM .X1 PRN PRN Reason: Hypoglycemia Guaifenesin (Mucinex) 1,200 mg PO BID [facility] Sodium Chloride () 250 mls @ 15 mls/hr IV .[id number] PRN PRN Reason: Saline Flush Sodium Chloride () 250 mls @ 15 mls/hr IV .[id number] PRN PRN Reason: Additional IVPB Infusion Sodium Chloride () 1,000 mls @ 150 mls/hr IV .Q6H40M [facility] Stop: 11/28/19 19:10 Last Admin: 11/28/19 13:03 Dose: 150 mls/hr Documented by: Piperacillin Sod/Tazobactam (Sod 3.375 gm/ Sodium Chloride) 50 mls @ 12.5 mls/hr IV Q8 [facility] Stop: 12/05/19 14:01 Last Admin: 11/28/19 13:03 Dose: 12.5 mls/hr Documented by: Levothyroxine Sodium (Synthroid) 12.5 mcg PO DAILY@0600 [facility] Nystatin (Nystatin) 500,000 unit PO 4X/DAY [facility] Stop: 12/04/19 18:01 Ondansetron HCl (Zofran) 4 mg IV Q8H PRN PRN PRN Reason: NAUSEA/VOMITING Pantoprazole Sodium (Protonix) 20 mg PO DAILY [facility] Senna/Docusate Sodium (Senokot-S, Jessica-Colace) 1 tablet PO BID [facility] Sodium Chloride () 10 - 40 ml IV UD PRN PRN Reason: SALINE FLUSH Assessment/Plan All Active Problems (Last Reviewed 07/30/19 @ 15:12 by KUN Gallardo) Debility (Acute) Acute kidney injury (Acute) Dehydration (Acute) Toxic encephalopathy (Acute) Hypotension (Acute) Thrush (Acute) T12 compression fracture (Acute) Severe sepsis (Acute) Urinary tract infection (Acute) Severe sepsis (Acute) Lactic acidosis (Acute) Acute renal insufficiency (Acute) Protein malnutrition (Resolved) Closed right hip fracture (Acute) Cervical lymphadenopathy (Acute) Bradycardia (Acute) Anemia (Resolved) Weakness (Acute) Abnormal cardiac enzyme level (Acute) NSTEMI (non-ST elevated myocardial infarction) (Acute) Flash pulmonary edema (Resolved) Hypoxia (Resolved) Poor fluid intake (Resolved) Assessment 1. Severe sepsis, secondary to suspected pneumonia. Lactic acid elevated at 2.3 2. Suspected gram-negative pneumonia: Patient at risk given her recent hospitalizations could also be aspiration 3. Possible disseminated intravascular coagulation: Patient had thrombocytopenia plus coagulopathy with an INR of 2.1. 4. Normal pressure hydrocephalus: As mentioned previously not sure if this is truly her underlying diagnosis of it or if it some other neurodegenerative process. Plan: Discussed with the patient's and he wishes for the patient to be DNR comfort care. He does not want any additional testing nor additional antibiotics. Plan is to continue with palliative measures and will transition the patient over to a medical surgical floor we were we will focus on symptom management. Consult hospice Advanced care planning: Spent additional 20 minutes discussing with the patient about advanced directives. He pulled me aside 1 discuss CODE STATUS. He immediately stated that he wanted the patient comfortable and to be DNR comfort care. Spent time to differentiate DNR Comfort Care arrest and DNR comfort care. I told him that I could not say definitively that that the patient would improve with antibiotics and treatment but I suspected that she might. But I did also acknowledge that, given her history, that if she were to pull through this that she may be worse off. Patient is stated to her daughter which related to the patient's that she did not want to be in this chronic condition. So he wanted the patient DNR comfort care and to de-escalate therapy after my discussing that with him. He noted hesitation with hospice as patient has worked with hospice before and was very difficult for her. Explained that that would be really the mode of therapy to go with to focus on symptom control. Told him that we could have hospice talk with him first before touching base with anyone else so that he can get a benites understanding of what their services are. He was in agreement to that. Code Visit Inpatient E&M: 32861 Init Hosp L3 Procedures: 76917 Advncd Care Plan 30 Min
[2019-11-29 06:33] VITALS: BP 118/91; PULSE 91; RESP 20; TEMP 36.8; O2SAT 98
[2019-11-29 08:53] VITALS: PULSE 90
--- NOTE | 2019-11-29 09:48 | CASEMGMT ---
Social Work Note RN updated this worker that pt's is present at [facility] and requesting to speak to Hospice. SW placed a call to [facility] and provided Hospice referral to Rosaura. JAYJAY faxed referral. Plan: Hospice to meet with pt and pt's Mercedez Giles DRAMA CRITIC, FOUNTAIN HELPER
--- NOTE | 2019-11-29 10:00 | PCM.PN.HOSP ---
Patient Problems: Active and Suspected Problems (Last Reviewed 11/28/19 @ 13:[address] Leighton Jefferson, DO) Severe sepsis (Acute) Reason for Visit: Follow-up severe sepsis suspected DIC Subjective: Patient is a 74-year-old lady transferred from the transitional care unit. She had recently been on admission for E. coli. She was sent to the emergency department in view of severe sepsis. There was questionable right lower lobe infiltrate with subsequent severe sepsis and DIC admitted to regular nursing floor CODE STATUS changed to DNR CC. Consult has been placed to the hospice team for evaluation. Objective: GENERAL: Lethargic HEENT dry oral mucosa EYES; Anicteric, Normal Conjunctiva NECK; supple, normal thyroid, RESPIRATORY: Diminished to auscultation CARDIOVASCULAR: Regular S1 S2, GI: soft, normoactive bowel sounds, : No Renal angle tenderness; EXTREMITIES: No edema, no clubbing, MUSCULOSKELETAL: no muscle waisting NEURO: Awake; no lateralizing signs. SKIN: No Rash PSYCH; Flat affect Vitals/I&O's: Vital Signs Temp Pulse Resp BP Pulse Ox 98.3 F 90 20 H 118/91 H 98 11/29/19 06:33 11/29/19 08:53 11/29/19 06:33 11/29/19 06:33 11/29/19 06:33 Oxygen Flow Rate (L/min) 2 Oxygen Delivery Method Room Air Weight: 69 kg Body Mass Index (BMI) 25.3 Finger Stick Blood Glucose 102 Intake and Output for Last 24 Hours 11/27/19 11/28/19 11/29/19 23:59 23:59 23:59 Intake Total 2150 / 2150 0 / 0 Output Total 500 / 800 750 / 750 Balance 1650 / 1350 -750 / -750 Current Medications Acetaminophen (Tylenol) 650 mg PO Q6H PRN PRN PRN Reason: Pain Score 1-10/Temp > 100.7 F Albuterol Sulfate (Ventolin Aerosols) 2.5 mg INHALATION Q2H PRN PRN PRN Reason: SOB/Wheezing Lorazepam (Ativan Intensol) 1 mg SL Q4H PRN PRN PRN Reason: ANXIETY Morphine Sulfate (Roxanol (Ir Oral Solution)) 10 mg SL/PO Q1H PRN PRN PRN Reason: Pain Score 6-10/10, SOB Ondansetron HCl (Zofran) 4 mg IV Q8H PRN PRN PRN Reason: NAUSEA/VOMITING STROKE Vital Signs/Narrative: Vital Signs Temp Pulse Resp BP Pulse Ox 11/29/19 08:53 90 11/29/19 06:33 98.3 F 91 20 H 118/91 H 98 Medical Necessity - Tobacco Use Smoking Status: Unknown if ever smoked Assessment/Plan All Active Problems (Last Reviewed 11/28/19 @ 13:[address] Leighton Jefferson, DO) Debility (Acute) Acute kidney injury (Acute) Dehydration (Acute) Toxic encephalopathy (Acute) Hypotension (Acute) Thrush (Acute) T12 compression fracture (Acute) Severe sepsis (Acute) Urinary tract infection (Acute) Severe sepsis (Acute) Lactic acidosis (Acute) Acute renal insufficiency (Acute) Protein malnutrition (Resolved) Closed right hip fracture (Acute) Cervical lymphadenopathy (Acute) Bradycardia (Acute) Anemia (Resolved) Weakness (Acute) Abnormal cardiac enzyme level (Acute) NSTEMI (non-ST elevated myocardial infarction) (Acute) Flash pulmonary edema (Resolved) Hypoxia (Resolved) Poor fluid intake (Resolved) Patient is a 74-year-old lady transferred from the transitional care unit. She had recently been on admission for E. coli. She was sent to the emergency department in view of severe sepsis. There was questionable right lower lobe infiltrate with subsequent severe sepsis and DIC admitted to regular nursing floor CODE STATUS changed to DNR CC. 1. Sepsis 2. Suspected DIC 3. Suspected pneumonia aspiration versus possible gram-negative pneumonia 4. Sjogren's syndrome 5. Hypothyroidism 6. Dyslipidemia 7. Essential hypertension 8. Coronary artery disease with previous stent placement 9. Ischemic cardiomyopathy 10. Pulmonary hypertension. Patient admitted to regular nursing floor for symptomatic management with consultation placed to hospice care. Did go over patient's condition with patient's . Code Visit Inpatient E&M: 52761 Subs Hosp L2
--- NOTE | 2019-11-29 10:25 | CASEMGMT ---
Social Work Note SW received message from Rosaura at [facility] stating Hospice will be at [facility] at 11:30am to meet with pt and pt's . Rosaura states pt was asking about taking pt home at discharge. RN updated. Plan: Hospice meeting at 11:30am today Mercedez Giles EXPRESSIVE THERAPIST, BURGLAR ALARM INSPECTOR
--- NOTE | 2019-11-29 11:00 | CASEMGMT ---
Addendum entered by Mercedez Giles 11/29/19 14:33: SW placed a call to [facility] in TCU and left message that pt went home with hospice today. Addendum entered by Mercedez Giles 11/29/19 14:27: Pt discharged home with Hospice. JAYJAY faxed discharge paperwork to [facility], wrote on fax coversheet that pt discharged home today with Hospice. Plan: Pt discharged home with Hospice services Original Note: Social Work Note RN updated this worker that pt's Arnold is requesting to speak to this worker. JAYJAY met with Arnold and introduced self and role at [facility]. Arnold asked this worker if he can take pt home with Hospice. JAYJAY informed pt that when pt and Arnold meet with Hospice, Hospice will be able to go over all of their services and if everyone feels going home with Hospice is appropriate then pt can go home with Hospice services. JAYJAY explained different options of going with Hospice including going home with Hospice, going to inpatient hospice (if pt qualifies) or going to [facility] with Hospice. JAYJAY then spoke with Arnold regarding Medicaid. Arnold asked if there are medicaid specialist. JAYJAY informed Arnold that this worker is not sure about any medicaid specialist but informed pt that he would need to follow up with [employer] [facility] [employer] in regards to Medicaid. Arnold asked this worker who Dr. Gr reports to as he would like to speak to his boss regarding pt's stay at [facility]. JAYJAY informed pt that this worker is not sure but can provide pt with Patient Advocate phone number and calling the Patient Advocate would be a good place to start. Arnold also asked about pt being an organ donor and asked this worker if pt's organs are still good. JAYJAY informed pt that that would be a better question for [facility]. Arnold then states that [facility] Staff badges should have the roles and names of the staff on both sides of the badges and bigger. JAYJAY again informed pt that he can voice any concerns or issues to the patient advocate. Arnold states understanding. JAYJAY provided pt with Patient Advocate phone number. Plan: Hospice meeting at 11:30pm Mercedez MATTHEWS, CONE MACHINE FEEDER
--- NOTE | 2019-11-29 12:54 | DCINST_ITS ---
- Discharge Diagnoses Current Active Problems: Current Active and Chronic Problems (Last Reviewed 11/28/19 @ 13:[address] Leighton Jefferson DO) Severe sepsis (Acute) You will use the following diet at home:: No restrictions Allergies/Adverse Reactions: Allergies povidone-iodine [From Betadine] Allergy (Mild, Verified 11/28/19 07:39) Rash soap [From Betadine] Allergy (Mild, Verified 11/28/19 07:39) Rash cat dander Allergy (Verified 11/28/19 07:39) sneezing, runny nose codeine [From Tylenol-Codeine] Allergy (Verified 11/28/19 07:39) Rash dog dander Allergy (Verified 11/28/19 07:39) sneezing, runny nose Medications to take at Discharge Acetaminophen [Tylenol Tablet] 650 mg PO Q6H PRN PRN tab 11/25/19 Bisacodyl [Dulcolax] 5 mg PO X1 PRN 11/28/19 Primary Care Physician: Cuba Gr Chi, MD [Primary Care Provider] - Test Results: Test results from this visit will be discussed in further detail at your follow- up appointment, if applicable. Proposed Discharge Date: 11/29/19
--- NOTE | 2019-11-29 13:01 | DS.PCM_ITS ---
Discharge Date and Diagnosis - Problem List Patient Problems: Active and Suspected Problems (Last Reviewed 11/28/19 @ 13:[address] Leighton Jefferson DO) Severe sepsis (Acute) Date of Admission: 11/28/19 Date of Discharge: 11/29/19 - Primary Discharge Diagnosis Active and Suspected Problems (Last Reviewed 11/28/19 @ 13:[address] Leighton Jefferson DO) Severe sepsis (Acute) - Secondary Discharge Diagnosis Chronic Problems (Last Reviewed 11/28/19 @ 13:[address] Leighton Jefferson DO) NSTEMI (non-ST elevated myocardial infarction) (Chronic) Hypertension (Chronic) Presence of stent in coronary artery (Chronic ~07/17/17) PTCA/SILVIA of the prox posterolateral branch of LCX, PTCA/SILVIA of the ostial OM1, and PTCA/SILVIA of the prox LAD 07/17/17 Ischemic cardiomyopathy (Chronic) Essential hypertension (Chronic) GERD (gastroesophageal reflux disease) (Chronic) Tinea corporis (Chronic) Hypothyroidism (Chronic) Hyperlipidemia (Chronic) Iron deficiency anemia (Chronic) Chronic diastolic heart failure (Chronic) Lung nodule (Chronic) Hypercalcemia (Chronic) Normal pressure hydrocephalus (Chronic) Nonrheumatic mitral valve insufficiency (Chronic) Pulmonary hypertension (Chronic) Atherosclerosis of [place] coronary artery of [place] heart without angina pectoris (Chronic) PTCA/SILVIA to LCx, OM #1, and LAD in July 2017; Syncope and collapse (Chronic) Dysphagia (Chronic) Sjogrens syndrome (Chronic) Raynaud disease (Chronic) Hospital Course and Treatment Operations: None Summary of Care Provided: Patient is a 74-year-old lady transferred from the transitional care unit. She had recently been on admission for E. coli. She was sent to the emergency department in view of severe sepsis. There was questionable right lower lobe infiltrate with subsequent severe sepsis and DIC admitted to regular nursing floor CODE STATUS changed to DNR CC. 1. Sepsis 2. Suspected DIC 3. Suspected pneumonia aspiration versus possible gram-negative pneumonia 4. Sjogren's syndrome 5. Hypothyroidism 6. Dyslipidemia 7. Essential hypertension 8. Coronary artery disease with previous stent placement 9. Ischemic cardiomyopathy 10. Pulmonary hypertension. Patient admitted to regular nursing floor for symptomatic management with consultation placed to hospice care. Patient was seen and evaluated by the hospice service discharged home with hospice Patient Problems: Active and Suspected Problems (Last Reviewed 11/28/19 @ 13:[address] Leighton Jefferson, DO) Severe sepsis (Acute) Objective: GENERAL:lethargic HEENT: Atraumatic; EYES; Anicteric, Normal Conjunctiva NECK; supple, normal thyroid, SKIN: No Rash PSYCH; Flat affect - Physical Exam Vitals/I&O's: Vital Signs Temp Pulse Resp BP Pulse Ox 98.3 F 90 20 H 118/91 H 98 11/29/19 06:33 11/29/19 08:53 11/29/19 06:33 11/29/19 06:33 11/29/19 06:33 Oxygen Flow Rate (L/min) 2 Oxygen Delivery Method Room Air Weight: 69 kg Body Mass Index (BMI) 25.3 Finger Stick Blood Glucose 102 Intake and Output for Last 24 Hours 11/27/19 11/28/19 11/29/19 23:59 23:59 23:59 Intake Total 2150 / 2150 0 / 0 Output Total 500 / 800 750 / 750 Balance 1650 / 1350 -750 / -750 Current Medications Acetaminophen (Tylenol) 650 mg PO Q6H PRN PRN PRN Reason: Pain Score 1-10/Temp > 100.7 F Albuterol Sulfate (Ventolin Aerosols) 2.5 mg INHALATION Q2H PRN PRN PRN Reason: SOB/Wheezing Lorazepam (Ativan Intensol) 1 mg SL Q4H PRN PRN PRN Reason: ANXIETY Morphine Sulfate (Roxanol (Ir Oral Solution)) 10 mg SL/PO Q1H PRN PRN PRN Reason: Pain Score 6-10/10, SOB Ondansetron HCl (Zofran) 4 mg IV Q8H PRN PRN PRN Reason: NAUSEA/VOMITING Discharge Diet: No Restrictions Home Medications: Medications to take at Discharge Acetaminophen [Tylenol Tablet] 650 mg PO Q6H PRN PRN tab 11/25/19 Bisacodyl [Dulcolax] 5 mg PO X1 PRN 11/28/19 Primary Care Physician: Cuba Gr Chi, MD [Primary Care Provider] - Disposition: Home with Hospice Minutes spent on discharge:: 45 Medical Necessity - Tobacco Use Smoking Status: Unknown if ever smoked Meaningful Use Info Meaningful Use Diagnoses (Choose all that apply): None applicable Code Visit Inpatient E&M: 72432 Disch Hosp
[2019-11-29 13:42] VITALS: BP 111/82; PULSE 91; RESP 22; TEMP 36.6; O2SAT 96
[2019-11-29 14:03] LABS: Pathologist Review Reviewed
== END 2019-11-29 14:17 | disposition hospice, home (50) | DRG 871 ==
LOC: ED 07:54 → ICU 14:56 → MS3 15:03
PROVIDERS: Emergency Provider Emergency Medicine; PCP Family Medicine Geriatric Medicine; Visit Provider Internal Medicine
DX: A41.9 Sepsis, unspecified organism (principal); D65 Disseminated intravascular coagulation [defibrination syndrome]; J15.6 Pneumonia due to other Gram-negative bacteria; J69.0 Pneumonitis due to inhalation of food and vomit; I50.32 Chronic diastolic (congestive) heart failure; R65.20 Severe sepsis without septic shock; Z66 Do not resuscitate; I27.20 Pulmonary hypertension, unspecified; I25.5 Ischemic cardiomyopathy; I25.10 Atherosclerotic heart disease of native coronary artery without angina pectoris; E03.9 Hypothyroidism, unspecified; E78.5 Hyperlipidemia, unspecified; M35.00 Sjogren syndrome, unspecified; Z95.5 Presence of coronary angioplasty implant and graft; K21.9 Gastro-esophageal reflux disease without esophagitis; I25.2 Old myocardial infarction; I11.0 Hypertensive heart disease with heart failure
CPT/HCPCS: 36600; 51702; 71045; 80048; 81001; 82803; 83605; 84484; 85025; 85610; 87040; 87086; 93005; 99285; J7030; A4216